=== PATIENT | male | born 1940 | race Caucasian/White ===

== ENCOUNTER → 2016-08-06 | Outpatient (CLI) | payer MEDICARE | END | disposition home or self-care (01) | LOC: LABWHC1 12:30 | PROVIDERS: ATTEND Orthopaedic Surgery | DX: Z01.812 Encounter for preprocedural laboratory examination (principal) | CPT/HCPCS: 86850; 86900; 86901 ==

== ENCOUNTER 2016-08-12 05:48 | Inpatient (IN) | payer MEDICARE ==
[~2016-08-12 05:48] MED LIST: ACETAMINOPHEN TAB 500 MG TAB PO ONE; MELOXICAM 7.5 MG TAB PO ONE; TRANEXAMIC ACID 1,000 MG in SODIUM CHLORIDE 0.9% 100 ML IVPB ONE
[2016-08-12] MEDS ORDERED: LIDOCAINE 1% 20 ML VIAL (10MG/ML) FOR IV START INTRADERMA PRN (05:58)
[2016-08-12] MEDS ORDERED: MIDAZOLAM 2 MG/2 ML VIAL IV PRN (05:58)
[2016-08-12] MEDS ORDERED: HYDROmorphone 1 MG/ML 1 ML SYRINGE IVP PRN ×4 (05:58→10:52)
[2016-08-12] MEDS ORDERED: FAMOTIDINE 20 MG/2 ML VIAL IV PRN (05:58)
[2016-08-12] MEDS ORDERED: ONDANSETRON 4 MG/2 ML VIAL IVP ONE (05:58)
[2016-08-12] MEDS: LACTATED RINGERS 1,000 ML IV SCH (06:33)
[2016-08-12 06:46] LABS: Glucose,Whole Blood 133 mg/dL (75-99)
[2016-08-12] MEDS ORDERED: TRANEXAMIC ACID 1,000 MG/10 ML VIAL ONE (07:50)
[2016-08-12] MEDS ORDERED: ceFAZolin 10 GM VIAL IVPB ONE (07:50)
[2016-08-12] MEDS ORDERED: ePHEDrine 50 MG/ML 1 ML AMP ONE (07:50)
[2016-08-12] MEDS ORDERED: SODIUM CHLORIDE 0.9% 1,000 ML BAG ONE (07:50)
[2016-08-12] MEDS ORDERED: MIDAZOLAM 2 MG/2 ML VIAL ONE (07:50)
[2016-08-12] MEDS ORDERED: ceFAZolin 1,000 MG VIAL ONE (07:50)
[2016-08-12] MEDS ORDERED: PROPOFOL 10 MG/ML 20 ML VIAL IV ONE (07:50)
[2016-08-12] MEDS ORDERED: SODIUM CHLORIDE 0.9% 100 ML BAG ONE ×2 (07:50)
[2016-08-12] MEDS: ceFAZolin 2 GM in SODIUM CHLORIDE 0.9% 100 ML IVPB ONE ×2 (07:56→11:31)
[2016-08-12] MEDS ORDERED: LACTATED RINGERS 1,000 ML IV ONE (08:40)
[2016-08-12] MEDS ORDERED: ceFAZolin 3,000 MG in SODIUM CHLORIDE 0.9% IRRIGATIO 3,000 ML IRRIGATION ONE (08:41)
[2016-08-12] MEDS: ROPIVACAINE 246.25 MG, EPINEPHrine 0.5 MG, KETOROLAC 30 MG, cloNIDine HCL/PF 80 MCG, WA... MISCELLANE ONE ×10 (08:42→09:59)
[2016-08-12] MEDS ORDERED: ROPIVACAINE 1,100 MG, SODIUM CHLORIDE 0.9% 330 ML MISCELLANE PRN ×2 (09:17)
--- NOTE | 2016-08-12 09:19 | P.ONQ ---
Anesthesiology Proc Note - PNB - Peripheral Nerve Block Performed Right Adductor Canal Indication: Acute Post-Operative Pain, Requested by physician (Zack Melgar) Sedation Type: Awake Preparation: Sterile Dressing Position: Supine Catheter: Indwelling Needle Types: On-Q Needle Size: 100mm (4") Needle Gauge: 20 Technique: Ultrasound Injectate: 0.5% Ropivacaine (see comment for volume) (22cc) Blood Aspirated: No Pain Paresthesia on Injection Noted: No Resistance on Injection: Normal Events: Uneventful and Well Tolerated
--- NOTE | 2016-08-12 10:42 | P.OP ---
Date of Procedure: 08/12/16 Preoperative Diagnosis: Failed right total knee arthroplasty Postoperative Diagnosis: Failed right total knee arthroplasty Procedure(s) Performed: Revision right total knee arthroplasty Implants: [employer] Legion Oxinium constrained femoral component size 6, right [employer] press-fit femoral stem, 18 mm x 120 mm [employer] Legion revision tibial baseplate size 5, right [employer] offset cable splicing technician, 6 mm [employer] legion press-fit tibial stem, 15 mm x 120 mm [employer]hew size 18 mm Legion XLPE PS articular insert, size 5-6 All components were cemented using 2 batches of Molly bone cement with tobramycin The articulation is ceramic on polyethylene. Anesthesia: spinal Surgeon: Zack Melgar Rug Frame Mounter #1: Shannon Otero Estimated Blood Loss (ml): 50 Pathology: other (Cultures Times 2. Frozen section. Bone) Condition: stable Disposition: PACU Indications for Procedure: This is a 76-year-old gentleman whose had a right total knee arthroplasty performed by myself approximately 4 years ago. He continues to have pain with his knee, and despite conservative treatment, he wishes to have his knee revised. He is aware of the possibility that a revision may not alleviate his pain. In his preoperative work out infection was ruled out. Informed consent was obtained. Operative Findings: Operative findings showed no concrete evidence for the patient's knee pain. The components were found to be well fixed, polyethylene showed no wear, and cultures and frozen section were provisionally negative. Description of Procedure: Patient was seen in the preoperative area consent was reviewed and operative site was marked with a skin marker. Patient was then brought to the operating room and given preoperative antibiotics intravenously. A spinal anesthetic was administered by the anesthesia department. A tourniquet was placed on the upper thigh and the lower extremity was prepped and draped in usual sterile fashion. A gram of transexamic acid was given. A universal timeout was then performed which confirmed the patient's name, surgical site, ALLERGIES, and consent. The lower extremity was then exsanguinated and tourniquet was inflated to 350 mmHg. A standard and anterior midline approach to the knee was performed following his prior scar, the scar being excised.. The skin and subcutaneous tissue was dissected down to the patellar tendon. A medial parapatellar arthrotomy was then performed. The knee was then extended, the patellar was everted, and the knee was again flexed. There is difficulty in everting the patella, and a quadriceps snip was performed. There was a small amount of clear fluid, which was cultured 2. A frozen section was obtained of the synovium, which was read as no significant acute inflammation. After scar was excised, the knee was able to be exposed. The femoral component was addressed first. Inspection, there is no signs of loosening of either the femoral or tibial patellofemoral components. Using a small saw, the cement implant interface was disrupted around the femur. Next an osteotome was used to mallet the femoral component off with very minimal bone loss. The bone underneath was inspected and found to be in excellent condition. Attention was then directed to the tibia. The poly-component was removed easily after the locking pin had been removed. Next, the same oscillating saw was used to disrupt the cement implant interface for the tibia. Tibial component was then removed with an osteotome with minimal bone loss as well. Again the bone was inspected and found to be in excellent condition. Attention was redirected to the femur. The canal wasn't opened and then hand reamed to a size 18 mm and a depth of 120 mm. Next the distals cutting guide was then placed and pinned on the distal femur. The distal femur was then cut with very minimal bone removed. Next the 4-in-1 cutting block was placed over the reamer and pinned in place after set for the appropriate rotation. Anterior posterior condyles were cut, as well as the anterior chamfer. Femoral trial was then placed and found to have an excellent fit. Next, the box cutting jig was placed and the bone was reamed to accommodate the box. An osteotome was used to ensure all bone and been removed from the femoral box. The femoral trial was then removed. Attention was redirected to the tibia. The tibial canal was then located, and then hand reamers were used to ream to a final size of 15 mm x 120 mm. The proximal tibial cutting guide was placed over the reamer set for the appropriate rotation slope and depth resection and pinned in place. Excellent tibia was then cut next the tibial trial was placed over the tibial reamer, and required the 6 mm offset adapter to allow for the most coverage without overhang. This was then pinned in place, and the tibial Boss was then reamed. The tibial reamer was then removed, and the femoral tibial trials were then placed. Sequential trialing was performed to a final size of 18 mm PS insert. Knee was able to fully extend and flex to 115 and was stable throughout all range of motion. Trials were then removed. The ports were then opened and preassembled on the back table. The cut surfaces of bone were then irrigated with pulsatile lavage. The posterior structures were injected with the ropivacaine solution. The knee was also irrigated with Irrisept solution. The cement was mixed, and the components were then cemented in place. The cement was allowed to harden with the knee in full extension. While the cement was hardening, the remaining soft tissues were injected with the ropivacaine solution. After the cemented hardened. The tourniquet was released, and hemostasis was obtained. A second gram of transexamic acid was given. The knee was again irrigated. The knee was again taken through range of motion and found to be stable throughout all range of motion of 0-130, and the patella tracked normally. The fascia was then closed with #2 strata fix suture. The subcutaneous tissue was closed with 3-0 Vicryl and 3-0 strata fix. Dermabond tape was used for the skin, and the patient was placed in a sterile dressing. Patient was then transferred to recovery room in stable condition. The assistant professor of communication MEHNAZ Leigh was required due the complexity surgery and the need for a skilled veterinary assistant. She assisted in positioning, draping , retraction, and closure of the wound.
[2016-08-12] MEDS ORDERED: hydrOXYzine PAMOATE 25 MG CAP PO PRN (10:52)
[2016-08-12] MEDS ORDERED: BISACODYL 10 MG SUPP RECTAL PRN (10:52)
[2016-08-12] MEDS ORDERED: ONDANSETRON 4 MG/2 ML VIAL IVP PRN (10:52)
[2016-08-12] MEDS ORDERED: HYDROcodone/APAP 5-325MG 1 EACH TAB PO PRN (10:52)
[2016-08-12] MEDS ORDERED: MAGNESIUM HYDROXIDE 2,400 MG/10 ML CUP PO PRN (10:52)
[2016-08-12] MEDS ORDERED: DIAZEPAM 5 MG TAB PO PRN ×2 (10:52)
[2016-08-12] MEDS ORDERED: NALOXONE 0.4 MG/ML 1 ML VIAL IV PRN (10:52)
[2016-08-12 11:04] LABS: Glucose,Whole Blood 162 mg/dL (75-99)
--- NOTE | 2016-08-12 11:10 | XR ---
EXAMINATION TYPE: XR knee limited RT DATE OF EXAM: 08/12/2016 11:04 AM CLINICAL HISTORY: Postoperative evaluation Two views of the right knee are submitted. Identified are changes of total knee arthroplasty with femoral and tibial components appearing well seated. Postsurgical soft tissue changes are noted. Alignment is anatomic.
[2016-08-12] MEDS: SODIUM CHLORIDE 0.9% 1,000 ML IV SCH ×2 (11:57→23:12)
[2016-08-12] MEDS: INSULIN LISPRO (humaLOG) 300 UNIT/3 ML VIAL SQ SCH ×3 (12:59→20:56)
[2016-08-12] MEDS: HYDROcodone/APAP 5-325MG 1 EACH TAB PO PRN ×2 (13:51→20:54)
[2016-08-12] MEDS: ceFAZolin 2 GM in SODIUM CHLORIDE 0.9% 100 ML IVPB SCH ×2 (15:50→23:12)
[2016-08-12 16:31] LABS: Glucose,Whole Blood 209 mg/dL (75-99)
[2016-08-12 20:13] LABS: Glucose,Whole Blood 251 mg/dL (75-99)
--- NOTE | 2016-08-12 20:14 | CONS ---
DATE OF CONSULTATION: 08/12/2016 REASON FOR CONSULTATION: Medical management requested by Dr. Melgar. CONSULTATION: This is a 76-year-old patient of Dr. Hayes who has undergone revision of right total knee arthroplasty. Post procedure no chest pain, shortness of breath, nausea, vomiting. No headache. No dizziness. Sitting up in a chair. His is at the bedside. Patient's chronic stable medical conditions include diabetes mellitus, type 2, hyperlipidemia, BPH. REVIEW OF SYSTEMS: CONSTITUTIONAL: None. HEENT: None. RESPIRATORY: None. CARDIOVASCULAR: None. GASTROINTESTINAL: None. GENITOURINARY: None. MUSCULOSKELETAL: Pain in the joints. HEMATOLOGICAL: None. LYMPHATICS: None. PSYCHIATRY: None. NEUROLOGICAL: None. PAST MEDICAL HISTORY: 1. Diabetes mellitus, type 2. 2. Hyperlipidemia. 3. BPH. 4. Osteoarthritis. PAST SURGICAL HISTORY: 1. Back surgery. 2. Joint replacement. 3. Right knee arthroplasty. 4. Bilateral knee replacement. SOCIAL HISTORY: . Smoked a pack a day for 20 years; stopped in 1977. Drinks one martini a day. FAMILY HISTORY: COPD. Father at the age of 86. HOME MEDICATIONS: 1. Metformin 1000 mg p.o. b.i.d. 2. Glucotrol XL 5 mg p.o. daily. 3. Flomax 0.4 mg p.o. at bedtime. 4. Pravachol 40 mg p.o. at bedtime. 5. Mobic 7.5 p.o. daily. 6. Tylenol 325 to 650 mg q.6 p.r.n. ALLERGIES: NONE. On examination, temperature 98.4, pulse 73, respiration 16, blood pressure 136/84, pulse ox 95% on room air. GENERAL APPEARANCE: Will built; BMI of 31.4. Sitting up in a chair. Comfortable. EYES: Pupils equal. Conjunctivae normal. HEENT: External appearance of nose and ears normal. Oral cavity normal. NECK: JVD not raised. Mass not palpable. RESPIRATORY: Effort normal. LUNGS: Fair air entry. CARDIOVASCULAR: First and second sounds normal. No edema. ABDOMEN: Soft, nontender. Liver and spleen not palpable. LYMPHATIC: No lymph node palpable in neck or axillae. PSYCHIATRY: Alert and oriented x3. Mood and affect normal. EXTREMITIES: Right knee in a dressing. INVESTIGATIONS: Accu-Cheks are noted. ASSESSMENT: 1. Revision right total knee arthroplasty for osteoarthritis. 2. Diabetes mellitus, type 2, chronically on oral hypoglycemic. 3. Hyperlipidemia, chronic. 4. Benign prostatic hypertrophy, chronic. 5. Primary osteoarthritis in multiple joints, bilateral. PLAN: Home medications are resumed. Accu-Cheks will be followed. For DVT prophylaxis, patient is on aspirin per Orthopedics. Care was discussed with the patient. Questions were answered. Thank you, Dr. Melgar.
[2016-08-12] MEDS ORDERED: TAMSULOSIN 0.4 MG CAP.ER.24H PO SCH (21:00)
[2016-08-12] MEDS ORDERED: PRAVASTATIN SODIUM 40 MG TAB PO SCH (21:00)
[2016-08-12] MEDS ORDERED: SENNOSIDES-DOCUSATE SODIUM 1 EACH TAB PO SCH (21:00)
[2016-08-12] MEDS: ASPIRIN 325 MG TAB PO SCH (21:10)
[2016-08-12] MEDS: metFORMIN 500 MG TAB PO SCH (21:10)
[2016-08-13 00:52] VITALS: RESP 16
[2016-08-13] MEDS: HYDROcodone/APAP 5-325MG 1 EACH TAB PO PRN ×2 (04:12→09:57)
[2016-08-13 06:54] LABS: Glucose,Whole Blood 133 mg/dL (75-99)
[2016-08-13] MEDS: LACTATED RINGERS 1,000 ML IV SCH (07:58)
[2016-08-13] MEDS: INSULIN LISPRO (humaLOG) 300 UNIT/3 ML VIAL SQ SCH (07:59)
[2016-08-13] MEDS: metFORMIN 500 MG TAB PO SCH (08:00)
[2016-08-13] MEDS: ASPIRIN 325 MG TAB PO SCH (08:00)
[2016-08-13 08:34] LABS: Basophils % (A) 0 %; CH 31.6; CHCM 35.1; Eosinophils # (A) 0.2 k/uL (0-0.7); Eosinophils % (A) 2 %; HCT 37.2 % (39.0-53.0); HDW 2.93; HGB 12.6 gm/dL (13.0-17.5); Luc # (Auto) 0.13; Luc % (Auto) 1; Lymphocytes # (A) 0.9 k/uL (1.0-4.8); Lymphocytes % (A) 10 %; MCH 30.6 pg (25.0-35.0); MCHC 33.8 g/dL (31.0-37.0); MCV 90.4 fL (80.0-100.0); Mean Platelet Volume 7.8; Monocytes # (A) 1.1 k/uL (0-1.0); Monocytes % (A) 12 %; Neutrophils # (A) 7.1 k/uL (1.3-7.7); Neutrophils % (A) 75 %; RBC 4.12 m/uL (4.30-5.90); WBC 9.5 k/uL (3.8-10.6)
--- NOTE | 2016-08-13 08:44 | P.PN ---
Progress Note - Text The patient is status post right adductor canal catheter placement. The catheter was placed for postoperative pain control, status post revision total right knee arthroplasty. Ropivacaine 0.2% is infusing at 10 mLs per hour. The patient has no complaints of right lower extremity numbness or weakness. Patient's VAS score is[3-4-10. The patient states his pain is predominantly in the posterior right knee region. Assessment: Patient's adductor canal catheter is in place and working appropriately. Plan: continue infusion and adjust it as needed.
[2016-08-13] MEDS ORDERED: MELOXICAM 7.5 MG TAB PO SCH (09:00)
[2016-08-13 09:28] VITALS: BP 126/60; PULSE 75; TEMP 97.9
[2016-08-13 11:28] LABS: Glucose,Whole Blood 164 mg/dL (75-99)
[2016-08-13 11:39] LABS: Hemoglobin A1C 6.6 % (4.2-6.1)
--- NOTE | 2016-08-13 11:52 | P.DS ---
Providers Date of admission: 08/12/16 05:48 Expected date of discharge: 08/13/16 Attending physician: Zack Melgar Consults: 08/12/16 10:52 Consult Physician Routine Consulting Provider: David Katz Consult Reason/Comments: medical management Do you want consulting provider notified?: Yes Primary care physician: Nigel Hayes - Discharge Diagnosis(es) (1) Failed total knee, right Current Visit: Yes Status: Acute (2) Status post revision of total replacement of right knee Current Visit: Yes Status: Acute Hospital Course: This is a 76-year-old gentleman with history of right total knee arthroplasty performed approximately 4 years ago. The patient continued to have pain in his right knee and despite conservative treatment wished to proceed with total knee revision. Patient was seen preoperatively and medically cleared for surgery by Dr. Hayes. Patient was admitted to [facility] on 08/12/2016 and underwent the procedure with Dr. Zack Melgar. The procedure was performed without competitions or sequelae. The patient has done well postoperatively. He was seen and evaluated at bedside with Dr. Zack Melgar this morning. He states his pain is reasonably controlled. Denies fevers, chills, nausea, vomiting, shortness of breath. Vital signs are stable. Dressing is clean dry and intact. Incision appears fine with no erythema or active drainage. Calf is soft and nontender. He is able to perform straight leg raise. Calf is soft and nontender. Sensation and circulatory status is intact. The patient is orthopedic medically stable for discharge to home today if he does well with therapy. The patient wishes to be discharged home today as well. Pertinent Studies: Microbiology 08/12/16 08:30 Knee - Right Gram Stain - Preliminary 08/12/16 08:30 Knee - Right Wound Culture - Preliminary 08/12/16 08:30 Knee - Right Anaerobic Culture - Preliminary 08/12/16 08:25 Knee - Right Gram Stain - Preliminary 08/12/16 08:25 Knee - Right Wound Culture - Preliminary 08/12/16 08:25 Knee - Right Anaerobic Culture - Preliminary Laboratory Tests 08/13/16 07:58 WBC 9.5 RBC 4.12 L Hgb 12.6 L Hct 37.2 L MCV 90.4 MCH 30.6 Patient Condition at Discharge: Good Plan - Discharge Summary New Discharge Prescriptions: Aspirin 325 mg PO BID #60 tab HYDROcodone/APAP 7.5-325MG [[place] 7.5] 1 - 2 each PO Q6HR PRN #90 tab PRN Reason: Pain Sennosides-Docusate Sodium [Senokot-S] 2 tab PO DAILY #60 tablet Discharge Medication List Acetaminophen Tab [Tylenol] 325 - 650 mg PO Q6H PRN 08/02/16 [History] Meloxicam [Mobic] 7.5 mg PO DAILY 08/02/16 [History] Pravastatin Sodium [Pravachol] 40 mg PO HS 08/02/16 [History] Tamsulosin [Flomax] 0.4 mg PO HS 08/02/16 [History] glipiZIDE XL [Glucotrol XL] 5 mg PO QAM 08/02/16 [History] metFORMIN HCL 1,000 mg PO BID 08/02/16 [History] Aspirin 325 mg PO BID #60 tab 08/13/16 [Rx] HYDROcodone/APAP 7.5-325MG [[place] 7.5] 1 - 2 each PO Q6HR PRN #90 tab 08/13/16 [ Rx] Sennosides-Docusate Sodium [Senokot-S] 2 tab PO DAILY #60 tablet 08/13/16 [Rx] Follow up Appointment(s)/Referral(s): Zack Melgar DO [Doctor of Osteopathic Medicine] - 08/26/16 1:50 pm Ambulatory/Diagnostic Orders: Continuous Passive Motion (CPM) Machine [DME.AMB1] Location: Determined By Patient Ambulatory Physical Therapy Order [THER.AMB] Location: Determined By Patient Activity/Diet/Wound Care/Special Instructions: CPM - [facility] - [phone] - call when you get home for delivery of CPM Walker - has at home Outpatient physical therapy - phone number for [facility] Outpatient physical therapy on [facility] - [phone] Weightbearing as tolerated with a walker CPM daily Okay to shower after 48 hours with no drainage, do not scrub incision Call OA [phone] with questions or concerns Discharge Disposition: HOME SELF-CARE
--- NOTE | 2016-08-14 22:14 | PN ---
DATE OF SERVICE: 08/13/2016 PRESENTING COMPLAINT: Right knee surgery. INTERVAL HISTORY: This patient was seen by me yesterday morning on 08/13/2016. The patient is doing well. No chest pain. No shortness of breath. No nausea or vomiting. Did work with physical therapy. Has been out of bed. Review of systems done for constitutional, cardiovascular, GI, pulmonary; relevant findings as above. Current medications are reviewed. On examination, temperature 97.9, pulse 75. Respiratory rate 14, blood pressure 126/60, pulse ox 94% on room air. GENERAL APPEARANCE: Sitting up, comfortable. EYES: Pupils equal. Conjunctivae normal. NECK: JVD not raised. Mass not palpable. RESPIRATORY: Effort normal. Lungs are clear. CARDIOVASCULAR: First and second sounds normal. No edema. ABDOMEN: Soft, nontender. Liver and spleen not palpable. Psychiatric alert and oriented times three. Mood and affect normal. INVESTIGATIONS: White count 9.5, hemoglobin 12.6. ASSESSMENT: 1. Revision right total knee arthroplasty for osteoarthritis. 2. Type 2 diabetes mellitus, chronically on oral hypoglycemic. 3. Chronic hyperlipidemia. 4. Benign prostatic hypertrophy, chronic. 5. Primary osteoarthritis of multiple joints, bilateral. PLAN: The patient is stable. Continue current medication and treatment plan. Care was discussed with the patient. Thank you, Dr. Melgar.
== END 2016-08-13 12:15 | disposition home or self-care (01) | DRG 468 ==
LOC: 2ORMAIN 05:48 → 3SUR 10:59
PROVIDERS: ADMIT Orthopaedic Surgery; ATTEND Orthopaedic Surgery
PROC: 0SRC0J9 Replacement of Right Knee Joint with Synthetic Substitute, Cemented, Open Approach (ICD-10-PCS; principal; 2016-08-12 07:30)
PROC: 0SPC09Z Removal of Liner from Right Knee Joint, Open Approach (ICD-10-PCS; principal; 2016-08-12 07:30)
PROC: 0SPC0JZ Removal of Synthetic Substitute from Right Knee Joint, Open Approach (ICD-10-PCS; principal; 2016-08-12 07:30)
PROC: 0SUV09Z Supplement Right Knee Joint, Tibial Surface with Liner, Open Approach (ICD-10-PCS; principal; 2016-08-12 07:30)
DX: T84.092A Other mechanical complication of internal right knee prosthesis, initial encounter (principal); E11.9 Type 2 diabetes mellitus without complications; Y79.2 Prosthetic and other implants, materials and accessory orthopedic devices associated with adverse incidents; E78.5 Hyperlipidemia, unspecified; M15.9 Polyosteoarthritis, unspecified; N40.0 Benign prostatic hyperplasia without lower urinary tract symptoms; Z87.891 Personal history of nicotine dependence; Z79.84 Long term (current) use of oral hypoglycemic drugs; Z79.899 Other long term (current) drug therapy
CPT/HCPCS: 36415; 80048; 83036; 85025; 85610; 85652; 85730; 86140; 86850; 86900; 86901; 87040; 87070; 87075; 87205; 88305; 88331; 94760; 96360; 96361; 99284

== ENCOUNTER 2016-08-13 18:42 | Emergency (ER) | payer MEDICARE ==
[2016-08-13] MEDS ORDERED: HYDROcodone/APAP 10-325MG 1 EACH TAB PO ONE (19:06)
[2016-08-13] MEDS ORDERED: SODIUM CHLORIDE 0.9% 1,000 ML IV ONE (19:17)
[2016-08-13 20:16] LABS: Glucose,Whole Blood 167 mg/dL (75-99)
--- NOTE | 2016-08-13 20:21 | ED ---
Extremity Problem HPI - General Chief complaint: Extremity Problem,Nontraumatic Stated complaint: Post op knee problems Time Seen by Provider: 08/13/16 18:54 Source: patient, EMS, RN notes reviewed Mode of arrival: EMS - History of Present Illness Initial comments: Patient is a 76-year-old male presenting to the [facility] one day after right knee replacement stating he has increased pain. Patient reports that he was discharged earlier today. He states that the pain is worse with movement. He states that he does have a subcu pain pump in place on his right thigh. He states that when he was at home today the visiting physical therapist came and started him on the CPM machine. He states that he felt tired and was having a hard time being able to move around. He states he is Type 2 diabetic. He states he did not take his oral pain medication or aspirin anticoagulant since being discharged. Patient denies any redness to the knee. He denies any decreased sensation to the lower leg. He denies any hip or upper thigh pain. - Related Data Home Medications Medication Instructions Recorded Confirmed Acetaminophen Tab [Tylenol] 650 mg PO Q6H PRN 08/02/16 08/13/16 Meloxicam [Mobic] 7.5 mg PO BID PRN 08/02/16 08/13/16 Pravastatin Sodium [Pravachol] 40 mg PO HS 08/02/16 08/13/16 Tamsulosin [Flomax] 0.4 mg PO HS 08/02/16 08/13/16 glipiZIDE XL [Glucotrol XL] 5 mg PO QAM 08/02/16 08/13/16 metFORMIN HCL 1,000 mg PO BID 08/02/16 08/13/16 HYDROcodone/APAP 7.5-325MG [[place] 2 tab PO Q6HR PRN 08/13/16 08/13/16 7.5-325] HYDROcodone/APAP 7.5-325MG [[place] 1 tab PO Q6HR PRN 08/13/16 08/13/16 7.5] Previous Rx's Medication Instructions Recorded Aspirin 325 mg PO BID #60 tab 08/13/16 Sennosides-Docusate Sodium 2 tab PO DAILY #60 tablet 08/13/16 [Senokot-S] Allergies Allergy/AdvReac Type Severity Reaction Status Date / Time No Known Allergies Allergy Verified 08/13/16 18:48 Review of Systems ROS Statement: Those systems with pertinent positive or pertinent negative responses have been documented in the HPI. ROS Other: All systems not noted in ROS Statement are negative. Past Medical History Additional Past Medical History / Comment(s): NIDDM type II History of Any Multi-Drug Resistant Organisms: None Reported Additional Past Surgical History / Comment(s): 08/12/16 Revision total R knee arthroplasty. Other surgical hx: BILATERAL KNEE REPLACEMENTS Additional Past Anesthesia/Blood Transfusion Reaction / Comment(s): Pt has had PONV and BROTHER HAD PONV. Past Psychological History: No Psychological Hx Reported Additional Psychological History / Comment(s): Pt resides with his spouse. He is independent. Smoking Status: Never smoker Past Alcohol Use History: Rare Past Drug Use History: None Reported - Past Family History Father Additional Family Medical History / Comment(s): Father at the age of 86yrs. Mother Additional Family Medical History / Comment(s): Mother at the age of 84yrs. General Exam - General Exam Comments Initial Comments: Patient is a pleasant 76-year-old male. He does not appear to be in any acute distress. General appearance: alert, in no apparent distress Head exam: Present: atraumatic, normocephalic, normal inspection Eye exam: Present: normal appearance, PERRL, EOMI. Absent: scleral icterus, conjunctival injection, periorbital swelling ENT exam: Present: normal exam, mucous membranes moist Neck exam: Present: normal inspection. Absent: tenderness, meningismus, lymphadenopathy Respiratory exam: Present: normal lung sounds bilaterally. Absent: respiratory distress, wheezes, rales, rhonchi, stridor Cardiovascular Exam: Present: regular rate, normal rhythm, normal heart sounds. Absent: systolic murmur, diastolic murmur, rubs, gallop, clicks GI/Abdominal exam: Present: soft, normal bowel sounds. Absent: distended, tenderness, guarding, rebound, rigid Right Upper Leg exam: Present: normal inspection, full ROM. Absent: swelling Knee exam: Present: tenderness (Patient reports a slightly tender over the knee. No evidence of significant swelling would be abnormal compared to a person had recent surgery.), swelling (minor). Absent: normal inspection ( Patient has evidence of a recent surgery with incision site over the right knee. No evidence of drainage or erythema over the incision site.) Lower Leg exam: Present: normal inspection, full ROM Ankle exam: Present: normal inspection, full ROM Foot/Toe exam: Present: normal inspection, full ROM Course Vital Signs 08/13/16 08/13/16 18:48 22:45 Temperature 97.1 F L 97 F L Pulse Rate 82 80 Respiratory 16 20 Rate Blood Pressure 162/80 177/84 O2 Sat by Pulse 98 96 Oximetry Medical Decision Making - Medical Decision Making Is a 76-year-old male presenting to the after being discharged today after a right knee surgery with increased right knee pain. He does have a subcu pain pump. He states he has felt increasingly tired this evening. Labs are obtained. Patient was given a Doppler ultrasound to rule out possible blood clot. Due to no acute trauma or injury to the leg we will hold on doing Xrays at this time. All labwork was reviewed to be negative. Patient does not have a DVT. Patient was saying that he is still feeling that he is unable to walk and put pressure on his leg and his concerns and fall. Admission was offered as patient was initially adamant about being admitted. When I discussed that there is going to be possibility that this admission would not be covered by insurance because it does not necessarily meet criteria for admission. When this was questioned about the insurance and can be able to cover the visit he stated that he does not want to be admitted. Patient reports that he wants to go home at this time. Again admission was offered, but He states he does want to go home. He will be discharged to take at home pain medication and to follow up with therapy tomorrow. I advised consult with PCP if he feels that he needs to be moved to a rehab facility. Patient was able to walk with a walker when leaving the . - Lab Data Result diagrams: 08/13/16 20:10 08/13/16 20:10 Lab Results 08/13/16 08/13/16 08/13/16 Range/Units 20:10 20:10 20:10 WBC 9.3 (3.8-10.6) k/uL RBC 4.39 (4.30-5.90) m/uL Hgb 13.0 (13.0-17.5) gm/dL Hct 39.5 (39.0-53.0) % MCV 89.8 (80.0-100.0) fL MCH 29.7 (25.0-35.0) pg MCHC 33.0 (31.0-37.0) g/dL RDW 13.0 (11.5-15.5) % Plt Count 190 (150-450) k/uL Neutrophils % 78 % Lymphocytes % 7 % Monocytes % 12 % Eosinophils % 1 % Basophils % 1 % Neutrophils # 7.3 (1.3-7.7) k/uL Lymphocytes # 0.7 L (1.0-4.8) k/uL Monocytes # 1.1 H (0-1.0) k/uL Eosinophils # 0.1 (0-0.7) k/uL Basophils # 0.1 (0-0.2) k/uL ESR 28 H (0-15) mm/hr PT 10.0 (9.0-12.0) sec INR 1.0 (<1.1) APTT 23.5 (22.0-30.0) sec Sodium 139 (137-145) mmol/L Potassium 4.2 (3.5-5.1) mmol/L Chloride 103 (98-107) mmol/L Carbon Dioxide 24 (22-30) mmol/L Anion Gap 12 mmol/L BUN 14 (9-20) mg/dL Creatinine 0.90 (0.66-1.25) mg/dL Est GFR (MDRD) Af Amer >60 (>60 ml/min/1.73 sqM) Est GFR (MDRD) Non-Af >60 (>60 ml/min/1.73 sqM) Glucose 168 H (74-99) mg/dL POC Glucose (mg/dL) (75-99) mg/dL POC Glu Line Installation Supervisor ID Calcium 8.9 (8.4-10.2) mg/dL C-Reactive Protein 200.2 H (<10.0) mg/L 08/13/16 Range/Units 20:15 WBC (3.8-10.6) k/uL RBC (4.30-5.90) m/uL Hgb (13.0-17.5) gm/dL Hct (39.0-53.0) % MCV (80.0-100.0) fL MCH (25.0-35.0) pg MCHC (31.0-37.0) g/dL RDW (11.5-15.5) % Plt Count (150-450) k/uL Neutrophils % % Lymphocytes % % Monocytes % % Eosinophils % % Basophils % % Neutrophils # (1.3-7.7) k/uL Lymphocytes # (1.0-4.8) k/uL Monocytes # (0-1.0) k/uL Eosinophils # (0-0.7) k/uL Basophils # (0-0.2) k/uL ESR (0-15) mm/hr PT (9.0-12.0) sec INR (<1.1) APTT (22.0-30.0) sec Sodium (137-145) mmol/L Potassium (3.5-5.1) mmol/L Chloride (98-107) mmol/L Carbon Dioxide (22-30) mmol/L Anion Gap mmol/L BUN (9-20) mg/dL Creatinine (0.66-1.25) mg/dL Est GFR (MDRD) Af Amer (>60 ml/min/1.73 sqM) Est GFR (MDRD) Non-Af (>60 ml/min/1.73 sqM) Glucose (74-99) mg/dL POC Glucose (mg/dL) 167 H (75-99) mg/dL POC Glu Line Installation Supervisor ID [place] Calcium (8.4-10.2) mg/dL C-Reactive Protein (<10.0) mg/L - Radiology Data Radiology results: report reviewed US of leg shows no evidence of DVT. Disposition Clinical Impression: Status post right knee replacement, Knee pain Disposition: HOME SELF-CARE Condition: Good Instructions: Knee Pain (ED) Additional Instructions: Patient instructed to take at home pain medications. Avoid bearing weight as much as possible. Follow-up with physical therapy and rehab services tomorrow. Call family doctor concerned about being in a continuous rehab facility. Return to the [facility] if any alarming signs or symptoms occur. Patient instructed to reclining chair into avoid ambulating as much as possible. Take aspirin and pain medications as prescribed. Referrals: Nigel Hayes DO [Primary Care Provider] - 1-2 days Time of Disposition: 22:37
[2016-08-13 20:25] LABS: Basophils # (A) 0.1 k/uL (0-0.2); Basophils % (A) 1 %; CH 31.7; CHCM 35.4; Eosinophils # (A) 0.1 k/uL (0-0.7); Eosinophils % (A) 1 %; HCT 39.5 % (39.0-53.0); HDW 2.89; Luc # (Auto) 0.11; Luc % (Auto) 1; Lymphocytes # (A) 0.7 k/uL (1.0-4.8); Lymphocytes % (A) 7 %; MCH 29.7 pg (25.0-35.0); MCV 89.8 fL (80.0-100.0); Mean Platelet Volume 7.9; Monocytes # (A) 1.1 k/uL (0-1.0); Monocytes % (A) 12 %; Neutrophils # (A) 7.3 k/uL (1.3-7.7); Neutrophils % (A) 78 %; RBC 4.39 m/uL (4.30-5.90); WBC 9.3 k/uL (3.8-10.6); WBC (Perox) 9.59
[2016-08-13 20:43] LABS: Anion Gap 12 mmol/L; Blood Urea Nitrogen 14 mg/dL (9-20); Calcium 8.9 mg/dL (8.4-10.2); Carbon Dioxide 24 mmol/L (22-30); Chloride 103 mmol/L (98-107); Glucose 168 mg/dL (74-99); Non-African American GFR(MDRD) >60 (>60 ml/min/1.73 sqM); Potassium 4.2 mmol/L (3.5-5.1); Sodium 139 mmol/L (137-145)
[2016-08-13 20:51] LABS: Partial Thromboplastin Time 23.5 sec (22.0-30.0)
--- NOTE | 2016-08-13 21:03 | US ---
EXAMINATION TYPE: US venous doppler duplex LE RT DATE OF EXAM: 08/13/2016 8:51 PM COMPARISON: NONE CLINICAL HISTORY: right knee pain, pt had 2nd total knee replacement done on right side yesterday. SIDE PERFORMED: right VESSELS IMAGED: External Iliac Vein (EIV) Common Femoral Vein Deep Femoral Vein Greater Saphenous Vein * Femoral Vein Popliteal Vein Small Saphenous Vein * Proximal Calf Veins (* superficial vessels) TECHNOLOGIST IMPRESSION: Right Leg: Appears negative for DVT IMPRESSION: Normal exam. No evidence of deep venous thrombosis in the right leg.
[2016-08-13 21:09] LABS: C Reactive Protein 200.2 mg/L (<10.0); Erythrocyte Sedimentation Rate 28 mm/hr (0-15)
[2016-08-13 22:47] VITALS: BP 177/84; PULSE 80; RESP 20; TEMP 97
== END 2016-08-13 22:48 | disposition home or self-care (01) ==
LOC: EC 18:42
DX: M25.561 Pain in right knee (principal); E11.9 Type 2 diabetes mellitus without complications; Z96.651 Presence of right artificial knee joint; Z79.84 Long term (current) use of oral hypoglycemic drugs; Z79.82 Long term (current) use of aspirin; Z79.899 Other long term (current) drug therapy
CPT/HCPCS: 36415; 80048; 85025; 85610; 85652; 85730; 86140; 87040; 96360; 96361; 99284

== ENCOUNTER → 2016-11-14 | Day surgery (SDC) | payer MEDICARE ==
[~2016-11-14] MED LIST changes: -ACETAMINOPHEN TAB 500 MG TAB PO ONE; -MELOXICAM 7.5 MG TAB PO ONE; +SODIUM CHLORIDE 0.9% 250 ML in EMPTY BAG 1 BAG IV PRN; +SODIUM CHLORIDE 0.9% 500 ML in EMPTY BAG 1 BAG IV PRN; -TRANEXAMIC ACID 1,000 MG in SODIUM CHLORIDE 0.9% 100 ML IVPB ONE
[2016-11-14 13:20] VITALS: BP 167/81; PULSE 82; RESP 16; TEMP 98.3
[2016-11-14 14:49] LABS: Total Protein 6.6 g/dL (6.3-8.2)
--- NOTE | 2016-11-14 14:53 | XR ---
EXAMINATION TYPE: XR chest 1V portable DATE OF EXAM: 11/14/2016 2:39 PM HISTORY: Shortness of breath. COMPARISON: None. TECHNIQUE: Single view of the chest is submitted. FINDINGS: Demonstrated are scattered senescent parenchymal change. There is left basilar opacity. Small residual effusion noted. No evidence for pneumothorax. The heart is stable. Hilar and mediastinal structures are within normal limits. Degenerative changes are seen of the dorsal spine. IMPRESSION: 1. There is left basilar opacity. Small residual effusion noted. No evidence for pneumothorax.
[2016-11-14 17:46] LABS: RBC, Body Fluid 40750 /uL
--- NOTE | 2016-11-14 22:53 | PCN ---
DATE OF PROCEDURE: 11/14/2016 PROCEDURE DONE: Left thoracentesis. INDICATIONS: 1. Shortness of breath. 2. Left-sided pleural effusion. 3. Pneumonia. OPERATIVE DETAIL: Patient was prepared and draped in the usual fashion. Ultrasound was utilized to locate the depth of maximum fluid collection. 1% lidocaine was utilized into the posterior posterolateral thoracic wall on the eighth intercostal space above the upper margin of the rib. About 1% lidocaine was infiltrated followed by placement of the needle into the pleural space where blood-tinged was aspirated followed by making a stab incision and through the stab incision, which was less than one eighth of a centimeter, the catheter and needle was placed. The needle was withdrawn. Catheter left in position and 1 liter of pleural fluid aspirated. Patient tolerated the procedure well. No complication noted. Postprocedure chest x-ray is pending.
== END ==
LOC: PROCWHC3 12:58
PROVIDERS: ATTEND Internal Medicine Sleep Medicine
DX: J90 Pleural effusion, not elsewhere classified (principal); J18.9 Pneumonia, unspecified organism; Z72.0 Tobacco use
CPT/HCPCS: 32554; 32555; 36415; 71010; 76604; 82945; 83615; 84155; 84157; 87070; 87102; 87116; 87205; 87206; 88108; 88305; 89050

== ENCOUNTER → 2016-11-14 | Outpatient (CLI) | payer MEDICARE ==
--- NOTE | 2016-11-14 13:09 | US ---
EXAMINATION TYPE: US chest DATE OF EXAM: 11/14/2016 12:54 PM COMPARISON: NONE CLINICAL HISTORY: J90 Plueral effusion. Pt states xray at different facility showed pleural effusion left chest EXAM MEASUREMENTS: Left Pleural Effusion fluid pocket: 11.0 cm Left skin to fluid thickness: 4.9 cm Left side marked for possible thoracentesis outside the dept. Pulmonologists are able to review the images in the patient?s EMR. IMPRESSIONS: Pleural effusion
== END | disposition home or self-care (01) ==
LOC: RADUSWWP 12:42
PROVIDERS: ATTEND Internal Medicine Sleep Medicine
DX: J90 Pleural effusion, not elsewhere classified (principal)
CPT/HCPCS: 76604

== ENCOUNTER → 2016-11-19 | Outpatient (CLI) | payer MEDICARE ==
[2016-11-19 08:31] LABS: Blood Urea Nitrogen 13 mg/dL (9-20); Non-African American GFR(MDRD) >60 (>60 ml/min/1.73 sqM)
--- NOTE | 2016-11-19 09:02 | CT ---
EXAMINATION TYPE: CT chest w con DATE OF EXAM: 11/19/2016 8:49 AM COMPARISON: NONE HISTORY: just had a large amount of blood drained from left lung, unknown cause CT DLP: 551.1 mGycm Automated exposure control for dose reduction was used. CONTRAST: CT scan of the chest is performed with IV Contrast, patient injected with 100 mL of Omnipaque 300. FINDINGS: LUNGS: There is a large left-sided pleural effusion extending from the lung base through the left kami g apex with maximal AP dimension of 7.3 cm. There are areas of nodular pleural thickening. There is l eft lower lobe atelectatic change. Underlying mass is difficult to exclude. The right lung is somewha t hyperinflated the however is free of mass or nodule. MEDIASTINUM: There are no greater than 1 cm hilar or mediastinal lymph nodes. No pericardial effusi on is seen. Thoracic aorta is of normal caliber. The heart is not enlarged. UPPER ABDOMEN: Hypoattenuating suspicious hepatic lesions are noted with the largest lesion identifie d within the anterior segment right hepatic lobe and measuring 2.8 cm. A second lesion is seen within the hepatic dome and measures 1.7 cm a third lesion measuring 1.1 cm lateral segment left hepatic lo be. 2 or 3 additional subcentimeter left hepatic lobe lesions are too small to appropriately characte rize. There is mild hepatic steatosis. OTHER: No additional significant abnormality is seen. IMPRESSION: 1. Large left-sided pleural effusion as noted with nodular areas of pleural thickening. Left lower lo be atelectasis with underlying mass difficult to exclude. 2. Findings highly suspicious for metastatic disease to the liver.
== END | disposition home or self-care (01) ==
LOC: RADCTMAIN 07:53
PROVIDERS: ATTEND Internal Medicine Sleep Medicine
DX: J90 Pleural effusion, not elsewhere classified (principal); J98.4 Other disorders of lung; J98.11 Atelectasis
CPT/HCPCS: 82565; 84520; 71260; 36415; Q9967

== ENCOUNTER → 2016-11-28 | Day surgery (SDC) | payer MEDICARE ==
[2016-11-28 08:53] VITALS: RESP 16; TEMP 97.7
[2016-11-28 10:28] VITALS: BP 156/78; PULSE 78
--- NOTE | 2016-11-28 10:44 | XR ---
EXAMINATION TYPE: XR chest 1V portable DATE OF EXAM: 11/28/2016 10:16 AM COMPARISON: 11/14/2016 INDICATION: Postthoracentesis left pleural effusion TECHNIQUE: Single frontal view of the chest is obtained. FINDINGS: The heart size is normal. The pulmonary vasculature is normal. There is a moderate left pleural effusion. No left-sided pneumothorax is evident. The right lung appe ars clear. IMPRESSION: 1. No pneumothorax postthoracentesis. 2. Left side moderate pleural effusion.
[2016-11-28 13:56] LABS: RBC, Body Fluid 95000 /uL
[2016-11-28 16:10] LABS: Glucose, BF Source Pleural Fluid; LDH, Body Fluid Source Pleural Fluid; T. Protein, Body Fluid Source Pleural Fluid; Total Protein, Body Fluid 4400 mg/dL
--- NOTE | 2016-11-30 08:30 | PCN ---
DATE OF PROCEDURE: 11/28/2016 PROCEDURE PERFORMED: Left thoracentesis. INDICATIONS: 1. Recurrent left pleural effusion. 2. Shortness breath. 3. Chest pain. 4. Gastrointestinal bleed. OPERATIVE DETAIL: Patient was prepared and draped in the usual fashion. Informed consent obtained from the patient. The ultrasound was utilized to sada the area of maximum depth. 1% lidocaine was infiltrated in the posterolateral wall on the eighth intercostal space after adequate anesthesia. A small stab incision was performed followed by placement of catheter and needle. The needle was withdrawn. Catheter left in position and 1.7 liters of dark pleural fluid was aspirated. Patient tolerated the procedure well. No complication noted. Fluid is sent for Gram stain, culture and cytology, cell count and diff.
== END ==
LOC: PROCWHC3 08:38
PROVIDERS: ATTEND Internal Medicine Sleep Medicine
DX: J90 Pleural effusion, not elsewhere classified (principal); K92.2 Gastrointestinal hemorrhage, unspecified; R07.9 Chest pain, unspecified; R06.02 Shortness of breath
CPT/HCPCS: 32554; 71010; 76604; 82150; 82945; 83615; 84157; 87070; 87102; 87116; 87205; 87206; 88108; 88305; 89050

== ENCOUNTER → 2016-11-28 | Outpatient (CLI) | payer MEDICARE ==
--- NOTE | 2016-11-28 09:18 | US ---
EXAMINATION TYPE: US chest DATE OF EXAM: 11/28/2016 8:31 AM COMPARISON: CT 11/19/2016 CLINICAL HISTORY: 76-year-old male J90 pleural effusion. Left pleural effusion. TECHNIQUE: Multiple sonographic images of the left posterior lower thorax for assessment of pleural e ffusion. The right side was also scanned. FINDINGS: EXAM MEASUREMENTS: Left Pleural Effusion fluid pocket: 10.6 cm Left skin surface to fluid distance: 3.7 cm Underlying atelectatic lung. No effusion on the right. Right side NOT MARKED for possible thoracentesis outside the dept. Left side MARKED for possible thoracentesis outside the dept. Pulmonologists are able to review the images in the patient?s EMR. IMPRESSIONS: Large left pleural effusion with marking performed.
== END | disposition home or self-care (01) ==
LOC: RADUSWWP 08:16
PROVIDERS: ATTEND Internal Medicine Sleep Medicine
DX: J90 Pleural effusion, not elsewhere classified (principal)
CPT/HCPCS: 76604

== ENCOUNTER → 2016-11-29 | Outpatient (CLI) | payer MEDICARE ==
--- NOTE | 2016-11-29 08:53 | US ---
EXAMINATION TYPE: US liver DATE OF EXAM: 11/29/2016 7:54 AM COMPARISON: CT chest November 19, 2016 CLINICAL HISTORY: K76.89 Hepatic Lesion. EXAM MEASUREMENTS: Liver Length: 14.0 cm Gallbladder Wall: 0.1 cm CBD: 0.5 cm Right Kidney: 12.1 x 5.9 x 5.8 cm Pancreas: Obscured by bowel gas Liver: lt lobe lesion 2.4 x 1.8 cm ; 2 lesions seen right lobe; 3.4 x 2.0 cm and 2.2 x 2.2 cm * best scanned intercostal Gallbladder: No stones seen Evidence for sonographic Loza's sign: no CBD: wnl Right Kidney: No hydronephrosis or masses seen Solid appearing hepatic lesion as described above. Pancreas is suboptimally evaluated on images saved but appeared within normal limits on recent CT. Li sydney is heterogeneously hyperechoic making evaluation suboptimal for focal masses. There is satisfacto ry visualization of a 4.0 x 3.6 cm heterogeneous hypoechoic lesion in the right hepatic lobe. There i s smaller heterogeneous hypoechoic lesion right hepatic dome measuring 2.2 x 2.4 x 1.8 cm. No intrahe patic ductal dilatation is seen. IMPRESSION: Diffuse fatty infiltration of liver is confirmed. At least 2 solid lesions are identified with possible additional smaller lesions seen on recent CT. Further investigation with multi phase c ontrast-enhanced liver protocol CT or MRI is advised to further investigate and characterize
== END | disposition home or self-care (01) ==
LOC: RADUSWWP 07:30
PROVIDERS: ATTEND Internal Medicine Sleep Medicine
DX: K76.0 Fatty (change of) liver, not elsewhere classified (principal); K76.9 Liver disease, unspecified
CPT/HCPCS: 76705

== ENCOUNTER 2016-12-02 07:20 | Day surgery (SDC) | payer MEDICARE ==
[2016-11-29 10:43] VITALS: BMI 30.8
[~2016-12-02 07:20] MED LIST changes: +LACTATED RINGERS 1,000 ML IV SCH; +LIDOCAINE 1% 20 ML VIAL (10MG/ML) FOR IV START INTRADERMA PRN; -SODIUM CHLORIDE 0.9% 250 ML in EMPTY BAG 1 BAG IV PRN; -SODIUM CHLORIDE 0.9% 500 ML in EMPTY BAG 1 BAG IV PRN
[2016-12-02] MEDS ORDERED: LACTATED RINGERS 1,000 ML IV ONE (07:36)
[2016-12-02 07:46] VITALS: TEMP 97.1
[2016-12-02 07:48] LABS: Glucose,Whole Blood 153 mg/dL (75-99)
[2016-12-02] MEDS ORDERED: LIDOCAINE 1% INJ 10MG/ML (20 ML MDV) ONE (08:16)
[2016-12-02] MEDS ORDERED: PROPOFOL 10 MG/ML 20 ML VIAL IV ONE (08:16)
[2016-12-02 08:45] VITALS: RESP 16
--- NOTE | 2016-12-02 08:49 | P.PCN ---
Date of Procedure: 12/02/16 Procedure(s) Performed: Procedure: Incomplete colonoscopy with biopsy of the rectosigmoid mass. Preoperative diagnosis: Rectal bleeding and change in bowel habits. Postoperative diagnosis: 1. Poor preparation and partially obstructing mass in the rectosigmoid area multiple biopsies obtained. 2. Exam was not completed because of this finding and the poor preparation. Preparation: HalfLytely prep. Sedation: Was provided by anesthesia. Brief clinical history: The patient is a 76-year-old male who I have evaluated in the office regarding rectal bleeding and change in bowel habits. He is having evaluation as well in regards to pleural effusions and has and abnormal CEA and ultrasound of the liver. This evaluation is to rule out neoplasia. Procedure: With the patient on his left lateral decubitus position and after informed consent and adequate sedation, the perianal area was inspected and it did not show any fissures or fistulas. There were no definite masses felt on digital rectal examination. The Olympus CFQ 160L video colonoscope was then inserted in the rectum in the usual fashion and advanced. The preparation was poor and there was a partially obstructing mass in the rectosigmoid area that made it not possible to complete this exam. I obtained multiple biopsies of the rectosigmoid mass then the endoscope was withdrawn. The patient tolerated the procedure well. Plan: The findings were shared with the patient and his . Will await pathology results. Further plans will be made accordingly.
[2016-12-02 08:56] VITALS: BP 136/85; PULSE 81
== END 2016-12-02 09:40 | disposition home or self-care (01) ==
LOC: ORWHC2ENDO 07:20
DX: C19 Malignant neoplasm of rectosigmoid junction (principal); J90 Pleural effusion, not elsewhere classified; Z87.891 Personal history of nicotine dependence; E11.9 Type 2 diabetes mellitus without complications; Z79.84 Long term (current) use of oral hypoglycemic drugs; Z79.899 Other long term (current) drug therapy
CPT/HCPCS: 88305; 45331; J2001; J2704; 45380

== ENCOUNTER 2016-12-10 11:27 | Day surgery (SDC) | payer MEDICARE ==
[~2016-12-10 11:27] MED LIST changes: -LACTATED RINGERS 1,000 ML IV SCH; -LIDOCAINE 1% 20 ML VIAL (10MG/ML) FOR IV START INTRADERMA PRN; +SODIUM CHLORIDE 0.9% 250 ML in EMPTY BAG 1 BAG IV PRN; +SODIUM CHLORIDE 0.9% 500 ML in EMPTY BAG 1 BAG IV PRN
--- NOTE | 2016-12-10 12:16 | US ---
EXAMINATION TYPE: US chest DATE OF EXAM: 12/10/2016 11:47 AM COMPARISON: 11/28/2016 CLINICAL HISTORY: 76-year-old male J90 PLEURAL EFFUSION. TECHNIQUE: Multiple sonographic images of the posterior lower left hemithorax for assessment of pleur al effusion. FINDINGS: EXAM MEASUREMENTS: Left Pleural Effusion fluid pocket: 14.1 cm Left skin surface to fluid distance: 4.1 cm Underlying atelectatic lung is noted. Left side marked for possible thoracentesis outside the dept. Pulmonologists are able to review the images in the patient?s EMR. IMPRESSIONS: Redemonstrated large left pleural effusion. Marking performed.
[2016-12-10 12:23] VITALS: PULSE 74; RESP 16
[2016-12-10 12:25] VITALS: BP 151/88; TEMP 97.9
--- NOTE | 2016-12-10 14:00 | XR ---
EXAMINATION TYPE: XR chest 1V portable DATE OF EXAM: 12/10/2016 1:54 PM Comparison: 11/28/2016 Clinical History: 76-year-old male post thoracentesis Findings: Left heart margin remains obscured by adjacent pleural-parenchymal disease. There is a moderate left pleural effusion, decreased in the interval. No appreciable pneumothorax. Pulmonary vasculature withi n normal limits. Right lung and pleural space are clear. Impression: Moderate left pleural effusion, decreased in the interval. No appreciable pneumothorax.
[2016-12-10 19:25] LABS: LDH, Body Fluid Source Pleural Fluid
--- NOTE | 2016-12-11 07:19 | PCN ---
DATE OF PROCEDURE: PROCEDURE DONE: Left thoracentesis. INDICATIONS: 1. Adenocarcinoma of the colon. 2. Recurrent left pleural effusion. 3. Shortness of breath. 4. Severe COPD. OPERATIVE DETAIL: Patient prepared and draped in the usual fashion. Using 1% lidocaine was infiltrated the area as guided by the ultrasound. Maximum depth of the fluid was identified. After obtaining adequate anesthesia locally, then a small stab incision was done, catheter and needle was placed. Pleural fluid was aspirated, needle was withdrawn. Catheter left in position and 2 L of dark pleural chocolate-colored pleural fluid was obtain. Patient tolerated the procedure well. No complications. Postprocedure chest x-ray is pending.
== END 2016-12-10 14:30 ==
LOC: PROCWHC3 11:27 → EDSTATUS 11:30 → PROCWHC3 14:30
PROVIDERS: ATTEND Internal Medicine Sleep Medicine
DX: J90 Pleural effusion, not elsewhere classified (principal)
CPT/HCPCS: 32554; 71010; 76604; 83615; 88108; 88305

== ENCOUNTER → 2016-12-11 | Day surgery (SDC) | payer MEDICARE ==
[~2016-12-11] MED LIST changes: +LIDOCAINE 2% INJ 20 MG/ML SQ ONE; -SODIUM CHLORIDE 0.9% 250 ML in EMPTY BAG 1 BAG IV PRN; -SODIUM CHLORIDE 0.9% 500 ML in EMPTY BAG 1 BAG IV PRN
[2016-12-11 10:02] VITALS: BP 137/79; PULSE 94; RESP 18; TEMP 97.5
[2016-12-11 10:12] LABS: Glucose,Whole Blood 293 mg/dL (75-99)
--- NOTE | 2016-12-11 15:06 | IR ---
EXAMINATION TYPE: IR cvc insert >=5 years DATE OF EXAM: 12/11/2016 2:11 PM COMPARISON: NONE CLINICAL HISTORY: Stage IV cancer Needs long-term intravenous access for chemotherapy. PROCEDURE: After informed consent, the skin overlying the left basilic vein was localized with ultrasound and no maurice to be compressible and patent. An ultrasound image was obtained and submitted on the patient's c patel. The overlying skin was prepped and draped and Lidocaine was used for local anesthesia. A skin renny was made with a scalpel. Access was gained to the vein under ultrasound guidance with a 21 gau ge needle and a 0.018 inch wire was advanced. Access site was dilated with Peel-Away sheath and cath eter tailored to the appropriate length and advanced such that the distal tip is at the cavoatrial ju nction. Spot image was obtained verifying placement. Catheter was fixed to the skin with suture and a sterile dressing was placed following hemostasis. Catheter was aspirated and flushed with saline. Patient was discharged in stable condition without complication. Maximal barrier technique is utili zed. Ultrasound image is documented on the chart. Ultrasound used with sterile technique. Fluoro time and fluoroscopic images submitted to document procedure: 72 intraoperative C-arm images, 0.3 minutes fluoroscopy time IMPRESSION: STATUS POST ULTRASOUND AND FLUOROSCOPIC GUIDED PICC LINE PLACEMENT, READY FOR USE. THIS PROCEDURE WAS PERFORMED BY THE UNDERSIGNED.
== END ==
LOC: CATHCVL 09:50
PROVIDERS: ATTEND Radiology Diagnostic Radiology
DX: Z45.2 Encounter for adjustment and management of vascular access device (principal); C18.9 Malignant neoplasm of colon, unspecified
CPT/HCPCS: 36569; 76937; 77001; C1751; C1769; J2001

== ENCOUNTER → 2016-12-14 | Outpatient (CLI) | payer MEDICARE ==
--- NOTE | 2016-12-16 22:34 | PE ---
EXAMINATION TYPE: PET CT fusion skull to thigh DATE OF EXAM: 12/14/2016 1:16 PM COMPARISON: Chest CT November 19, 2016. HISTORY: Colon cancer initial staging study TECHNIQUE: Following the intravenous administration of 14.2 mCi of F-18 FDG, whole body images are p erformed from the skull base to the midthigh. Images are reviewed on the computer in the coronal, ax ial, and sagittal planes. Reconstructed rotating images are created on independent workstation and r eviewed on the computer. A localization and attenuation correction CT is performed in conjunction w ith the PET scan. SCAN: Initial Scan FINDINGS: SKULL BASE AND NECK: No suspicious hypermetabolic uptake is seen in the neck. CHEST, MEDIASTINUM, AND HILAR REGION: There is redemonstration of nonsimple moderate left-sided pleur al fluid collection or effusion that does not completely layer dependently. Areas of abnormal hyperme tabolic uptake are present at pleural-based nodularity at several levels, for reference area posterio rly and axial image 85 has max SUV of 4.42. Area anteriorly on axial image 81 measures 1.4 x 0.7 cm w ith max SUV of 4.58. An area medially measuring 18 x 8 mm on axial image 83 has max SUV of 4.8. There is curvilinear posterior laterally on axial image 93 with max SUV of 4.48. Some dependent atelectasi s left lung base is present. There is additional curvilinear area corresponding to pleural thickening laterally on axial image 130 with max SUV of 7.64. Final area of increased uptake corresponds to nod ularity medially and posteriorly presumed right pleural space lung base on axial image 140 with max S UV of 5.04. ABDOMEN AND PELVIS: Hypermetabolic nodule hepatic dome on axial image 105 is redemonstrated measuring 1.4 x 1.4 cm, max SUV is 7.9. There are suspected 5 additional lesions, largest measures 3.4 x 3.0 c m on PET axial image 126 CT axial image 131 with max SUV of 8.43. Additional lesions scattered throug hout the liver . Abnormal hypermetabolic uptake is seen at moderate length area of moderate concentric wall thickening in the sigmoid rectal colon near axial image 226 with max SUV of 20.66 likely reflecting known prima ry carcinoma. OSSEOUS STRUCTURES: No suspicious hypermetabolic uptake is seen in the osseous structures. OTHER CT: There is 2 cm mucous retention cyst or polyp in inferior left maxillary sinus. There is left-sided PICC line in place with tip in right atrium. Multilevel spurring in the spine is present. There is facet arthropathy lower lumbar levels. IMPRESSION: Findings are consistent with primary sigmoid rectal carcinoma with metastatic disease spr ead to the liver as well as metastatic pleural-based nodularity in the left lung as detailed above.
== END | disposition home or self-care (01) ==
LOC: RADPETMAIN 10:25
PROVIDERS: ATTEND Internal Medicine Sleep Medicine
DX: C18.9 Malignant neoplasm of colon, unspecified (principal)
CPT/HCPCS: 78815; A9552

== ENCOUNTER 2016-12-27 12:49 | Day surgery (SDC) | payer MEDICARE ==
[2016-12-27 13:26] VITALS: BP 129/71; PULSE 70; RESP 18; TEMP 98.5
== END 2016-12-27 14:45 ==
LOC: PROCWHC3 12:49 → EDSTATUS 13:00 → PROCWHC3 14:45
PROVIDERS: ATTEND Internal Medicine Sleep Medicine
DX: J90 Pleural effusion, not elsewhere classified (principal)

== ENCOUNTER → 2016-12-27 | Outpatient (CLI) | payer MEDICARE ==
--- NOTE | 2016-12-27 14:35 | US ---
EXAMINATION TYPE: US chest DATE OF EXAM: 12/27/2016 12:49 PM COMPARISON: NONE CLINICAL HISTORY: 76-year-old male with pleural Effusion J90. TECHNIQUE: Multiple sonographic images of the posterior lower left hemithorax for assessment of pleur al effusion. FINDINGS: EXAM MEASUREMENTS: Left Pleural Effusion fluid pocket: 7.7 cm Left skin surface to fluid distance: 4.2 cm Left side marked for possible thoracentesis outside the dept. Pulmonologists are able to review the images in the patient?s EMR. IMPRESSIONS: Small to moderate left pleural effusion with markings performed.
== END | disposition home or self-care (01) ==
LOC: RADUSWWP 12:34
PROVIDERS: ATTEND Internal Medicine Sleep Medicine
DX: J90 Pleural effusion, not elsewhere classified (principal)
CPT/HCPCS: 76604

== ENCOUNTER 2017-01-01 07:55 | Day surgery (SDC) | payer MEDICARE ==
[2016-12-26 11:21] VITALS: BMI 30.8
[~2017-01-01 07:55] MED LIST changes: +HEPARIN SODIUM,PORCINE 5,000 UNIT/ML 1 ML VIAL SQ ONE; +LACTATED RINGERS 1,000 ML IV SCH; +LIDOCAINE 1% 20 ML VIAL (10MG/ML) FOR IV START INTRADERMA PRN; -LIDOCAINE 2% INJ 20 MG/ML SQ ONE; +ceFAZolin 2 GM in SODIUM CHLORIDE 0.9% 100 ML IVPB ONE
[2017-01-01 08:25] LABS: Glucose,Whole Blood 127 mg/dL (75-99)
[2017-01-01] MEDS ORDERED: ONDANSETRON 4 MG/2 ML VIAL IVP ONE (08:33)
[2017-01-01] MEDS ORDERED: DEXAMETHASONE SOD PHOS (MDV) 100 MG/10 ML VIAL IV ONE (08:33)
--- NOTE | 2017-01-01 09:11 | P.GSHP ---
History of Present Illness H&P Date: 01/01/17 Chief Complaint: Rectal Cancer Patient here today for Port-A-Cath placement. He has a recent diagnosis of rectal cancer. He is already started his chemotherapy through a left sided PICC line. He has poor IV access. Past Medical History Past Medical History: Cancer, Diabetes Mellitus, Hyperlipidemia Additional Past Medical History / Comment(s): PLEURAL EFFUSION, STATES CA OF LUNG, COLON, LIVER. HAS PICC LINE CURRENTLY FOR CHEMO TO BE REPLACED History of Any Multi-Drug Resistant Organisms: None Reported Past Surgical History: Joint Replacement Additional Past Surgical History / Comment(s): 08/12/16 Revision total R knee arthroplasty. BILATERAL KNEE REPLACEMENTS,PLEURAL EFFUSION X3 PAULINO CATARACT SX Past Anesthesia/Blood Transfusion Reactions: Postoperative Nausea & Vomiting ( PONV) Additional Past Anesthesia/Blood Transfusion Reaction / Comment(s): Pt has had PONV and BROTHER HAD PONV. Past Psychological History: No Psychological Hx Reported Additional Psychological History / Comment(s): . Smoking Status: Former smoker Past Alcohol Use History: Rare Additional Past Alcohol Use History / Comment(s): STARTED SMOKING 1968, QUIT SMOKING 1974, SMOKED 1PPD Past Drug Use History: None Reported - Past Family History Father Family Medical History: No Reported History Additional Family Medical History / Comment(s): Father at the age of 86yrs. Mother Family Medical History: No Reported History Additional Family Medical History / Comment(s): Mother at the age of 84yrs. Medications and Allergies Home Medications Medication Instructions Recorded Confirmed Type Acetaminophen Tab [Tylenol] 650 mg PO Q6H PRN 08/02/16 12/27/16 History Pravastatin Sodium [Pravachol] 40 mg PO HS 08/02/16 12/27/16 History Tamsulosin [Flomax] 0.4 mg PO HS 08/02/16 12/27/16 History glipiZIDE XL [Glucotrol XL] 5 mg PO QAM 08/02/16 12/27/16 History metFORMIN HCL ER [Glucophage Xr] 1,000 mg PO BID 11/29/16 12/27/16 History Allergies Allergy/AdvReac Type Severity Reaction Status Date / Time No Known Allergies Allergy Verified 01/01/17 08:06 Surgical - Exam Vital Signs Temp Pulse BP Pulse Ox 97.3 F L 71 151/77 96 01/01/17 08:21 01/01/17 08:21 01/01/17 08:21 01/01/17 08:21 Physical exam: General: Well-developed, well-nourished HEENT: Normocephalic, sclerae nonicteric Abdomen: Nontender, nondistended Extremities: No edema Neuro: Alert and oriented Results - Labs Abnormal Lab Results - Last 24 Hours (Table) 01/01/17 Range/Units 08:23 POC Glucose (mg/dL) 127 H (75-99) mg/dL Assessment and Plan (1) Rectal cancer Narrative/Plan: Will proceed with Port-A-Cath placement today. Risks of bleeding, infection, pneumothorax, DVT, catheter malfunction were discussed. He understands and wishes to proceed. Status: Acute
[2017-01-01] MEDS ORDERED: MIDAZOLAM 2 MG/2 ML VIAL ONE (09:30)
[2017-01-01] MEDS ORDERED: LIDOCAINE 1% INJ 10MG/ML (20 ML MDV) ONE (09:30)
[2017-01-01] MEDS ORDERED: PROPOFOL 10 MG/ML 20 ML VIAL IV ONE (09:30)
[2017-01-01] MEDS ORDERED: KETAMINE 10 MG/ML 20 ML VIAL ONE (09:30)
[2017-01-01] MEDS ORDERED: fentaNYL (PF) 50 MCG/ML 2 ML AMP ONE (09:30)
[2017-01-01] MEDS ORDERED: HEPARIN SODIUM,PORCINE 100 UNIT/ML 5 ML VIAL IV ONE (09:51)
[2017-01-01] MEDS ORDERED: LIDOCAINE (PF) 10 MG/ML 2 ML VIAL SQ ONE ×2 (09:52)
[2017-01-01] MEDS ORDERED: LACTATED RINGERS 1,000 ML IV ONE (10:07)
--- NOTE | 2017-01-01 10:16 | FL ---
EXAMINATION TYPE: FL guidance operating room DATE OF EXAM: 01/01/2017 CLINICAL HISTORY: Colon cancer TECHNIQUE: Fluoroscopy. COMPARISON: None. FINDINGS: Fluoroscopic guidance was provided during Port-A-Cath insertion procedure performed by Dr. Schafer. A total of 1 seconds of fluoroscopic time was utilized during the procedure and single intra operative spot image is acquired. Image saved shows poor visualization of catheter tip and Mediport. IMPRESSION: As Above.
[2017-01-01] MEDS ORDERED: HYDROcodone/APAP 5-325MG 1 EACH TAB PO PRN (10:20)
[2017-01-01] MEDS ORDERED: NALOXONE 0.4 MG/ML 1 ML VIAL IV PRN (10:20)
[2017-01-01 10:28] VITALS: TEMP 97.2
[2017-01-01 10:38] LABS: Glucose,Whole Blood 128 mg/dL (75-99)
--- NOTE | 2017-01-01 10:38 | P.PCN ---
Date of Procedure: 01/01/17 Preoperative Diagnosis: Postoperative Diagnosis: Procedure(s) Performed: PREOPERATIVE DIAGNOSIS: Rectal cancer POSTOPERATIVE DIAGNOSIS: Same PROCEDURE: Port-A-Cath placement SURGEON: Gilmar EBL: Minimal ANESTHESIA: Sedation COMPLICATIONS: None OPERATIVE PROCEDURE: Patient was brought and placed on the operative table in the supine position. The patient was sedated per anesthesia that time. The chest and neck were prepped and draped in usual sterile fashion. The ultrasound probe was used to identify the location of the right internal jugular vein. The skin was localized with lidocaine. The Seldinger needle was advanced into the IJ under ultrasound guidance. The wire was advanced through the needle under fluoroscopic guidance into the superior vena cava. A port pocket was created in the right infraclavicular location. The catheter was tunneled from the wire entrance site to the port pocket. The port was then connected to the catheter. The dilator introducer was threaded over the guidewire. The guidewire and dilator were then removed. The catheter was advanced through the introducer and introducer was then removed. The tip was seen to be in the right atrial junction. Port was flushed with both saline and a Hep-Lock solution. There was good flow both in and out of the port. The port was sutured in underlying tissues using 3-0 silk sutures. The subcutaneous tissues were reapproximated using 3-0 Vicryl sutures and the skin at both locations using 4-0 Monocryl sutures. Steri-Strips and sterile dressings then applied. DISPOSITION: Stable to recovery room Implants: Indications for Procedure: Operative Findings: Description of Procedure:
--- NOTE | 2017-01-01 10:46 | XR ---
EXAMINATION TYPE: XR chest 1V confirm line [facility] DATE OF EXAM: 01/01/2017 COMPARISON: Chest x-ray December 10, 2016 HISTORY: Status post Port-A-Cath placement. TECHNIQUE: Single frontal view of the chest is obtained. FINDINGS: There is new right internal jugular Mediport catheter with tip in SVC. No sizable pneumotho rax is evident after catheter placement. There is persistent left basilar opacity consistent with sma ll left pleural effusion and associated left basilar atelectasis and/or infiltrate. The cardiac silh ouette size is stable and upper limits of normal. The osseous structures are intact. IMPRESSION: No evidence of sizable pneumothorax after right internal jugular Mediport catheter place ment with tip in SVC.
[2017-01-01 10:47] VITALS: RESP 18
[2017-01-01 11:08] VITALS: BP 139/74; PULSE 61
== END 2017-01-01 11:34 | disposition home or self-care (01) ==
LOC: OR 07:55
PROVIDERS: ATTEND Surgery
DX: Z45.2 Encounter for adjustment and management of vascular access device (principal); C22.8 Malignant neoplasm of liver, primary, unspecified as to type; C20 Malignant neoplasm of rectum; C18.9 Malignant neoplasm of colon, unspecified; C34.90 Malignant neoplasm of unspecified part of unspecified bronchus or lung; J90 Pleural effusion, not elsewhere classified; E11.9 Type 2 diabetes mellitus without complications; Z87.891 Personal history of nicotine dependence; Z79.84 Long term (current) use of oral hypoglycemic drugs; Z79.899 Other long term (current) drug therapy; Z96.653 Presence of artificial knee joint, bilateral
CPT/HCPCS: 36571; C1788; J2250; J2001 ×2; J1644; J1642; J0690; J2405; J3010; J1100; J2704

== ENCOUNTER 2017-02-24 17:32 | Inpatient (IN) | payer MEDICARE ==
[2017-02-24] MEDS ORDERED: KETOROLAC 30 MG/ML 1 ML VIAL IVP STA (17:49)
[2017-02-24] MEDS ORDERED: ACETAMINOPHEN IV (For NPO) 1,000 MG in EMPTY BAG 1 BAG IVPB STA (17:49)
[2017-02-24] MEDS ORDERED: SODIUM CHLORIDE 0.9% 500 ML IV STA (17:49)
[2017-02-24] MEDS ORDERED: SODIUM CHLORIDE 0.9% 1,000 ML IV STA ×2 (17:49)
--- NOTE | 2017-02-24 17:52 | ED ---
General Adult HPI - General Chief complaint: Weakness Stated complaint: weakness Time Seen by Provider: 02/24/17 17:33 Source: patient, RN notes reviewed, old records reviewed Mode of arrival: EMS Limitations: no limitations - History of Present Illness Initial comments: This is a 37-year-old male to the evaluation for week to year for evaluation of weakness. Patient does have rectal CA and just went to his last chemotherapy. Patient states weakness shaking and not feeling well started today. Progressively worsening. Mild nausea no vomiting denies cough or congestion denies of bowel pain. Denies diarrhea. Patient also is have fever. He states he was mildly diaphoretic Ptolemy complaining of weakness - Related Data Home Medications Medication Instructions Recorded Confirmed Acetaminophen Tab [Tylenol] 650 mg PO Q6H PRN 08/02/16 02/24/17 Pravastatin Sodium [Pravachol] 40 mg PO HS 08/02/16 02/24/17 Tamsulosin [Flomax] 0.4 mg PO HS 08/02/16 02/24/17 glipiZIDE XL [Glucotrol XL] 5 mg PO QAM 08/02/16 02/24/17 Hydrocortisone [Cortizone 10] 1 applic TOPICAL DAILY PRN 02/24/17 02/24/17 metFORMIN HCL 1,000 mg PO DAILY 02/24/17 02/24/17 Allergies Allergy/AdvReac Type Severity Reaction Status Date / Time No Known Allergies Allergy Verified 02/24/17 18:22 Review of Systems ROS Statement: Those systems with pertinent positive or pertinent negative responses have been documented in the HPI. ROS Other: All systems not noted in ROS Statement are negative. Past Medical History Past Medical History: Cancer, Diabetes Mellitus, Hyperlipidemia Additional Past Medical History / Comment(s): PLEURAL EFFUSION, STATES CA OF LUNG, COLON, LIVER. History of Any Multi-Drug Resistant Organisms: None Reported Past Surgical History: Joint Replacement Additional Past Surgical History / Comment(s): 08/12/16 Revision total R knee arthroplasty. BILATERAL KNEE REPLACEMENTS,PLEURAL EFFUSION X3 PAULINO CATARACT SX Past Anesthesia/Blood Transfusion Reactions: Postoperative Nausea & Vomiting ( PONV) Additional Past Anesthesia/Blood Transfusion Reaction / Comment(s): Pt has had PONV and BROTHER HAD PONV. Past Psychological History: No Psychological Hx Reported Smoking Status: Former smoker Past Alcohol Use History: Occasional Past Drug Use History: None Reported - Past Family History Father Family Medical History: No Reported History Additional Family Medical History / Comment(s): Father at the age of 86yrs. Mother Family Medical History: No Reported History Additional Family Medical History / Comment(s): Mother at the age of 84yrs. General Exam Limitations: no limitations General appearance: alert, in no apparent distress, anxious, in distress Head exam: Present: atraumatic, normocephalic, normal inspection Eye exam: Present: normal appearance, PERRL, EOMI. Absent: scleral icterus, conjunctival injection, periorbital swelling ENT exam: Present: normal exam, mucous membranes moist Neck exam: Present: normal inspection. Absent: tenderness, meningismus, lymphadenopathy Respiratory exam: Present: normal lung sounds bilaterally. Absent: respiratory distress, wheezes, rales, rhonchi, stridor Cardiovascular Exam: Present: regular rate, normal rhythm, normal heart sounds. Absent: systolic murmur, diastolic murmur, rubs, gallop, clicks GI/Abdominal exam: Present: soft, normal bowel sounds. Absent: distended, tenderness, guarding, rebound, rigid Extremities exam: Present: normal inspection, full ROM, normal capillary refill. Absent: tenderness, pedal edema, joint swelling, calf tenderness Back exam: Present: normal inspection Neurological exam: Present: alert, oriented X3, CN II-XII intact Psychiatric exam: Present: normal affect, normal mood Skin exam: Present: warm, dry, intact, normal color. Absent: rash Course Vital Signs 02/24/17 02/24/17 02/24/17 17:48 18:01 18:46 Temperature 101.4 F H 99.5 F Pulse Rate 83 74 72 Respiratory 18 18 18 Rate Blood Pressure 156/65 121/67 111/59 O2 Sat by Pulse 96 97 97 Oximetry EKG Findings - EKG Comments: EKG Findings:: EKG shows normal sinus and wrist 31, KS 146, QRS 80, QTC 391 Medical Decision Making - Medical Decision Making 77 male here for evaluation of not feeling well, weak and fever. Patient has fever control at this time through mildly improved but will be admitted secondary to leukopenia, for fever control hemodynamic monitoring and IV antibiotics - Lab Data Result diagrams: 02/24/17 17:46 02/24/17 17:46 Lab Results 02/24/17 02/24/17 02/24/17 Range/Units 17:46 17:46 17:46 WBC 2.0 L* (3.8-10.6) k/uL RBC 4.60 (4.30-5.90) m/uL Hgb 13.8 (13.0-17.5) gm/dL Hct 39.7 (39.0-53.0) % MCV 86.4 (80.0-100.0) fL MCH 30.1 (25.0-35.0) pg MCHC 34.8 (31.0-37.0) g/dL RDW 19.6 H (11.5-15.5) % Plt Count 105 L (150-450) k/uL Neutrophils % 62 % Lymphocytes % 16 % Monocytes % 8 % Eosinophils % 11 % Basophils % 1 % Neutrophils # 1.3 (1.3-7.7) k/uL Lymphocytes # 0.3 L (1.0-4.8) k/uL Monocytes # 0.2 (0-1.0) k/uL Eosinophils # 0.2 (0-0.7) k/uL Basophils # 0.0 (0-0.2) k/uL Anisocytosis Slight Sodium 136 L (137-145) mmol/L Potassium 4.8 (3.5-5.1) mmol/L Chloride 105 (98-107) mmol/L Carbon Dioxide 18 L (22-30) mmol/L Anion Gap 13 mmol/L BUN 18 (9-20) mg/dL Creatinine 0.90 (0.66-1.25) mg/dL Est GFR (MDRD) Af Amer >60 (>60 ml/min/1.73 sqM) Est GFR (MDRD) Non-Af >60 (>60 ml/min/1.73 sqM) Glucose 152 H (74-99) mg/dL Plasma Lactic Acid Mode (0.7-2.0) mmol/L Calcium 8.8 (8.4-10.2) mg/dL Phosphorus 2.0 L (2.5-4.5) mg/dL Magnesium 1.7 (1.6-2.3) mg/dL Total Bilirubin 0.9 (0.2-1.3) mg/dL AST 39 (17-59) U/L ALT 42 (21-72) U/L Alkaline Phosphatase 72 (38-126) U/L Total Creatine Kinase 78 (55-170) U/L CK-MB (CK-2) 0.8 (0.0-2.4) ng/mL CK-MB (CK-2) Rel Index 1.0 Troponin I <0.012 (0.000-0.034) ng/mL Total Protein 6.1 L (6.3-8.2) g/dL Albumin 3.8 (3.5-5.0) g/dL 02/24/17 Range/Units 17:46 WBC (3.8-10.6) k/uL RBC (4.30-5.90) m/uL Hgb (13.0-17.5) gm/dL Hct (39.0-53.0) % MCV (80.0-100.0) fL MCH (25.0-35.0) pg MCHC (31.0-37.0) g/dL RDW (11.5-15.5) % Plt Count (150-450) k/uL Neutrophils % % Lymphocytes % % Monocytes % % Eosinophils % % Basophils % % Neutrophils # (1.3-7.7) k/uL Lymphocytes # (1.0-4.8) k/uL Monocytes # (0-1.0) k/uL Eosinophils # (0-0.7) k/uL Basophils # (0-0.2) k/uL Anisocytosis Sodium (137-145) mmol/L Potassium (3.5-5.1) mmol/L Chloride (98-107) mmol/L Carbon Dioxide (22-30) mmol/L Anion Gap mmol/L BUN (9-20) mg/dL Creatinine (0.66-1.25) mg/dL Est GFR (MDRD) Af Amer (>60 ml/min/1.73 sqM) Est GFR (MDRD) Non-Af (>60 ml/min/1.73 sqM) Glucose (74-99) mg/dL Plasma Lactic Acid Mode 3.4 H* (0.7-2.0) mmol/L Calcium (8.4-10.2) mg/dL Phosphorus (2.5-4.5) mg/dL Magnesium (1.6-2.3) mg/dL Total Bilirubin (0.2-1.3) mg/dL AST (17-59) U/L ALT (21-72) U/L Alkaline Phosphatase (38-126) U/L Total Creatine Kinase (55-170) U/L CK-MB (CK-2) (0.0-2.4) ng/mL CK-MB (CK-2) Rel Index Troponin I (0.000-0.034) ng/mL Total Protein (6.3-8.2) g/dL Albumin (3.5-5.0) g/dL - Radiology Data Radiology results: report reviewed (Chest x-ray is negative for acute disease), image reviewed Disposition Clinical Impression: Fever, Leukopenia Disposition: ADMITTED IP TO THIS [facility] Condition: Fair
[2017-02-24 18:03] LABS: Anisocytosis Slight; Basophils % (A) 1 %; CH 30.1; CHCM 34.8; Eosinophils # (A) 0.2 k/uL (0-0.7); Eosinophils % (A) 11 %; HCT 39.7 % (39.0-53.0); HDW 3.37; HGB 13.8 gm/dL (13.0-17.5); Luc # (Auto) 0.04; Luc % (Auto) 2; Lymphocytes # (A) 0.3 k/uL (1.0-4.8); Lymphocytes % (A) 16 %; MCH 30.1 pg (25.0-35.0); MCHC 34.8 g/dL (31.0-37.0); MCV 86.4 fL (80.0-100.0); Mean Platelet Volume 7.8; Monocytes # (A) 0.2 k/uL (0-1.0); Monocytes % (A) 8 %; Neutrophils # (A) 1.3 k/uL (1.3-7.7); Neutrophils % (A) 62 %; RDW 19.6 % (11.5-15.5); WBC (Perox) 2.03
[2017-02-24 18:16] LABS: ALT 42 U/L (21-72); AST 39 U/L (17-59); Alkaline Phosphatase 72 U/L (38-126); Anion Gap 13 mmol/L; Blood Urea Nitrogen 18 mg/dL (9-20); Calcium 8.8 mg/dL (8.4-10.2); Carbon Dioxide 18 mmol/L (22-30); Chloride 105 mmol/L (98-107); Glucose 152 mg/dL (74-99); Magnesium 1.7 mg/dL (1.6-2.3); Non-African American GFR(MDRD) >60 (>60 ml/min/1.73 sqM); Potassium 4.8 mmol/L (3.5-5.1); Sodium 136 mmol/L (137-145); Total Bilirubin 0.9 mg/dL (0.2-1.3); Total Protein 6.1 g/dL (6.3-8.2)
[2017-02-24 18:30] LABS: Creatine Kinase 78 U/L (55-170)
[2017-02-24] MEDS ORDERED: PIPERACILLIN-TAZOBACTAM 3.375 GM in DEXTROSE/WATER 1 50ML.BAG IVPB STA (18:37)
[2017-02-24] MEDS ORDERED: LEVOFLOXACIN 750MG-D5W PMX 750 MG in DEXTROSE/WATER 1 150ML.BAG IVPB STA (18:37)
[2017-02-24 18:45] LABS: Creatine Kinase MB 0.8 ng/mL (0.0-2.4); Troponin I <0.012 ng/mL (0.000-0.034)
--- NOTE | 2017-02-24 18:55 | XR ---
EXAMINATION TYPE: XR chest 2V DATE OF EXAM: 02/24/2017 COMPARISON: PET/CT December 14, 2016. Recent two view chest x-ray January 30, 2017 HISTORY: History of metastatic colon cancer presents with weakness. TECHNIQUE: Frontal and lateral views of the chest are obtained. FINDINGS: There is stable right internal jugular Mediport catheter. There is persistent small left p leural effusion or pleural thickening. There is no suspicious new focal airspace opacity or pneumotho rax seen bilaterally. Cardiac silhouette size is stable and upper limits of normal. Multilevel spurri ng in the spine is redemonstrated. IMPRESSION: Persistent small left effusion. No suspicious acute infiltrate. No significant change fr om most recent chest x-ray
[2017-02-24 19:19] LABS: Appearance,Urine Clear (Clear); Bilirubin,Urine Negative (Negative); Glucose,Urine (UA) 4+ (Negative); Ketones,Urine 1+ (Negative); Leukocyte Esterase,Urine Negative (Negative); Nitrite,Urine Negative (Negative); PH, Urine 5.5 (5.0-8.0); Protein,Urine Trace (Negative); Specific Gravity,Urine 1.022 (1.001-1.035); UA Billing (MACRO vs. MICRO) CHEM; Urobilinogen,Urine <2.0 mg/dL (<2.0)
[2017-02-24 19:59] VITALS: BMI 28.9
[2017-02-24 20:02] LABS: Glucose,Whole Blood 119 mg/dL (75-99)
[2017-02-24] MEDS ORDERED: ACETAMINOPHEN TAB 325 MG TAB PO PRN (20:55)
[2017-02-24] MEDS ORDERED: ONDANSETRON 4 MG/2 ML VIAL IVP PRN (20:56)
[2017-02-24] MEDS: SODIUM CHLORIDE 0.9% 1,000 ML IV SCH (22:20)
[2017-02-24] MEDS: PIPERACILLIN-TAZOBACTAM 3.375 GM in DEXTROSE/WATER 1 50ML.BAG IVPB SCH (23:18)
[2017-02-25 07:11] LABS: Glucose,Whole Blood 106 mg/dL (75-99)
[2017-02-25] MEDS ORDERED: metFORMIN 500 MG TAB PO SCH (07:30)
[2017-02-25] MEDS ORDERED: LEVOFLOXACIN 750MG-D5W PMX 750 MG in DEXTROSE/WATER 1 150ML.BAG IVPB SCH (09:00)
[2017-02-25] MEDS: ENOXAPARIN 40 MG/0.4 ML SYRINGE SQ SCH (09:26)
[2017-02-25] MEDS: NYSTATIN 100,000 UNIT/ML SUSP 500,000 UNIT/5 ML CUP PO SCH ×4 (10:48→21:34)
--- NOTE | 2017-02-25 11:11 | P.HPIM ---
History of Present Illness Patient is an 22-year-old gentleman came in with the complaints of generalized weakness found to have fever patient denied any cough, runny nose patient denied any dysuria patient denied nausea vomiting. Patient blood cultures were obtained shows of infection is not clear chest x-ray showed some right lower lobe atelectasis beyond that patient doesn't have any other signs or symptoms of pneumonia patient was started on broad-spectrum antibiotic Zosyn and levofloxacin levofloxacin is being discontinued. Patient has is on minocycline for a side effect from his chemotherapy which is a rash. Minocycline will be continued. Patient last chemotherapy was on was last Friday. Patient is not significantly neutropenic at this point of time. Patient denied any abdominal pain patient denied any dysuria or increased urinary frequency. Patient had increase the lactic acid patient will be continued on IV normal saline at 1 50 mL per hour and the metformin will be discontinued. Review of Systems REVIEW OF SYSTEMS: CONSTITUTIONAL: As described in HPI HEENT: No recent visual problems or hearing problems. Denied any sore throat. CARDIOVASCULAR: No chest pain, orthopnea, PND, no palpitations, no syncope. PULMONARY: No shortness of breath, no cough, no hemoptysis. GASTROINTESTINAL: No diarrhea, no nausea, no vomiting, no abdominal pain. Normoactive bowel sounds. NEUROLOGICAL: No headaches, no weakness, no numbness. HEMATOLOGICAL: Denies any bleeding or petechiae. GENITOURINARY: Denies any burning micturition, frequency, or urgency. MUSCULOSKELETAL/RHEUMATOLOGICAL: Denies any joint pain, swelling, or any muscle pain. ENDOCRINE: Denies any polyuria or polydipsia. The rest of the 14-point review of systems is negative. Past Medical History Past Medical History: Cancer, Diabetes Mellitus, Hyperlipidemia Additional Past Medical History / Comment(s): PLEURAL EFFUSION, STATES CA OF left sided LUNG, COLON, LIVER. colon-primary stage 4. dx 11/18. completed 6/8 cycles of chemo. last chemo 02/20/17. History of Any Multi-Drug Resistant Organisms: None Reported Past Surgical History: Back Surgery, Joint Replacement Additional Past Surgical History / Comment(s): 08/12/16 Revision total R knee arthroplasty. BILATERAL KNEE REPLACEMENTS,PLEURAL EFFUSION X3 PAULINO CATARACT SX; right rotor cuff shoulder sx. Past Anesthesia/Blood Transfusion Reactions: Postoperative Nausea & Vomiting ( PONV) Additional Past Anesthesia/Blood Transfusion Reaction / Comment(s): Pt has had PONV and BROTHER HAD PONV. Past Psychological History: No Psychological Hx Reported Additional Psychological History / Comment(s): . Smoking Status: Former smoker Past Alcohol Use History: Occasional Additional Past Alcohol Use History / Comment(s): STARTED SMOKING 1968, QUIT SMOKING 1974, SMOKED 1PPD Past Drug Use History: None Reported - Past Family History Father Family Medical History: No Reported History Additional Family Medical History / Comment(s): Father at the age of 86yrs. Mother Family Medical History: No Reported History Additional Family Medical History / Comment(s): Mother at the age of 84yrs. Medications and Allergies Home Medications Medication Instructions Recorded Confirmed Type Acetaminophen Tab [Tylenol] 650 mg PO Q6H PRN 08/02/16 02/24/17 History Pravastatin Sodium [Pravachol] 40 mg PO HS 08/02/16 02/24/17 History Tamsulosin [Flomax] 0.4 mg PO HS 08/02/16 02/24/17 History glipiZIDE XL [Glucotrol XL] 5 mg PO QAM 08/02/16 02/24/17 History Hydrocortisone [Cortizone 10] 1 applic TOPICAL DAILY PRN 02/24/17 02/24/17 History metFORMIN HCL 1,000 mg PO DAILY 02/24/17 02/24/17 History Allergies Allergy/AdvReac Type Severity Reaction Status Date / Time No Known Allergies Allergy Verified 02/24/17 18:22 Physical Exam Vitals: Vital Signs Temp Pulse Pulse Resp BP BP Pulse Ox 02/25/17 08:52 97 02/25/17 07:00 97.9 F 63 18 132/64 96 02/24/17 22:26 97.9 F 73 16 129/63 99 02/24/17 18:46 99.5 F 72 18 111/59 97 02/24/17 18:01 74 18 121/67 97 02/24/17 17:48 101.4 F H 83 18 156/65 96 Intake and Output 02/24/17 02/25/17 02/25/17 22:59 06:59 14:59 Intake Total 590 Balance 590 Intake: Oral 590 Other: Voiding Method Toilet Toilet # Voids 2 Weight 91.5 kg PHYSICAL EXAMINATION: GENERAL: The patient is alert and oriented x3, not in any acute distress. Well developed, well nourished. HEENT: Pupils are round and equally reacting to light. EOMI. No scleral icterus. No conjunctival pallor. Normocephalic, atraumatic. No pharyngeal erythema. No thyromegaly. CARDIOVASCULAR: S1 and S2 present. No murmurs, rubs, or gallops. PULMONARY: Chest is clear to auscultation, no wheezing or crackles. ABDOMEN: Soft, nontender, nondistended, normoactive bowel sounds. No palpable organomegaly. MUSCULOSKELETAL: No joint swelling or deformity. EXTREMITIES: No cyanosis, clubbing, or pedal edema. NEUROLOGICAL: Gross neurological examination did not reveal any focal deficits. SKIN: No rashes. Results CBC & Chem 7: 02/24/17 17:46 02/24/17 17:46 Labs: Abnormal Lab Results - Last 24 Hours (Table) 02/24/17 02/24/17 02/24/17 Range/Units 17:46 17:46 17:46 WBC 2.0 L* (3.8-10.6) k/uL RDW 19.6 H (11.5-15.5) % Plt Count 105 L (150-450) k/uL Lymphocytes # 0.3 L (1.0-4.8) k/uL Sodium 136 L (137-145) mmol/L Carbon Dioxide 18 L (22-30) mmol/L Glucose 152 H (74-99) mg/dL POC Glucose (mg/dL) (75-99) mg/dL Plasma Lactic Acid Mode 3.4 H* (0.7-2.0) mmol/L Phosphorus 2.0 L (2.5-4.5) mg/dL Total Protein 6.1 L (6.3-8.2) g/dL Urine Protein (Negative) Urine Glucose (UA) (Negative) Urine Ketones (Negative) 02/24/17 02/24/17 02/24/17 Range/Units 19:07 20:01 22:02 WBC (3.8-10.6) k/uL RDW (11.5-15.5) % Plt Count (150-450) k/uL Lymphocytes # (1.0-4.8) k/uL Sodium (137-145) mmol/L Carbon Dioxide (22-30) mmol/L Glucose (74-99) mg/dL POC Glucose (mg/dL) 119 H (75-99) mg/dL Plasma Lactic Acid Mode 3.0 H* (0.7-2.0) mmol/L Phosphorus (2.5-4.5) mg/dL Total Protein (6.3-8.2) g/dL Urine Protein Trace H (Negative) Urine Glucose (UA) 4+ H (Negative) Urine Ketones 1+ H (Negative) 02/25/17 Range/Units 07:08 WBC (3.8-10.6) k/uL RDW (11.5-15.5) % Plt Count (150-450) k/uL Lymphocytes # (1.0-4.8) k/uL Sodium (137-145) mmol/L Carbon Dioxide (22-30) mmol/L Glucose (74-99) mg/dL POC Glucose (mg/dL) 106 H (75-99) mg/dL Plasma Lactic Acid Mode (0.7-2.0) mmol/L Phosphorus (2.5-4.5) mg/dL Total Protein (6.3-8.2) g/dL Urine Protein (Negative) Urine Glucose (UA) (Negative) Urine Ketones (Negative) Microbiology - Last 24 Hours (Table) 02/24/17 19:07 Urine Culture - Preliminary Urine,Voided Thrombosis Risk Factor Assmnt - Choose All That Apply Any of the Below Risk Factors Present?: Yes Each Factor Represents 1 point: Obesity (BMI >25) Other Risk Factors: Yes Each Risk Factor Represents 2 Points: Malignancy Each Risk Factor Represents 3 Points: Age 75 years or older Other congenital or acquired thrombophilia - If yes, enter type in comment: No Thrombosis Risk Factor Assessment Total Risk Factor Score: 6 Thrombosis Risk Factor Assessment Level: High Risk Assessment and Plan Plan: #1 severe sepsis: Source of infection is not clear at this point of time patient will be continued on broad-spectrum antibiotics my suspicion is extremely low that pneumonia is causing his symptoms. Patient is not severely neutropenic. Patient will be continued on Zosyn. #2 diabetes with us type II: Metformin were discontinued because of lactic acidosis patient will be continued on IV fluids. #3 hyperlipidemia #4 Colon Cancer with recent chemotherapy.
[2017-02-25] MEDS: PIPERACILLIN-TAZOBACTAM 3.375 GM in DEXTROSE/WATER 1 50ML.BAG IVPB SCH ×3 (11:26→23:14)
[2017-02-25] MEDS: SODIUM CHLORIDE 0.9% 1,000 ML IV SCH ×2 (11:26→15:11)
[2017-02-25 11:53] LABS: Glucose,Whole Blood 173 mg/dL (75-99)
[2017-02-25] MEDS ORDERED: RX INFO: IV CONTRAST WAS GIVEN 1 EACH MISC MISCELLANE PRN (13:06)
--- NOTE | 2017-02-25 13:29 | P.CONS ---
History of Present Illness - Reason for Consult Consult date: 02/25/17 metastatic colon adenocarcinoma, chemo last week Requesting physician: Abilio Womack - Chief Complaint weakness - History of Present Illness Mr. Patel is a pleasant male pt of Dr. Rogers diagnosed with metastatic colon adenocarcinoma December 2016. He initially presented November 2016 with progressive difficulty in defecation since 2015. He was treated symptomatically with stool softeners and laxatives PRN with only partial improvement. He then developed increasing shortness of breath in 11/18, found to have a left pleural effusion, had thoracenthesis with 1 liter of bloody fluid drained, cytology was negative. Shortness of breath recurred within a week or so leading to CT of the chest on 11/19/16 which showed large left sided pleural effusion with areas of nodular, pleural thickening and hepatic lesions, largest in the right lobe measuring 2.8 cm, he also started having rectal bleeding about this time. Colonoscopy on 12/02/16 showed a rectal/sigmoid, partially obstructing mass beyond which the scope could not be passed, biopsy positive for adenocarcinoma, staging PET on 12/14 that showed uptake in left lung -pleural based nodularity, liver and rectal/sigmoid area. He was started on FOLFOX, is s/p 6 cycles with EGFR inhibitor Vectibix added to last weeks treatment. Pt states that apter pump was D/C'd he did ok until Friday, he was so weak he could not even stand up, he had fever and nausea. Since admit he feels a little better, he is on abx, nausea is controlled, he denies any current pain, had a fever on admit, none since, states mild oral irritation, no sore throat or ear pain, cough, SOB, abd pain, dysuria, hematuria, his stool is the consistency of "baby poop" but denies watery diarrhea, rectal pain, hematochezia or melena. He can walk he is just feeling very tired and weak, he has been doing PT. H Review of Systems All systems: negative Constitutional: Reports as per HPI Past Medical History Past Medical History: Cancer, Diabetes Mellitus, Hyperlipidemia Additional Past Medical History / Comment(s): PLEURAL EFFUSION, STATES CA OF left sided LUNG, COLON, LIVER. colon-primary stage 4. dx 11/18. completed 6/8 cycles of chemo. last chemo 02/20/17. History of Any Multi-Drug Resistant Organisms: None Reported Past Surgical History: Back Surgery, Joint Replacement Additional Past Surgical History / Comment(s): 08/12/16 Revision total R knee arthroplasty. BILATERAL KNEE REPLACEMENTS,PLEURAL EFFUSION X3 PAULINO CATARACT SX; right rotor cuff shoulder sx. Past Anesthesia/Blood Transfusion Reactions: Postoperative Nausea & Vomiting ( PONV) Additional Past Anesthesia/Blood Transfusion Reaction / Comm: Pt has had PONV and BROTHER HAD PONV. Past Psychological History: No Psychological Hx Reported Additional Psychological History / Comment(s): . Smoking Status: Former smoker Past Alcohol Use History: Occasional Additional Past Alcohol Use History / Comment(s): STARTED SMOKING 1968, QUIT SMOKING 1974, SMOKED 1PPD Past Drug Use History: None Reported - Past Family History Father Family Medical History: No Reported History Additional Family Medical History / Comment(s): Father at the age of 86yrs. Mother Family Medical History: No Reported History Additional Family Medical History / Comment(s): Mother at the age of 84yrs. Medications and Allergies Home Medications Medication Instructions Recorded Confirmed Type Acetaminophen Tab [Tylenol] 650 mg PO Q6H PRN 08/02/16 02/24/17 History Pravastatin Sodium [Pravachol] 40 mg PO HS 08/02/16 02/24/17 History Tamsulosin [Flomax] 0.4 mg PO HS 08/02/16 02/24/17 History glipiZIDE XL [Glucotrol XL] 5 mg PO QAM 08/02/16 02/24/17 History Hydrocortisone [Cortizone 10] 1 applic TOPICAL DAILY PRN 02/24/17 02/24/17 History metFORMIN HCL 1,000 mg PO DAILY 02/24/17 02/24/17 History Allergies Allergy/AdvReac Type Severity Reaction Status Date / Time No Known Allergies Allergy Verified 02/24/17 18:22 Physical Exam Vitals: Vital Signs Temp Pulse Pulse Resp BP BP Pulse Ox 02/25/17 08:52 97 02/25/17 07:00 97.9 F 63 18 132/64 96 02/24/17 22:26 97.9 F 73 16 129/63 99 02/24/17 18:46 99.5 F 72 18 111/59 97 02/24/17 18:01 74 18 121/67 97 02/24/17 17:48 101.4 F H 83 18 156/65 96 Intake and Output 02/24/17 02/25/17 02/25/17 22:59 06:59 14:59 Intake Total 590 Balance 590 Intake: Oral 590 Other: Voiding Method Toilet Toilet # Voids 2 Weight 91.5 kg - Constitutional General appearance: average body habitus, cooperative, no acute distress - EENT Eyes: anicteric sclerae, EOMI, normal appearance ENT: pharyngeal erythema - Neck Neck: no lymphadenopathy - Respiratory Respiratory: bilateral: CTA - Cardiovascular Rhythm: regular Heart sounds: normal: S1, S2 Abnormal Heart Sounds: no systolic murmur, no diastolic murmur, no rub, no S3 Gallop, no S4 Gallop, no click, no other leg Peripheral Edema: bilateral: None - Gastrointestinal General gastrointestinal: no absent bowel sounds, no decreased bowel sounds, no distended, no hepatomegaly, no hyperactive bowel sounds, normal bowel sounds, no organomegaly, no rigid, no scaphoid, soft, no splenomegaly, no tenderness, no umbilical hernia, no ventral hernia - Integumentary Integumentary: normal, pale - Neurologic Neurologic: CNII-XII intact - Musculoskeletal Musculoskeletal: generalized weakness, strength equal bilaterally - Psychiatric Psychiatric: A&O x's 3, appropriate affect, intact judgment & insight Results CBC & Chem 7: 02/24/17 17:46 02/24/17 17:46 Labs: Abnormal Lab Results - Last 24 Hours (Table) 02/24/17 02/24/17 02/24/17 Range/Units 17:46 17:46 17:46 WBC 2.0 L* (3.8-10.6) k/uL RDW 19.6 H (11.5-15.5) % Plt Count 105 L (150-450) k/uL Lymphocytes # 0.3 L (1.0-4.8) k/uL Sodium 136 L (137-145) mmol/L Carbon Dioxide 18 L (22-30) mmol/L Glucose 152 H (74-99) mg/dL POC Glucose (mg/dL) (75-99) mg/dL Plasma Lactic Acid Mode 3.4 H* (0.7-2.0) mmol/L Phosphorus 2.0 L (2.5-4.5) mg/dL Total Protein 6.1 L (6.3-8.2) g/dL Urine Protein (Negative) Urine Glucose (UA) (Negative) Urine Ketones (Negative) 02/24/17 02/24/17 02/24/17 Range/Units 19:07 20:01 22:02 WBC (3.8-10.6) k/uL RDW (11.5-15.5) % Plt Count (150-450) k/uL Lymphocytes # (1.0-4.8) k/uL Sodium (137-145) mmol/L Carbon Dioxide (22-30) mmol/L Glucose (74-99) mg/dL POC Glucose (mg/dL) 119 H (75-99) mg/dL Plasma Lactic Acid Mode 3.0 H* (0.7-2.0) mmol/L Phosphorus (2.5-4.5) mg/dL Total Protein (6.3-8.2) g/dL Urine Protein Trace H (Negative) Urine Glucose (UA) 4+ H (Negative) Urine Ketones 1+ H (Negative) 02/25/17 Range/Units 07:08 WBC (3.8-10.6) k/uL RDW (11.5-15.5) % Plt Count (150-450) k/uL Lymphocytes # (1.0-4.8) k/uL Sodium (137-145) mmol/L Carbon Dioxide (22-30) mmol/L Glucose (74-99) mg/dL POC Glucose (mg/dL) 106 H (75-99) mg/dL Plasma Lactic Acid Mode (0.7-2.0) mmol/L Phosphorus (2.5-4.5) mg/dL Total Protein (6.3-8.2) g/dL Urine Protein (Negative) Urine Glucose (UA) (Negative) Urine Ketones (Negative) Microbiology - Last 24 Hours (Table) 02/24/17 19:07 Urine Culture - Preliminary Urine,Voided Chest x-ray: report reviewed Assessment and Plan (1) Fever Narrative/Plan: Pt has had pancultures, empiric abx are ordered. Did discuss with Attending, pt is on tetracycline prophylactically for EGFR treatment, abx adjusted accordingly. Status: Acute (2) Mucositis (ulcerative) due to antineoplastic therapy Narrative/Plan: Mild to moderate in severity, Supportive meds ordered. Status: Acute (3) Weakness generalized Narrative/Plan: Acute on chronic, worse at this time due to acute illness, PT/OT eval and treat. Status: Acute (4) Colon adenocarcinoma Narrative/Plan: Pt has had 6 cycles of FOLFOX with panitumumab added last week. He is scheduled for treatment progress imaging this , will see if appropriate to do while inpatient. Status: Chronic (5) Colon carcinoma metastatic to multiple sites Status: Chronic
[2017-02-25] MEDS: IOHEXOL 350 MG/ML 25 ML BOTTLE (ORAL USE) PO PRN ×2 (15:06→16:06)
--- NOTE | 2017-02-25 15:58 | HP ---
DATE OF SERVICE: 02/24/2017 CHIEF COMPLAINT: Weakness, fever, rigor, chills. HISTORY OF PRESENT ILLNESS: This 77-year-old gentleman with past medical history of multiple medical problems including rectal cancer, history of diabetes, hypertension, history of pleural effusion, history of back surgery, DJD, being followed by Dr. Hayes in the outpatient setting was on chemotherapy. The patient is complaining of severe weakness, tiredness, fever, and rigors. The patient came to [facility] and patient was found to be leukopenic and neutropenic and was admitted for further evaluation and treatment. The plasma lactic acid was found to be elevated at 3.4. Cultures are obtained. The patient was started on broad-spectrum IV antibiotics. There is no history of any rigors or chills. No history of headache, loss of consciousness or seizures. PAST MEDICAL HISTORY: History of rectal cancer on chemo, diabetes, hypertension , pleural effusion. Medications prior to admission include home medications: 1. Metformin 1000 mg daily. 2. Cortisone 10 mg topically. 3. Glucotrol 5 mg p.o. q.a.m. 4. Flomax 0.4 q.h.s. 5. Pravachol 40 mg q.h.s. 6. Tylenol 650 q.6 p.r.n. ALLERGIES: None. FAMILY HISTORY: No history of any stroke or heart disease. SOCIAL HISTORY: Previous history of smoking. REVIEW OF SYSTEMS: ENT: No diminished hearing or vision. CARDIOVASCULAR: No angina. RESPIRATORY: As mentioned earlier. GI: As mentioned earlier. : No dysuria. NERVOUS SYSTEM: No numbness or weakness. ALLERGY/IMMUNOLOGY: No asthma or hayfever. MUSCULOSKELETAL: As mentioned earlier. HEMATOLOGY/ONCOLOGY: As mentioned earlier. ENDOCRINE: Diabetes. CONSTITUTIONAL: As mentioned earlier. DERMATOLOGY: Negative. RHEUMATOLOGY: Negative. PSYCHIATRY: As mentioned earlier. PHYSICAL EXAMINATION: The patient is alert and oriented x3. Pulse is 72, blood pressure 111/59, respirations 18, temperature 99.5, pulse ox 97% on 2-L. HEENT: Conjunctivae normal. Oral mucosa moist. NECK: No jugular venous distention. No carotid bruit. No lymph node enlargement. CARDIOVASCULAR: S1, S2. No S3 or S4. RESPIRATORY: Breath sounds diminished at the bases. No rhonchi, no crackles. ABDOMEN: Soft, nontender, no mass palpable. LEGS: No edema, no swelling. NERVOUS SYSTEM: Higher function as mentioned. Moves all four limbs. No focal motor sensory deficits. LYMPHATICS: No lymphadenopathy in the neck, axillae or groin. SKIN: No rash, ulcer or bleeding. LABS: WBC 2, sodium 136. ASSESSMENT: 1. Neutropenic fever and sepsis present on admission. 2. Leukopenia and neutropenia secondary to chemotherapy. 3. Rectal cancer on chemo. 4. Increased plasma lactic acid secondary to sepsis. 5. Hyponatremia. 6. History of diabetes type 2. 7. Hyperlipidemia. 8. History of pleural effusion. 9. History of degenerative joint disease. 10. Remote history of nicotine dependence. 11. Small left pleural effusion. RECOMMENDATIONS AND DISCUSSION: In this 77-year-old gentleman who presented with multiple complex medical issues, we well monitor the patient closely. Broad-spectrum, IV antibiotics. Otherwise I would also recommend obtain cultures. Resume the home medications. We will continue to monitor. The chest x- ray has been done and showed small left pleural effusion. Will continue to monitor. Further recommendations to follow. MTDD
--- NOTE | 2017-02-25 16:27 | P.CNPUL ---
History of Present Illness Consult date: 02/25/17 Requesting physician: Luanne Amador Chief complaint: Progressive weakness History of present illness: This is a very pleasant 77-year-old gentleman who follows with Dr. Hayes is his primary care physician. He has a history of diabetes mellitus, hyperlipidemia. He was diagnosed with adenocarcinoma of the colon in December 2016. A staging PET scan did show uptake in the left lung pleural based nodularity, liver and rectal/sigmoid area. He has had recurrent pleural effusion and has undergone thoracentesis 3. The fluid of which has been negative for malignancy. He follows with Dr. Santizo in our office. He had undergone pulmonary function testing but according the patient states his lungs were good. He is a former smoker. He has not been on any nebulized treatments, inhalers and he is not on home oxygen. He had been started on FOLFOX and is status post 6 cycles with EGFR inhibitor Vectibix had been added last week. He finished a treatment last week and is due for 2 more. He had been doing fairly well until recently where he had progressive weakness. He was so weak he couldn 't even stand up. EMS was called and he was brought here for the same. He is seen today in consultation on the oncology floor. Presently he is awake and alert in no acute distress. He states he is feeling a little better today as compared to yesterday. He denies any worsening shortness of breath, cough or congestion. His chest x-ray revealed a persistent small left pleural effusion but no other acute pulmonary process. Urine culture is pending. CBC 2.0. Initial lactate 3.0, currently 1.8. Did receive 2 units of fluid resuscitation. He was initiated on Zosyn. He is maintaining good O2 saturations in the mid upper 90s on room air. He is currently afebrile. Hemodynamically stable. Review of Systems Working point review of system was conducted. All negative other than as mentioned in the HPI. Past Medical History Past Medical History: Cancer, Diabetes Mellitus, Hyperlipidemia Additional Past Medical History / Comment(s): PLEURAL EFFUSION, STATES CA OF left sided LUNG, COLON, LIVER. colon-primary stage 4. dx 11/18. completed 6/8 cycles of chemo. last chemo 02/20/17. History of Any Multi-Drug Resistant Organisms: None Reported Past Surgical History: Back Surgery, Joint Replacement Additional Past Surgical History / Comment(s): 08/12/16 Revision total R knee arthroplasty. BILATERAL KNEE REPLACEMENTS,PLEURAL EFFUSION X3 PAULINO CATARACT SX; right rotor cuff shoulder sx. Past Anesthesia/Blood Transfusion Reactions: Postoperative Nausea & Vomiting ( PONV) Additional Past Anesthesia/Blood Transfusion Reaction / Comment(s): Pt has had PONV and BROTHER HAD PONV. Past Psychological History: No Psychological Hx Reported Additional Psychological History / Comment(s): . Smoking Status: Former smoker Past Alcohol Use History: Occasional Additional Past Alcohol Use History / Comment(s): STARTED SMOKING 1968, QUIT SMOKING 1974, SMOKED 1PPD Past Drug Use History: None Reported - Past Family History Father Family Medical History: No Reported History Additional Family Medical History / Comment(s): Father at the age of 86yrs. Mother Family Medical History: No Reported History Additional Family Medical History / Comment(s): Mother at the age of 84yrs. Medications and Allergies Home Medications Medication Instructions Recorded Confirmed Type Acetaminophen Tab [Tylenol] 650 mg PO Q6H PRN 08/02/16 02/24/17 History Pravastatin Sodium [Pravachol] 40 mg PO HS 08/02/16 02/24/17 History Tamsulosin [Flomax] 0.4 mg PO HS 08/02/16 02/24/17 History glipiZIDE XL [Glucotrol XL] 5 mg PO QAM 08/02/16 02/24/17 History Hydrocortisone [Cortizone 10] 1 applic TOPICAL DAILY PRN 02/24/17 02/24/17 History metFORMIN HCL 1,000 mg PO DAILY 02/24/17 02/24/17 History Allergies Allergy/AdvReac Type Severity Reaction Status Date / Time No Known Allergies Allergy Verified 02/24/17 18:22 Physical Exam Vitals: Vital Signs Temp Pulse Pulse Resp BP BP Pulse Ox 02/25/17 08:52 97 02/25/17 07:00 97.9 F 63 18 132/64 96 02/24/17 22:26 97.9 F 73 16 129/63 99 02/24/17 18:46 99.5 F 72 18 111/59 97 02/24/17 18:01 74 18 121/67 97 02/24/17 17:48 101.4 F H 83 18 156/65 96 Intake and Output 02/25/17 02/25/1702/25/17 06:59 14:59 22:59 Intake Total 800 Balance 800 Intake: Intake, IV Titration 800 Amount Sodium Chloride 0.9% 1, 800 000 ml @ 100 mls/hr IV . Q10H [facility] Rx#:[id number] Other: Voiding Method Toilet Toilet Toilet GENERAL EXAM: Alert, comfortable in no apparent distress. HEAD: Normocephalic. EYES: Normal reaction of pupils, equal size. NOSE: Clear with pink turbinates. THROAT: No erythema or exudates. NECK: No masses, no JVD. CHEST: No chest wall deformity. LUNGS: Equal air entry with no crackles, wheeze, rhonchi or dullness. CVS: S1 and S2 normal with no audible murmurs, regular rhythm. ABDOMEN: No hepatosplenomegaly, normal bowel sounds, no guarding or rigidity. SPINE: No scoliosis or deformity SKIN: No rashes CENTRAL NERVOUS SYSTEM: No focal deficits, tone is normal in all 4 extremities. Extremities: There is no peripheral edema. No clubbing, no cyanosis. Peripheral pulses are intact. Results - Laboratory Findings CBC and BMP: 02/24/17 17:46 02/24/17 17:46 Abnormal lab findings: Abnormal Labs 02/24/17 02/24/17 02/24/17 17:46 17:46 17:46 WBC 2.0 L* RDW 19.6 H Plt Count 105 L Lymphocytes # 0.3 L Sodium 136 L Carbon Dioxide 18 L Glucose 152 H POC Glucose (mg/dL) Plasma Lactic Acid Mode 3.4 H* Phosphorus 2.0 L Total Protein 6.1 L Urine Protein Urine Glucose (UA) Urine Ketones 02/24/17 02/24/17 02/24/17 19:07 20:01 22:02 WBC RDW Plt Count Lymphocytes # Sodium Carbon Dioxide Glucose POC Glucose (mg/dL) 119 H Plasma Lactic Acid Mode 3.0 H* Phosphorus Total Protein Urine Protein Trace H Urine Glucose (UA) 4+ H Urine Ketones 1+ H 02/25/17 02/25/17 07:08 11:52 WBC RDW Plt Count Lymphocytes # Sodium Carbon Dioxide Glucose POC Glucose (mg/dL) 106 H 173 H Plasma Lactic Acid Mode Phosphorus Total Protein Urine Protein Urine Glucose (UA) Urine Ketones - Diagnostic Findings Chest x-ray: image reviewed Assessment and Plan Plan: Impression: #1 Sepsis with progressive weakness of unclear etiology in a patient currently receiving chemotherapy #2 Metastatic adenocarcinoma of the colon with uptake noted on PET scan in the left lung- pleural based nodularity, liver and rectal/sigmoid area. #3 Recurrent pleural effusion status post thoracentesis 3 with negative cytology. No evidence of significant pleural effusion this admission. #4 Diabetes mellitus. #5 Hyperlipidemia. Plan: The patient was seen and evaluated by Dr. Salinas. His chest x-ray and labs were reviewed. We'll continue with the IV Zosyn for now. He remains on minocycline. He is on Lovenox for DVT prophylaxis. The patient has no significant pulmonary complaints. We'll continue to hydrate the patient. We' ll increase his activity as tolerated. We'll continue to follow. Time with Patient: Greater than 30
--- NOTE | 2017-02-25 17:28 | CT ---
EXAMINATION TYPE: CT ChestAbdPelvis w con DATE OF EXAM: 02/25/2017 COMPARISON: PET CT fusion skull to thighs December 14, 2016. HISTORY: History of lung, colon and liver cancer. Weakness. CT DLP: 1404.20 mGycm. Automated exposure control for dose reduction was used. CONTRAST: CT scan of the chest, abdomen and pelvis is performed with Oral Contrast and with IV Contra st, patient injected with 100 mL of Omnipaque 300. FINDINGS: LUNGS: No focal pulmonary lesions. MEDIASTINUM/ASHLEIGH: No adenopathy. The aorta and pulmonary arterial tree have normal appearance. No car diomegaly. No pericardial effusion. PLEURAL SPACES: There is redemonstration of nonsimple left-sided pleural fluid collection that does n ot layer dependently; previously this was moderate in its volume but is now relatively mild in volume . Previously abnormal hypermetabolic metabolic pleural foci are slightly less in volume on the presen t study, these are noted posteriorly on axial image 18 of 138, anteriorly on axial image 16 (previou sly measuring 1.4 x 0.7 cm now measuring 1.0 x 0.5 cm), medially on image 22 (previously measuring 18 x 8 mm but now measuring 1.0 x 0.5 cm). LIVER/BILIARY: The previously seen hepatic dome lesion is currently seen on image 37 of 138, previous ly measuring 1.4 cm diameter, it now measures 9 mm in diameter. Another reference lesion is seen on i mage 45, previously measuring 3.4 x 3.0 cm but now measuring measures 2.4 x 1.7 cm. Another reference lesion can be seen on image 50, previously measuring 3.5 cm diameter and now measuring 2.2 cm in richy meter. There are a few scattered small low-attenuation regions, not well demarcated. There are no new lesions. No biliary tree distention. PANCREAS: No significant abnormality is seen. SPLEEN: No significant abnormality is seen. ADRENALS: No significant abnormality is seen. KIDNEYS: No significant abnormality is seen. BOWEL: There is nonspecific concentric sigmoid mural thickening with indistinctness, but no other hol low visceral findings. REPRODUCTIVE ORGANS: No gross abnormality seen. LYMPH NODES: No greater than 1 cm abdominal or pelvic lymph nodes are appreciated. OSSEOUS STRUCTURES: No significant abnormality is seen. VASCULATURE: No significant abnormality. IMPRESSION: INTERVAL IMPROVEMENT EVIDENT, WITH DECREASED SIZE OF PLEURAL AND HEPATIC FINDINGS AND NO NEW ABNORMAL ITIES.
[2017-02-25 17:29] LABS: Glucose,Whole Blood 64 mg/dL (75-99)
[2017-02-25 17:53] LABS: Glucose,Whole Blood 74 mg/dL (75-99)
[2017-02-25 20:43] LABS: Glucose,Whole Blood 156 mg/dL (75-99)
[2017-02-25] MEDS ORDERED: TAMSULOSIN 0.4 MG CAP.ER.24H PO SCH (21:00)
[2017-02-25] MEDS ORDERED: PRAVASTATIN SODIUM 40 MG TAB PO SCH (21:00)
[2017-02-25] MEDS: MINOCYCLINE 50 MG CAP PO SCH (21:33)
[2017-02-26 07:42] LABS: Glucose,Whole Blood 107 mg/dL (75-99)
[2017-02-26] MEDS: PIPERACILLIN-TAZOBACTAM 3.375 GM in DEXTROSE/WATER 1 50ML.BAG IVPB SCH (07:49)
[2017-02-26] MEDS: ENOXAPARIN 40 MG/0.4 ML SYRINGE SQ SCH (07:49)
[2017-02-26] MEDS: SODIUM CHLORIDE 0.9% 1,000 ML IV SCH (07:52)
[2017-02-26] MEDS: NYSTATIN 100,000 UNIT/ML SUSP 500,000 UNIT/5 ML CUP PO SCH (07:54)
[2017-02-26] MEDS: MINOCYCLINE 50 MG CAP PO SCH (07:54)
[2017-02-26 08:04] VITALS: BP 111/63; PULSE 57; RESP 18; TEMP 97.7
[2017-02-26 08:36] LABS: Anisocytosis Moderate; CH 30.6; CHCM 35.2; HCT 35.8 % (39.0-53.0); HGB 12.7 gm/dL (13.0-17.5); MCHC 35.6 g/dL (31.0-37.0); MCV 87.1 fL (80.0-100.0); Mean Platelet Volume 8.4; RBC 4.11 m/uL (4.30-5.90); RDW 20.1 % (11.5-15.5); WBC 2.7 k/uL (3.8-10.6)
[2017-02-26 08:51] LABS: Anion Gap 8 mmol/L; Blood Urea Nitrogen 10 mg/dL (9-20); Calcium 8.5 mg/dL (8.4-10.2); Carbon Dioxide 24 mmol/L (22-30); Chloride 107 mmol/L (98-107); Glucose 102 mg/dL (74-99); Non-African American GFR(MDRD) >60 (>60 ml/min/1.73 sqM); Potassium 4.3 mmol/L (3.5-5.1); Sodium 139 mmol/L (137-145)
--- NOTE | 2017-02-26 11:49 | P.DS ---
Providers Date of admission: 02/24/17 18:37 Attending physician: Moise Chávez Consults: 02/24/17 18:39 Consult Physician Urgent Consulting Provider: Sundar Marie Consult Reason/Comments: known Do you want consulting provider notified?: Yes 02/25/17 09:54 Consult Physician Routine Consulting Provider: Wilmer Santizo Consult Reason/Comments: patient of record Do you want consulting provider notified?: Yes Primary care physician: [facility] Course: 77-year-old gentleman came in with the complaints of generalized weakness and found to have sepsis. And the source of infection is not clear patient's symptoms improved with -[place] Zosyn. Patient was discharged on Augmentin for about a week. #1 severe sepsis: Source of infection is not clear at this point of time #2 diabetes with us type II: Metformin were discontinued because of lactic acidosis #3 hyperlipidemia #4 Colon Cancer with recent chemotherapy. PHYSICAL EXAMINATION: GENERAL: The patient is alert and oriented x3, not in any acute distress. Well developed, well nourished. HEENT: Pupils are round and equally reacting to light. EOMI. No scleral icterus. No conjunctival pallor. Normocephalic, atraumatic. No pharyngeal erythema. No thyromegaly. CARDIOVASCULAR: S1 and S2 present. No murmurs, rubs, or gallops. PULMONARY: Chest is clear to auscultation, no wheezing or crackles. ABDOMEN: Soft, nontender, nondistended, normoactive bowel sounds. No palpable organomegaly. MUSCULOSKELETAL: No joint swelling or deformity. EXTREMITIES: No cyanosis, clubbing, or pedal edema. NEUROLOGICAL: Gross neurological examination did not reveal any focal deficits. SKIN: No rashes. Patient Condition at Discharge: Fair Plan - Discharge Summary New Discharge Prescriptions: New Amoxic-Pot Clav 875-125Mg [Augmentin 875-125] 1 tab PO Q12HR #14 tablet Discontinued metFORMIN HCL 1,000 mg PO DAILY No Action Pravastatin Sodium [Pravachol] 40 mg PO HS Acetaminophen Tab [Tylenol] 650 mg PO Q6H PRN PRN Reason: Mild Pain glipiZIDE XL [Glucotrol XL] 5 mg PO QAM Tamsulosin [Flomax] 0.4 mg PO HS Hydrocortisone [Cortizone 10] 1 applic TOPICAL DAILY PRN PRN Reason: Rash Discharge Medication List Acetaminophen Tab [Tylenol] 650 mg PO Q6H PRN 08/02/16 [History] Pravastatin Sodium [Pravachol] 40 mg PO HS 08/02/16 [History] Tamsulosin [Flomax] 0.4 mg PO HS 08/02/16 [History] glipiZIDE XL [Glucotrol XL] 5 mg PO QAM 08/02/16 [History] Hydrocortisone [Cortizone 10] 1 applic TOPICAL DAILY PRN 02/24/17 [History] Amoxic-Pot Clav 875-125Mg [Augmentin 875-125] 1 tab PO Q12HR #14 tablet [Rx] Follow up Appointment(s)/Referral(s): Claudio Rogers MD [STAFF PHYSICIAN] - 03/03/17 9:00 am Nigel Hayes DO [Primary Care Provider] - 03/07/17 11:40 am Patient Instructions/Handouts: Amoxicillin/Clavulanate Potassium (By mouth), Neutropenia (DC), Oral Mucositis (DC) Discharge Disposition: HOME SELF-CARE
--- NOTE | 2017-02-26 11:54 | P.PN ---
Subjective Principal diagnosis: fever Pt seen today in follow up, he is feeling much better, he can get out of bed and ambulate without help or feeling profoundly weak, he ate the "biggest breakfast" he has ate in a ling time, he had a BM that was normal. Objective - Vital Signs Vital signs: Vital Signs Temp 97.7 F 02/26/17 07:00 Pulse 57 L 02/26/17 08:00 Resp 18 02/26/17 08:00 BP 111/63 02/26/17 07:00 Pulse Ox 95 02/26/17 07:00 Intake & Output 02/25/17 02/26/17 02/26/17 18:59 06:59 18:59 Intake Total 800 1180 Balance 800 1180 Weight 91.5 kg 91.5 kg Intake: Intake, IV Titration 800 Amount Sodium Chloride 0.9% 1, 800 000 ml @ 100 mls/hr IV . Q10H [facility] Rx#:[id number] Oral 1180 Other: Voiding Method Toilet Toilet Toilet # Voids 3 # Bowel Movements 3 - Constitutional General appearance: Present: average body habitus, cooperative, no acute distress - EENT Eyes: Present: anicteric sclerae, normal appearance - Respiratory Details: respirations even and unlabored - Integumentary Integumentary: Present: normal - Neurologic Neurologic: Present: CNII-XII intact - Musculoskeletal Musculoskeletal: Present: strength equal bilaterally - Psychiatric Psychiatric: Present: A&O x's 3, appropriate affect, intact judgment & insight - Labs CBC & Chem 7: 02/26/17 08:03 02/26/17 08:03 Labs: Abnormal Lab Results - Last 24 Hours (Table) 02/25/17 02/25/17 02/25/17 Range/Units 11:52 17:24 17:51 WBC (3.8-10.6) k/uL RBC (4.30-5.90) m/uL Hgb (13.0-17.5) gm/dL Hct (39.0-53.0) % RDW (11.5-15.5) % Plt Count (150-450) k/uL Glucose (74-99) mg/dL POC Glucose (mg/dL) 173 H 64 L 74 L (75-99) mg/dL 02/25/17 02/26/17 02/26/17 Range/Units 20:41 07:32 08:03 WBC 2.7 L (3.8-10.6) k/uL RBC 4.11 L (4.30-5.90) m/uL Hgb 12.7 L (13.0-17.5) gm/dL Hct 35.8 L (39.0-53.0) % RDW 20.1 H (11.5-15.5) % Plt Count 102 L (150-450) k/uL Glucose (74-99) mg/dL POC Glucose (mg/dL) 156 H 107 H (75-99) mg/dL 02/26/17 Range/Units 08:03 WBC (3.8-10.6) k/uL RBC (4.30-5.90) m/uL Hgb (13.0-17.5) gm/dL Hct (39.0-53.0) % RDW (11.5-15.5) % Plt Count (150-450) k/uL Glucose 102 H (74-99) mg/dL POC Glucose (mg/dL) (75-99) mg/dL Microbiology - Last 24 Hours (Table) 02/24/17 19:07 Urine Culture - Final Urine,Voided 02/24/17 17:46 Blood Culture - Preliminary Blood No Growth after 24 hours - Imaging and Cardiology CT scan - abdomen: report reviewed CT scan - chest: report reviewed CT scan - pelvis: report reviewed Assessment and Plan (1) Fever Status: Resolved (2) Mucositis (ulcerative) due to antineoplastic therapy Narrative/Plan: Improved Status: Acute (3) Weakness generalized Narrative/Plan: Improved Status: Acute (4) Colon adenocarcinoma Status: Chronic (5) Colon carcinoma metastatic to multiple sites Status: Chronic Plan: Reviewed treatment follow up CT results with pt, all areas of previous tumor are smaller and less metabolically intense! Pt is due for chemo next week, will get info of hospitalization and CT results to primary Oncologist. No changes to treatment are anticipated but Oncologist will decide. Pt is ok from Hem/Onc standpoint to be discharged once cleared by IM.
== END 2017-02-26 11:35 | disposition home or self-care (01) | DRG 872 ==
LOC: EC 17:32 → 5ONC 18:37
PROVIDERS: ADMIT Hospitalist; ATTEND Hospitalist
DX: A41.9 Sepsis, unspecified organism (principal); J90 Pleural effusion, not elsewhere classified; D70.1 Agranulocytosis secondary to cancer chemotherapy; E87.2 Acidosis; C78.7 Secondary malignant neoplasm of liver and intrahepatic bile duct; C78.02 Secondary malignant neoplasm of left lung; C19 Malignant neoplasm of rectosigmoid junction; E87.1 Hypo-osmolality and hyponatremia; R65.20 Severe sepsis without septic shock; E11.9 Type 2 diabetes mellitus without complications; R50.81 Fever presenting with conditions classified elsewhere; E78.5 Hyperlipidemia, unspecified; K12.31 Oral mucositis (ulcerative) due to antineoplastic therapy; I10 Essential (primary) hypertension; R21 Rash and other nonspecific skin eruption; M19.91 Primary osteoarthritis, unspecified site; T45.1X5A Adverse effect of antineoplastic and immunosuppressive drugs, initial encounter; Z79.899 Other long term (current) drug therapy; Z79.84 Long term (current) use of oral hypoglycemic drugs; Z92.21 Personal history of antineoplastic chemotherapy; Z96.653 Presence of artificial knee joint, bilateral; Z87.891 Personal history of nicotine dependence; Z98.42 Cataract extraction status, left eye; Z98.41 Cataract extraction status, right eye
CPT/HCPCS: 36415; 71020; 71260; 74177; 80048; 80053; 81003; 82550; 82553; 83605; 83735; 84100; 84484; 85025; 85027; 87040; 87086; 93005; 94760; 96361; 96365; 96375; 99285

== ENCOUNTER → 2017-05-16 | Outpatient (CLI) | payer MEDICARE ==
[2017-05-16 10:49] LABS: Blood Urea Nitrogen 14 mg/dL (9-20); Non-African American GFR(MDRD) >60 (>60 ml/min/1.73 sqM)
--- NOTE | 2017-05-16 13:17 | CT ---
EXAMINATION TYPE: CT ChestAbdPelvis w con DATE OF EXAM: 05/16/2017 COMPARISON: 02/25/2017 HISTORY: 77-year-old male Rectal, lung and liver CA. Completed chemotherapy yesterday. TECHNIQUE: Contiguous axial scanning of the performed with IV Contrast, patient injected with 100 mL of Omnipaque 300. Delayed images through the kidneys were obtained. Coronal/sagittal reconstructions performed. CT DLP: 2521 mGycm Automated exposure control for dose reduction was used. FINDINGS: CHEST: The heart is normal size with trace pericardial thickening/fluid. Ascending aorta ectatic and 3.7 cm there is conventional arterial vessel branching anatomy. Right anterior chest wall injection port with catheter tip at the cavoatrial junction. Borderline size to the main pulmonary artery is a 2.5 cm. A 6 mm paraesophageal lymph node behind the ab is unchanged. No thoracic lymphadenopathy by CT si ze criteria. Mild diffuse bronchial wall thickening noted. The previous masslike loculated pleural effusion along the left major fissure has resolved. The small left basilar effusion remains with some adjacent mild pleural thickening which is similar. Additional pleural thickening previously seen along the left high hemidiaphragm show some improvement . There are some adjacent patchy left basilar opacity, probable atelectasis. A 1 cm nodule at the lef t base, axial image 42 could be reassessed at follow-up and probably relates to some residual changes . ABDOMEN: Numerous hypodense lesions within the liver, approximately 10 are redemonstrated. These appear slight ly more hypodense as compared to prior exam but are relatively unchanged in size, measuring up to 1.9 cm in the right liver lobe and 2.1 cm and the left liver lobe. These may relate to sites of treated. Portal venous system is patent. No biliary ductal dilatation. Gallbladder, adrenal glands, right kidney, spleen, and pancreas show no gross abnormal mobility. Tiny subcentimeter hypodensities in the medial upper pole left kidney are unchanged and could represent t iny cysts but are too small fractured CT characterization. No dilated small bowel, free fluid, or free air. No mesenteric or retroperitoneal lymphadenopathy florian ntified. Moderate stool burden. There is moderate circumferential wall thickening of the mid to distal sigmoid with annular narrowing at the rectosigmoid junction and some focal enhancement here, referred to axi al image 112. Pelvis: Bladder partially urine distended. Prostate gland is enlarged at 5.3 cm wide. No enlarged pelvic lymp h nodes or abnormal fluid collection identified. Bones: Degenerative changes at the SI joints, lower lumbar spine, and endplate spondylosis throughout the th oracic spine with changes of DISH. IMPRESSION: 1. There is moderate new circumferential wall thickening of the mid to distal sigmoid. Findings could reflect post radiation therapy change or colitis. Clinically correlate. 2. In addition, there is focal annular narrowing at the rectosigmoid junction and some nodular enhanc ement, axial image 112. Recommend direct visualization to exclude residual disease here. 3. Overall stable size of the hepatic metastases, measuring up to 2.1 cm. However, these are now lowe r in density and more cystic in appearance suggesting posttreatment change. Continued follow-up recom mended. 4. Previous loculated effusion along the left major fissure has resolved. However, the small left bas ilar pleural effusion persists with similar mild pleural thickening. 5. Some of the other left basilar pleural thickening has improved. A 1 cm left basilar pulmonary nodu le remains and can be reassessed at follow-up.
== END | disposition home or self-care (01) ==
LOC: RADPROMAIN 09:48
PROVIDERS: ATTEND Internal Medicine Hematology & Oncology
DX: C20 Malignant neoplasm of rectum (principal); C78.7 Secondary malignant neoplasm of liver and intrahepatic bile duct; J90 Pleural effusion, not elsewhere classified; J92.9 Pleural plaque without asbestos; K63.89 Other specified diseases of intestine; R91.1 Solitary pulmonary nodule
CPT/HCPCS: 82565; 84520; 71260; 74177; Q9967; J1642

== ENCOUNTER 2017-06-07 10:39 | Inpatient (IN) | payer MEDICARE ==
[2017-06-07] MEDS ORDERED: HYDROmorphone 0.5 MG/0.5 ML SYRINGE IVP STA (11:12)
[2017-06-07] MEDS ORDERED: SODIUM CHLORIDE 0.9% 1,000 ML IV STA (11:12)
[2017-06-07] MEDS ORDERED: RX INFO: IV CONTRAST WAS GIVEN 1 EACH MISC MISCELLANE PRN (11:12)
[2017-06-07 11:43] LABS: Aty Lym Flag Slight; CHCM 33.7; HCT 41.5 % (39.0-53.0); HDW 3.32; HGB 13.5 gm/dL (13.0-17.5); MCH 31.9 pg (25.0-35.0); MCHC 32.5 g/dL (31.0-37.0); MCV 98.2 fL (80.0-100.0); Mean Platelet Volume 7.2; RBC 4.23 m/uL (4.30-5.90); RDW 14.9 % (11.5-15.5); WBC 4.9 k/uL (3.8-10.6); WBC (Perox) 5.01
--- NOTE | 2017-06-07 11:46 | ED ---
Abdominal Pain HPI - General Chief Complaint: Abdominal Pain Stated Complaint: groin and abdominal pain; stage 4 cancer Time Seen by Provider: 06/07/17 10:55 Source: patient, RN notes reviewed, old records reviewed Mode of arrival: ambulatory Limitations: no limitations - History of Present Illness Initial Comments: This is a 77-year-old male presents emergency Department chief complaint of intermittent lower abdominal pain. He reports that when the pain occurs it doubles him over. He states that he had a bowel movement today, but states it seemed to be very small. It is noted the patient has a history of rectal cancer. He completed chemotherapy a few weeks ago. He states that he is concerned that maybe the tumor has reoccurred. He is scheduled for colonoscopy in later June. He states that he is concerned that he cannot wait that long. Patient reports that he's had no back pain. He reports that when he did have a bowel movement he did not notice any significant stools there. Patient relates that he was told that he has metastases related to his cancer, in the liver and lung. He reports that those have been resolved. Patient states his oncologist is Dr. alexis. He denies any fever or chills. Denies any chest pain or shortness of breath. He states that he's had no nausea or vomiting. - Related Data Home Medications Medication Instructions Recorded Confirmed Acetaminophen Tab [Tylenol] 650 mg PO Q6H PRN 08/02/16 06/07/17 Pravastatin Sodium [Pravachol] 40 mg PO HS 08/02/16 06/07/17 Tamsulosin [Flomax] 0.4 mg PO HS 08/02/16 06/07/17 glipiZIDE XL [Glucotrol XL] 5 mg PO DAILY 08/02/16 06/07/17 Meloxicam [Mobic] 7.5 mg PO DAILY 06/07/17 06/07/17 Multivitamins, Thera [Multivitamin 1 tab PO DAILY 06/07/17 06/07/17 (formulary)] metFORMIN HCL 1,000 mg PO BID 06/07/17 06/07/17 Allergies Allergy/AdvReac Type Severity Reaction Status Date / Time No Known Allergies Allergy Verified 06/07/17 11:53 Review of Systems ROS Statement: Those systems with pertinent positive or pertinent negative responses have been documented in the HPI. ROS Other: All systems not noted in ROS Statement are negative. Past Medical History Past Medical History: Cancer, Diabetes Mellitus, Hyperlipidemia Additional Past Medical History / Comment(s): PLEURAL EFFUSION, STATES CA OF left sided LUNG, COLON, LIVER. colon-primary stage 4. dx 11/18. completed 6/8 cycles of chemo. last chemo 02/20/17. History of Any Multi-Drug Resistant Organisms: None Reported Past Surgical History: Back Surgery, Joint Replacement Additional Past Surgical History / Comment(s): 08/12/16 Revision total R knee arthroplasty. BILATERAL KNEE REPLACEMENTS,PLEURAL EFFUSION X3 PAULINO CATARACT SX; right rotor cuff shoulder sx. Past Anesthesia/Blood Transfusion Reactions: Postoperative Nausea & Vomiting ( PONV) Additional Past Anesthesia/Blood Transfusion Reaction / Comment(s): Pt has had PONV and BROTHER HAD PONV. Past Psychological History: No Psychological Hx Reported Smoking Status: Former smoker Past Alcohol Use History: Occasional Past Drug Use History: None Reported - Past Family History Father Family Medical History: No Reported History Additional Family Medical History / Comment(s): Father at the age of 86yrs. Mother Family Medical History: No Reported History Additional Family Medical History / Comment(s): Mother at the age of 84yrs. General Exam - General Exam Comments Initial Comments: 77-year-old male. Patient does not appear to be in any acute distress. Limitations: no limitations General appearance: alert Head exam: Present: atraumatic, normocephalic, normal inspection Eye exam: Present: normal appearance, PERRL, EOMI. Absent: scleral icterus, conjunctival injection, periorbital swelling ENT exam: Present: normal exam, mucous membranes moist Neck exam: Present: normal inspection. Absent: tenderness, meningismus, lymphadenopathy Respiratory exam: Present: normal lung sounds bilaterally. Absent: respiratory distress, wheezes, rales, rhonchi, stridor Cardiovascular Exam: Present: regular rate, normal rhythm, normal heart sounds. Absent: systolic murmur, diastolic murmur, rubs, gallop, clicks GI/Abdominal exam: Present: soft, tenderness (Lower quadrant tenderness bilaterally.), normal bowel sounds. Absent: distended, guarding, rebound, rigid Extremities exam: Present: normal inspection, full ROM, normal capillary refill. Absent: tenderness, pedal edema, joint swelling, calf tenderness Back exam: Present: normal inspection Neurological exam: Present: alert, oriented X3, CN II-XII intact Psychiatric exam: Present: normal affect, normal mood Skin exam: Present: warm, dry, intact, normal color. Absent: rash Course Vital Signs 06/07/17 06/07/17 06/07/17 10:48 12:43 13:56 Temperature 97.4 F L Pulse Rate 87 64 Respiratory 18 16 18 Rate Blood Pressure 145/74 175/88 O2 Sat by Pulse 100 99 Oximetry - Reevaluation(s) Reevaluation #1: 06/07/17 14:45 Patient reevaluated after enema. He reports some improvement with bowel movements. Medical Decision Making - Medical Decision Making This is a 77-year-old male presents emergency Department chief complaint of intermittent lower abdominal pain. He reports that when the pain occurs it doubles him over. He states that he had a bowel movement today, but states it seemed to be very small/ ribbon like. It is noted the patient has a history of rectal cancer. He completed chemotherapy a few weeks ago. He states that he is concerned that maybe the tumor has reoccurred. Patient was given IV fluids labwork obtained. He does have significant tenderness bilateral lower quadrants. Patient has had no nausea or vomiting. At this time patient's labwork was reviewed. His hemoglobin is improved from previous lab. Patient does have an elevated lipase of 690. There is no previous lipase to compare this fROM. Patient CT shows continued thickening around the rectum. No significant worsening noted. On rectal exam is unable to fully palpate any masses, fecal occult was actually negative. Patient was given an enema due to severe constipation noted on CT. During the enema patient states nurse had a difficult time administering it. He continued to come out. Concern for an beginning of a colonic obstruction. He did have a small bowel movement after the enema. Patient was informed of these results, and advised that He may need to have a colostomy bag. Patient seems to be receptive of this. - Lab Data Result diagrams: 06/07/17 11:28 06/07/17 11: Lab Results 06/07/17 06/07/17 06/07/17 Range/Units 11:28 11:28 11:28 WBC 4.9 (3.8-10.6) k/uL RBC 4.23 L (4.30-5.90) m/uL Hgb 13.5 (13.0-17.5) gm/dL Hct 41.5 (39.0-53.0) % MCV 98.2 (80.0-100.0) fL MCH 31.9 (25.0-35.0) pg MCHC 32.5 (31.0-37.0) g/dL RDW 14.9 (11.5-15.5) % Plt Count 195 (150-450) k/uL Neutrophils % (Manual) 65 % Lymphocytes % (Manual) 17 % Monocytes % (Manual) 13 % Eosinophils % (Manual) 5 % Neutrophils # (Manual) 3.19 (1.3-7.7) k/uL Lymphocytes # (Manual) 0.83 L (1.0-4.8) k/uL Monocytes # (Manual) 0.64 (0-1.0) k/uL Eosinophils # (Manual) 0.25 (0-0.7) k/uL Nucleated RBCs 0 (0-0) /100 WBC Polychromasia Present PT 10.6 (9.0-12.0) sec INR 1.1 (<1.2) APTT 24.4 (22.0-30.0) sec Sodium 139 (137-145) mmol/L Potassium 4.1 (3.5-5.1) mmol/L Chloride 108 H (98-107) mmol/L Carbon Dioxide 24 (22-30) mmol/L Anion Gap 7 mmol/L BUN 8 L (9-20) mg/dL Creatinine 0.79 (0.66-1.25) mg/dL Est GFR (MDRD) Af Amer >60 (>60 ml/min/1.73 sqM) Est GFR (MDRD) Non-Af >60 (>60 ml/min/1.73 sqM) Glucose 119 H (74-99) mg/dL Calcium 8.8 (8.4-10.2) mg/dL Total Bilirubin 0.5 (0.2-1.3) mg/dL AST 37 (17-59) U/L ALT 42 (21-72) U/L Alkaline Phosphatase 82 (38-126) U/L Total Protein 5.8 L (6.3-8.2) g/dL Albumin 3.4 L (3.5-5.0) g/dL Amylase 120 H (30-110) U/L Lipase 693 H (23-300) U/L Urine Color Urine Appearance (Clear) Urine pH (5.0-8.0) Ur Specific Clancy (1.001-1.035) Urine Protein (Negative) Urine Glucose (UA) (Negative) Urine Ketones (Negative) Urine Blood (Negative) Urine Nitrite (Negative) Urine Bilirubin (Negative) Urine Urobilinogen (<2.0) mg/dL Ur Leukocyte Esterase (Negative) Stool Occult Blood (Negative) Blood Type Blood Type Recheck Antibody Screen Spec Expiration Date 06/07/17 06/07/17 06/07/17 Range/Units 11:28 12:40 13:55 WBC (3.8-10.6) k/uL RBC (4.30-5.90) m/uL Hgb (13.0-17.5) gm/dL Hct (39.0-53.0) % MCV (80.0-100.0) fL MCH (25.0-35.0) pg MCHC (31.0-37.0) g/dL RDW (11.5-15.5) % Plt Count (150-450) k/uL Neutrophils % (Manual) % Lymphocytes % (Manual) % Monocytes % (Manual) % Eosinophils % (Manual) % Neutrophils # (Manual) (1.3-7.7) k/uL Lymphocytes # (Manual) (1.0-4.8) k/uL Monocytes # (Manual) (0-1.0) k/uL Eosinophils # (Manual) (0-0.7) k/uL Nucleated RBCs (0-0) /100 WBC Polychromasia PT (9.0-12.0) sec INR (<1.2) APTT (22.0-30.0) sec Sodium (137-145) mmol/L Potassium (3.5-5.1) mmol/L Chloride (98-107) mmol/L Carbon Dioxide (22-30) mmol/L Anion Gap mmol/L BUN (9-20) mg/dL Creatinine (0.66-1.25) mg/dL Est GFR (MDRD) Af Amer (>60 ml/min/1.73 sqM) Est GFR (MDRD) Non-Af (>60 ml/min/1.73 sqM) Glucose (74-99) mg/dL Calcium (8.4-10.2) mg/dL Total Bilirubin (0.2-1.3) mg/dL AST (17-59) U/L ALT (21-72) U/L Alkaline Phosphatase (38-126) U/L Total Protein (6.3-8.2) g/dL Albumin (3.5-5.0) g/dL Amylase (30-110) U/L Lipase (23-300) U/L Urine Color Yellow Urine Appearance Clear (Clear) Urine pH 5.5 (5.0-8.0) Ur Specific Clancy 1.015 (1.001-1.035) Urine Protein Negative (Negative) Urine Glucose (UA) Negative (Negative) Urine Ketones Negative (Negative) Urine Blood Negative (Negative) Urine Nitrite Negative (Negative) Urine Bilirubin Negative (Negative) Urine Urobilinogen <2.0 (<2.0) mg/dL Ur Leukocyte Esterase Negative (Negative) Stool Occult Blood Negative (Negative) Blood Type B Positive Blood Type Recheck No Antibody Screen NEGATIVE Spec Expiration Date 06/10/2017 - 7782 - Radiology Data Radiology results: report reviewed Continuing left-sided pleural effusion. Solitary pulmonary nodule in the posterior basal segment of the left lower lobe. Stable hepatic metastases. Small hiatal hernia. Probable tiny cyst in the lower pole of the kidney. Persistent circumferential narrowing of the distal sigmoid colon. Unchanged from previous. Evidence of constipation. Noted degenerative changes within the spine. Disposition Clinical Impression: Rectal cancer, Constipation, Elevated lipase, Pleural effusion Disposition: ADMITTED IP TO THIS [facility] Condition: Stable Referrals: Nigel Hayes DO [Primary Care Provider] - 1-2 days Time of Disposition: 14:55
[2017-06-07 11:48] LABS: INR 1.1 (<1.2); Partial Thromboplastin Time 24.4 sec (22.0-30.0); Prothrombin Time 10.6 sec (9.0-12.0)
[2017-06-07 11:50] LABS: ALT 42 U/L (21-72); AST 37 U/L (17-59); Alkaline Phosphatase 82 U/L (38-126); Amylase 120 U/L (30-110); Anion Gap 7 mmol/L; Blood Urea Nitrogen 8 mg/dL (9-20); Calcium 8.8 mg/dL (8.4-10.2); Carbon Dioxide 24 mmol/L (22-30); Chloride 108 mmol/L (98-107); Glucose 119 mg/dL (74-99); Non-African American GFR(MDRD) >60 (>60 ml/min/1.73 sqM); Potassium 4.1 mmol/L (3.5-5.1); Sodium 139 mmol/L (137-145); Total Bilirubin 0.5 mg/dL (0.2-1.3); Total Protein 5.8 g/dL (6.3-8.2)
[2017-06-07 12:42] LABS: Add Differential Manual Differential
[2017-06-07 12:43] LABS: Nucleated Red Blood Cells 0 /100 WBC (0-0); Polychromasia Present; Total Cells Counted 100
[2017-06-07 12:48] LABS: Appearance,Urine Clear (Clear); Bilirubin,Urine Negative (Negative); Glucose,Urine (UA) Negative (Negative); Ketones,Urine Negative (Negative); Leukocyte Esterase,Urine Negative (Negative); Nitrite,Urine Negative (Negative); PH, Urine 5.5 (5.0-8.0); Protein,Urine Negative (Negative); Specific Gravity,Urine 1.015 (1.001-1.035); UA Billing (MACRO vs. MICRO) CHEM; Urobilinogen,Urine <2.0 mg/dL (<2.0)
--- NOTE | 2017-06-07 13:26 | CT ---
EXAMINATION TYPE: CT abdomen pelvis w con DATE OF EXAM: 06/07/2017 REFERENCE: Previous CT scan of the chest, abdomen and pelvis dated 05/16/2017. HISTORY: abdominal pain HISTORY: Groin and abdominal pain, stage 4 colon cancer REFERENCE: NONE CT DLP: 1146.20 mGy Automated exposure control for dose reduction was used. TECHNIQUE: Helical acquisition through the abdomen and pelvis was obtained following the oral ingesti on of without Oral Contrast and following intravenous administration of 100 ml mL of Omnipaque 300. T he data was reformatted in axial, coronal and sagittal projections. FINDINGS: There continues to be a left-sided pleural effusion. There is a 1.7 cm nodule in the poste rior basal segment of the left lower lobe. This is unchanged from previous. There is no pleural or pericardial fluid. The heart is not enlarged. There is a small hiatal hernia. Within the abdomen, there are multiple hepatic lesions, unchanged in size or number from the previous examination. The gallbladder is unremarkable. The spleen appears normal. Both adrenal glands appear normal. There is a 5.4 mm low attenuating lesion in the inferior pole of t he left kidney. This is too small accurately characterize but likely represents a cyst. The pancreas is normal. There is no significant retroperitoneal, iliac or inguinal adenopathy. The bladder wall appears thickened but the bladder is not distended. There is a large amount of stool within the colon. Wall thickening of the sigmoid colon cannot be tahmina reciated on today's examination. Questionable focal narrowing of the rectosigmoid junction is again i dentified. The appendix is not clearly visualized. Small bowel caliber is normal. There is a small amount of free fluid in the right hemipelvis. No free air is seen. There is extensive degenerative disc disease and hypertrophic spondylosis within the spine. No bony d estructive lesion is seen. There is a sclerotic focus in the right femoral head which is unchanged fr om previous and likely represents a bone island. IMPRESSION: 1. CONTINUING LEFT-SIDED PLEURAL EFFUSION. 2. SOLITARY PULMONARY NODULE IN THE POSTERIOR BASAL SEGMENT OF THE LEFT LOWER LOBE. 3. STABLE HEPATIC METASTASES. 4. SMALL HIATAL HERNIA. 5. PROBABLE TINY CYST IN THE LOWER POLE OF THE LEFT KIDNEY. 6. PERSISTENT CIRCUMFERENTIAL NARROWING OF THE DISTAL SIGMOID COLON, UNCHANGED FROM PREVIOUS. 7. CONSTIPATION. 8. DEGENERATIVE CHANGES WITHIN THE SPINE.
[2017-06-07] MEDS ORDERED: KETOROLAC 30 MG/ML 1 ML VIAL IVP PRN (14:56)
[2017-06-07] MEDS ORDERED: HYDROmorphone 1 MG/ML 1 ML SYRINGE IVP PRN (14:56)
[2017-06-07] MEDS ORDERED: ONDANSETRON 4 MG/2 ML VIAL IVP PRN (14:56)
[2017-06-07] MEDS ORDERED: HYDROmorphone 0.5 MG/0.5 ML SYRINGE IVP PRN (14:56)
[2017-06-07] MEDS ORDERED: NALOXONE 0.4 MG/ML 1 ML VIAL IV PRN (14:56)
[2017-06-07] MEDS ORDERED: IBUPROFEN 400 MG TAB PO PRN (14:56)
[2017-06-07 17:42] VITALS: BMI 26.4
[2017-06-07] MEDS: metFORMIN 500 MG TAB PO SCH (18:32)
[2017-06-07] MEDS: SODIUM CHLORIDE 0.9% 1,000 ML IV SCH ×2 (18:33→20:28)
[2017-06-07] MEDS: ACETAMINOPHEN TAB 325 MG TAB PO PRN (20:25)
[2017-06-07] MEDS: PRAVASTATIN SODIUM 40 MG TAB PO SCH (20:25)
[2017-06-07] MEDS: TAMSULOSIN 0.4 MG CAP.ER.24H PO SCH (20:25)
--- NOTE | 2017-06-08 08:12 | P.GSCN ---
History of Present Illness Consult date: 06/08/17 Reason for Consult: Colon obstruction History of present illness: Patient is a 77-year-old male who has had progressive constipation over the last week or more. Severe crampy abdominal pain coming in waves. Small amount of liquid stool occurring intermittently. He has tried stool softeners and enemas without relief. He was found to have an obstructing rectal cancer in September of this year. He was then unfortunately found to have stage IV disease with metastasis to the left pleura and the liver. He has undergone neoadjuvant chemotherapy. No radiation therapy. He came to the hospital with worsening pain. Some nausea. Appetite diminished. Pain is 10 out of 10 when its occurring in waves. Computed tomography scan showed stable liver lesions, small left pleural effusion, constipation. No pneumatosis identified at this time. Review of Systems The patient denies any acute changes in vision or hearing, no dysphagia or odynophagia, no chest pain or shortness of breath, no dysuria or hematuria, no headache, no runny nose, no rectal bleeding or melena, no unexplained weight loss Past Medical History Past Medical History: Cancer, Diabetes Mellitus, Hyperlipidemia Additional Past Medical History / Comment(s): PLEURAL EFFUSION, STATES CA OF left sided LUNG, COLON, LIVER. colon-primary stage 4. dx 11/18. completed cycles of chemo. last chemo 05/13/17. History of Any Multi-Drug Resistant Organisms: None Reported Past Surgical History: Back Surgery, Joint Replacement Additional Past Surgical History / Comment(s): 08/12/16 Revision total R knee arthroplasty. BILATERAL KNEE REPLACEMENTS,PLEURAL EFFUSION THORACENTESIS X3 PAULINO CATARACT SX; right rotor cuff shoulder sx, COLONOSCOPY 09/2016 Past Anesthesia/Blood Transfusion Reactions: Postoperative Nausea & Vomiting ( PONV) Additional Past Anesthesia/Blood Transfusion Reaction / Comm: Pt has had PONV and BROTHER HAD PONV. Past Psychological History: No Psychological Hx Reported Additional Psychological History / Comment(s): . Smoking Status: Former smoker Past Alcohol Use History: Occasional Additional Past Alcohol Use History / Comment(s): STARTED SMOKING 1968, QUIT SMOKING 1974, SMOKED 1PPD Past Drug Use History: None Reported - Past Family History Father Family Medical History: Diabetes Mellitus Additional Family Medical History / Comment(s): Father at the age of 86yrs. Mother Family Medical History: Cancer, Dementia Additional Family Medical History / Comment(s): Mother at the age of 84yrs. Medications and Allergies Home Medications Medication Instructions Recorded Confirmed Type Acetaminophen Tab [Tylenol] 650 mg PO Q6H PRN 08/02/16 06/07/17 History Pravastatin Sodium [Pravachol] 40 mg PO HS 08/02/16 06/07/17 History Tamsulosin [Flomax] 0.4 mg PO HS 08/02/16 06/07/17 History glipiZIDE XL [Glucotrol XL] 5 mg PO DAILY 08/02/16 06/07/17 History Meloxicam [Mobic] 7.5 mg PO DAILY 06/07/17 06/07/17 History Multivitamins, Thera [Multivitamin 1 tab PO DAILY 06/07/17 06/07/17 History (formulary)] metFORMIN HCL 1,000 mg PO BID 06/07/17 06/07/17 History Allergies Allergy/AdvReac Type Severity Reaction Status Date / Time No Known Allergies Allergy Verified 06/07/17 11:53 Surgical - Exam Vital Signs Temp Pulse Resp BP Pulse Ox 97.4 F L 87 18 145/74 100 06/07/17 10:48 06/07/17 10:48 06/07/17 10:48 06/07/17 10:48 06/07/17 10:48 Physical exam: General: Well-developed, well-nourished HEENT: Normocephalic, sclerae nonicteric Abdomen: Slightly distended, mild tenderness diffusely Extremities: No edema Neuro: Alert and oriented Results - Labs 06/07/17 11:28 06/07/17 11:28 Abnormal Lab Results - Last 24 Hours (Table) 06/07/17 06/07/17 Range/Units 11:28 11:28 RBC 4.23 L (4.30-5.90) m/uL Lymphocytes # (Manual) 0.83 L (1.0-4.8) k/uL Chloride 108 H (98-107) mmol/L BUN 8 L (9-20) mg/dL Glucose 119 H (74-99) mg/dL Total Protein 5.8 L (6.3-8.2) g/dL Albumin 3.4 L (3.5-5.0) g/dL Amylase 120 H (30-110) U/L Lipase 693 H (23-300) U/L Diabetes panel 06/07/17 Range/Units 11:28 Sodium 139 (137-145) mmol/L Potassium 4.1 (3.5-5.1) mmol/L Chloride 108 H (98-107) mmol/L Carbon Dioxide 24 (22-30) mmol/L BUN 8 L (9-20) mg/dL Creatinine 0.79 (0.66-1.25) mg/dL Glucose 119 H (74-99) mg/dL Calcium 8.8 (8.4-10.2) mg/dL AST 37 (17-59) U/L ALT 42 (21-72) U/L Alkaline Phosphatase 82 (38-126) U/L Total Protein 5.8 L (6.3-8.2) g/dL Albumin 3.4 L (3.5-5.0) g/dL Calcium panel 06/07/17 Range/Units 11:28 Calcium 8.8 (8.4-10.2) mg/dL Albumin 3.4 L (3.5-5.0) g/dL Pituitary panel 06/07/17 Range/Units 11:28 Sodium 139 (137-145) mmol/L Potassium 4.1 (3.5-5.1) mmol/L Chloride 108 H (98-107) mmol/L Carbon Dioxide 24 (22-30) mmol/L BUN 8 L (9-20) mg/dL Creatinine 0.79 (0.66-1.25) mg/dL Glucose 119 H (74-99) mg/dL Calcium 8.8 (8.4-10.2) mg/dL Adrenal panel 06/07/17 Range/Units 11:28 Sodium 139 (137-145) mmol/L Potassium 4.1 (3.5-5.1) mmol/L Chloride 108 H (98-107) mmol/L Carbon Dioxide 24 (22-30) mmol/L BUN 8 L (9-20) mg/dL Creatinine 0.79 (0.66-1.25) mg/dL Glucose 119 H (74-99) mg/dL Calcium 8.8 (8.4-10.2) mg/dL Total Bilirubin 0.5 (0.2-1.3) mg/dL AST 37 (17-59) U/L ALT 42 (21-72) U/L Alkaline Phosphatase 82 (38-126) U/L Total Protein 5.8 L (6.3-8.2) g/dL Albumin 3.4 L (3.5-5.0) g/dL Assessment and Plan (1) Colonic obstruction Narrative/Plan: Clinical scenario discussed in detail with the patient. The patient has a severe colonic obstruction. The patient is at risk of bowel ischemia and perforation at this time. The 2 options available to us clinically would be colonic stent placement or transverse loop colostomy. Colonic stent placement would require transfer to a tertiary care center and they're with the some concern regarding the timeliness of that procedure with the ongoing obstruction that is present. The patient is not interested in transfer at this time. He would like an intervention to be performed quickly as possible. That being said he is being scheduled for transverse loop colostomy at this time. Risks of bleeding, infection, stomal complications including ischemia and prolapse, aspiration, hernia, potential need for additional surgery were discussed. He understands and wishes to proceed. Current Visit: Yes Status: Acute Code(s): K56.609 - UNSP INTESTNL OBST, UNSP TO PARTIAL VERSUS COMPLETE OBST SNOMED Code(s): 85441111
[2017-06-08] MEDS: PANTOPRAZOLE 40 MG/10 ML VIAL IV SCH (08:26)
[2017-06-08] MEDS: metFORMIN 500 MG TAB PO SCH ×2 (09:22→17:09)
[2017-06-08] MEDS: MELOXICAM 7.5 MG TAB PO SCH (09:23)
[2017-06-08] MEDS: PIPERACILLIN-TAZOBACTAM 3.375 GM in DEXTROSE/WATER 1 50ML.BAG IVPB SCH ×3 (09:27→23:43)
[2017-06-08] MEDS ORDERED: fentaNYL (PF) 50 MCG/ML 2 ML AMP IV ONE (10:38)
[2017-06-08] MEDS ORDERED: LACTATED RINGERS 1,000 ML IV ONE ×2 (10:38→12:48)
[2017-06-08] MEDS: MIDAZOLAM 2 MG/2 ML VIAL IV ONE ×2 (10:38→11:17)
[2017-06-08] MEDS ORDERED: fentaNYL (PF) 50 MCG/ML 2 ML AMP IVP ONE (10:42)
[2017-06-08] MEDS ORDERED: NALOXONE 0.4 MG/ML 1 ML VIAL IV PRN (10:52)
[2017-06-08] MEDS ORDERED: PROPOFOL 10 MG/ML 20 ML VIAL IV ONE (11:19)
[2017-06-08] MEDS ORDERED: NEOSTIGMINE 1 MG/ML 10 ML VIAL ONE (11:19)
[2017-06-08] MEDS ORDERED: HYDROmorphone (PF) 1 MG/ML ONE (11:19)
[2017-06-08] MEDS ORDERED: fentaNYL (PF) 50 MCG/ML 2 ML AMP ONE (11:19)
[2017-06-08] MEDS ORDERED: GLYCOPYRROLATE 0.2 MG/ML 2 ML VIAL ONE (11:19)
[2017-06-08] MEDS ORDERED: ROCURONIUM BROMIDE 10 MG/ML 10 ML VIAL IV ONE (11:19)
[2017-06-08] MEDS ORDERED: HEPARIN SODIUM,PORCINE 5,000 UNIT/ML 1 ML VIAL ONE (11:19)
[2017-06-08] MEDS ORDERED: LIDOCAINE 1% INJ 10MG/ML (20 ML MDV) ONE (11:19)
[2017-06-08] MEDS ORDERED: PHENYLEPHRINE-0.9% NACL SYG 1 MG/10 ML SYRINGE ONE (11:19)
[2017-06-08] MEDS ORDERED: SUCCINYLCHOLINE CHLORIDE 100 MG/5 ML SYR IV ONE (11:19)
--- NOTE | 2017-06-08 13:06 | P.OP ---
Date of Procedure: 06/08/17 Procedure(s) Performed: PREOPERATIVE DIAGNOSIS: Colonic obstruction POSTOPERATIVE DIAGNOSIS: Same PROCEDURE: Transverse loop colostomy SURGEON: Gilmar EBL: 25 mL ANESTHESIA: General COMPLICATIONS: None OPERATIVE PROCEDURE: Patient was placed in the operating table in the supine position. A Glez catheter was placed. The abdomen was prepped and draped in the usual sterile fashion. An upper midline incision was made. The greater omentum was identified and retracted anteriorly. The transverse colon was distended. The omentum surrounding the transverse colon was dissected using LigaSure and cautery. I was able to bring the loop of transverse colon out through our upper aspect of the incision. A red rubber catheter was used to retract the colon. The fascia was then reapproximated using a running #1 PDS suture. The skin was closed using becky. The red rubber catheter was switched to a plastic bridge at that point. The bridge was sutured to the surrounding skin using interrupted 2-0 silk sutures. The ostomy was then opened and matured using interrupted 3-0 Vicryl sutures. An ostomy appliance was then applied. The bowel appeared viable. There was no evidence in the abdomen of perforation. Our ability to evaluate the abdominal cavity was somewhat limited given the small incision created. DISPOSITION: Stable to recovery room
[2017-06-08 13:07] LABS: Glucose,Whole Blood 129 mg/dL (75-99)
[2017-06-08] MEDS: BUPIVACAINE (PF) 0.5% 50 ML, HYDROMORPHONE (PF) 5 MG in SODIUM CHLORIDE 0.9% 200 ML EPIDURAL PRN (13:15)
[2017-06-08] MEDS: HYDROmorphone 1 MG/ML 1 ML SYRINGE IVP ONE ×6 (13:35→14:05)
--- NOTE | 2017-06-08 14:44 | P.HPIM ---
History of Present Illness H&P Date: 06/08/17 Chief Complaint: Abdominal pain and Constipation Patient is a 77-year-old male with a known history of hyperlipidemia, diabetes type 2 and recently diagnosed metastatic colon cancer in November 2016 with metastasis to liver and lungs came to ER with complaints of abdominal pain. Mainly in the lower abdomen. Patient did not have any good bowel movement for the past 1-2 months. patient did have small bowel movement yesterday. the pain is getting worse and patient came to ER for further evaluation. Patient did complete chemotherapy last chemotherapy on 05/13/2017. Patient was scheduled for colonoscopy in June. Otherwise patient went to the hospital with worsening pain. Patient states his oncologist is Dr. Rogers. He denies any fever or chills. Denies any chest pain or shortness of breath. He states that he's had no nausea or vomiting. No headache or dizziness or lightheadedness. CT of abdomen pelvis showed constipation and persistent circumferential narrowing of sigmoid colon. Patient does have lung nodules and liver metastasis was seen again. General surgery was consulted. Past Medical History Past Medical History: Cancer, Diabetes Mellitus, Hyperlipidemia Additional Past Medical History / Comment(s): PLEURAL EFFUSION, STATES CA OF left sided LUNG, COLON, LIVER. colon-primary stage 4. dx 11/18. completed 12/ cycles of chemo. last chemo 05/13/17. History of Any Multi-Drug Resistant Organisms: None Reported Past Surgical History: Back Surgery, Joint Replacement Additional Past Surgical History / Comment(s): 08/12/16 Revision total R knee arthroplasty. BILATERAL KNEE REPLACEMENTS,PLEURAL EFFUSION THORACENTESIS X3 PAULINO CATARACT SX; right rotor cuff shoulder sx, COLONOSCOPY 09/2016 Past Anesthesia/Blood Transfusion Reactions: Postoperative Nausea & Vomiting ( PONV) Additional Past Anesthesia/Blood Transfusion Reaction / Comment(s): Pt has had PONV and BROTHER HAD PONV. Past Psychological History: No Psychological Hx Reported Additional Psychological History / Comment(s): . Smoking Status: Former smoker Past Alcohol Use History: Occasional Additional Past Alcohol Use History / Comment(s): STARTED SMOKING 1968, QUIT SMOKING 1974, SMOKED 1PPD Past Drug Use History: None Reported - Past Family History Father Family Medical History: Diabetes Mellitus Additional Family Medical History / Comment(s): Father at the age of 86yrs. Mother Family Medical History: Cancer, Dementia Additional Family Medical History / Comment(s): Mother at the age of 84yrs. Medications and Allergies Home Medications Medication Instructions Recorded Confirmed Type Acetaminophen Tab [Tylenol] 650 mg PO Q6H PRN 08/02/16 06/07/17 History Pravastatin Sodium [Pravachol] 40 mg PO HS 08/02/16 06/07/17 History Tamsulosin [Flomax] 0.4 mg PO HS 08/02/16 06/07/17 History glipiZIDE XL [Glucotrol XL] 5 mg PO DAILY 08/02/16 06/07/17 History Meloxicam [Mobic] 7.5 mg PO DAILY 06/07/17 06/07/17 History Multivitamins, Thera [Multivitamin 1 tab PO DAILY 06/07/17 06/07/17 History (formulary)] metFORMIN HCL 1,000 mg PO BID 06/07/17 06/07/17 History Allergies Allergy/AdvReac Type Severity Reaction Status Date / Time No Known Allergies Allergy Verified 06/07/17 11:53 Physical Exam Vitals: Vital Signs Temp Pulse Pulse Resp BP BP Pulse Ox 06/08/17 10:01 98.1 F 16 134/80 97 06/08/17 09:36 84 16 06/08/17 07:32 97.5 F L 84 16 139/81 98 06/07/17 22:43 97.9 F 72 16 142/81 98 06/07/17 16:25 98.0 F 67 16 154/84 98 06/07/17 16:04 97.2 F L 70 12 126/65 98 06/07/17 13:56 64 18 175/88 99 06/07/17 12:43 16 Intake and Output 06/07/17 06/08/17 06/08/17 23:59 06:59 14:59 Intake Total Balance Intake: Intake, IV Titration Amount Sodium Chloride 0.9% 1, 000 ml @ 120 mls/hr IV . Q8H20M FOR[facility] Rx#:[id number] Other: Voiding Method Toilet # Voids Weight PHYSICAL EXAMINATION: Patient is lying in the bed comfortably, no acute distress, awake alert and oriented.. HEENT: Normocephalic. Neck is supple. Pupils reactive. Nostrils clear. Oral cavity is moist. Ears reveal no drainage. Neck reveals no JVD, carotid bruits, or thyromegaly. CHEST EXAMINATION: Trachea is central. Symmetrical expansion. Lung bustillo clear to auscultation and percussion. CARDIAC: Normal S1, S2 with no gallops. No murmurs ABDOMEN: Soft. Distended. Bowel sounds sluggish to absent. No abdominal bruits. Extremities: reveal no edema. No clubbing or cyanosis Neurologically awake, alert, oriented x3 with well-coordinated movements. No focal deficits noted Skin: No rash or skin lesions. Psychiatric: Operative. Nonsuicidal Musculoskeletal: No joint swelling or deformity. Normal range of motion. Results CBC & Chem 7: 06/07/17 11:28 06/07/17 11:28 Labs: Abnormal Lab Results - Last 24 Hours (Table) 06/07/17 06/07/17 Range/Units 11:28 11:28 RBC 4.23 L (4.30-5.90) m/uL Lymphocytes # (Manual) 0.83 L (1.0-4.8) k/uL Chloride 108 H (98-107) mmol/L BUN 8 L (9-20) mg/dL Glucose 119 H (74-99) mg/dL Total Protein 5.8 L (6.3-8.2) g/dL Albumin 3.4 L (3.5-5.0) g/dL Amylase 120 H (30-110) U/L Lipase 693 H (23-300) U/L Thrombosis Risk Factor Assmnt - Choose All That Apply Each Factor Represents 1 point: Obesity (BMI >25) Each Risk Factor Represents 2 Points: Malignancy Each Risk Factor Represents 3 Points: Age 75 years or older Thrombosis Risk Factor Assessment Total Risk Factor Score: 6 Thrombosis Risk Factor Assessment Level: High Risk Assessment and Plan Assessment: #1 abdominal pain due to acute on chronic constipation with sigmoid colon obstruction #2. Recent history of colon cancer metastatic status post chemotherapy last 1 on 05/13/2017 #3 hypertension #2 diabetes type 2 #5 BPH Plan: Patient will be continued on IV fluids, nothing by mouth and pain management. General surgery was consulted and recommended loop colostomy. Patient is being taken to surgery today. We will continue the current management and home medications and follow up closely. Prognosis is guarded. Further recommendations based on clinical course.
[2017-06-08] MEDS: MULTIVITAMINS, THERA 1 EACH TAB PO SCH (15:09)
[2017-06-08 16:18] LABS: Basophils % (A) 1 %; CH 32.8; CHCM 32.6; Eosinophils # (A) 0.1 k/uL (0-0.7); Eosinophils % (A) 1 %; HCT 41.5 % (39.0-53.0); HDW 3.25; HGB 13.2 gm/dL (13.0-17.5); Luc # (Auto) 0.09; Luc % (Auto) 1; Lymphocytes # (A) 0.4 k/uL (1.0-4.8); Lymphocytes % (A) 5 %; MCH 32.1 pg (25.0-35.0); MCHC 31.8 g/dL (31.0-37.0); Macrocytosis Slight; Mean Platelet Volume 7.4; Monocytes # (A) 0.6 k/uL (0-1.0); Monocytes % (A) 9 %; Neutrophils # (A) 5.5 k/uL (1.3-7.7); Neutrophils % (A) 83 %; RBC 4.11 m/uL (4.30-5.90); RDW 14.7 % (11.5-15.5); WBC 6.6 k/uL (3.8-10.6); WBC (Perox) 6.57
[2017-06-08] MEDS: SODIUM CHLORIDE 0.9% 1,000 ML IV SCH ×3 (16:19→23:43)
[2017-06-08 16:47] LABS: Anion Gap 9 mmol/L; Blood Urea Nitrogen 7 mg/dL (9-20); Calcium 8.1 mg/dL (8.4-10.2); Carbon Dioxide 23 mmol/L (22-30); Chloride 107 mmol/L (98-107); Glucose 149 mg/dL (74-99); Non-African American GFR(MDRD) >60 (>60 ml/min/1.73 sqM); Potassium 4.5 mmol/L (3.5-5.1); Sodium 139 mmol/L (137-145)
[2017-06-08] MEDS: PRAVASTATIN SODIUM 40 MG TAB PO SCH (21:41)
[2017-06-08] MEDS: TAMSULOSIN 0.4 MG CAP.ER.24H PO SCH (21:41)
[2017-06-09] MEDS: PANTOPRAZOLE 40 MG/10 ML VIAL IV SCH (07:15)
[2017-06-09] MEDS: PIPERACILLIN-TAZOBACTAM 3.375 GM in DEXTROSE/WATER 1 50ML.BAG IVPB SCH ×2 (07:15→16:20)
[2017-06-09] MEDS: metFORMIN 500 MG TAB PO SCH ×2 (07:15→17:16)
[2017-06-09] MEDS: SODIUM CHLORIDE 0.9% 1,000 ML IV SCH ×2 (07:16→16:21)
[2017-06-09] MEDS: MELOXICAM 7.5 MG TAB PO SCH ×2 (07:16→07:25)
[2017-06-09] MEDS: BUPIVACAINE (PF) 0.5% 50 ML, HYDROMORPHONE (PF) 5 MG in SODIUM CHLORIDE 0.9% 200 ML EPIDURAL PRN (08:29)
[2017-06-09 10:09] LABS: Basophils % (A) 0 %; CH 32.8; Eosinophils # (A) 0.2 k/uL (0-0.7); Eosinophils % (A) 2 %; HCT 39.9 % (39.0-53.0); HDW 3.34; HGB 12.9 gm/dL (13.0-17.5); Luc # (Auto) 0.17; Luc % (Auto) 2; Lymphocytes # (A) 0.7 k/uL (1.0-4.8); Lymphocytes % (A) 8 %; MCH 32.1 pg (25.0-35.0); MCHC 32.2 g/dL (31.0-37.0); MCV 99.7 fL (80.0-100.0); Macrocytosis Slight; Mean Platelet Volume 7.6; Monocytes # (A) 0.9 k/uL (0-1.0); Monocytes % (A) 10 %; Neutrophils # (A) 6.5 k/uL (1.3-7.7); Neutrophils % (A) 77 %; RDW 14.5 % (11.5-15.5); WBC 8.4 k/uL (3.8-10.6); WBC (Perox) 8.57
[2017-06-09] MEDS: MULTIVITAMINS, THERA 1 EACH TAB PO SCH (11:38)
--- NOTE | 2017-06-09 12:22 | P.PN ---
<Piedad Camarillone M - Last Filed: 06/09/17 12:06> Subjective Progress Note Date: 06/09/17 77-year-old male seen and examined at bedside. Epidural in place being monitored by anesthesia for pain control. Patient states there is no numbness to the bilateral lower extremities pain medication effective for pain control. Patient was able to sit on the edge of the bed taking a clear liquid diet tolerating with no reports of nausea vomiting. No dizziness lightheadedness no chest pain or shortness of breath. 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 Patient has undergo neneoadjuvant chemotherapy no radiation Objective - Vital Signs Vital signs: Vital Signs Temp 98.3 F 06/09/17 07:37 Pulse 86 06/09/17 07:37 Resp 16 06/09/17 07:37 BP 134/76 06/09/17 07:37 Pulse Ox 92 L 06/09/17 07:37 Intake & Output 06/08/17 06/09/17 06/09/17 18:59 06:59 18:59 Intake Total 1050 480 Output Total 75 Balance 975 480 Weight 86.183 kg Intake: IV 1050 Oral 480 Output: Urine 50 Estimated Blood Loss 25 Other: Voiding Method Indwelling Catheter Indwelling Catheter Indwelling Catheter - Exam GENERAL APPEARANCE: Very pleasant 77-year-old male patient is alert, oriented, in no acute distress. VITAL SIGNS: Reviewed HEENT: Head is normocephalic and atraumatic. Pupils are equal and reactive. The nares are patent. Oropharynx is clear without lesions. NECK: Supple without lymphadenopathy. Traches midline. HEART: S1, S2. Regular rate and rhythm no murmur noted denying chest pain. LUNGS: No crackles or wheezes are heard. Able to use the incentive spirometer Achieving thousand on room air ABDOMEN: ostomy stoma noted in the upper abdomen midline scant amount of bloody drainage noted in the ostomy bag no stool indwelling Glez catheter surgical dressing dry active bowel tones noted to the bilateral lower quadrants tolerating clear liquids no nausea no vomiting EXTREMITIES: Normal skin color and turgor. No cyanosis, rash, ulceration, clubbing or edema. Radial pedal pulses are 2/4 bilaterally. Venodyne's on to the bilateral lower extremities NEUROLOGICAL: No focal deficits. Strength and sensation are grossly intact. - Labs CBC & Chem 7: 06/09/17 09:48 06/08/17 16:02 Labs: Abnormal Lab Results - Last 24 Hours (Table) 06/08/17 06/08/17 06/08/17 Range/Units 13:04 16:02 16:02 RBC 4.11 L (4.30-5.90) m/uL Hgb (13.0-17.5) gm/dL MCV 101.0 H (80.0-100.0) fL Lymphocytes # 0.4 L (1.0-4.8) k/uL BUN 7 L (9-20) mg/dL Glucose 149 H (74-99) mg/dL POC Glucose (mg/dL) 129 H (75-99) mg/dL Calcium 8.1 L (8.4-10.2) mg/dL 06/09/17 Range/Units 09:48 RBC 4.00 L (4.30-5.90) m/uL Hgb 12.9 L (13.0-17.5) gm/dL MCV (80.0-100.0) fL Lymphocytes # 0.7 L (1.0-4.8) k/uL BUN (9-20) mg/dL Glucose (74-99) mg/dL POC Glucose (mg/dL) (75-99) mg/dL Calcium (8.4-10.2) mg/dL Assessment and Plan Assessment: Impression Present on admission progressive constipation onset 1 week prior with cramping abdominal pain suspect due to colonic obstruction Status post June 08 transverse loop colostomy for colonic obstruction History of obstructive rectal cancer with stage IV disease metastasized to the left pleural and liver diagnosed September 2016 with recent chemotherapy last treatment 05/13/2017 Plan When appropriate will start ostomy teaching Pain control per anesthesia epidural in place Continue clear liquid diet DVT and GI prophylaxis encourage the use of incentive spirometer use every 1 hour while awake IV Zosyn as ordered Activity as tolerate The above impression and plan of care have been discussed and directed by signing physician. Ashli Camarillo nurse practitioner acting as scribe for signing physician. <Tk Schafer - Last Filed: 06/09/17 18:13> Objective - Vital Signs Vital signs: Vital Signs Temp 97.9 F 06/09/17 14:52 Pulse 84 06/09/17 14:52 Resp 16 06/09/17 14:52 BP 138/80 06/09/17 14:52 Pulse Ox 96 06/09/17 14:52 Intake & Output 06/08/17 06/09/17 06/09/17 18:59 06:59 18:59 Intake Total 1050 480 Output Total 75 Balance 975 480 Weight 86.183 kg Intake: IV 1050 Oral 480 Output: Urine 50 Estimated Blood Loss 25 Other: Voiding Method Indwelling Catheter Indwelling Catheter Indwelling Catheter - Labs CBC & Chem 7: 06/09/17 09:48 06/08/17 16:02 Labs: Abnormal Lab Results - Last 24 Hours (Table) 06/09/17 Range/Units 09:48 RBC 4.00 L (4.30-5.90) m/uL Hgb 12.9 L (13.0-17.5) gm/dL Lymphocytes # 0.7 L (1.0-4.8) k/uL Assessment and Plan Assessment: As above. The severe crampy abdominal pain the patient was having prior to surgery is now gone. He has had some flatus through the ostomy bag. No solid stool thus far. Mild pain with coughing. He is afebrile. White blood cell count 8.4. Continue clear liquid diet. Ostomy nurse to evaluate the patient tomorrow. (1) Colonic obstruction Current Visit: Yes Status: Acute Code(s): K56.609 - UNSP INTESTNL OBST, UNSP TO PARTIAL VERSUS COMPLETE OBST SNOMED Code(s): 21703647
--- NOTE | 2017-06-09 13:13 | P.PN ---
Progress Note - Text 0710 Anesthesia POD 1. Status Post fluoroscopy Lloyd laparotomy and transverse loop colostomy under general endotracheal anesthesia with an epidrual catheter placed at T12 for post surgical pain releif. VAS (2, 4) with Bupivicaine 0.1 % and Dilaudid 20 mcg / cc running at 12 cc / hr. Lower extremity strength (3/4). Minimal sedation. Site looks OK. The transverse ostomy site is at approximately the T5 level and an infusion rate which gives reasonable analgesia at this level is resulting in some upper lumbar effect. At this time there probably is no way to avoid that.
--- NOTE | 2017-06-09 16:32 | P.PN ---
Progress Note - Text Progress Note Date: 06/09/17 DATE OF SERVICE: 06/09/2017 PRESENTING COMPLAINT: Acute abdominal pain HISTORY OF PRESENT ILLNESS: 77-year-old male presented to the emergency department with lower abdominal pain , history significant for rectal cancer. Completed chemotherapy a few weeks ago. Had a bowel movement if admission but it was small. Computed tomography scan revealed evidence of constipation. INTERVAL HISTORY: 06/09/2017: Patient is postop day 1 from transverse loop colostomy secondary to colonic obstruction. Overnight patient experienced some numbness to his lower extremities has an epidural in place for pain management, anesthesia adjusted epidural no further numbness complaints. Early this morning patient had an episode of fredrick bloody output from his colostomy approximately 200 mL. There been no further episodes. Patient complaints of some abdominal pain, mostly when he coughs. Tolerating his clear liquid diet, advanced per surgery preference. Up with assistance. No further output and ostomy, or per rectum. REVIEW OF SYSTEMS: Done for constitutional ,cardiovascular, GI, pulmonary with relevant findings as above. CURRENT MEDICATIONS Tylenol, bupivacaine epidural, Glucotrol, Motrin 40 mg by mouth every 6 hours, Toradol 15 mg IV push every 6 hours., Meloxicam 7.5 mg by mouth daily, Glucophage thousand milligrams by mouth twice a day, Zofran 4 mg IV push every 8 hours, Protonix 40 mg IV daily, Zosyn 3.375 g IV piggyback, tamsulosin 0.4 mg by mouth at bedtime. PHYSICAL EXAM VITAL SIGNS: Temperature 98.3, pulse 86, respiratory rate 18, blood pressure 134/76, oxygen saturation 92% on room air. GENERAL APPEARANCE: Lying in bed, appears somewhat uncomfortable.. EYES: Pupils equal. Conjunctiva normal. NECK: JVD not raised. Mass not palpable. RESPIRATORY: Respiratory effort normal. Lungs clear to auscultation. CARDIOVASCULAR: First and second sounds normal. Generalized edema. ABDOMEN: Soft. Liver and spleen not palpable. Lower abdominal tenderness. No mass palpable. Midline double-barreled colostomy, beefy-red stoma scant amount of bloody drainage in ostomy bag. PSYCHIATRY: Alert and oriented x3. Mood and affect slightly anxious. INVESTIGATIONS: White blood cell count 8.4, hemoglobin 12.9, Accu-Cheks noted. ASSESSMENT: -Metastatic colon cancer stage IV with mets to the lung and liver -Diabetes mellitus type 2 on oral hypoglycemics -Hyperlipidemia -Primary osteoarthritis of multiple joints, bilateral -status post transverse colostomy PLAN: Continue IV fluids, diet to be advanced per general surgery, increase activity as patient can tolerate. Ostomy teaching discussed with patient and at bedside and consult put in. Plan of care discussed with the patient and at bedside. They are in Agreement. We will continue to follow closely [employer] statement: Patient was seen and examined by nurse practitioner Afshan Almazan and all elements of the case discussed with attending Dr. Katz
[2017-06-09] MEDS: TAMSULOSIN 0.4 MG CAP.ER.24H PO SCH (20:48)
--- NOTE | 2017-06-09 21:35 | P.CONS ---
History of Present Illness - Reason for Consult Consult date: 06/09/17 bowel obstruction. Metastatic rectal cancer - History of Present Illness Mister Patel is a pleasant 77-year-old gentleman, who had initially presented in 11/18 with increasing shortness of breath. At that time he was found to have a left-sided pleural effusion that was drained. The fluid was bloody appearing, but cytology was negative. Within a few days, he developed recurrent pleural effusions with CT scans at this time showing pleural nodularity suggestive of malignancy along with multiple liver lesions suggestive of metastasis. The patient also developed rectal bleeding. At that time he gave a history of having increasing difficulty with bowel movements ongoing since 2015. He had a colonoscopy on 12/02/16 revealing near obstructing mass in the rectosigmoid beyond which the scope could not be passed. Biopsy was positive for adenocarcinoma. He also required repeat thoracentesis on 12/10/16. He was started on systemic chemotherapy with FOLFOX, with Vectibix added subsequently, once K-dionte mutation testing was found to be negative. He is status post 11 cycles, with the last on 05/13/17. Chemotherapy was then stopped due to increasing fatigue, progression in neuropathy and anorexia. During chemotherapy the patient had experienced improvement in his bowel movements. He had been referred back to Dr. Schafer to have a repeat colonoscopy to assess the primary tumor, with a plan for palliative radiation if needed. The patient however came into the emergency room, complaining of increasing difficulty with bowel movements over the last week. This had been accompanied by increasingly severe complains of abdominal pain. Even with straining and medications he was only able to produce small amounts of liquid stool. CT scan of the abdomen and pelvis showed a large amount of stool in the distal colon. He was taken to surgery by Dr. Schafer on 06/08/17. Op note was reviewed, showing distention of the transverse colon. There was no evidence of perforation or peritoneal involvement in the area examined. A colostomy was created. Consult was placed for further evaluation and recommendations. Review of Systems Constitutional: Reports fatigue, Reports poor appetite, Reports weakness Eyes: denies blurred vision, denies pain Ears: deny: decreased hearing, ear discharge, earache, tinnitus Ears, nose, mouth and throat: Denies headache, Denies sore throat Cardiovascular: Reports decreased exercise tolerance Respiratory: Reports dyspnea (improved since starting chemotherapy) Gastrointestinal: Reports as per HPI, Reports abdominal pain, Reports change in bowel habits Genitourinary: Reports as per HPI Musculoskeletal: Denies myalgias Integumentary: Denies pruritus, Denies rash Neurological: Reports numbness (in extremities) Psychiatric: Denies anxiety, Denies depression Endocrine: Reports fatigue Hematologic/Lymphatic: Reports as per HPI Past Medical History Past Medical History: Cancer, Diabetes Mellitus, Hyperlipidemia Additional Past Medical History / Comment(s): PLEURAL EFFUSION, STATES CA OF left sided LUNG, COLON, LIVER. colon-primary stage 4. dx 11/18. completed cycles of chemo. last chemo 05/13/17. History of Any Multi-Drug Resistant Organisms: None Reported Past Surgical History: Back Surgery, Joint Replacement Additional Past Surgical History / Comment(s): 08/12/16 Revision total R knee arthroplasty. BILATERAL KNEE REPLACEMENTS,PLEURAL EFFUSION THORACENTESIS X3 PAULINO CATARACT SX; right rotor cuff shoulder sx, COLONOSCOPY 09/2016 Past Anesthesia/Blood Transfusion Reactions: Postoperative Nausea & Vomiting ( PONV) Additional Past Anesthesia/Blood Transfusion Reaction / Comm: Pt has had PONV and BROTHER HAD PONV. Past Psychological History: No Psychological Hx Reported Additional Psychological History / Comment(s): . Smoking Status: Former smoker Past Alcohol Use History: Occasional Additional Past Alcohol Use History / Comment(s): STARTED SMOKING 1968, QUIT SMOKING 1974, SMOKED 1PPD Past Drug Use History: None Reported - Past Family History Father Family Medical History: Diabetes Mellitus Additional Family Medical History / Comment(s): Father at the age of 86yrs. Mother Family Medical History: Cancer, Dementia Additional Family Medical History / Comment(s): Mother at the age of 84yrs. Medications and Allergies Home Medications Medication Instructions Recorded Confirmed Type Acetaminophen Tab [Tylenol] 650 mg PO Q6H PRN 08/02/16 06/07/17 History Pravastatin Sodium [Pravachol] 40 mg PO HS 08/02/16 06/07/17 History Tamsulosin [Flomax] 0.4 mg PO HS 08/02/16 06/07/17 History glipiZIDE XL [Glucotrol XL] 5 mg PO DAILY 08/02/16 06/07/17 History Meloxicam [Mobic] 7.5 mg PO DAILY 06/07/17 06/07/17 History Multivitamins, Thera [Multivitamin 1 tab PO DAILY 06/07/17 06/07/17 History (formulary)] metFORMIN HCL 1,000 mg PO BID 06/07/17 06/07/17 History Allergies Allergy/AdvReac Type Severity Reaction Status Date / Time No Known Allergies Allergy Verified 06/07/17 11:53 Physical Exam Vitals: Vital Signs Temp Pulse Resp BP Pulse Ox 06/09/17 14:52 97.9 F 84 16 138/80 96 06/09/17 07:37 98.3 F 86 16 134/76 92 L 06/09/17 00:00 16 06/08/17 23:22 99.1 F 98 16 112/73 92 L 06/08/17 17:45 77 16 141/71 99 06/08/17 16:45 80 16 154/81 97 Intake and Output 06/09/17 06/09/17 06/09/17 06:59 14:59 22:59 Other: Voiding Method Indwelling Catheter Indwelling Catheter Indwelling Catheter Weight 86.183 kg - Constitutional General appearance: no acute distress - EENT Eyes: EOMI, PERRLA ENT: hearing grossly normal, normal oropharynx - Neck Neck: no lymphadenopathy Thyroid: bilateral: normal size - Respiratory Respiratory: bilateral: CTA - Cardiovascular Rhythm: regular Heart sounds: normal: S1, S2 - Gastrointestinal RLQ ostomy, with small amt of blood in stool General gastrointestinal: absent bowel sounds, soft - Integumentary Integumentary: normal - Neurologic Neurologic: CNII-XII intact - Musculoskeletal Musculoskeletal: strength equal bilaterally - Psychiatric Psychiatric: A&O x's 3, appropriate affect Results CBC & Chem 7: 06/09/17 09:48 06/08/17 16:02 Labs: Abnormal Lab Results - Last 24 Hours (Table) 06/08/17 06/09/17 Range/Units 16:02 09:48 RBC 4.00 L (4.30-5.90) m/uL Hgb 12.9 L (13.0-17.5) gm/dL Lymphocytes # 0.7 L (1.0-4.8) k/uL BUN 7 L (9-20) mg/dL Glucose 149 H (74-99) mg/dL Calcium 8.1 L (8.4-10.2) mg/dL CT scan - abdomen: report reviewed CT scan - pelvis: report reviewed Assessment and Plan (1) Colonic obstruction Narrative/Plan: The patient had a near obstructing mass at the time of diagnosis and difficulty in defecation, but no clinical obstruction. After starting treatment, bowel movements did become significantly easier though he continued to have some issues with constipation off and on. The patient has now presented with clinical obstruction. is not clear if this is due to progression of the tumor itself (as the patient appears to have responded at other sites) , or brought on by significant constipation. In any case, the patient is now status post ostomy. It is expected that bowel function will resume in the near future. After completion of chemotherapy, the patient had been referred for a repeat colonoscopy to assess the primary site. The plan was that if there was significant residual tumor, we would consider palliative radiation to reduce risk of obstruction. Now that ostomy has already been created, there would be no indication for that as the patient has other symptoms such as significant pain or bleeding. Current Visit: Yes Status: Acute Code(s): K56.609 - UNSP INTESTNL OBST, UNSP TO PARTIAL VERSUS COMPLETE OBST SNOMED Code(s): 58988116 (2) Rectal cancer Narrative/Plan: The patient has completed the initial planned cycles. He is currently on a treatment break. CT scan of the abdomen and pelvis did not show any progression. once recovered from surgery, he will start on maintenance treatment with Xeloda and Vectibix Current Visit: Yes Status: Acute Code(s): C20 - MALIGNANT NEOPLASM OF RECTUM SNOMED Code(s): 757041054
--- NOTE | 2017-06-09 22:32 | PN ---
PROGRESS NOTE DATE OF SERVICE: 06/09/17 PRESENTING COMPLAINT: Abdominal surgery. INTERVAL HISTORY: This is a patient with metastatic colon cancer, status post abdominal surgery. The patient did undergo transverse colostomy, had some bleeding to the colostomy site. Some pain is present. No nausea or vomiting. This is attending note. This patient seen and examined by me. I discussed with my nurse practitioner, Ms. Almazan. PHYSICAL EXAMINATION: Temperature 98.3, pulse 80, respirations 16, blood pressure 130/76. Abdomen tender. No guarding or rigidity. Colostomy bag is present with very little amount of liquid. INVESTIGATIONS: White count 8.4, hemoglobin 12.9. ASSESSMENT: 1. Metastatic colon cancer stage IV with mets to the lung and liver. 2. Diabetes mellitus type 2 on oral hypoglycemic. 3. Hyperlipidemia. 4. Primary osteoarthritis multiple joints. 5. Status post transverse colostomy. PLAN: We will recheck patient's hemoglobin. Patient is on a clear liquid diet. The patient is on IV Zosyn. Care was discussed with the patient. Patient will keep an eye on patient's Accu-Cheks, sliding scale, IV fluids in place. MMODL / IJN: [id number] /
[2017-06-10] MEDS: PIPERACILLIN-TAZOBACTAM 3.375 GM in DEXTROSE/WATER 1 50ML.BAG IVPB SCH ×4 (00:16→23:40)
[2017-06-10] MEDS: SODIUM CHLORIDE 0.9% 1,000 ML IV SCH ×4 (00:17→23:36)
[2017-06-10 06:52] LABS: Glucose,Whole Blood 101 mg/dL (75-99)
--- NOTE | 2017-06-10 06:52 | P.PN ---
Progress Note - Text Progress Note Date: 06/10/17 Postoperative day # status post expected laparotomy/ epidural catheter placement for postoperative analgesia, patient doing well epidural site okay, patient currently on combination of epidural infusion solution of bupivacaine 0.0625% and Dilaudid 20 g per mL the infusion rate at 8 ml per hour , patient had no motor deficit epidural site okay , pain adequately controlled , VAS 0/10 , we'll continue the current management
[2017-06-10] MEDS: PANTOPRAZOLE 40 MG/10 ML VIAL IV SCH (09:22)
[2017-06-10 09:44] LABS: Basophils % (A) 0 %; CH 32.2; CHCM 32.8; Eosinophils # (A) 0.1 k/uL (0-0.7); Eosinophils % (A) 1 %; HDW 3.17; HGB 13.2 gm/dL (13.0-17.5); Luc # (Auto) 0.17; Luc % (Auto) 2; Lymphocytes # (A) 0.4 k/uL (1.0-4.8); Lymphocytes % (A) 5 %; MCH 32.6 pg (25.0-35.0); MCHC 33.1 g/dL (31.0-37.0); MCV 98.5 fL (80.0-100.0); Mean Platelet Volume 7.4; Monocytes # (A) 0.8 k/uL (0-1.0); Monocytes % (A) 10 %; Neutrophils # (A) 6.8 k/uL (1.3-7.7); Neutrophils % (A) 82 %; RBC 4.06 m/uL (4.30-5.90); RDW 15.6 % (11.5-15.5); WBC 8.4 k/uL (3.8-10.6); WBC (Perox) 8.32
[2017-06-10 11:10] LABS: Glucose,Whole Blood 125 mg/dL (75-99)
[2017-06-10] MEDS: MULTIVITAMINS, THERA 1 EACH TAB PO SCH (13:13)
--- NOTE | 2017-06-10 13:31 | P.PN ---
Subjective Progress Note Date: 06/10/17 77-year-old gentleman seen and examined at bedside this morning. Patient denies any numbness or tingling sensation to the bilateral lower extremities. States tolerating clear liquid diet. Reports no nausea vomiting. Denies any chest pain or shortness of breath when questioning. 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 Patient has undergo neneoadjuvant chemotherapy no radiation Objective - Vital Signs Vital signs: Vital Signs Temp 97.7 F 06/10/17 07:48 Pulse 92 06/10/17 07:48 Resp 20 06/10/17 08:50 BP 146/89 06/10/17 07:48 Pulse Ox 93 L 06/10/17 07:48 Intake & Output 06/09/17 06/10/17 06/10/17 18:59 06:59 18:59 Intake Total 360 239.167 Balance 360 239.167 Intake: Intake, IV Titration 239.167 Amount Bupivacaine (Pf) 0.5% 50 239.167 ml Hydromorphone (Pf) 5 mg In Sodium Chloride 0.9 % 200 ml @ Per Protocol EPIDURAL .Q0M PRN Rx#: [id number] Oral 360 Other: Voiding Method Indwelling Catheter Indwelling Catheter Indwelling Catheter - Exam Physical exam 77-year-old gentleman sitting up in bed appears in no acute distress Lungs diminished at the bases otherwise adequate air movement sats on room air 93% no cough noted Heart S1-S2 audible regular Abdomen slightly distended a few hypoactive bowel tones passing gas per ostomy scant amount of bloody liquid in the ostomy bag surgical tenderness indwelling Glez catheter in place reports no nausea vomiting Extremities Venodyne's on to the bilateral lower extremities - Labs CBC & Chem 7: 06/10/17 09:18 06/08/17 16:02 Labs: Abnormal Lab Results - Last 24 Hours (Table) 06/10/17 06/10/17 06/10/17 Range/Units 06:50 09:18 11:08 RBC 4.06 L (4.30-5.90) m/uL RDW 15.6 H (11.5-15.5) % Lymphocytes # 0.4 L (1.0-4.8) k/uL POC Glucose (mg/dL) 101 H 125 H (75-99) mg/dL Assessment and Plan Assessment: Impression Present on admission progressive constipation onset 1 week prior with cramping abdominal pain suspect due to colonic obstruction Status post June 08 transverse loop colostomy for colonic obstruction History of 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 Ashli Camarillo nurse practitioner acting as scribe for signing physician.
--- NOTE | 2017-06-10 16:02 | P.PN ---
Progress Note - Text Progress Note Date: 06/10/17 DATE OF SERVICE: 06/10/2017 PRESENTING COMPLAINT: Acute abdominal pain HISTORY OF PRESENT ILLNESS: 77-year-old male presented to the emergency department with lower abdominal pain , history significant for rectal cancer. Completed chemotherapy a few weeks ago. Had a bowel movement if admission but it was small. Computed tomography scan revealed evidence of constipation. INTERVAL HISTORY: 06/10/2017: Patient is postop day 2 from transverse loop colostomy secondary to colonic obstruction. Overnight patient had about 40 mL's of fredrick bloody drainage from his colostomy. There is been none since early this morning. Colostomy producing gas, patient unable to tolerate his meal was nauseated this morning. Diet to be advanced per surgical preference. Continues to have lower abdominal pain, however some of it is relieved with splinting the incisional area. at the bedside this morning with patient has many questions regarding ostomy care, ostomy nurse expected later this afternoon. Glez catheter and epidural expects to be removed later today per general surgery. 06/09/2017: Patient is postop day 1 from transverse loop colostomy secondary to colonic obstruction. Overnight patient experienced some numbness to his lower extremities has an epidural in place for pain management, anesthesia adjusted epidural no further numbness complaints. Early this morning patient had an episode of fredrick bloody output from his colostomy approximately 200 mL. There been no further episodes. Patient complaints of some abdominal pain, mostly when he coughs. Tolerating his clear liquid diet, advanced per surgery preference. Up with assistance. No further output and ostomy, or per rectum. REVIEW OF SYSTEMS: Done for constitutional ,cardiovascular, GI, pulmonary with relevant findings as above. CURRENT MEDICATIONS Tylenol, Glucotrol, Motrin 40 mg by mouth every 6 hours, Toradol 15 mg IV push every 6 hours., Meloxicam 7.5 mg by mouth daily, Glucophage thousand milligrams by mouth twice a day, Zofran 4 mg IV push every 8 hours, Protonix 40 mg IV daily, Zosyn 3.375 g IV piggyback, tamsulosin 0.4 mg by mouth at bedtime. PHYSICAL EXAM VITAL SIGNS: Temperature 97.7, pulse 92, respiratory rate 18, blood pressure 146/89, oxygen saturation 93% on room air. GENERAL APPEARANCE: Lying in bed, appears somewhat uncomfortable.. EYES: Pupils equal. Conjunctiva normal. NECK: JVD not raised. Mass not palpable. RESPIRATORY: Respiratory effort normal. Lungs clear to auscultation. CARDIOVASCULAR: First and second sounds normal. Generalized edema. ABDOMEN: Soft. Liver and spleen not palpable. Lower abdominal tenderness. No mass palpable. Midline double-barreled colostomy, beefy-red stoma scant amount of bloody drainage in ostomy bag. PSYCHIATRY: Alert and oriented x3. Mood and affect slightly anxious. INVESTIGATIONS: Accu-Cheks noted. ASSESSMENT: -Metastatic colon cancer stage IV with mets to the lung and liver -Diabetes mellitus type 2 on oral hypoglycemics -Hyperlipidemia -Primary osteoarthritis of multiple joints, bilateral -status post transverse colostomy PLAN: Continue IV fluids, diet to be advanced per general surgery, increase activity as patient can tolerate. Ostomy nurse to meet with patient and family later today for teaching regarding ostomy care. Plan of care discussed with the patient at the bedside he is in agreement. We'll follow closely PROFESSOR OF PSYCHIATRY statement: Patient was seen and examined by nurse practitioner Afshan Almazan and all elements of the case discussed with attending Dr. Katz
[2017-06-10 17:32] LABS: Glucose,Whole Blood 120 mg/dL (75-99)
[2017-06-10] MEDS: TAMSULOSIN 0.4 MG CAP.ER.24H PO SCH (21:31)
--- NOTE | 2017-06-10 21:58 | PN ---
PROGRESS NOTE DATE OF SERVICE: 06/10/17. ATTENDING NOTE: This patient was seen and examined by me. I discussed with my nurse practitioner, Ms. Almazan. The patient had a small amount of bloody drainage from the colostomy today. Pain is present. Passed some gas. Diet was advanced per surgery. EXAMINATION: Abdomen is tender. No guarding or rigidity. Colostomy bag in place. LUNGS: Decreased breath sounds. Afebrile. LABORATORY DATA: White count 8.4, hemoglobin 13.2. ASSESSMENT: Status post transverse colostomy in a patient with known metastatic colon cancer stage IV with mets to the lung and liver. PLAN: Diet is to be advanced per surgery. Continue IV fluids. Care was discussed with the patient. MMODL / IJN: [id number] /
[2017-06-10 23:04] LABS: Glucose,Whole Blood 132 mg/dL (75-99)
[2017-06-10] MEDS: HYDROcodone/APAP 5-325MG 1 EACH TAB PO PRN (23:32)
[2017-06-11 05:55] LABS: Basophils % (A) 0 %; CH 32.5; CHCM 33.7; Eosinophils # (A) 0.2 k/uL (0-0.7); Eosinophils % (A) 3 %; HCT 36.9 % (39.0-53.0); HDW 3.23; HGB 12.1 gm/dL (13.0-17.5); Luc % (Auto) 4; Lymphocytes # (A) 0.5 k/uL (1.0-4.8); Lymphocytes % (A) 9 %; MCH 31.9 pg (25.0-35.0); MCHC 32.9 g/dL (31.0-37.0); MCV 96.9 fL (80.0-100.0); Mean Platelet Volume 7.9; Monocytes # (A) 0.7 k/uL (0-1.0); Monocytes % (A) 13 %; Neutrophils # (A) 3.9 k/uL (1.3-7.7); Neutrophils % (A) 72 %; RDW 15.3 % (11.5-15.5); WBC 5.5 k/uL (3.8-10.6); WBC (Perox) 5.95
[2017-06-11 06:10] LABS: ALT 34 U/L (21-72); AST 30 U/L (17-59); Alkaline Phosphatase 58 U/L (38-126); Anion Gap 7 mmol/L; Blood Urea Nitrogen 8 mg/dL (9-20); Calcium 7.9 mg/dL (8.4-10.2); Carbon Dioxide 21 mmol/L (22-30); Chloride 111 mmol/L (98-107); Glucose 118 mg/dL (74-99); Non-African American GFR(MDRD) >60 (>60 ml/min/1.73 sqM); Potassium 3.2 mmol/L (3.5-5.1); Sodium 139 mmol/L (137-145); Total Bilirubin 0.4 mg/dL (0.2-1.3); Total Protein 4.8 g/dL (6.3-8.2)
[2017-06-11 07:15] LABS: Glucose,Whole Blood 120 mg/dL (75-99)
[2017-06-11] MEDS: PANTOPRAZOLE 40 MG/10 ML VIAL IV SCH (08:20)
[2017-06-11] MEDS ORDERED: Potassium Replacement Protocol 1 EACH MISC MISCELLANE PRN (09:01)
[2017-06-11] MEDS: PIPERACILLIN-TAZOBACTAM 3.375 GM in DEXTROSE/WATER 1 50ML.BAG IVPB SCH ×3 (09:34→23:33)
[2017-06-11] MEDS: SODIUM CHLORIDE 0.9% 1,000 ML IV SCH ×2 (09:36→15:13)
--- NOTE | 2017-06-11 10:07 | P.PN ---
Subjective Progress Note Date: 06/11/17 77-year-old male seen and examined at bedside patient up ambulating with the use of a walker to the bathroom. Patient had a small stool rectally. Less abdominal distention Ostomy pink swollen a small amount of liquid brown stool noted in the ostomy bag. 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 Patient has undergo neneoadjuvant chemotherapy no radiation Objective - Vital Signs Vital signs: Vital Signs Temp 97.8 F 06/11/17 07:30 Pulse 88 06/11/17 07:30 Resp 20 06/11/17 08:50 BP 136/78 06/11/17 07:30 Pulse Ox 94 L 06/11/17 07:30 Intake & Output 06/10/17 06/11/17 06/11/17 18:59 06:59 18:59 Intake Total 270.805 2165 Output Total 250 Balance -10.833 1410 Intake: Intake, IV Titration 095.257 1193 Amount Bupivacaine (Pf) 0.5% 50 239.167 ml Hydromorphone (Pf) 5 mg In Sodium Chloride 0.9 % 200 ml @ Per Protocol EPIDURAL .Q0M PRN Rx#: [id number] Piperacillin-Tazobactam 3 50 .375 gm In Dextrose/Water 1 50ml.bag @ 12.5 mls/hr IVPB Q8HR [facility] Rx#: [id number] Sodium Chloride 0.9% 1, 1000 000 ml @ 120 mls/hr IV . Q8H20M [facility] Rx#:[id number] Oral 360 Output: Urine 250 Uretheral (Glez) 250 Other: Voiding Method Urinal Urinal Urinal # Voids 2 - Exam Physical exam 77-year-old gentleman sitting up in bed stating hungry" Lungs adequate air movement sats on room air 93% no cough noted Heart S1-S2 audible regular denies any chest pain Abdomen less distended bowel tones active reports no nausea no vomiting urinating no difficulty passing stool rectal small amount stoma pink a small amount of brown stool in ostomy bag Extremities Venodyne's on to the bilateral lower extremities - Labs CBC & Chem 7: 06/11/17 05:45 06/11/17 05:45 Labs: Abnormal Lab Results - Last 24 Hours (Table) 06/10/17 06/10/17 06/10/17 Range/Units 11: 17:30 23:02 RBC (4.30-5.90) m/uL Hgb (13.0-17.5) gm/dL Hct (39.0-53.0) % Lymphocytes # (1.0-4.8) k/uL Potassium (3.5-5.1) mmol/L Chloride (98-107) mmol/L Carbon Dioxide (22-30) mmol/L BUN (9-20) mg/dL Glucose (74-99) mg/dL POC Glucose (mg/dL) 125 H 120 H 132 H (75-99) mg/dL Calcium (8.4-10.2) mg/dL Total Protein (6.3-8.2) g/dL Albumin (3.5-5.0) g/dL 06/11/17 06/11/17 06/11/17 Range/Units 05:45 05:45 07:13 RBC 3.80 L (4.30-5.90) m/uL Hgb 12.1 L (13.0-17.5) gm/dL Hct 36.9 L (39.0-53.0) % Lymphocytes # 0.5 L (1.0-4.8) k/uL Potassium 3.2 L (3.5-5.1) mmol/L Chloride 111 H (98-107) mmol/L Carbon Dioxide 21 L (22-30) mmol/L BUN 8 L (9-20) mg/dL Glucose 118 H (74-99) mg/dL POC Glucose (mg/dL) 120 H (75-99) mg/dL Calcium 7.9 L (8.4-10.2) mg/dL Total Protein 4.8 L (6.3-8.2) g/dL Albumin 2.5 L (3.5-5.0) g/dL Assessment and Plan Assessment: Impression Present on admission progressive constipation onset 1 week prior with cramping abdominal pain suspect due to colonic obstruction Status post June 08 transverse loop colostomy for colonic obstruction History of obstructive rectal cancer with stage IV disease metastasized to the left pleural and liver diagnosed September 2016 with recent chemotherapy last treatment 05/13/2017 Chronic debility with the use of a walker for mobility Hypokalemia Plan Potassium replaced repeat labs in the morning PT OT lulu Reinforce ostomy teaching Quin for pain control recommendations by oncology service noted and appreciated Advance diet to full liquid DVT and GI prophylaxis encourage the use of incentive spirometer use every 1 hour while awake IV Zosyn as ordered Activity as tolerated The above impression and plan of care have been discussed and directed by signing physician. Ashli Camarillo nurse practitioner acting as scribe for signing physician.
[2017-06-11] MEDS: POTASSIUM CHLORIDE ER 20 MEQ TAB.ER PO SCH ×2 (10:28→12:50)
[2017-06-11] MEDS: MULTIVITAMINS, THERA 1 EACH TAB PO SCH (10:29)
[2017-06-11 11:03] LABS: Glucose,Whole Blood 140 mg/dL (75-99)
--- NOTE | 2017-06-11 14:56 | P.PN ---
Progress Note - Text Progress Note Date: 06/11/17 DATE OF SERVICE: 06/11/2017 PRESENTING COMPLAINT: Acute abdominal pain HISTORY OF PRESENT ILLNESS: 77-year-old male presented to the emergency department with lower abdominal pain , history significant for rectal cancer. Completed chemotherapy a few weeks ago. Had a bowel movement if admission but it was small. Computed tomography scan revealed evidence of constipation. INTERVAL HISTORY: 06/11/2017: Patient is postop day 3 from transverse loop colostomy secondary to colonic obstruction. No acute overnight episodes of bleeding from the ostomy, ostomy is now producing liquid brown stool, small amount. Diet advanced to full liquid per general surgery. Lower abdominal pain reduced, abdomen less distended, feels hungry but not able to really eat much at his breakfast. Ambulatory in the room and hallway. 06/10/2017: Patient is postop day 2 from transverse loop colostomy secondary to colonic obstruction. Overnight patient had about 40 mL's of fredrick bloody drainage from his colostomy. There is been none since early this morning. Colostomy producing gas, patient unable to tolerate his meal was nauseated this morning. Diet to be advanced per surgical preference. Continues to have lower abdominal pain, however some of it is relieved with splinting the incisional area. at the bedside this morning with patient has many questions regarding ostomy care, ostomy nurse expected later this afternoon. Glez catheter and epidural expects to be removed later today per general surgery. 06/09/2017: Patient is postop day 1 from transverse loop colostomy secondary to colonic obstruction. Overnight patient experienced some numbness to his lower extremities has an epidural in place for pain management, anesthesia adjusted epidural no further numbness complaints. Early this morning patient had an episode of fredrick bloody output from his colostomy approximately 200 mL. There been no further episodes. Patient complaints of some abdominal pain, mostly when he coughs. Tolerating his clear liquid diet, advanced per surgery preference. Up with assistance. No further output and ostomy, or per rectum. REVIEW OF SYSTEMS: Done for constitutional ,cardiovascular, GI, pulmonary with relevant findings as above. CURRENT MEDICATIONS Tylenol, Glucotrol, Motrin 40 mg by mouth every 6 hours, Toradol 15 mg IV push every 6 hours., Meloxicam 7.5 mg by mouth daily, Glucophage thousand milligrams by mouth twice a day, Zofran 4 mg IV push every 8 hours, Protonix 40 mg IV daily, Zosyn 3.375 g IV piggyback, tamsulosin 0.4 mg by mouth at bedtime. PHYSICAL EXAM VITAL SIGNS: Temperature 97.8, pulse 88, respiratory rate 20, blood pressure 136/78, oxygen saturation 94% on room air. GENERAL APPEARANCE: Lying in bed, appears comfortable. EYES: Pupils equal. Conjunctiva normal. NECK: JVD not raised. Mass not palpable. RESPIRATORY: Respiratory effort normal. Lungs clear to auscultation. CARDIOVASCULAR: First and second sounds normal. Generalized edema. ABDOMEN: Soft. Liver and spleen not palpable. Lower abdominal tenderness. No mass palpable. Midline double-barreled colostomy, beefy-red stoma small amount of light coon liquid drainage in ostomy bag. PSYCHIATRY: Alert and oriented x3. Mood and affect normal INVESTIGATIONS: Hemoglobin 12.1, potassium 3.2, calcium 7.9, Accu-Cheks noted. ASSESSMENT: -Metastatic colon cancer stage IV with mets to the lung and liver -Diabetes mellitus type 2 on oral hypoglycemics -Hyperlipidemia -Primary osteoarthritis of multiple joints, bilateral -status post transverse colostomy -Hypokalemia likely hypoosmolar PLAN: Continue IV fluids, diet to be advanced per general surgery, increase activity as patient can tolerate. continue ostomy teaching. discharge planning for the next 24-48 hours . We'll follow closely. MANAGER OF SCHOOL statement: Patient was seen and examined by nurse practitioner Afshan Almazan and all elements of the case discussed with attending Dr. Katz
[2017-06-11] MEDS: ACETAMINOPHEN TAB 325 MG TAB PO PRN (15:12)
[2017-06-11 17:00] LABS: Glucose,Whole Blood 150 mg/dL (75-99)
--- NOTE | 2017-06-11 18:04 | PN ---
PROGRESS NOTE DATE OF SERVICE: 06/11/17 ATTENDING NOTE: Patient seen examined by me. I discussed with nurse practitioner, Ms. Almazan. The patient is status post transverse colostomy. Advance to full liquid diet, had some liquid stool in the colostomy bag. Abdomen soft, minimal tenderness. Bowel sounds present. Psych AO x3. Blood pressure is 136/78. White count 5.5. ASSESSMENT: Metastatic colon cancer stage IV with mets to lung and liver followed by transverse colostomy. PLAN: Continue current medication and treatment plan. Follow. MMODL / IJN: [id number] /
[2017-06-11 20:05] LABS: Glucose,Whole Blood 179 mg/dL (75-99)
[2017-06-11] MEDS: TAMSULOSIN 0.4 MG CAP.ER.24H PO SCH (21:15)
[2017-06-12] MEDS: HYDROcodone/APAP 5-325MG 1 EACH TAB PO PRN (03:45)
[2017-06-12 06:17] LABS: ALT 37 U/L (21-72); AST 29 U/L (17-59); Alkaline Phosphatase 61 U/L (38-126); Anion Gap 5 mmol/L; Blood Urea Nitrogen 5 mg/dL (9-20); Calcium 7.9 mg/dL (8.4-10.2); Carbon Dioxide 23 mmol/L (22-30); Chloride 111 mmol/L (98-107); Glucose 122 mg/dL (74-99); Non-African American GFR(MDRD) >60 (>60 ml/min/1.73 sqM); Potassium 3.1 mmol/L (3.5-5.1); Sodium 139 mmol/L (137-145); Total Bilirubin 0.4 mg/dL (0.2-1.3); Total Protein 4.4 g/dL (6.3-8.2)
[2017-06-12 07:24] LABS: Glucose,Whole Blood 120 mg/dL (75-99)
[2017-06-12 08:11] VITALS: BP 132/72; PULSE 77; RESP 20; TEMP 98
[2017-06-12] MEDS: ACETAMINOPHEN TAB 325 MG TAB PO PRN (08:55)
[2017-06-12] MEDS: PANTOPRAZOLE 40 MG/10 ML VIAL IV SCH (08:56)
[2017-06-12] MEDS: PIPERACILLIN-TAZOBACTAM 3.375 GM in DEXTROSE/WATER 1 50ML.BAG IVPB SCH (09:03)
[2017-06-12 11:28] LABS: Glucose,Whole Blood 142 mg/dL (75-99)
[2017-06-12] MEDS: POTASSIUM CHLORIDE ER 20 MEQ TAB.ER PO SCH ×2 (11:54→12:51)
[2017-06-12] MEDS: MULTIVITAMINS, THERA 1 EACH TAB PO SCH (11:55)
--- NOTE | 2017-06-12 17:10 | P.DS ---
Providers Date of admission: 06/07/17 15:44 Expected date of discharge: 06/12/17 Attending physician: David Katz Consults: 06/07/17 14:56 Consult Physician Stat Consulting Provider: Tk Schafer Consult Reason/Comments: Rectal Cancer, Constipation Do you want consulting provider notified?: Yes Consult Physician Stat Consulting Provider: Claudio Rogers Consult Reason/Comments: Rectal Cancer, Constipation, Colonic Obstruction Do you want consulting provider notified?: Yes Primary care physician: [facility] Course: FINAL DIAGNOSES: -Transverse colon obstruction secondary to Metastatic colon cancer stage IV with mets to the lung and liver s/p tranverse loop colostomy -Diabetes mellitus type 2 on oral hypoglycemics -Hyperlipidemia -Primary osteoarthritis of multiple joints, bilateral -status post transverse colostomy -Hypokalemia likely hypoosmolar HOSPTIAL COURSE: 77-year-old male who presented to the emergency department with lower abdominal pain, history significant for rectal cancer. Imaging revealed severe colonic obstruction,. Admitted for the same, home medications reordered oncology consulted and Gen. surgery consulted and took patient urgently to the OR and is now status post transverse loop colostomy. Postoperatively patient experienced episode of dark red bloody output from his ostomy. Patient closely monitored had a second episode of bloody drainage from the ostomy but significantly less. Ostomy began producing gas, patient's diet advanced, ostomy began producing liquid stool, . Ostomy nurse provided necessary care education, and patient participated fully. Patient provided with some basic supplies.. Patient tolerating his diet, Ambulatory within the room and hallway, anxious to go home. Overall condition stable and Gen. surgery cleared the patient for discharge. PHYSICAL EXAM: CARDIOVASCULAR: First and second sounds noted no edema RESPIRATORY: Respiratory effort normal lung sounds diminished bilaterally to auscultation. GI: Abdomen soft mildly tender, liver and spleen not palpable double-barreled transverse loop colostomy in the midline appliance in place with brown liquid stool noted in the bag PSYCHIATRY: Alert and oriented 3 mood and affect normal. Patient was seen and examined by nurse practitioner Afshan Almazan in all elements of the case discussed with attending Dr. Katz DISPOSITION: Discharge home to the care of his with home care. Plan - Discharge Summary New Discharge Prescriptions: New Ondansetron [Zofran ODT] 4 mg PO Q8HR #12 tab Continue Pravastatin Sodium [Pravachol] 40 mg PO HS Acetaminophen Tab [Tylenol] 650 mg PO Q6H PRN PRN Reason: Mild Pain glipiZIDE XL [Glucotrol XL] 5 mg PO DAILY Tamsulosin [Flomax] 0.4 mg PO HS Meloxicam [Mobic] 7.5 mg PO DAILY metFORMIN HCL 1,000 mg PO BID Multivitamins, Thera [Multivitamin (formulary)] 1 tab PO DAILY Discharge Medication List Acetaminophen Tab [Tylenol] 650 mg PO Q6H PRN 08/02/16 [History] Pravastatin Sodium [Pravachol] 40 mg PO HS 08/02/16 [History] Tamsulosin [Flomax] 0.4 mg PO HS 08/02/16 [History] glipiZIDE XL [Glucotrol XL] 5 mg PO DAILY 08/02/16 [History] Meloxicam [Mobic] 7.5 mg PO DAILY 06/07/17 [History] Multivitamins, Thera [Multivitamin (formulary)] 1 tab PO DAILY 06/07/17 [History ] metFORMIN HCL 1,000 mg PO BID 06/07/17 [History] Ondansetron [Zofran ODT] 4 mg PO Q8HR #12 tab 06/12/17 [Rx] Follow up Appointment(s)/Referral(s): Tk Schafer MD [Medical Doctor] - 06/18/17 8:45 am Claudio Rogers MD [STAFF PHYSICIAN] - 06/23/17 1:45 pm Nigel Hayes DO [Primary Care Provider] - 06/16/17 8:00 am [facility], [NON-STAFF] - 1 Week Ambulatory/Diagnostic Orders: Basic Metabolic Panel [LAB.AMB] Location: Determined By Patient Patient Instructions/Handouts: Ondansetron (By mouth), Colostomy Care (GEN), Surgical Site Infections (DC) Activity/Diet/Wound Care/Special Instructions: Check blood sugars every day Start metformin tomorrow if blood glucose is lower than 150 hold it if it is above 150 take it glipizide on hold for now until by mouth intake increases and a rise in BGM is seen. Soft bland diet Last Colostomy Pouch change: 06/12/2017 Note Mr Patel has a Transverse Loop Colostomy with a bridge holding stoma outward Sutures to bridge While in the hospital pouching the upper bridge into the pouch and the lower bridge ostomy appliance over the bridge Mr Patel is to empty the pouch when it is 1/2 to 1/3 full The pouch is to be changed every 3-5 days or if a leak occurs Eventually Mr Patel desires a precut disposable pouching system in 2-3 weeks Home Health please arrange with Dr Mansfield for Durable Medical Supplies Current Colostomy care Pouches utilized in the hospital and going home with Mr Patel: Convatec One piece cut to fit pouch #[id number] (three being sent home ) Skin preps pads (12) for home Ostomy powder for around the colostomy stoma if the skin becomes irritated Discharge Disposition: HOME WITH HOME HEALTH SERVICES
[2017-06-13] MEDS ORDERED: PANTOPRAZOLE 40 MG TABLET PO SCH (09:00)
--- NOTE | 2017-06-13 09:16 | DS ---
DISCHARGE SUMMARY DATE OF SERVICE: 06/12/17. ATTENDING NOTE: Patient seen and examined by me. Discussed with my nurse practitioner, Ms. Almazan. FINAL DIAGNOSES: 1. Transverse colon obstruction from metastatic colon cancer stage IV including metastasis to the lung and liver. 2. Diabetes mellitus type 2 on oral hypoglycemia. 3. Hyperlipidemia. 4. Primary osteoarthritis of multiple joints bilateral. 5. Hypokalemia. 6. Hypoalbuminemia probably protein calorie malnutrition. HOSPITAL COURSE: This patient has metastatic colon cancer presented with bowel obstruction and underwent a transverse colostomy. By the time of discharge was making stool. Tolerating full liquid diet and diet was advanced per Surgery. Care was discussed with patient and today. On exam, colostomy bag is working. Abdomen is soft, nontender. Lungs are clear. Discharge planning more than 35 minutes. Follow up as discussed. MMODL / IJN: [id number] /
== END 2017-06-12 13:30 | disposition home health service (06) | DRG 330 ==
LOC: EC 10:39 → 5ONC 15:44
PROVIDERS: ADMIT Hospitalist; ATTEND Hospitalist
PROC: 0D1L0Z4 Bypass Transverse Colon to Cutaneous, Open Approach (ICD-10-PCS; principal; 2017-06-08 10:12)
DX: C20 Malignant neoplasm of rectum (principal); C78.00 Secondary malignant neoplasm of unspecified lung; E46 Unspecified protein-calorie malnutrition; J91.0 Malignant pleural effusion; C78.7 Secondary malignant neoplasm of liver and intrahepatic bile duct; G62.9 Polyneuropathy, unspecified; E11.9 Type 2 diabetes mellitus without complications; E78.5 Hyperlipidemia, unspecified; E87.6 Hypokalemia; I10 Essential (primary) hypertension; M15.9 Polyosteoarthritis, unspecified; Z96.653 Presence of artificial knee joint, bilateral; N40.0 Benign prostatic hyperplasia without lower urinary tract symptoms; Z79.84 Long term (current) use of oral hypoglycemic drugs; Z79.899 Other long term (current) drug therapy; Z83.3 Family history of diabetes mellitus; Z87.891 Personal history of nicotine dependence; Z92.21 Personal history of antineoplastic chemotherapy
CPT/HCPCS: 36415; 74177; 80048; 80053; 81003; 82150; 82272; 83036; 83690; 85025; 85610; 85730; 86850; 86900; 86901; 88305; 96361; 96374; 99285

== ENCOUNTER → 2017-09-19 | Outpatient (CLI) | payer MEDICARE ==
--- NOTE | 2017-09-19 14:25 | XR ---
EXAMINATION TYPE: XR lumbar spine 2 or 3V DATE OF EXAM: 09/19/2017 COMPARISON: NONE HISTORY: 77-year-old male rectal carcinoma, pleural effusion, bilateral hip pain TECHNIQUE: 3 views FINDINGS: 5 lumbar type vertebral bodies. Moderate endplate spondylosis throughout. Facet arthropathy mid to lo wer lumbar spine. Grade 1 retrolisthesis at L3-L4 and L4-L5. Moderate degenerative disc space narrowi ng at L4-L5. Vertebral body heights are maintained. IMPRESSION: No vertebral compression collapse. There is advanced hypertrophic facet arthropathy mid to lower lumb ar spine with grade 1 retrolistheses at L3-L4 and L4-L5. Moderate endplate spondylosis and degenerati ve disc disease throughout.
--- NOTE | 2017-09-19 14:33 | XR ---
EXAMINATION TYPE: AP view pelvis and 2 views each hip DATE OF EXAM: 09/19/2017 COMPARISON: NONE HISTORY: 77-year-old male rectal carcinoma, bilateral hip pain FINDINGS: SI joints appear symmetric and intact with mild degenerative spurring at both hips. There is some sub chondral sclerosis along the left acetabular roof. Some degenerative labral ossifications are noted. No acute fracture, subluxation, or dislocation. IMPRESSION: Mild bilateral hip osteoarthrosis. Mild degenerative changes at the SI joints as well. No acute osseo us abnormality seen.
== END | disposition home or self-care (01) ==
LOC: RADXRMAIN 10:54
PROVIDERS: ATTEND Internal Medicine Hematology & Oncology
DX: M16.0 Bilateral primary osteoarthritis of hip (principal); C20 Malignant neoplasm of rectum; C78.7 Secondary malignant neoplasm of liver and intrahepatic bile duct; J91.0 Malignant pleural effusion; M51.36 Other intervertebral disc degeneration, lumbar region; M43.16 Spondylolisthesis, lumbar region; M47.816 Spondylosis without myelopathy or radiculopathy, lumbar region; M46.86 Other specified inflammatory spondylopathies, lumbar region
CPT/HCPCS: 72100; 73521

== ENCOUNTER → 2017-09-29 | Outpatient (CLI) | payer MEDICARE ==
[2017-09-29 11:36] LABS: Blood Urea Nitrogen 12 mg/dL (9-20)
--- NOTE | 2017-09-29 16:52 | CT ---
EXAMINATION TYPE: CT ChestAbdPelvis w con DATE OF EXAM: 09/29/2017 INDICATION: Patient has no complaints at time of service. Follow up study for known colon CA. COMPARISON: CT abdomen pelvis 07/07/2017 CT DLP: 1072.3 mGycm CONTRAST: Performed with Oral Contrast and with IV Contrast, patient injected with 100 mL of Omnipaque 300. TECHNIQUE: Axial images at 5 mm thick sections. Reconstructed images in the coronal plane. Delayed images through the kidneys. FINDINGS: CT CHEST: Portion of the thyroid visualized is normal. There is some opacity within the major fissure on the left likely is some fluid. Small amount of ling ular increased density is present adjacent to the chest wall could be some atelectasis or scarring pr esent previously within the [id number] there is a 0.8 cm nodule in the posterior medial left lung base. Series 5 image 43. Small left pleural effusion is present. Some additional nodularity may be at the left base measuring 0.6, 0.81 0.8 cm. Series 3 image 50. These appear new from July 2017 pre vious right pleural effusion has resolved. No enlarged mediastinal or hilar adenopathy is evident. The ascending aorta diameter at the level of the main pulmonary artery is 3.7 cm. The main pulmonary artery diameter at the bifurcation is 2.[address] ABDOMEN: Liver: Moderate fatty infiltration the liver. There is a 2.4 cm hypodense oval in the right lobe live r measuring 24 Hounsfield units. This is smaller than comparison. There is an additional 0.7 cm cyst adjacent. Vague hypodensities in the periphery of the right lobe liver measuring 1.3 cm and measuring 50 Hounsfield units. Series 3 image 50. This is smaller and less well visualized previous. Spleen: Normal at this phase of contrast. Pancreas: Normal Adrenal glands: The adrenal glands are normal. Gallbladder: Normal Kidneys: No masses are evident. No hydronephrosis is present. No cysts are present. Delayed images were obtained through the kidneys, which remain unremarkable. Aorta: Normal. There is some mild vascular calcification present. Inferior vena cava: The inferior vena cava which can related patient volume status. CT PELVIS: There is a diverting ostomy in the midline from the transverse colon. Contrast is present. Loops of bowel with contrast appear normal. The descending colon is decompressed. There may be some w all thickening of the distal sigmoid colon and rectum. There are loops of bowel which are incompletel y distended or lack oral contrast limiting their evaluation. Appendix: Normal as visualized. Urinary bladder: Normal. Genitourinary structures: Prostate contains calcification. Osseous structures: No suspicious lytic or sclerotic lesions. IMPRESSIONS: 1. Small left pleural effusion. This may be loculated within the major fissure. 2. Interval development of small nodularities at the left base. Metastatic disease should be consider ed. 3. Diminished size of liver hypodensities.
== END | disposition home or self-care (01) ==
LOC: RADPROMAIN 10:51
PROVIDERS: ATTEND Internal Medicine Hematology & Oncology
DX: C20 Malignant neoplasm of rectum (principal); C78.02 Secondary malignant neoplasm of left lung; J90 Pleural effusion, not elsewhere classified; R93.2 Abnormal findings on diagnostic imaging of liver and biliary tract
CPT/HCPCS: 82565; 84520; 71260; 74177; 36415; Q9967; J1642

== ENCOUNTER → 2017-12-10 | Outpatient (CLI) | payer MEDICARE ==
--- NOTE | 2017-12-10 12:06 | MR ---
EXAMINATION TYPE: MR brain wo/w con DATE OF EXAM: 12/10/2017 11:52 AM COMPARISON: NONE HISTORY: Dizziness, Colon Cancer, Nausea CONTRAST: Patient received 9 mL intravenous Gadavist gadolinium contrast. Multiplanar and multispin-echo imaging of the brain was performed . Pre and post contrast enhanced i mages are obtained. The ventricles, basal cisterns and sulci overlying the cerebral convexities are moderately enlarged. There is evidence of mild periventricular white matter ischemic demyelination. Remote deep white matter insults are also noted. No acute edema is seen on diffusion weighted imaging. There is no evidence for midline shift or mass effect. Acute intracranial hemorrhage or extra-axial collection is not evident. No enhancing lesions are seen. The mastoid air cells are well-aerated. Chronic paranasal sinusitis. IMPRESSION: Age-related atrophic and chronic small vessel ischemic change. No acute intracranial process at this time. No enhancing lesions are seen.
== END | disposition home or self-care (01) ==
LOC: RADMRIMAIN 11:06
PROVIDERS: ATTEND Nurse Practitioner Adult Health
DX: C20 Malignant neoplasm of rectum (principal); G31.1 Senile degeneration of brain, not elsewhere classified; I67.82 Cerebral ischemia; R11.0 Nausea
CPT/HCPCS: 70553; A9581

== ENCOUNTER → 2018-01-02 | Outpatient (CLI) | payer MEDICARE ==
[2018-01-02 14:43] LABS: Blood Urea Nitrogen 9 mg/dL (9-20)
--- NOTE | 2018-01-02 16:08 | CT ---
EXAMINATION TYPE: CT ChestAbdPelvis w con DATE OF EXAM: 01/02/2018 COMPARISON: Prior CT chest abdomen pelvis 09/29/2017 HISTORY: Rectal CA, observation for mets CT DLP: 1358.3 mGycm Automated exposure control for dose reduction was used. CONTRAST: CT scan of the chest, abdomen and pelvis is performed with Oral Contrast and with IV Contrast, patien t injected with 100 mL of Isovue 300. FINDINGS: LUNGS: Atelectatic lung with associated effusion is again seen on the left. Pseudotumor present in th e left upper lobe. There are new nodular densities present in the subpleural right upper lobe and rig ht lower lobe measuring approximately 13 mm. There is a nodule present along the right hemidiaphragm not seen on prior exam measuring approximately 15 mm axial image 39 as well as axial image 46 nodule measuring 1 cm. Axial image 45 shows 5 mm nodule along the right hemidiaphragm, at the level of the m inor fissure axial image 29 there is a 2 mm nodule. Pleural nodularity also noted on the left. MEDIASTINUM: Substernal soft tissue mass has increased in size and now measures 2.5 cm increased from 15 mm AORTA: No significant abnormality is seen. OTHER: Right chest port via the internal jugular approach is present with the distal tip in the supe rior vena cava.. LIVER/GB: Multiple hypodensities are present, within the right lobe on axial image 25 measures approx imately 3.3 cm which is not well seen on previous exam. Gallbladder is stable. PANCREAS: No significant abnormality is seen. SPLEEN: No significant abnormality is seen. ADRENALS: No significant abnormality is seen. KIDNEYS: No significant abnormality is seen. REPRODUCTIVE ORGANS: No gross abnormality seen. BOWEL: Similar to prior exam. Ostomy is again noted. Rectum shows soft tissue density which is indet erminate and may be related to patient's carcinoma. FREE AIR: No Free Air visible. ASCITES: None seen. RETROPERITONEAL ADENOPATHY: No retroperitoneal adenopathy is seen. LYMPH NODES: No greater than 1 cm abdominal or pelvic lymph nodes are appreciated. URINARY BLADDER: No significant abnormality is seen. PELVIC ADENOPATHY: None visualized. OSSEOUS STRUCTURES: Degenerative disc changes are present in the visualized spine. IMPRESSION: Findings suggest progression of patient's metastatic disease.
== END ==
LOC: RADPROMAIN 13:25
PROVIDERS: ATTEND Internal Medicine Hematology & Oncology
DX: Z03.89 Encounter for observation for other suspected diseases and conditions ruled out (principal); C20 Malignant neoplasm of rectum
CPT/HCPCS: 82565; 84520; 71260; 74177; 36415; J1642; Q9967

== ENCOUNTER 2018-03-04 08:41 | Emergency (ER) | payer MEDICARE ==
[2018-03-04 08:48] VITALS: TEMP 97.8
[2018-03-04] MEDS ORDERED: ONDANSETRON ODT 4 MG TAB PO STA (09:07)
--- NOTE | 2018-03-04 09:11 | ED ---
General Adult HPI - General Chief complaint: Fall Stated complaint: Fall-Head Pain Time Seen by Provider: 03/04/18 08:59 Source: patient, RN notes reviewed Mode of arrival: wheelchair Limitations: no limitations - History of Present Illness Initial comments: Patient 78-year-old male significant past medical history for colon cancer, chemotherapy, presenting to the emergency room today with a chief complaint of a head injury that occurred yesterday. Patient does admit that he tripped yesterday falling backwards hitting the back of his head. States he does not believe any loss consciousness. States he was doing well yesterday. States started having some nausea this morning. Has had a few episodes of vomiting. States had chemotherapy this morning. It was recommended to come here in the emergency room and evaluated for concussion symptoms. Patient admits to headache. Denies any neck or back pain. Does admit that he twisted his right knee yesterday of fall. Denies any other complaints or symptoms. Patient denies any recent fever, chills, shortness of breath, chest pain, back pain, numbness or tingling, visual changes, or any other complaints. - Related Data Home Medications Medication Instructions Recorded Confirmed Pravastatin Sodium [Pravachol] 40 mg PO HS 08/02/16 03/04/18 Tamsulosin [Flomax] 0.4 mg PO HS 08/02/16 03/04/18 glipiZIDE XL [Glucotrol XL] 5 mg PO DAILY 08/02/16 03/04/18 Meloxicam [Mobic] 7.5 mg PO DAILY 06/07/17 07/07/17 metFORMIN HCL 1,000 mg PO BID 06/07/17 03/04/18 Acetaminophen [Tylenol] 1,000 mg PO Q4-6H PRN 03/04/18 03/04/18 Gabapentin [Neurontin] 300 mg PO BID 03/04/18 03/04/18 Pyridoxine HCl (Vitamin B6) 100 mg PO DAILY 03/04/18 03/04/18 [Vitamin B-6] Previous Rx's Medication Instructions Recorded Ondansetron [Zofran ODT] 4 mg PO Q8HR #12 tab 06/12/17 Ondansetron Odt [Zofran ODT] 4 mg PO Q8HR PRN #20 tab 03/04/18 Allergies Allergy/AdvReac Type Severity Reaction Status Date / Time No Known Allergies Allergy Verified 03/04/18 08:55 Review of Systems ROS Statement: Those systems with pertinent positive or pertinent negative responses have been documented in the HPI. ROS Other: All systems not noted in ROS Statement are negative. Past Medical History Past Medical History: Cancer, Diabetes Mellitus, Hyperlipidemia Additional Past Medical History / Comment(s): PLEURAL EFFUSION, STATES CA OF left sided LUNG, COLON, LIVER. colon-primary stage 4. dx 11/18. completed cycles of chemo. last chemo 05/13/17. 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 History of Any Multi-Drug Resistant Organisms: None Reported Past Surgical History: Back Surgery, Joint Replacement Additional Past Surgical History / Comment(s): 08/12/16 Revision total R knee arthroplasty. BILATERAL KNEE REPLACEMENTS,PLEURAL EFFUSION THORACENTESIS X3 PAULINO CATARACT SX; right rotator cuff shoulder sx, COLONOSCOPY 09/2016 Past Anesthesia/Blood Transfusion Reactions: Postoperative Nausea & Vomiting ( PONV) Additional Past Anesthesia/Blood Transfusion Reaction / Comment(s): Pt has had PONV and BROTHER HAD PONV. Past Psychological History: No Psychological Hx Reported Smoking Status: Former smoker Past Alcohol Use History: Occasional Past Drug Use History: None Reported - Past Family History Father Family Medical History: Diabetes Mellitus Additional Family Medical History / Comment(s): Father at the age of 86yrs. Mother Family Medical History: Cancer, Dementia Additional Family Medical History / Comment(s): Mother at the age of 84yrs. General Exam - General Exam Comments Initial Comments: General: The patient is awake and alert, in no distress, and does not appear acutely ill. Eye: Pupils are equal, round and reactive to light, extra-ocular movements are intact. No nystagmus. There is normal conjunctiva bilaterally. No signs of icterus. Ears, nose, mouth and throat: There are moist mucous membranes and no oral lesions. Neck: The neck is supple, there is no tenderness or JVD. Cardiovascular: There is a regular rate and rhythm. No murmur, rub or gallop is appreciated. Respiratory: Lungs are clear to auscultation, respirations are non-labored, breath sounds are equal. No wheezes, stridor, rales, or rhonchi. Musculoskeletal: Normal ROM. Surgical incision over the right knee. Good range of motion with flexion extension. No specific bony tenderness. No tenderness to the hip or ankle. No tenderness in cervical, thoracic or lumbar spine. No step-offs deformities. Strength 5/5. Sensation intact. Pulses equal bilaterally 2+. Neurological: A&O x 3. CN II-XII intact, There are no obvious motor or sensory deficits. Coordination appears grossly intact. Speech is normal. Skin: Skin is warm and dry and no rashes or lesions are noted. Psychiatric: Cooperative, appropriate mood & affect, normal judgment. Limitations: no limitations Course Vital Signs 03/04/18 08:45 Temperature 97.8 F Pulse Rate 57 L Respiratory 20 Rate Blood Pressure 153/80 O2 Sat by Pulse 97 Oximetry Medical Decision Making - Medical Decision Making CG negative for any acute abnormality. X-ray negative. Patient will be discharged home with nausea medication. Signs is a concussion were discussed. follow-up family doctor over the next 2 days. Disposition Clinical Impression: Concussion Disposition: HOME SELF-CARE Condition: Good Instructions: Concussion (ED) Additional Instructions: Please use medication as discussed. Please follow-up with family doctor in the next 2 days of symptoms have not improved. Please return to emergency room if the symptoms increase or worsen or for any other concerns. Prescriptions: Ondansetron Odt [Zofran ODT] 4 mg PO Q8HR PRN #20 tab PRN Reason: Nausea Is patient prescribed a controlled substance at d/c from ED?: No Referrals: Nigel Hayes DO [Primary Care Provider] - 1-2 days Time of Disposition: 11:00
--- NOTE | 2018-03-04 10:02 | CT ---
EXAMINATION TYPE: CT brain wo con DATE OF EXAM: 03/04/2018 HISTORY: Fall-head pain CT DLP: 1144.7 mGycm. Automated Exposure Control for Dose Reduction was Utilized. TECHNIQUE: CT scan of the head is performed without contrast. COMPARISON: CT brain May 01, 2010. MRI brain April 22, 2018. FINDINGS: There is no acute intracranial hemorrhage or midline shift identified. There is diffuse v entricular and sulcal prominence consistent with diffuse age-related cerebral atrophy. There is low- attenuation in the periventricular white matter consistent with chronic small vessel ischemic change. Small mucous retention cyst or polyp inferior posterior left maxillary sinus is redemonstrated. The globes are intact and the visualized sinuses otherwise are clear. IMPRESSION: No acute intracranial hemorrhage or midline shift. There is fairly moderate supratentor ial diffuse cerebral atrophy and mild chronic small vessel ischemic change redemonstrated.
--- NOTE | 2018-03-04 10:11 | XR ---
EXAMINATION TYPE: XR knee complete RT DATE OF EXAM: 03/04/2018 CLINICAL HISTORY: Recent fall with right knee pain TECHNIQUE: Three views of the right knee are obtained. COMPARISON: 08/22/2016 FINDINGS: There is no acute [place] tribes bone or metallic arthroplasty fracture/dislocation evident in rig ht knee. There is a similar appearing right arthroplasty with maintain normal anatomic alignment. Kingsley melvina and osseous fragments in the infrapatellar region are similar to the prior. There is focal soft tissue swelling seen in the suprapatellar region and infrapatellar region overlying the quadriceps an d patellar tendons. Soft tissue injury suspected. Small suprapatellar effusion is suspected. IMPRESSION: There is no acute [place] tribes bone or right knee arthroplasty fracture or dislocation in the right knee. Focal soft tissue swelling over the quadriceps and patellar tendon suggests soft tissue i njury.
[2018-03-04 11:10] VITALS: BP 134/61; PULSE 56; RESP 16
== END 2018-03-04 11:10 | disposition home or self-care (01) ==
LOC: EC 08:41
DX: S06.0X0A Concussion without loss of consciousness, initial encounter (principal); R11.2 Nausea with vomiting, unspecified; E11.9 Type 2 diabetes mellitus without complications; E78.5 Hyperlipidemia, unspecified; Z85.038 Personal history of other malignant neoplasm of large intestine; Z85.118 Personal history of other malignant neoplasm of bronchus and lung; Z87.891 Personal history of nicotine dependence; Z92.21 Personal history of antineoplastic chemotherapy; Z96.653 Presence of artificial knee joint, bilateral; Z98.890 Other specified postprocedural states; Z93.3 Colostomy status; Z79.1 Long term (current) use of non-steroidal anti-inflammatories (NSAID); Z79.84 Long term (current) use of oral hypoglycemic drugs; Z79.899 Other long term (current) drug therapy; W01.198A Fall on same level from slipping, tripping and stumbling with subsequent striking against other object, initial encounter; Y92.89 Other specified places as the place of occurrence of the external cause
CPT/HCPCS: 70450; 99284

== ENCOUNTER → 2018-04-08 | Outpatient (CLI) | payer MEDICARE ==
--- NOTE | 2018-04-09 18:08 | CT ---
EXAMINATION TYPE: CT ChestAbdPelvis w con DATE OF EXAM: 04/08/2018 INDICATION: Follow up to rectal CA COMPARISON: 01/02/2018 CT DLP: 1131 mGycm CONTRAST: Performed with Oral Contrast and with IV Contrast, patient injected with 80 mL of Isovue 300. TECHNIQUE: Axial images at 5 mm thick sections. Reconstructed images in the coronal plane. Delayed images through the kidneys. FINDINGS: CT CHEST: Portion of the thyroid visualized is normal. There is a 1.4 cm density in the anterior mediastinum. Appears to be fluid within the major fissure. Small left pleural effusions at the bases. Minimal right present. Fluid volume is diminished from com parison. The ascending aorta diameter at the level of the main pulmonary artery is 3.2 cm. The main pulmonary artery diameter at the bifurcation is 2.[address] ABDOMEN: Liver: There is a 4.0 cm ill-defined hypodensity right lobe of the liver suspicious for metastatic le lois. Nodular hypodensities in the right kidney measure approximately 1.2 cm series 4. Additional are a the inferior right lobe liver on delayed images. Findings are suggestive for metastatic disease. Spleen: Normal Pancreas: Normal Adrenal glands: The adrenal glands are normal. Gallbladder: Normal Kidneys: No masses are evident. No hydronephrosis is present. No cysts are present. Delayed images were obtained through the kidneys, which remain unremarkable. Aorta: Vascular calcification is within the aorta. Inferior vena cava: Normal. CT PELVIS: There is an ostomy at the transverse colon in the epigastric region. Small bowel loops distended with oral contrast and have a more normal appearance. The descending colon is decompressed. Couple of div erticuli are identified. There is fluid at the level of the rectum. There are loops of bowel which ar e incompletely distended or lack oral contrast limiting their evaluation. Appendix: Normal as visualized. Urinary bladder: Normal. Genitourinary structures: Prostate is prominent. Osseous structures: There is a 1.2 cm sclerotic lesion along the medial portion of the left iliac win g. Series 3 image 104. Sclerotic metastasis is not excluded. Facet degenerative changes are within th e lower lumbar spine. IMPRESSIONS: 1. Hypoechoic lesions within the liver suspicious for metastatic disease increasing in prominence fro m comparison. 2. Nodule within the anterior mediastinum. Lymph node should be considered. This is slightly larger. 3. Left pleural fluid. This is slightly diminished from comparison. 4. Rectal soft tissue, similar to previous exam
== END | disposition home or self-care (01) ==
LOC: RADCTMAIN 10:44
PROVIDERS: ATTEND Internal Medicine Hematology & Oncology
DX: C20 Malignant neoplasm of rectum (principal); K76.9 Liver disease, unspecified; J98.59 Other diseases of mediastinum, not elsewhere classified
CPT/HCPCS: 71260; 74177; J1642; Q9967

== ENCOUNTER 2018-05-21 12:46 | Emergency (ER) | payer MEDICARE ==
[2018-05-21 13:04] VITALS: TEMP 97.9
--- NOTE | 2018-05-21 14:01 | ED ---
Abdominal Pain HPI - General Chief Complaint: Abdominal Pain Stated Complaint: abd pain, poss colostomy problem Time Seen by Provider: 05/21/18 13:12 Source: patient, RN notes reviewed, old records reviewed Mode of arrival: ambulatory Limitations: no limitations - History of Present Illness Initial Comments: This is a 78 male to the ED, patient was essay with severe bowel pain history of colonic cancer. Patient does have ostomy which has been draining appropriately. No fevers, no abdominal rash or other abnormality noted. Patient states symptoms of been going on for 2 days, patient does not take pain medication for his pain. Patient states he has had history of significant fluid collection before then if needed to be drained. Patient does have blood and mucous to his bottom MD Complaint: abdominal pain -: days(s) (2) Location: diffuse, periumbilical Radiation: none Migration to: periumbilical Severity: moderate Severity scale (1-10): 4 Quality: cramping, fullness Consistency: constant Improves With: nothing Worsens With: nothing Associated Symptoms: denies other symptoms - Related Data Home Medications Medication Instructions Recorded Confirmed Pravastatin Sodium [Pravachol] 40 mg PO HS 08/02/16 05/21/18 Tamsulosin [Flomax] 0.4 mg PO HS 08/02/16 05/21/18 glipiZIDE XL [Glucotrol XL] 5 mg PO DAILY 08/02/16 05/21/18 Meloxicam [Mobic] 7.5 mg PO DAILY 06/07/17 05/21/18 metFORMIN HCL 1,000 mg PO BID 06/07/17 05/21/18 Gabapentin [Neurontin] 300 mg PO BID 03/04/18 05/21/18 Pyridoxine HCl (Vitamin B6) 100 mg PO DAILY 03/04/18 05/21/18 [Vitamin B-6] Acetaminophen Tab [Tylenol Tab] 650 mg PO Q6H PRN 05/21/18 05/21/18 Magnesium 200 mg PO DAILY 05/21/18 05/21/18 Previous Rx's Medication Instructions Recorded Ondansetron Odt [Zofran ODT] 4 mg PO Q8HR PRN #20 tab 03/04/18 Levofloxacin [Levaquin] 750 mg PO DAILY #7 tab 05/21/18 Allergies Allergy/AdvReac Type Severity Reaction Status Date / Time No Known Allergies Allergy Verified 05/21/18 13:30 Review of Systems ROS Statement: Those systems with pertinent positive or pertinent negative responses have been documented in the HPI. ROS Other: All systems not noted in ROS Statement are negative. Past Medical History Past Medical History: Cancer, Diabetes Mellitus, Hyperlipidemia Additional Past Medical History / Comment(s): PLEURAL EFFUSION, STATES CA OF left sided LUNG, COLON, LIVER. colon-primary stage 4. dx 11/18. completed 12/ cycles of chemo. last chemo 05/13/17. 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 History of Any Multi-Drug Resistant Organisms: None Reported Past Surgical History: Back Surgery, Joint Replacement Additional Past Surgical History / Comment(s): 08/12/16 Revision total R knee arthroplasty. BILATERAL KNEE REPLACEMENTS,PLEURAL EFFUSION THORACENTESIS X3 PAULINO CATARACT SX; right rotator cuff shoulder sx, COLONOSCOPY 09/2016 Past Anesthesia/Blood Transfusion Reactions: Postoperative Nausea & Vomiting ( PONV) Additional Past Anesthesia/Blood Transfusion Reaction / Comment(s): Pt has had PONV and BROTHER HAD PONV. Past Psychological History: No Psychological Hx Reported Smoking Status: Former smoker Past Alcohol Use History: Occasional Past Drug Use History: None Reported - Past Family History Father Family Medical History: Diabetes Mellitus Additional Family Medical History / Comment(s): Father at the age of 86yrs. Mother Family Medical History: Cancer, Dementia Additional Family Medical History / Comment(s): Mother at the age of 84yrs. General Exam Limitations: no limitations General appearance: alert, in no apparent distress Head exam: Present: atraumatic, normocephalic, normal inspection Eye exam: Present: normal appearance, PERRL, EOMI. Absent: scleral icterus, conjunctival injection, periorbital swelling ENT exam: Present: normal exam, mucous membranes moist Neck exam: Present: normal inspection. Absent: tenderness, meningismus, lymphadenopathy Respiratory exam: Present: normal lung sounds bilaterally. Absent: respiratory distress, wheezes, rales, rhonchi, stridor Cardiovascular Exam: Present: regular rate, normal rhythm, normal heart sounds. Absent: systolic murmur, diastolic murmur, rubs, gallop, clicks GI/Abdominal exam: Present: soft, distended, tenderness, normal bowel sounds. Absent: guarding, rebound, rigid Rectal exam: Present: deferred Extremities exam: Present: normal inspection, full ROM, normal capillary refill. Absent: tenderness, pedal edema, joint swelling, calf tenderness Back exam: Present: normal inspection Neurological exam: Present: alert, oriented X3, CN II-XII intact Psychiatric exam: Present: normal affect, normal mood Skin exam: Present: warm, dry, intact, normal color. Absent: rash Course Vital Signs 05/21/18 05/21/18 13:03 15:56 Temperature 97.9 F Pulse Rate 69 64 Respiratory 20 18 Rate Blood Pressure 154/78 159/69 O2 Sat by Pulse 97 99 Oximetry - Reevaluation(s) Reevaluation #1: 05/21/18 13:59 Medical record is reviewed, patient is patient of Dr. Griggs with history of colon CA and ascites Medical Decision Making - Lab Data Result diagrams: 05/21/18 13:55 05/21/18 13:55 Lab Results 05/21/18 05/21/18 05/21/18 Range/Units 13:55 13:55 13:55 WBC 7.5 (3.8-10.6) k/uL RBC 4.37 (4.30-5.90) m/uL Hgb 11.8 L (13.0-17.5) gm/dL Hct 38.3 L (39.0-53.0) % MCV 87.5 (80.0-100.0) fL MCH 27.0 (25.0-35.0) pg MCHC 30.9 L (31.0-37.0) g/dL RDW 15.1 (11.5-15.5) % Plt Count 244 (150-450) k/uL Neutrophils % 69 % Lymphocytes % 14 % Monocytes % 9 % Eosinophils % 6 % Basophils % 1 % Neutrophils # 5.2 (1.3-7.7) k/uL Lymphocytes # 1.0 (1.0-4.8) k/uL Monocytes # 0.7 (0-1.0) k/uL Eosinophils # 0.4 (0-0.7) k/uL Basophils # 0.1 (0-0.2) k/uL Sodium 139 (137-145) mmol/L Potassium 4.9 (3.5-5.1) mmol/L Chloride 107 (98-107) mmol/L Carbon Dioxide 25 (22-30) mmol/L Anion Gap 7 mmol/L BUN 14 (9-20) mg/dL Creatinine 1.03 (0.66-1.25) mg/dL Est GFR (CKD-EPI)AfAm 82 (>60 ml/min/1.73 sqM) Est GFR (CKD-EPI)NonAf 71 (>60 ml/min/1.73 sqM) Glucose 82 (74-99) mg/dL Plasma Lactic Acid Mode (0.7-2.0) mmol/L Calcium 9.2 (8.4-10.2) mg/dL Total Bilirubin 0.4 (0.2-1.3) mg/dL AST 48 (17-59) U/L ALT 31 (21-72) U/L Alkaline Phosphatase 88 (38-126) U/L Total Creatine Kinase 114 (55-170) U/L CK-MB (CK-2) 2.2 (0.0-2.4) ng/mL CK-MB (CK-2) Rel Index 1.9 Troponin I <0.012 (0.000-0.034) ng/mL Total Protein 7.0 (6.3-8.2) g/dL Albumin 4.0 (3.5-5.0) g/dL Amylase 172 H (30-110) U/L Lipase 383 H (23-300) U/L Urine Color Urine Appearance (Clear) Urine pH (5.0-8.0) Ur Specific [place] (1.001-1.035) Urine Protein (Negative) Urine Glucose (UA) (Negative) Urine Ketones (Negative) Urine Blood (Negative) Urine Nitrite (Negative) Urine Bilirubin (Negative) Urine Urobilinogen (<2.0) mg/dL Ur Leukocyte Esterase (Negative) 05/21/18 05/21/18 Range/Units 13:55 13:55 WBC (3.8-10.6) k/uL RBC (4.30-5.90) m/uL Hgb (13.0-17.5) gm/dL Hct (39.0-53.0) % MCV (80.0-100.0) fL MCH (25.0-35.0) pg MCHC (31.0-37.0) g/dL RDW (11.5-15.5) % Plt Count (150-450) k/uL Neutrophils % % Lymphocytes % % Monocytes % % Eosinophils % % Basophils % % Neutrophils # (1.3-7.7) k/uL Lymphocytes # (1.0-4.8) k/uL Monocytes # (0-1.0) k/uL Eosinophils # (0-0.7) k/uL Basophils # (0-0.2) k/uL Sodium (137-145) mmol/L Potassium (3.5-5.1) mmol/L Chloride (98-107) mmol/L Carbon Dioxide (22-30) mmol/L Anion Gap mmol/L BUN (9-20) mg/dL Creatinine (0.66-1.25) mg/dL Est GFR (CKD-EPI)AfAm (>60 ml/min/1.73 sqM) Est GFR (CKD-EPI)NonAf (>60 ml/min/1.73 sqM) Glucose (74-99) mg/dL Plasma Lactic Acid Mode 0.5 L (0.7-2.0) mmol/L Calcium (8.4-10.2) mg/dL Total Bilirubin (0.2-1.3) mg/dL AST (17-59) U/L ALT (21-72) U/L Alkaline Phosphatase (38-126) U/L Total Creatine Kinase (55-170) U/L CK-MB (CK-2) (0.0-2.4) ng/mL CK-MB (CK-2) Rel Index Troponin I (0.000-0.034) ng/mL Total Protein (6.3-8.2) g/dL Albumin (3.5-5.0) g/dL Amylase (30-110) U/L Lipase (23-300) U/L Urine Color Yellow Urine Appearance Clear (Clear) Urine pH 6.0 (5.0-8.0) Ur Specific [place] 1.011 (1.001-1.035) Urine Protein Negative (Negative) Urine Glucose (UA) Negative (Negative) Urine Ketones Negative (Negative) Urine Blood Negative (Negative) Urine Nitrite Negative (Negative) Urine Bilirubin Negative (Negative) Urine Urobilinogen <2.0 (<2.0) mg/dL Ur Leukocyte Esterase Negative (Negative) Disposition Clinical Impression: Community acquired pneumonia Disposition: HOME SELF-CARE Condition: Good Instructions: Community Acquired Pneumonia (ED) Prescriptions: Levofloxacin [Levaquin] 750 mg PO DAILY #7 tab Is patient prescribed a controlled substance at d/c from ED?: No Referrals: Nigel Hayes DO [Primary Care Provider] - 1-2 days
[2018-05-21 14:20] LABS: Appearance,Urine Clear (Clear); Basophils # (A) 0.1 k/uL (0-0.2); Basophils % (A) 1 %; Bilirubin,Urine Negative (Negative); Blood,Urine Negative (Negative); Color,Urine Yellow; Eosinophils # (A) 0.4 k/uL (0-0.7); Eosinophils % (A) 6 %; Glucose,Urine (UA) Negative (Negative); HCT 38.3 % (39.0-53.0); HGB 11.8 gm/dL (13.0-17.5); Ketones,Urine Negative (Negative); Leukocyte Esterase,Urine Negative (Negative); Lymphocytes % (A) 14 %; MCHC 30.9 g/dL (31.0-37.0); MCV 87.5 fL (80.0-100.0); Mean Platelet Volume 7.6; Monocytes # (A) 0.7 k/uL (0-1.0); Monocytes % (A) 9 %; Neutrophils # (A) 5.2 k/uL (1.3-7.7); Neutrophils % (A) 69 %; Nitrite,Urine Negative (Negative); Platelet Count 244 k/uL (150-450); Protein,Urine Negative (Negative); RBC 4.37 m/uL (4.30-5.90); RDW 15.1 % (11.5-15.5); Specific Gravity,Urine 1.011 (1.001-1.035); Urobilinogen,Urine <2.0 mg/dL (<2.0); WBC 7.5 k/uL (3.8-10.6)
[2018-05-21 14:31] LABS: Calcium 9.2 mg/dL (8.4-10.2); Potassium 4.9 mmol/L (3.5-5.1); Total Bilirubin 0.4 mg/dL (0.2-1.3)
[2018-05-21 14:44] LABS: Creatine Kinase 114 U/L (55-170)
[2018-05-21 14:57] LABS: Creatine Kinase MB 2.2 ng/mL (0.0-2.4); Troponin I <0.012 ng/mL (0.000-0.034)
[2018-05-21 15:57] VITALS: RESP 18
--- NOTE | 2018-05-21 16:04 | CT ---
EXAMINATION TYPE: CT abdomen pelvis w con DATE OF EXAM: 05/21/2018 COMPARISON: 04/08/2018 HISTORY: Generalized pain with history of lung, colon and liver cancer CT DLP: 952.2 mGycm Automated exposure control for dose reduction was used. CONTRAST: CT scan of the abdomen pelvis is performed with IV Contrast, patient injected with 100 mL of Isovue 3 00. FINDINGS- LUNG BASES-there are small bilateral pleural basilar consolidation. Numerous bilateral pulmonary nodu les are seen compatible atelectasis. Heart is enlarged.. LIVER/GB-multiple hepatic masses are again noted. The largest previously measured approximately 3.9 c m now measures approximate 4.3 x 4.3 cm. Numerous other additional lesions are seen.. PANCREAS- No gross abnormality is seen. SPLEEN- No gross abnormality is seen. ADRENALS- No gross abnormality is seen. KIDNEYS/BLADDER- no hydronephrosis nephrolithiasis or renal mass. BOWEL-an ostomy site is seen in there does appear to be thickening of the bowel wall near the rectosi gmoid junction.. LYMPH NODES-there are scattered areas of abnormal density seen throughout the anterior abdominal wall and the omentum including an involvement of the fat in the parastomal region. Findings are suggestiv e of omental metastases.. OSSEOUS STRUCTURES- There is a 1.2 cm sclerotic lesion along the medial portion of the left iliac wi ng. Scattered punctate areas of sclerosis involving the vertebral column, bilateral femoral also note d Sclerotic metastasis is not excluded. Facet degenerative changes are within the lower lumbar spine. OTHER- adjacent to the sigmoid colon is a soft tissue mass or adenopathy which appears stable measur ing 1.8 x 1.6 cm. Thickening of the distal rectosigmoid junction noted with regard to the wall the co grabiel. IMPRESSION- 1. Numerous bilateral pulmonary nodules with small bilateral pleural effusions and basilar consolidat ion. 2. Numerous hepatic metastases the largest measuring 4.3 x 4.3 cm slightly increased from prior exam. 3. There is thickening of the wall of the rectum and the rectosigmoid junction underlying mass or mu cosal lesion not excluded correlate clinically. Adjacent to the rectum on the left there is a stable appearing 1.8 x 1.6 cm soft tissue mass or lymphadenopathy. 4. There is scattered small omental nodule suspicious for omental metastases involving the anterior a bdomen bilaterally. Subcentimeter soft tissue nodules along the right colon are also noted which may represent areas of adenopathy.
--- NOTE | 2018-05-21 17:30 | XR ---
EXAMINATION TYPE: XR chest 2V DATE OF EXAM: 05/21/2018 COMPARISON: 02/24/2017 HISTORY: Abdominal pain TECHNIQUE: Frontal and lateral views of the chest are obtained. FINDINGS: There is blunting of left costophrenic angle with some infiltrate at the left lung base. H eart size is normal. There is right central venous catheter with tip in the superior vena cava. There is no heart failure. Right lung is fairly clear. IMPRESSION: Left pleural effusion and left lower lobe infiltrate are essentially new compared to old exam. Normal heart.
[2018-05-21 18:05] VITALS: BP 149/65; PULSE 65
== END 2018-05-21 18:05 | disposition home or self-care (01) ==
LOC: EC 12:46
DX: J18.9 Pneumonia, unspecified organism (principal); E11.9 Type 2 diabetes mellitus without complications; E78.5 Hyperlipidemia, unspecified; Z79.84 Long term (current) use of oral hypoglycemic drugs; Z79.1 Long term (current) use of non-steroidal anti-inflammatories (NSAID); Z79.899 Other long term (current) drug therapy; Z85.038 Personal history of other malignant neoplasm of large intestine; Z85.118 Personal history of other malignant neoplasm of bronchus and lung; Z85.05 Personal history of malignant neoplasm of liver; Z87.891 Personal history of nicotine dependence
CPT/HCPCS: 36415; 80053; 82150; 82550; 82553; 83605; 83690; 84484; 85025; 81003; 87086; 71046; 74177; 99285; Q9967

== ENCOUNTER 2018-07-06 12:16 | Inpatient (IN) | payer MEDICARE ==
[2018-07-06] MEDS ORDERED: SODIUM CHLORIDE 0.9% 1,000 ML IV STA (12:44)
[2018-07-06 13:33] LABS: Basophils % (A) 1 %; Eosinophils # (A) 0.4 k/uL (0-0.7); Eosinophils % (A) 5 %; HCT 39.2 % (39.0-53.0); HGB 12.3 gm/dL (13.0-17.5); Hypochromasia Slight; Lymphocytes # (A) 1.2 k/uL (1.0-4.8); Lymphocytes % (A) 13 %; MCH 25.9 pg (25.0-35.0); MCHC 31.4 g/dL (31.0-37.0); Mean Platelet Volume 6.7; Monocytes # (A) 0.9 k/uL (0-1.0); Monocytes % (A) 10 %; Neutrophils # (A) 6.1 k/uL (1.3-7.7); Neutrophils % (A) 70 %; Platelet Count 318 k/uL (150-450); RBC 4.76 m/uL (4.30-5.90); WBC 8.7 k/uL (3.8-10.6)
[2018-07-06 13:34] LABS: INR 1.1 (<1.2); Partial Thromboplastin Time 24.4 sec (22.0-30.0); Prothrombin Time 10.4 sec (9.0-12.0)
[2018-07-06 13:36] LABS: MCV 82.3 fL (80.0-100.0)
[2018-07-06 13:41] LABS: Creatine Kinase 99 U/L (55-170)
[2018-07-06 13:53] LABS: Creatine Kinase MB 2.3 ng/mL (0.0-2.4); Troponin I <0.012 ng/mL (0.000-0.034)
[2018-07-06 13:55] LABS: Albumin 3.8 g/dL (3.5-5.0); Calcium 9.2 mg/dL (8.4-10.2); Magnesium 1.1 mg/dL (1.6-2.3); Phosphorus 3.6 mg/dL (2.5-4.5); Potassium 4.9 mmol/L (3.5-5.1); Total Bilirubin 0.3 mg/dL (0.2-1.3); Total Protein 6.9 g/dL (6.3-8.2)
--- NOTE | 2018-07-06 14:38 | ED ---
SOB HPI - General Source: patient, RN notes reviewed Mode of arrival: ambulatory Limitations: no limitations <Zack Dunlap - Last Filed: 07/06/18 15:20> <Wilmer Ordonez - Last Filed: 07/06/18 16:37> - General Chief Complaint: Shortness of Breath Stated Complaint: unable to urinate Time Seen by Provider: 07/06/18 12:35 - History of Present Illness Initial Comments: 78-year-old male presents emergency Department from PCPs office chief complaint of weakness. Patient had progressive weakness the last 3-4 days. Patient has colon cancer with diffuse metastases. Patient states his last round of chemotherapy was 2 weeks ago. Patient states that he's had increasing shortness of breath, difficult to urinate. He has not urinated in over 12 hours. Patient states he does have sensation to go but can't go. He states never had any issues like this in the past though he does take Flomax for his prostate. He's had no prior renal failure. Patient does have a colostomy in which the surgery was performed by Dr. rick. Patient has had fluid on his left lung in the past and this feels consistent. Patient reports no fever no chills. Patient states she's had difficulty ambulate because he is so weak. ( Zack Dunlap) - Related Data Home Medications Medication Instructions Recorded Confirmed Pravastatin Sodium [Pravachol] 40 mg PO HS 08/02/16 07/06/18 Tamsulosin [Flomax] 0.4 mg PO HS 08/02/16 07/06/18 metFORMIN HCL 1,000 mg PO BID 06/07/17 07/06/18 Gabapentin [Neurontin] 300 mg PO TID 03/04/18 07/06/18 Lidocaine HCl [Aspercreme] 1 applic TOPICAL BID PRN 07/06/18 07/06/18 Lidocaine-Prilocaine Cream [Emla 1 applic TOPICAL DAILY PRN 07/06/18 07/06/18 Cream 2.5%/2.5%] Magnesium Oxide [Mag-Ox] 400 mg PO DAILY 07/06/18 07/06/18 Meloxicam [Mobic] 15 mg PO DAILY 07/06/18 07/06/18 Nystatin 100,000 Unit/ml Susp 4 ml PO PC-TID 07/06/18 07/06/18 [Mycostatin Oral Susp] Prochlorperazine [Compazine] 10 mg PO Q6H PRN 07/06/18 07/06/18 Allergies Allergy/AdvReac Type Severity Reaction Status Date / Time No Known Allergies Allergy Verified 07/06/18 12:35 Review of Systems ROS Other: All systems not noted in ROS Statement are negative. <Zack Dunlap - Last Filed: 07/06/18 15:20> ROS Other: All systems not noted in ROS Statement are negative. <Wilmer Ordonez - Last Filed: 07/06/18 16:37> ROS Statement: Those systems with pertinent positive or pertinent negative responses have been documented in the HPI. Past Medical History Past Medical History: Cancer, Diabetes Mellitus, Hyperlipidemia Additional Past Medical History / Comment(s): PLEURAL EFFUSION, STATES CA OF left sided LUNG, COLON, LIVER. colon-primary stage 4. dx 11/18. completed cycles of chemo. last chemo 05/13/17. 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 History of Any Multi-Drug Resistant Organisms: None Reported Past Surgical History: Back Surgery, Joint Replacement Additional Past Surgical History / Comment(s): 08/12/16 Revision total R knee arthroplasty. BILATERAL KNEE REPLACEMENTS,PLEURAL EFFUSION THORACENTESIS X3 PAULINO CATARACT SX; right rotator cuff shoulder sx, COLONOSCOPY 09/2016 Past Anesthesia/Blood Transfusion Reactions: Postoperative Nausea & Vomiting ( PONV) Additional Past Anesthesia/Blood Transfusion Reaction / Comment(s): Pt has had PONV and BROTHER HAD PONV. Past Psychological History: No Psychological Hx Reported Smoking Status: Former smoker Past Alcohol Use History: Occasional Past Drug Use History: None Reported - Past Family History Father Family Medical History: Diabetes Mellitus Additional Family Medical History / Comment(s): Father at the age of 86yrs. Mother Family Medical History: Cancer, Dementia Additional Family Medical History / Comment(s): Mother at the age of 84yrs. <Zack Dunlap - Last Filed: 07/06/18 15:20> General Exam Limitations: no limitations General appearance: alert, in no apparent distress Head exam: Present: atraumatic, normocephalic, normal inspection Eye exam: Present: normal appearance, PERRL, EOMI. Absent: scleral icterus, conjunctival injection, periorbital swelling ENT exam: Present: normal exam, normal oropharynx, mucous membranes moist Neck exam: Present: normal inspection. Absent: tenderness, meningismus, lymphadenopathy Respiratory exam: Present: rales (Left). Absent: normal lung sounds bilaterally , respiratory distress, wheezes, rhonchi, stridor Cardiovascular Exam: Present: regular rate, normal rhythm, normal heart sounds. Absent: systolic murmur, diastolic murmur, rubs, gallop, clicks GI/Abdominal exam: Present: soft, tenderness (Mild suprapubic), normal bowel sounds. Absent: distended, guarding, rebound, rigid Back exam: Absent: CVA tenderness (R), CVA tenderness (L) Neurological exam: Present: alert, oriented X3, CN II-XII intact, reflexes normal. Absent: motor sensory deficit Skin exam: Present: warm, dry, intact, normal color. Absent: rash <Zack Dunlap - Last Filed: 07/06/18 15:20> Course <Zack Dunlap - Last Filed: 07/06/18 15:20> <Wilmer Ordonez - Last Filed: 07/06/18 16:37> Vital Signs 07/06/18 07/06/18 07/06/18 12:21 13:09 13:22 Temperature 97.6 F Pulse Rate 89 Respiratory 18 18 Rate Blood Pressure 146/90 O2 Sat by Pulse 98 97 Oximetry 07/06/18 07/06/18 07/06/18 13:30 14:00 14:30 Temperature Pulse Rate 75 77 77 Respiratory Rate Blood Pressure 135/99 135/99 135/99 O2 Sat by Pulse 99 99 100 Oximetry 07/06/18 07/06/18 14:56 15:00 Temperature Pulse Rate 71 Respiratory Rate Blood Pressure 162/83 162/83 O2 Sat by Pulse 100 Oximetry - Reevaluation(s) Reevaluation #1: 07/06/18 16:36 PA supervision: I personally evaluated this case including reviewing old charting was available. Patient will be admitted for evaluation of progressive dyspnea and weakness hypomagnesemia generalized weakness 30 to thrive metastatic colon cancer. I do agree with the assessment and plan. The patient was sent here from his physician's office for evaluation. The case is discussed with Dr. Katz. (Wilmer Ordonez) Medical Decision Making - Lab Data Result diagrams: 07/06/18 13:06 07/06/18 13:06 <Zack Dunlap - Last Filed: 07/06/18 15:20> - Lab Data Result diagrams: 07/06/18 13:06 07/06/18 13:06 <Wilmer Ordonez - Last Filed: 07/06/18 16:37> - Medical Decision Making 78-year-old male presented sent in for weakness. Patient has known metastases and colon cancer. Patient's found to have pleural effusion on the left, difficulty ambulate secondary to weakness, urinary retention. Patient will be admitted for further evaluation. (Zack Dunlap) - Lab Data Lab Results 07/06/18 07/06/18 07/06/18 Range/Units 13:06 13:06 13:06 WBC 8.7 (3.8-10.6) k/uL RBC 4.76 (4.30-5.90) m/uL Hgb 12.3 L (13.0-17.5) gm/dL Hct 39.2 (39.0-53.0) % MCV 82.3 D (80.0-100.0) fL MCH 25.9 (25.0-35.0) pg MCHC 31.4 (31.0-37.0) g/dL RDW 14.0 (11.5-15.5) % Plt Count 318 (150-450) k/uL Neutrophils % 70 % Lymphocytes % 13 % Monocytes % 10 % Eosinophils % 5 % Basophils % 1 % Neutrophils # 6.1 (1.3-7.7) k/uL Lymphocytes # 1.2 (1.0-4.8) k/uL Monocytes # 0.9 (0-1.0) k/uL Eosinophils # 0.4 (0-0.7) k/uL Basophils # 0.0 (0-0.2) k/uL Hypochromasia Slight PT (9.0-12.0) sec INR (<1.2) APTT (22.0-30.0) sec Sodium 143 (137-145) mmol/L Potassium 4.9 (3.5-5.1) mmol/L Chloride 107 (98-107) mmol/L Carbon Dioxide 26 (22-30) mmol/L Anion Gap 10 mmol/L BUN 13 (9-20) mg/dL Creatinine 1.15 (0.66-1.25) mg/dL Est GFR (CKD-EPI)AfAm 72 (>60 ml/min/1.73 sqM) Est GFR (CKD-EPI)NonAf 62 (>60 ml/min/1.73 sqM) Glucose 95 (74-99) mg/dL Plasma Lactic Acid Mode (0.7-2.0) mmol/L Calcium 9.2 (8.4-10.2) mg/dL Phosphorus 3.6 (2.5-4.5) mg/dL Magnesium 1.1 L (1.6-2.3) mg/dL Total Bilirubin 0.3 (0.2-1.3) mg/dL AST 52 (17-59) U/L ALT 25 (21-72) U/L Alkaline Phosphatase 96 (38-126) U/L Total Creatine Kinase 99 (55-170) U/L CK-MB (CK-2) 2.3 (0.0-2.4) ng/mL CK-MB (CK-2) Rel Index 2.3 Troponin I <0.012 (0.000-0.034) ng/mL NT-Pro-B Natriuret Pep pg/mL Total Protein 6.9 (6.3-8.2) g/dL Albumin 3.8 (3.5-5.0) g/dL Urine Color Urine Appearance (Clear) Urine pH (5.0-8.0) Ur Specific [place] (1.001-1.035) Urine Protein (Negative) Urine Glucose (UA) (Negative) Urine Ketones (Negative) Urine Blood (Negative) Urine Nitrite (Negative) Urine Bilirubin (Negative) Urine Urobilinogen (<2.0) mg/dL Ur Leukocyte Esterase (Negative) 07/06/18 07/06/18 07/06/18 Range/Units 13:06 13:06 13:06 WBC (3.8-10.6) k/uL RBC (4.30-5.90) m/uL Hgb (13.0-17.5) gm/dL Hct (39.0-53.0) % MCV (80.0-100.0) fL MCH (25.0-35.0) pg MCHC (31.0-37.0) g/dL RDW (11.5-15.5) % Plt Count (150-450) k/uL Neutrophils % % Lymphocytes % % Monocytes % % Eosinophils % % Basophils % % Neutrophils # (1.3-7.7) k/uL Lymphocytes # (1.0-4.8) k/uL Monocytes # (0-1.0) k/uL Eosinophils # (0-0.7) k/uL Basophils # (0-0.2) k/uL Hypochromasia PT 10.4 (9.0-12.0) sec INR 1.1 (<1.2) APTT 24.4 (22.0-30.0) sec Sodium (137-145) mmol/L Potassium (3.5-5.1) mmol/L Chloride (98-107) mmol/L Carbon Dioxide (22-30) mmol/L Anion Gap mmol/L BUN (9-20) mg/dL Creatinine (0.66-1.25) mg/dL Est GFR (CKD-EPI)AfAm (>60 ml/min/1.73 sqM) Est GFR (CKD-EPI)NonAf (>60 ml/min/1.73 sqM) Glucose (74-99) mg/dL Plasma Lactic Acid Mode 1.6 (0.7-2.0) mmol/L Calcium (8.4-10.2) mg/dL Phosphorus (2.5-4.5) mg/dL Magnesium (1.6-2.3) mg/dL Total Bilirubin (0.2-1.3) mg/dL AST (17-59) U/L ALT (21-72) U/L Alkaline Phosphatase (38-126) U/L Total Creatine Kinase (55-170) U/L CK-MB (CK-2) (0.0-2.4) ng/mL CK-MB (CK-2) Rel Index Troponin I (0.000-0.034) ng/mL NT-Pro-B Natriuret Pep 116 pg/mL Total Protein (6.3-8.2) g/dL Albumin (3.5-5.0) g/dL Urine Color Urine Appearance (Clear) Urine pH (5.0-8.0) Ur Specific [place] (1.001-1.035) Urine Protein (Negative) Urine Glucose (UA) (Negative) Urine Ketones (Negative) Urine Blood (Negative) Urine Nitrite (Negative) Urine Bilirubin (Negative) Urine Urobilinogen (<2.0) mg/dL Ur Leukocyte Esterase (Negative) 07/06/18 Range/Units 13:55 WBC (3.8-10.6) k/uL RBC (4.30-5.90) m/uL Hgb (13.0-17.5) gm/dL Hct (39.0-53.0) % MCV (80.0-100.0) fL MCH (25.0-35.0) pg MCHC (31.0-37.0) g/dL RDW (11.5-15.5) % Plt Count (150-450) k/uL Neutrophils % % Lymphocytes % % Monocytes % % Eosinophils % % Basophils % % Neutrophils # (1.3-7.7) k/uL Lymphocytes # (1.0-4.8) k/uL Monocytes # (0-1.0) k/uL Eosinophils # (0-0.7) k/uL Basophils # (0-0.2) k/uL Hypochromasia PT (9.0-12.0) sec INR (<1.2) APTT (22.0-30.0) sec Sodium (137-145) mmol/L Potassium (3.5-5.1) mmol/L Chloride (98-107) mmol/L Carbon Dioxide (22-30) mmol/L Anion Gap mmol/L BUN (9-20) mg/dL Creatinine (0.66-1.25) mg/dL Est GFR (CKD-EPI)AfAm (>60 ml/min/1.73 sqM) Est GFR (CKD-EPI)NonAf (>60 ml/min/1.73 sqM) Glucose (74-99) mg/dL Plasma Lactic Acid Mode (0.7-2.0) mmol/L Calcium (8.4-10.2) mg/dL Phosphorus (2.5-4.5) mg/dL Magnesium (1.6-2.3) mg/dL Total Bilirubin (0.2-1.3) mg/dL AST (17-59) U/L ALT (21-72) U/L Alkaline Phosphatase (38-126) U/L Total Creatine Kinase (55-170) U/L CK-MB (CK-2) (0.0-2.4) ng/mL CK-MB (CK-2) Rel Index Troponin I (0.000-0.034) ng/mL NT-Pro-B Natriuret Pep pg/mL Total Protein (6.3-8.2) g/dL Albumin (3.5-5.0) g/dL Urine Color Yellow Urine Appearance Clear (Clear) Urine pH 5.5 (5.0-8.0) Ur Specific [place] 1.018 (1.001-1.035) Urine Protein Trace H (Negative) Urine Glucose (UA) Trace H (Negative) Urine Ketones Negative (Negative) Urine Blood Negative (Negative) Urine Nitrite Negative (Negative) Urine Bilirubin Negative (Negative) Urine Urobilinogen <2.0 (<2.0) mg/dL Ur Leukocyte Esterase Negative (Negative) 07/06/18 15:21 EKG performed at 13:18 sinus rhythm with PAC, rate of 78 NC 08/09/2025 QRS 84 QT / QTC 352/401 07/06/18 15:21 (Zack Dunlap) Disposition <Zack Dunlap - Last Filed: 07/06/18 15:20> <Wilmer Ordonez - Last Filed: 07/06/18 16:37> Clinical Impression: Urinary retention, Weakness generalized, Colon carcinoma metastatic to multiple sites, Hypomagnesemia, Dyspnea Disposition: ADMITTED IP TO THIS HOSP Condition: Fair
--- NOTE | 2018-07-06 14:50 | XR ---
EXAMINATION TYPE: XR chest 2V DATE OF EXAM: 07/06/2018 COMPARISON: 05/21/2019 HISTORY: Weakness and shortness of breath TECHNIQUE: Frontal and lateral views of the chest are obtained. FINDINGS: There is a persistent small left pleural effusion similar to the prior exam with left basi lar airspace disease, likely atelectasis. Right-sided Mediport is present. New trace right pleural ef fusion blunts the costophrenic angle. Lingular and left basilar pulmonary nodules are not well-define d given left basilar airspace disease. IMPRESSION: Similar-appearing small left and trace right pleural effusions with left basilar airspac e disease, likely atelectasis.
[2018-07-06 15:03] LABS: Appearance,Urine Clear (Clear); Bilirubin,Urine Negative (Negative); Blood,Urine Negative (Negative); Color,Urine Yellow; Glucose,Urine (UA) Trace (Negative); Ketones,Urine Negative (Negative); Leukocyte Esterase,Urine Negative (Negative); Nitrite,Urine Negative (Negative); PH, Urine 5.5 (5.0-8.0); Protein,Urine Trace (Negative); Specific Gravity,Urine 1.018 (1.001-1.035); Urobilinogen,Urine <2.0 mg/dL (<2.0)
[2018-07-06] MEDS ORDERED: HYDROcodone/APAP 5-325MG 1 EACH TAB PO PRN (15:23)
[2018-07-06] MEDS ORDERED: ONDANSETRON 4 MG/2 ML VIAL IVP PRN (15:23)
[2018-07-06] MEDS ORDERED: MORPHINE SULFATE 4 MG/ML SYRINGE IV PRN (15:23)
[2018-07-06] MEDS: MAGNESIUM SULFATE-D5W PMX 1 GM in DEXTROSE/WATER 1 100ML.BAG IVPB SCH ×2 (17:53→19:53)
[2018-07-06] MEDS ORDERED: LIDOCAINE HCL TOPICAL PRN (22:11)
[2018-07-06] MEDS ORDERED: LIDOCAINE-PRILOCAINE 2.5-2.5% CREAM 5 GM TUBE TOPICAL PRN (22:11)
[2018-07-06] MEDS ORDERED: TAMSULOSIN 0.4 MG CAP.ER.24H PO SCH (22:15)
[2018-07-06] MEDS: GABAPENTIN 300 MG CAP PO SCH (23:26)
--- NOTE | 2018-07-06 23:38 | HP ---
HISTORY AND PHYSICAL DATE OF SERVICE: 07/06/2018. DATE OF ADMISSION: 07/06/2018. PRESENTING COMPLAINT: Weak and tired. HISTORY OF PRESENTING COMPLAINT: This is a very pleasant 78-year-old patient who in November of 2016 was found to have left- sided pleural effusion that was drained. Then patient had a recurrent pleural effusion and multiple liver lesions were noted. The patient in December of 2016 was found to have a near obstructing mass in the rectosigmoid. Biopsy did confirm adenocarcinoma. The patient did get chemotherapy, several cycles, was not able to tolerate the same. Patient developed anorexia and neuropathy. The patient was switched to a different regime. The patient subsequently did have a transverse colostomy. Now he is getting his chemotherapy every other week a week. The patient's chronic stable conditions include diabetes, hypertension, BPH. The patient's last chemo was 2 weeks ago. Presents with now feeling weak, tired, run down, some cold and chills. No fever. Appetite is poor. Has overall lost over 50 pounds. Admitted for the same. REVIEW OF SYSTEMS: CONSTITUTIONAL: Weak and tired. Loss of appetite. HEENT: None. RESPIRATORY: Short of breath. CARDIOVASCULAR: None. GASTROINTESTINAL: Has output in the bag once or twice a day. GENITOURINARY: Had a Glez catheter placed in the ER for decreased urine output, 300 mL was obtained. MUSCULOSKELETAL: None. DERMATOLOGIC: None. HEMATOLOGIC: None. LYMPHATIC: None. PSYCHIATRY: None. NEUROLOGIC: None. 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 PAST SURGICAL HISTORY: Back surgery, revision right total knee arthroplasty, bilateral knee replacement, right shoulder cuff surgery, new colostomy. SOCIAL HISTORY: Patient has smoked for a very short time. Lives with his . Alcohol rarely. FAMILY HISTORY: Diabetes. HOME MEDICATIONS: 1. Metformin 1000 mg b.i.d. 2. Flomax 0.4 mg at bedtime. 3. Compazine 10 mg every 6 hours p.r.n. 4. Pravachol 40 mg at bedtime. 5. Nystatin 4 mL p.o. t.i.d. 6. Mobic 50 mg p.o. daily. 7. Magnesium oxide 1 mg p.o. daily. 8. EMLA cream topical daily p.r.n. 9. Aspercreme topical b.i.d. p.r.n. 10.Neurontin 10 mg p.o. t.i.d. ALLERGIES: NONE. PHYSICAL EXAMINATION: VITAL SIGNS: Vital signs on presentation, temperature 97.6, pulse 89, respiratory rate 18, blood pressure 146/90, pulse ox 98% on room air. GENERAL APPEARANCE: Average built, lying in bed, tired-appearing. EYES: Pupils equal. Conjunctivae pale. HEENT: External appearance of ears and nose normal. Oral cavity normal. NECK: JVD not raised. Mass not palpable. Respiratory effort normal. LUNGS: Decreased breath sounds. CARDIOVASCULAR: 1st and 2nd sounds normal. No edema. ABDOMEN: Soft, nontender. Liver and spleen not palpable. Colostomy bag in place. LYMPHATIC: No lymph node palpable in the neck or axillae. PSYCHIATRY: Alert and oriented x3. Mood and affect normal. NEUROLOGIC: Pupils equal. Cranial nerves intact. Power and sensation grossly intact. INVESTIGATIONS: White count 8.7, hemoglobin 12.3, platelets 318, potassium 4.9. BUN and creatinine normal. LFTs normal. Chest x-ray film personally reviewed by me shows a small pleural effusion, possible left basilar infiltrate. ASSESSMENT: 1. Possible left lower lobe pneumonia. 2. 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 3. Loop diverting colostomy. 4. Diabetes mellitus type 2 on oral hypoglycemic. 5. Essential hypertension. 6. Benign prostatic hypertrophy. PLAN: Start the patient on IV fluids. Home medications will be resumed. Appetite is poor. We will hold metformin for now and follow Accu-Cheks. We will do a CT angio of the chest to rule out a PE. The patient will be started on antibiotics, ceftriaxone. Pulmonary will be consulted. Care was discussed with the patient. Questions were answered. MMODL / IJN: [id number] /
--- NOTE | 2018-07-06 23:53 | CT ---
EXAM: CT Angiography Chest With Intravenous Contrast CLINICAL HISTORY: ITS.REASON CT Reason: poss PE TECHNIQUE: Axial computed tomographic angiography images of the chest with intravenous contrast using pulmonary embolism protocol. CTDI is 54 mGy and DLP is 243 mGy-cm. This CT exam was performed using one or more of the following dose reduction techniques: automated exposure control, adjustment of the mA and/or kV according to patient size, and/or use of iterative reconstruction technique. 3D reconstructed images were created and reviewed. COMPARISON: 07/02/18 FINDINGS: Pulmonary arteries: Unremarkable. No pulmonary embolism. Aorta: No acute findings. No thoracic aortic aneurysm. Lungs: Unremarkable. No mass. No consolidation. Pleural space: Large right and moderate left pleural effusions. Heart: Unremarkable. No cardiomegaly. No significant pericardial effusion. No evidence of RV dysfunction. Bones/joints: No acute fracture. No dislocation. Soft tissues: Widespread nodular soft tissue throughout the pleural surfaces bilaterally. Lymph nodes: Unremarkable. No enlarged lymph nodes. Liver: Subtle metastases throughout the liver. IMPRESSION: 1. Large right and moderate left pleural effusions. These have considerably increased. 2. Subtle metastases throughout the liver. 3. Widespread nodular soft tissue throughout the pleural surfaces bilaterally. Consistent with pleural-based metastases.
[2018-07-07] MEDS: LACTATED RINGERS 1,000 ML IV SCH ×4 (00:38→23:45)
[2018-07-07 06:06] LABS: Hemoglobin A1C 5.9 % (4.0-6.0)
[2018-07-07] MEDS: ENOXAPARIN 40 MG/0.4 ML SYRINGE SQ SCH (08:14)
[2018-07-07] MEDS: GABAPENTIN 300 MG CAP PO SCH ×3 (08:15→21:33)
[2018-07-07] MEDS: NYSTATIN 100,000 UNIT/ML SUSP 500,000 UNIT/5 ML CUP PO SCH ×3 (08:15→17:34)
[2018-07-07] MEDS: MAGNESIUM OXIDE 400 MG TAB PO SCH (08:16)
[2018-07-07] MEDS ORDERED: MELOXICAM 7.5 MG TAB PO SCH ×2 (09:00→21:00)
[2018-07-07 10:42] VITALS: BMI 26.4
[2018-07-07] MEDS ORDERED: Magnesium Replacement Protocol 1 EACH MISC MISCELLANE PRN (11:10)
[2018-07-07] MEDS: MAGNESIUM SULFATE-D5W PMX 1 GM in DEXTROSE/WATER 1 100ML.BAG IVPB SCH ×3 (11:39→13:58)
[2018-07-07] MEDS ORDERED: LIDOCAINE 1% INJ 10MG/ML (20 ML MDV) SQ ONE (12:02)
--- NOTE | 2018-07-07 12:25 | P.CNPUL ---
History of Present Illness Consult date: 07/07/18 Reason for consult: dyspnea, pleural effusion History of present illness: 78-year-old male patient was presented to hospital because of generalized weakness, tiredness and shortness of breath and he was found to have a large right-sided pleural effusion and pulmonary consultation was requested to perform a thoracentesis for diagnostic and therapeutic purposes. The patient has no cough or sputum production. He has exertional dyspnea and his breathing has progressively gotten worse over this past few weeks. No chest pain. No fever. No chills. He is a known case of metastatic adenocarcinoma of the colon. The patient initially presented in 11/18 with increasing shortness of breath. At that time he was found to have a left-sided pleural effusion that was drained. The fluid was bloody appearing, but cytology was negative. Within a few days, he developed recurrent pleural effusions with CT scans at this time showing pleural nodularity suggestive of malignancy along with multiple liver lesions suggestive of metastasis. He had a colonoscopy on 12/02/16 revealing near obstructing mass in the rectosigmoid beyond which the scope could not be passed. Biopsy was positive for adenocarcinoma. He also required repeat thoracentesis on 12/10/16. The pleural fluid cytology was again negative for malignancy. Subsequently, he was started on systemic chemotherapy with FOLFOX, with Vectibix added subsequently, once K-dionte mutation testing was found to be negative. He is status post 11 cycles, with the last on 05/13/17. Chemotherapy was then stopped due to increasing fatigue, progression in neuropathy and anorexia. During chemotherapy the patient had experienced improvement in his bowel movements. He had been referred back to Dr. Schafer to have a repeat colonoscopy to assess the primary tumor, with a plan for palliative radiation if needed. However, The patient however came into the emergency room on 06/09/2017, complaining of increasing difficulty with bowel movements over the last week. This had been accompanied by increasingly severe complains of abdominal pain. Even with straining and medications he was only able to produce small amounts of liquid stool. CT scan of the abdomen and pelvis showed a large amount of stool in the distal colon. He was taken to surgery by Dr. Schafer on 06/08/17. Op note was reviewed, showing distention of the transverse colon. There was no evidence of perforation or peritoneal involvement in the area examined. A colostomy was created. The current CAT scan of the chest shows a large right- sided pleural effusion and there is still supple metastasis throughout the liver and widespread nodular soft tissue densities throughout the pleural surface bilaterally. Pleural metastases was still suspected. Review of Systems Constitutional: Reports fatigue, Reports poor appetite, Reports weakness Eyes: denies blurred vision, denies pain Ears: deny: decreased hearing, ear discharge, earache, tinnitus Ears, nose, mouth and throat: Denies headache, Denies sore throat Cardiovascular: Reports decreased exercise tolerance Respiratory: Reports dyspnea , progressively getting worse Gastrointestinal: Reports as per HPI, Reports abdominal pain, Reports change in bowel habits Genitourinary: Reports as per HPI Musculoskeletal: Denies myalgias Integumentary: Denies pruritus, Denies rash Neurological: Reports numbness (in extremities) Psychiatric: Denies anxiety, Denies depression Endocrine: Reports fatigue Past Medical History Past Medical History: Cancer, Diabetes Mellitus, Hyperlipidemia, Prostate Disorder Additional Past Medical History / Comment(s): HX PLEURAL EFFUSION-PAST THORACENTESIS, STATES CA OF left sided LUNG, COLON, LIVER. colon-primary stage 4. dx 11/18- chemo. Colostomy 06/08/2017 History of Any Multi-Drug Resistant Organisms: None Reported Past Surgical History: Back Surgery, Joint Replacement Additional Past Surgical History / Comment(s): 08/12/16 Revision total R knee arthroplasty. BILATERAL KNEE REPLACEMENTS,PLEURAL EFFUSION THORACENTESIS X3 PAULINO CATARACT SX; right rotator cuff shoulder sx, COLONOSCOPY 09/2016. colostomy=bag changed this am 07-06-18 Past Anesthesia/Blood Transfusion Reactions: Postoperative Nausea & Vomiting ( PONV) Additional Past Anesthesia/Blood Transfusion Reaction / Comment(s): Pt has had PONV and BROTHER HAD PONV. Smoking Status: Former smoker - Past Family History Father Family Medical History: Diabetes Mellitus Additional Family Medical History / Comment(s): Father at the age of 86yrs. Mother Family Medical History: Cancer, Dementia Additional Family Medical History / Comment(s): Mother at the age of 84yrs. Medications and Allergies Home Medications Medication Instructions Recorded Confirmed Type Pravastatin Sodium [Pravachol] 40 mg PO HS 08/02/16 07/06/18 History Tamsulosin [Flomax] 0.4 mg PO HS 08/02/16 07/06/18 History metFORMIN HCL 1,000 mg PO BID 06/07/17 07/06/18 History Gabapentin [Neurontin] 300 mg PO TID 03/04/18 07/06/18 History Lidocaine HCl [Aspercreme] 1 applic TOPICAL BID PRN 07/06/18 07/06/18 History Lidocaine-Prilocaine Cream [Emla 1 applic TOPICAL DAILY PRN 07/06/18 07/06/18 History Cream 2.5%/2.5%] Magnesium Oxide [Mag-Ox] 400 mg PO DAILY 07/06/18 07/06/18 History Meloxicam [Mobic] 15 mg PO DAILY 07/06/18 07/06/18 History Nystatin 100,000 Unit/ml Susp 4 ml PO PC-TID 07/06/18 07/06/18 History [Mycostatin Oral Susp] Prochlorperazine [Compazine] 10 mg PO Q6H PRN 07/06/18 07/06/18 History Allergies Allergy/AdvReac Type Severity Reaction Status Date / Time No Known Allergies Allergy Verified 07/06/18 12:35 Physical Exam Vitals: Vital Signs Temp Pulse Pulse Resp BP BP Pulse Ox 07/07/18 05:00 98.2 F 78 16 135/61 94 L 07/07/18 00:00 77 16 07/06/18 22:06 97.9 F 77 16 137/71 98 07/06/18 16:03 97.6 F 71 18 162/83 100 07/06/18 15:00 71 162/83 100 07/06/18 14:56 162/83 07/06/18 14:30 77 135/99 100 07/06/18 14:00 77 135/99 99 07/06/18 13:30 75 135/99 99 07/06/18 13:22 18 07/06/18 13:09 97 07/06/18 12:21 97.6 F 89 18 146/90 98 Intake and Output 07/06/18 07/07/18 07/07/18 22:59 06:59 14:59 Intake Total 480 Output Total 900 400 Balance -900 80 Intake: Oral 480 Output: Urine 900 400 Uretheral (Glez) 200 Other: Voiding Method Indwelling Catheter Indwelling Catheter Weight 86.183 kg 86.183 kg - Constitutional General appearance: no acute distress - EENT Eyes: EOMI, PERRLA ENT: hearing grossly normal, normal oropharynx - Neck Neck: no lymphadenopathy Thyroid: bilateral: normal size - Respiratory Respiratory: Diminished breath on the right lung base along with dullness to percussion typical of an underlying pleural effusion. - Cardiovascular Rhythm: regular Heart sounds: normal: S1, S2 - Gastrointestinal RLQ ostomy, with small amt of blood in stool General gastrointestinal: absent bowel sounds, soft - Integumentary Integumentary: normal - Neurologic Neurologic: CNII-XII intact - Musculoskeletal Musculoskeletal: strength equal bilaterally - Psychiatric Psychiatric: A&O x's 3, appropriate affect Results - Laboratory Findings CBC and BMP: 07/06/18 13:06 07/06/18 13:06 PT/INR, D-dimer PT 10.4 sec (9.0-12.0) 07/06/18 13:06 INR 1.1 (<1.2) 07/06/18 13:06 Abnormal lab findings: Abnormal Labs 07/06/18 07/06/18 07/06/18 13:06 13:06 13:55 Hgb 12.3 L Magnesium 1.1 L Urine Protein Trace H Urine Glucose (UA) Trace H 07/07/18 08:40 Hgb Magnesium 1.1 L Urine Protein Urine Glucose (UA) - Diagnostic Findings Chest x-ray: image reviewed Assessment and Plan Plan: Assessment 1 progressive dyspnea secondary to a moderate to large right-sided pleural effusion, likely malignant 2 irregular pleura surface bilaterally suggestive of pleural metastases 3 history of colorectal cancer, details discussed above, metastatic at this stage with liver involvement. 4 hyperlipidemia 5 osteoarthritis 6 hyperlipidemia 7 diabetes mellitus Plan We'll perform a diagnostic and therapeutic thoracentesis of the right lung. Consent will be obtained. No need for ultrasound markings. The pleural fluid will be sent for cytology. We'll continue to follow.
--- NOTE | 2018-07-07 12:41 | XR ---
EXAMINATION TYPE: XR chest 1V portable DATE OF EXAM: 07/07/2018 COMPARISON: Prior chest x-ray 07/06/2018 HISTORY: Status post right thoracentesis TECHNIQUE: Single frontal view of the chest is obtained. FINDINGS: Findings are similar to prior exam. Port-A-Cath is stable. Pleural parenchymal changes are similar to prior. Heart size likely normal and stable. Underlying lung mass is not well seen on plai n film. No evident pneumothorax. IMPRESSION: No evident complication status post thoracentesis.
--- NOTE | 2018-07-07 13:06 | PCN ---
PROCEDURE NOTE RIGHT THORACENTESIS NOTE: Indication Pleural effusion. A time-out was completed verifying correct patient, procedure, site, positioning , and implant (s) or special equipment if applicable. Ultrasound guidance was not used and appropriate fluid pocket was identified and marked. Patient was positioned, prepped and draped in usual sterile fashion. Lidocaine was used to anesthetize the area. A Thoracentesis catheter was introduced into the pleural space and fluid was removed. Blood loss was none. A chest x-ray was ordered to evaluate for pneumothorax. Total Fluid Removed 1.6 L Color of Fluid: Turbid, dark yellowish. Patient tolerated the procedure well and there were no complications. MMODL / IJN: [id number] /
--- NOTE | 2018-07-07 14:35 | P.CONS ---
History of Present Illness - Reason for Consult Consult date: 07/07/18 weakness, leg cramps Requesting physician: Zack Dunlap - Chief Complaint metastatic colon adenocarcinoma - History of Present Illness Mr. Patel is a pleasant male patient of Dr. Rogers Who initially presented with painful defecation in late 2015, he was treated for constipation without much improvement. He then noted shortness of breath in November 2016. Workup showed left pleural effusion, ultrasound guided thoracentesis was done on 11/14/16, 1 L of bloody fluid was drained, cytology was negative. He developed recurrent shortness of breath, CT of the chest was done on 11/19/2016, left sided pleural effusion had recurred, there was areas of nodular pleural thickening, suspicious hepatic lesions. During this time interval patient had persistent and progressive difficulty with bowel movements and some rectal bleeding. Colonoscopy was done 12/02/16, partially obstructing mass was seen in the rectal sigmoid area beyond which the scope could not be passed, biopsy was positive for adenocarcinoma. patient was started on FOLFOX, vectibix was added with cycle 6. he required dose reduction due to side effects, FOLFOX was stopped May 2017. He was admitted to [facility] on 06/08/17 with abdominal pain and obstruction, had diverting colostomy done, CT and operative inspection showed no obvious progression. He was supposed to start maintenance Xeloda with Vectibix in early 07/20 but, he had admit to hospital with severe abdominal distention, pain, rectal discharge and no output from the ostomy. He had colonoscopy with a large amount of stool suctioned out from the rectal stump. Started maintenance Xeloda and Vectibix late 07/20. Xeloda discontinued after D1 C3 due to SE. The SE improved and he was resumed 11/03/17. He had recurrent skin toxicity so, Xeloda DC 12/19. Treatment f/u CT 01/19 showed progression in the lungs and liver, with increase in CEA, started on FOLFIRI and Vectibix, with dose decrease 15% after cycle 5, chemo was held in 03/21. CT 04/21 showed possible progression in the liver, but CEA remained stable, continued on Vectibix maintenance. Patient came to the hospital because he was unable to walk without assistance, had no appetite and cramping in the legs. He states he ate good last night and today, mild shortness of breath on exertion, denies cough or hemoptysis, numbness and tingling in the feet is stable, he thinks his hands are a little better. He and Dr. Rogers had a conversation about concerns for progression of disease and the need to adjust maintenance therapy and began active chemotherapy again. Patient had no other complaints on a 14 point review of systems Review of Systems 14 point ROS as stated in HPI Past Medical History Past Medical History: Cancer, Diabetes Mellitus, Hyperlipidemia, Prostate Disorder Additional Past Medical History / Comment(s): HX PLEURAL EFFUSION-PAST THORACENTESIS, STATES CA OF left sided LUNG, COLON, LIVER. colon-primary stage 4. dx 11/18- chemo. Colostomy 06/08/2017 History of Any Multi-Drug Resistant Organisms: None Reported Past Surgical History: Back Surgery, Joint Replacement Additional Past Surgical History / Comment(s): 08/12/16 Revision total R knee arthroplasty. BILATERAL KNEE REPLACEMENTS,PLEURAL EFFUSION THORACENTESIS X3 PAULINO CATARACT SX; right rotator cuff shoulder sx, COLONOSCOPY 09/2016. colostomy=bag changed this am 07-06-18 Past Anesthesia/Blood Transfusion Reactions: Postoperative Nausea & Vomiting ( PONV) Additional Past Anesthesia/Blood Transfusion Reaction / Comm: Pt has had PONV and BROTHER HAD PONV. Smoking Status: Former smoker - Past Family History Father Family Medical History: Diabetes Mellitus Additional Family Medical History / Comment(s): Father at the age of 86yrs. Mother Family Medical History: Cancer, Dementia Additional Family Medical History / Comment(s): Mother at the age of 84yrs. Medications and Allergies Home Medications Medication Instructions Recorded Confirmed Type Pravastatin Sodium [Pravachol] 40 mg PO HS 08/02/16 07/06/18 History Tamsulosin [Flomax] 0.4 mg PO HS 08/02/16 07/06/18 History metFORMIN HCL 1,000 mg PO BID 06/07/17 07/06/18 History Gabapentin [Neurontin] 300 mg PO TID 03/04/18 07/06/18 History Lidocaine HCl [Aspercreme] 1 applic TOPICAL BID PRN 07/06/18 07/06/18 History Lidocaine-Prilocaine Cream [Emla 1 applic TOPICAL DAILY PRN 07/06/18 07/06/18 History Cream 2.5%/2.5%] Magnesium Oxide [Mag-Ox] 400 mg PO DAILY 07/06/18 07/06/18 History Meloxicam [Mobic] 15 mg PO DAILY 07/06/18 07/06/18 History Nystatin 100,000 Unit/ml Susp 4 ml PO PC-TID 07/06/18 07/06/18 History [Mycostatin Oral Susp] Prochlorperazine [Compazine] 10 mg PO Q6H PRN 07/06/18 07/06/18 History Allergies Allergy/AdvReac Type Severity Reaction Status Date / Time No Known Allergies Allergy Verified 07/06/18 12:35 Physical Exam Vitals: Vital Signs Temp Pulse Pulse Resp BP BP Pulse Ox 07/07/18 05:00 98.2 F 78 16 135/61 94 L 07/07/18 00:00 77 16 07/06/18 22:06 97.9 F 77 16 137/71 98 07/06/18 16:03 97.6 F 71 18 162/83 100 07/06/18 15:00 71 162/83 100 07/06/18 14:56 162/83 07/06/18 14:30 77 135/99 100 07/06/18 14:00 77 135/99 99 07/06/18 13:30 75 135/99 99 07/06/18 13:22 18 07/06/18 13:09 97 07/06/18 12:21 97.6 F 89 18 146/90 98 Intake and Output 07/06/18 07/07/18 07/07/18 22:59 06:59 14:59 Intake Total 480 Output Total 900 400 Balance -900 80 Intake: Oral 480 Output: Urine 900 400 Uretheral (Glez) 200 Other: Voiding Method Indwelling Catheter Indwelling Catheter Weight 86.183 kg 86.183 kg - Constitutional General appearance: average body habitus, cooperative, no acute distress - EENT Eyes: anicteric sclerae, EOMI ENT: hearing grossly normal, normal oropharynx - Neck Neck: no lymphadenopathy - Respiratory Respiratory: bilateral: diminished (bases, R>L) - Cardiovascular Rhythm: regular Heart sounds: normal: S1, S2 Abnormal Heart Sounds: no systolic murmur, no diastolic murmur, no rub, no S3 Gallop, no S4 Gallop, no click, no other leg Peripheral Edema: bilateral: None - Gastrointestinal General gastrointestinal: no absent bowel sounds, no decreased bowel sounds, no distended, no hepatomegaly, no hyperactive bowel sounds, normal bowel sounds, no organomegaly, no rigid, no scaphoid, soft, no splenomegaly, no tenderness, no umbilical hernia, no ventral hernia - Neurologic Neurologic: CNII-XII intact - Musculoskeletal Musculoskeletal: strength equal bilaterally - Psychiatric Psychiatric: A&O x's 3, appropriate affect, intact judgment & insight Results CBC & Chem 7: 07/06/18 13:06 07/06/18 13:06 Labs: Abnormal Lab Results - Last 24 Hours (Table) 07/06/18 07/06/18 07/06/18 Range/Units 13:06 13:06 13:55 Hgb 12.3 L (13.0-17.5) gm/dL Magnesium 1.1 L (1.6-2.3) mg/dL Urine Protein Trace H (Negative) Urine Glucose (UA) Trace H (Negative) 07/07/18 Range/Units 08:40 Hgb (13.0-17.5) gm/dL Magnesium 1.1 L (1.6-2.3) mg/dL Urine Protein (Negative) Urine Glucose (UA) (Negative) Chest x-ray: report reviewed CT scan - chest: report reviewed Assessment and Plan (1) Weakness generalized Narrative/Plan: Improved with hydration and correction of electrolytes. [place] to be related to disease progression. Plans for changes in treatment already discussed Current Visit: Yes Status: Acute Priority: High Code(s): R53.1 - WEAKNESS SNOMED Code(s): 12043066 (2) Hypomagnesemia Narrative/Plan: secondary to poor oral intake. Patient is on replacement protocol, magnesium level daily Current Visit: Yes Status: Acute Priority: High Code(s): E83.42 - HYPOMAGNESEMIA SNOMED Code(s): 506944371 (3) Malignant pleural effusion Narrative/Plan: Case was discussed with pulmonary. Plan is to drain the largest effusion, did request cytology. Patient has had malignant effusions in the past. Current Visit: Yes Status: Chronic Priority: Medium Code(s): J91.0 - MALIGNANT PLEURAL EFFUSION SNOMED Code(s): 23584727 (4) Colon carcinoma metastatic to multiple sites Narrative/Plan: Dr. Rogers did discuss with the patient the need to resume active chemotherapy because of patient presentation, highly suspect disease progression on maintenance therapy alone. Pt also had a slowly rising CEA but, was previously asymptomatic. Patient verbalized understanding and agreed with plan. The same was discussed with the patient's when she was seen in the hallway. All their questions were answered to their satisfaction. Patient is okay from an oncology standpoint to be discharge once his presenting complaints have resolved. Outpatient treatment will be scheduled and planned. Current Visit: Yes Status: Chronic Priority: Medium Code(s): C18.9 - MALIGNANT NEOPLASM OF COLON, UNSPECIFIED SNOMED Code(s): 931609109 Plan: attests: I have performed H&P and developed impression and plan of care for patient, discussed with dictator. I agree with dictated note, documented as a scribe
[2018-07-07 16:15] LABS: Appearance,BF Cloudy; Color,BF Yellow
[2018-07-07 17:13] LABS: Nucleated Cells, Body Fluid 1100 /uL; RBC, Body Fluid 14800 /uL
[2018-07-07 17:15] LABS: Mononuclear WBC,Body Fluid 64 %; Polynuclear WBC,Body Fluid 11 %; Total Cells Counted,Body Fluid 100
[2018-07-07 19:54] LABS: Total Protein, Body Fluid 3700 mg/dL
[2018-07-07] MEDS ORDERED: PRAVASTATIN SODIUM 40 MG TAB PO SCH (21:00)
[2018-07-07] MEDS ORDERED: TAMSULOSIN 0.4 MG CAP.ER.24H PO SCH (21:00)
[2018-07-07 21:13] VITALS: RESP 16
--- NOTE | 2018-07-07 23:50 | PN ---
PROGRESS NOTE DATE OF SERVICE: 07/07/2018 PRESENTING COMPLAINT: Tired. INTERVAL HISTORY: This patient with metastatic adenocarcinoma of the colon presented with feeling weak, tired and possible pneumonia. He also has a pleural effusion, felt a bit dehydrated. This morning, 1.7 L of right-sided pleural effusion was tapped by Dr. Salinas. After getting the fluid, he is feeling better. Breathing is also better. PE was ruled out. He did tolerate some diet. REVIEW OF SYSTEMS: Done for constitutional, cardiovascular, GI, pulmonary; relevant findings as above. CURRENT MEDICATIONS: Reviewed. They include IV ceftriaxone. PHYSICAL EXAMINATION: Temperature 97, pulse 69, respiration 20, blood pressure 125/66, pulse ox 98% on room air. GENERAL APPEARANCE: Lying in bed, more perked up today. EYES: Pupils equal. Conjunctivae pale. NECK: JVD not raised. Mass not palpable. RESPIRATORY: Effort increased. LUNGS: Decreased breath sounds. CARDIOVASCULAR: First and second sounds normal. No edema. ABDOMEN: Soft, non-tender. Liver and spleen not palpable. PSYCHIATRY: Alert and oriented x3. Mood and affect normal. INVESTIGATIONS: CT scan of the chest negative for PE; it showed a large right pleural effusion and pleural-based metastases and liver metastases. CT scan results noted. ASSESSMENT: 1. Large right pleural effusion, likely malignant, status post thoracentesis; 1.7 L removed. 2. Left lower lobe pneumonia, responding clinically. 3. Metastatic adenocarcinoma of the colon with metastases to the liver, pleural effusion, and pleural-based stage IV, getting chemotherapy. 4. Loop diverting colostomy. 5. Diabetes mellitus, type 2, on oral hypoglycemic. 6. Essential hypertension. 7. Benign prostatic hypertrophy. PLAN: Overall, patient is doing better. Will continue with another 24 hours of antibiotic. Hopefully he can be discharged tomorrow. Encouraged to be out of bed and ambulate. MMODL / IJN: [id number] /
[2018-07-08 05:05] VITALS: BP 127/58; PULSE 68; TEMP 98.6
[2018-07-08] MEDS: ENOXAPARIN 40 MG/0.4 ML SYRINGE SQ SCH (08:11)
[2018-07-08] MEDS: GABAPENTIN 300 MG CAP PO SCH (08:12)
[2018-07-08] MEDS: NYSTATIN 100,000 UNIT/ML SUSP 500,000 UNIT/5 ML CUP PO SCH ×2 (08:12→13:04)
[2018-07-08] MEDS: MAGNESIUM OXIDE 400 MG TAB PO SCH (08:12)
--- NOTE | 2018-07-08 09:20 | XR ---
EXAMINATION TYPE: XR chest 2V DATE OF EXAM: 07/08/2018 COMPARISON: 07/07/2018 HISTORY: Shortness of breath TECHNIQUE: Frontal and lateral views of the chest are obtained. FINDINGS: Scattered senescent parenchymal changes noted. Hyperinflation compatible with COPD. Persistent but improving left-sided pleural effusion with scattered pleural-parenchymal opacity. Tiny right-sided effusion. Mediport catheter unchanged. Heart size is stable. Mediastinal structures are stable and grossly unremarkable. No evidence for hilar prominence. Degenerative changes dorsal spine. IMPRESSION: 1. Persistent but improving left-sided pleural effusion with scattered pleural-parenchymal opacity. T iny right-sided effusion.
[2018-07-08] MEDS ORDERED: Magnesium Replacement Protocol 1 EACH MISC MISCELLANE PRN (10:18)
[2018-07-08] MEDS: MAGNESIUM SULFATE-D5W PMX 1 GM in DEXTROSE/WATER 1 100ML.BAG IVPB SCH ×3 (10:49→13:02)
--- NOTE | 2018-07-08 15:10 | P.PN ---
Subjective Progress Note Date: 07/08/18 Principal diagnosis: Progressive dyspnea secondary to a moderate to large right-sided pleural effusion, possibly malignant, status post right-sided thoracentesis with removal of 1.7 L of pleural fluid 78-year-old male patient was presented to hospital because of generalized weakness, tiredness and shortness of breath and he was found to have a large right-sided pleural effusion and pulmonary consultation was requested to perform a thoracentesis for diagnostic and therapeutic purposes. The patient has no cough or sputum production. He has exertional dyspnea and his breathing has progressively gotten worse over this past few weeks. No chest pain. No fever. No chills. He is a known case of metastatic adenocarcinoma of the colon. The patient initially presented in 11/18 with increasing shortness of breath. At that time he was found to have a left-sided pleural effusion that was drained. The fluid was bloody appearing, but cytology was negative. Within a few days, he developed recurrent pleural effusions with CT scans at this time showing pleural nodularity suggestive of malignancy along with multiple liver lesions suggestive of metastasis. He had a colonoscopy on 12/02/16 revealing near obstructing mass in the rectosigmoid beyond which the scope could not be passed. Biopsy was positive for adenocarcinoma. He also required repeat thoracentesis on 12/10/16. The pleural fluid cytology was again negative for malignancy. Subsequently, he was started on systemic chemotherapy with FOLFOX, with Vectibix added subsequently, once K-dionte mutation testing was found to be negative. He is status post 11 cycles, with the last on 05/13/17. Chemotherapy was then stopped due to increasing fatigue, progression in neuropathy and anorexia. During chemotherapy the patient had experienced improvement in his bowel movements. He had been referred back to Dr. Schafer to have a repeat colonoscopy to assess the primary tumor, with a plan for palliative radiation if needed. However, The patient however came into the emergency room on 06/09/2017, complaining of increasing difficulty with bowel movements over the last week. This had been accompanied by increasingly severe complains of abdominal pain. Even with straining and medications he was only able to produce small amounts of liquid stool. CT scan of the abdomen and pelvis showed a large amount of stool in the distal colon. He was taken to surgery by Dr. Schafer on 06/08/17. Op note was reviewed, showing distention of the transverse colon. There was no evidence of perforation or peritoneal involvement in the area examined. A colostomy was created. The current CAT scan of the chest shows a large right- sided pleural effusion and there is still supple metastasis throughout the liver and widespread nodular soft tissue densities throughout the pleural surface bilaterally. Pleural metastases was still suspected. On 07/08/2018 patient seen in follow-up on oncology floor. He is awake and alert, he status post right-sided thoracentesis, with removal of 1.7 L of pleural fluid, cytology is pending, fluid analysis showed exudative fluid. His chest x-ray has been reviewed by Dr. Salinas, showed improving left-sided pleural effusion, with scattered pleural parenchymal opacity and tiny right- sided effusion. Patient states his breathing easier, short of breath, room air pulse ox is 93%, he is afebrile, lung sounds are diminished in the right lower lobe, no wheezing, no rhonchi. Pleural fluid cultures are pending, and gramstain did not show any organisms. Patient has been treated with empiric antibiotics form of Rocephin, no fever or chills. No cough, no phlegm production. No chest wall tenderness. Patient is clinically stable. Continue discharged home from pulmonary perspective Objective - Vital Signs Vital signs: Vital Signs Temp 98.6 F 07/08/18 05:00 Pulse 68 07/08/18 05:00 Resp 16 07/08/18 05:00 BP 127/58 07/08/18 05:00 Pulse Ox 93 L 07/08/18 05:00 Intake & Output 07/07/18 07/08/18 07/08/18 18:59 06:59 18:59 Intake Total 600 1460 600 Output Total 1100 800 Balance -500 660 600 Weight 86.183 kg Intake: Intake, IV Titration 600 530 600 Amount Lactated Ringers 1,000 ml 300 480 300 @ 60 mls/hr IV .[id number] [facility] Rx#:[id number] Magnesium Sulfate-D5w Pmx 300 1 gm In Dextrose/Water 1 100ml.bag @ 100 mls/hr IVPB Q1H [facility] Rx#: [id number] Magnesium Sulfate-D5w Pmx 300 1 gm In Dextrose/Water 1 100ml.bag @ 100 mls/hr IVPB Q1H [facility] Rx#: [id number] cefTRIAXone 1,000 mg In 50 Sodium Chloride 0.9% 50 ml @ 100 mls/hr IVPB Q24H [facility] Rx#:[id number] Oral 930 Output: Urine 1100 800 Uretheral (Glez) 800 Other: Voiding Method Indwelling Catheter Indwelling Catheter - Exam - Constitutional General appearance: no acute distress - EENT Eyes: EOMI, PERRLA ENT: hearing grossly normal, normal oropharynx - Neck Neck: no lymphadenopathy Thyroid: bilateral: normal size - Respiratory Respiratory: Diminished breath on the right lung base, improved air entry noted on today's exam - Cardiovascular Rhythm: regular Heart sounds: normal: S1, S2 - Gastrointestinal RLQ ostomy, with small amt of blood in stool General gastrointestinal: absent bowel sounds, soft - Integumentary Integumentary: normal - Neurologic Neurologic: CNII-XII intact - Musculoskeletal Musculoskeletal: strength equal bilaterally - Psychiatric Psychiatric: A&O x's 3, appropriate affect - Labs CBC & Chem 7: 07/06/18 13:06 07/06/18 13:06 Labs: Abnormal Lab Results - Last 24 Hours (Table) 07/08/18 Range/Units 07:37 Magnesium 1.4 L (1.6-2.3) mg/dL Microbiology - Last 24 Hours (Table) 07/07/18 12:10 Gram Stain - Preliminary Pleural Fluid Body Fluid Culture - Preliminary Assessment and Plan Plan: Assessment: 1 progressive dyspnea secondary to a moderate to large right-sided pleural effusion, likely malignant, denies post right-sided thoracentesis. Removal of 1.7 L of pleural fluid, cytology is pending, and pleural fluid analysis showed exudate 2 irregular pleura surface bilaterally suggestive of pleural metastases 3 history of colorectal cancer, details discussed above, metastatic at this stage with liver involvement. 4 hyperlipidemia 5 osteoarthritis 6 hyperlipidemia 7 diabetes mellitus Plan: He is breathing easier today, room air pulse ox is 93%, and a chest x-ray has been reviewed, and shows improving right sided pleural effusion. Fluid cytology showed exudate, cytology is pending. From pulmonary perspective patient is stable, he can be discharged home today, with follow-up in the outpatient clinic. I performed a history & physical examination of the patient and discussed their management with my nurse practitioner, Lillian Gary. I reviewed the nurse practitioner's note and agree with the documented findings and plan of care. Lung sounds are diminished at the bilateral bases. The findings and the impression was discussed with the patient. I attest to the documentation by the nurse practitioner. Time with Patient: Less than 30
--- NOTE | 2018-07-09 00:54 | DS ---
DISCHARGE SUMMARY DATE OF ADMISSION: 07/06/2018 DATE OF DISCHARGE: 07/08/2018 FINAL DIAGNOSES: 1. Large right pleural effusion, likely malignant, status post thoracentesis 1.7 L. 2. Left lower lobe pneumonia. 3. Metastatic adenocarcinoma of the colon with metastatic to the liver, pleural effusion, and base staged for getting chemotherapy. 4. Diverting colostomy. 5. Diabetes mellitus type 2 on oral hypoglycemic. 6. Essential hypertension. 7. Benign prostatic hypertrophy. HOSPITAL COURSE: This patient with metastatic adenocarcinoma of the colon, getting chemo, presented really weak, tired, run down. Short of breath, was felt to have low-flow pneumonia given antibiotic. Also right pleural effusion that was tapped. Also given IV fluids. Doing much better today. On examination, lungs decreased breath sounds. Temperature 98.6, pulse 58, respiration 16, blood pressure 129/58, pulse ox 93 percent on room air. Appetite improved. Lungs decreased breath sounds. Cytology of the fluid was pending. CONSULTATION: Dr. Salinas from Pulmonary. Care was discussed with the patient at the bedside. Questions were answered. PE was ruled out. DISCHARGE MEDICATIONS: 1. Pravachol 40 mg q.h.s. 2. Metformin 1000 mg b.i.d. 3. Neurontin 300 mg t.i.d. 4. Aspercreme 1 application topical b.i.d. p.r.n. 5. EMLA cream 1 topical daily p.r.n. 6. Magnesium oxide 400 mg p.o. daily. 7. Mobic 50 mg p.o. daily. 8. Mycostatin 4 mL p.o. t.i.d. 9. Compazine 10 mg q.6h p.r.n. 10.Ceftin 500 mg b.i.d. for 3 days. 11.Flomax 0.4 mg p.o. q.h.s. dose is increased to 0.8 mg q.h.s. FOLLOW UP: Follow up with Dr. Rogers on 07/14/2018, follow with Dr. Hayes 07/10/2018. Follow up with Dr. Santizo in [address] Hayes. ROSANA / KISHORN: [id number] /
== END 2018-07-08 15:53 | disposition home or self-care (01) | DRG 374 ==
LOC: EC 12:16 → 3NMEDONC 15:08
PROVIDERS: ADMIT Hospitalist; ATTEND Hospitalist
PROC: 0W993ZX Drainage of Right Pleural Cavity, Percutaneous Approach, Diagnostic (ICD-10-PCS; principal; 2018-07-07)
DX: C19 Malignant neoplasm of rectosigmoid junction (principal); J18.1 Lobar pneumonia, unspecified organism; C78.7 Secondary malignant neoplasm of liver and intrahepatic bile duct; C78.02 Secondary malignant neoplasm of left lung; J91.0 Malignant pleural effusion; C78.2 Secondary malignant neoplasm of pleura; E11.40 Type 2 diabetes mellitus with diabetic neuropathy, unspecified; E83.42 Hypomagnesemia; E86.0 Dehydration; R63.0 Anorexia; E78.5 Hyperlipidemia, unspecified; N40.1 Benign prostatic hyperplasia with lower urinary tract symptoms; I10 Essential (primary) hypertension; Z68.26 Body mass index [BMI] 26.0-26.9, adult; M19.90 Unspecified osteoarthritis, unspecified site; R33.8 Other retention of urine; Z79.84 Long term (current) use of oral hypoglycemic drugs; Z79.1 Long term (current) use of non-steroidal anti-inflammatories (NSAID); Z79.899 Other long term (current) drug therapy; Z96.653 Presence of artificial knee joint, bilateral; Z93.3 Colostomy status; Z92.21 Personal history of antineoplastic chemotherapy; Z87.891 Personal history of nicotine dependence; Z98.42 Cataract extraction status, left eye; Z98.41 Cataract extraction status, right eye; Z83.3 Family history of diabetes mellitus; Z81.8 Family history of other mental and behavioral disorders; Z80.9 Family history of malignant neoplasm, unspecified
CPT/HCPCS: 36415; 51702; 71045; 71046; 71275; 80053; 81003; 82550; 82553; 82945; 83036; 83605; 83615; 83735; 83880; 84100; 84157; 84484; 85025; 85610; 85730; 87070; 87205; 88108; 88305; 88341; 88342; 89050; 93005; 96360; 96361; 99285

== ENCOUNTER 2018-08-17 16:34 | Emergency (ER) | payer MEDICARE ==
[2018-08-17 16:49] VITALS: BP 122/87; PULSE 100; RESP 18; TEMP 97.7
--- NOTE | 2018-08-17 17:10 | ED ---
Recheck HPI - General Chief Complaint: Recheck/Abnormal Lab/Rx Stated Complaint: blood clots in lungs-sent by Dr. Rogers Time Seen by Provider: 08/17/18 17:09 Source: patient, RN notes reviewed, old records reviewed Mode of arrival: wheelchair Limitations: no limitations - History of Present Illness Initial Comments: This is a 78-year-old male the ER for evaluation. Patient resents today for evaluation regarding significant of breath and abnormal outpatient CT findings. Patient states he was told he has blood clots in lungs both lungs. Patient was seen by Dr. Rogres prior to arrival who sent in from the original study. 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 Difficulty breathing with lying down flat patient is going to shortness breath cough for a few days now MD Complaint: other (abnormal CT) -: days(s) (3) Returns Today for: Called Because of Abnormal Lab/Test Symptoms Since Prior Visit: worsening pain (CP) Context: other (abnormal CT) Associated Symptoms: chest pain, shortness of breath - Related Data Home Medications Medication Instructions Recorded Confirmed Pravastatin Sodium [Pravachol] 40 mg PO HS 08/02/16 08/17/18 metFORMIN HCL 1,000 mg PO BID 06/07/17 08/17/18 Gabapentin [Neurontin] 300 mg PO TID 03/04/18 08/17/18 Lidocaine HCl [Aspercreme] 1 applic TOPICAL BID PRN 07/06/18 08/17/18 Magnesium Oxide [Mag-Ox] 400 mg PO DAILY 07/06/18 08/17/18 Nystatin 100,000 Unit/ml Susp 500,000 unit PO PC-TID 07/06/18 08/17/18 [Mycostatin Oral Susp] Prochlorperazine [Compazine] 10 mg PO Q6H PRN 07/06/18 08/17/18 Meloxicam [Mobic] 7.5 mg PO DAILY 08/17/18 08/17/18 glipiZIDE XL [Glucotrol Xl] 5 mg PO DAILY 08/17/18 08/17/18 Previous Rx's Medication Instructions Recorded Tamsulosin [Flomax] 0.4 mg PO HS #30 cap.er.24h 07/08/18 Allergies Allergy/AdvReac Type Severity Reaction Status Date / Time No Known Allergies Allergy Verified 08/17/18 17:15 Review of Systems ROS Statement: Those systems with pertinent positive or pertinent negative responses have been documented in the HPI. ROS Other: All systems not noted in ROS Statement are negative. Past Medical History Past Medical History: Cancer, Diabetes Mellitus, Hyperlipidemia, Prostate Disorder Additional Past Medical History / Comment(s): HX PLEURAL EFFUSION-PAST THORACENTESIS, STATES CA OF left sided LUNG, COLON, LIVER. colon-primary stage 4. dx 11/18- chemo. Colostomy 06/08/2017 History of Any Multi-Drug Resistant Organisms: None Reported Past Surgical History: Back Surgery, Joint Replacement Additional Past Surgical History / Comment(s): 08/12/16 Revision total R knee arthroplasty. BILATERAL KNEE REPLACEMENTS,PLEURAL EFFUSION THORACENTESIS X3 PAULINO CATARACT SX; right rotator cuff shoulder sx, COLONOSCOPY 09/2016. colostomy=bag changed this am 07-06-18 Past Anesthesia/Blood Transfusion Reactions: Postoperative Nausea & Vomiting ( PONV) Additional Past Anesthesia/Blood Transfusion Reaction / Comment(s): Pt has had PONV and BROTHER HAD PONV. Past Psychological History: No Psychological Hx Reported Smoking Status: Former smoker Past Alcohol Use History: Rare Past Drug Use History: Marijuana - Past Family History Father Family Medical History: Diabetes Mellitus Additional Family Medical History / Comment(s): Father at the age of 86yrs. Mother Family Medical History: Cancer, Dementia Additional Family Medical History / Comment(s): Mother at the age of 84yrs. General Exam Limitations: no limitations General appearance: alert, in no apparent distress, anxious Head exam: Present: atraumatic, normocephalic, normal inspection Eye exam: Present: normal appearance, PERRL, EOMI. Absent: scleral icterus, conjunctival injection, periorbital swelling ENT exam: Present: normal exam, mucous membranes moist Neck exam: Present: normal inspection. Absent: tenderness, meningismus, lymphadenopathy Respiratory exam: Present: normal lung sounds bilaterally. Absent: respiratory distress, wheezes, rales, rhonchi, stridor Cardiovascular Exam: Present: normal rhythm, tachycardia, normal heart sounds. Absent: systolic murmur, diastolic murmur, rubs, gallop, clicks GI/Abdominal exam: Present: soft, normal bowel sounds. Absent: distended, tenderness, guarding, rebound, rigid Extremities exam: Present: normal inspection, full ROM, normal capillary refill. Absent: tenderness, pedal edema, joint swelling, calf tenderness Back exam: Present: normal inspection Neurological exam: Present: alert, oriented X3, CN II-XII intact Psychiatric exam: Present: normal affect, normal mood Skin exam: Present: warm, dry, intact, normal color. Absent: rash Course Vital Signs 08/17/18 16:44 Temperature 97.7 F Pulse Rate 100 Respiratory 18 Rate Blood Pressure 122/87 O2 Sat by Pulse 96 Oximetry - Reevaluation(s) Reevaluation #1: 08/17/18 17:31 Medical records reviewed including prior computed tomography scan Reevaluation #2: 08/17/18 17:[address] Rogers partner, aware of patient, agrees with transfer Reevaluation #3: 08/17/18 17:31 Spoke with family and patient, they have updated, questions are answered Medical Decision Making - Medical Decision Making 78 male the ER for evaluation no metastatic CA patient does have bilateral PE was significant burden, patient started on high-dose heparin therapy and will be transferred for evaluation regarding possible EKOS treatment. - EKG Data -: EKG Interpreted by Me (EKG shows sinus rhythm rate of 88, VA 132, QRS 90, QTc 442) - Radiology Data Radiology results: report reviewed (CT anterior chest prior in the day is reviewed and shows bilateral PE), image reviewed Critical Care Time Critical Care Time: Yes Total Critical Care Time: 31 Disposition Clinical Impression: Bilateral pulmonary embolism, Colon carcinoma metastatic to multiple sites, Dyspnea Disposition: OTHER INSTITUTION NOT DEFINED Condition: Serious Is patient prescribed a controlled substance at d/c from ED?: No Referrals: Nigel Hayes DO [Primary Care Provider] - 1-2 days - Out of Hospital Transfer - Req. Specs Out of Hospital Transfer - Requested Specifics: Other [facility] ([facility]
[2018-08-17] MEDS ORDERED: HEPARIN SODIUM,PORCINE 10,000 UNIT/ML 1 ML VIAL IV ONE (17:17)
[2018-08-17] MEDS ORDERED: IPRATROPIUM-ALBUTEROL 3 ML NEB INHALATION STA (17:17)
[2018-08-17] MEDS ORDERED: SODIUM CHLORIDE 0.9% 1,000 ML IV STA (17:17)
[2018-08-17] MEDS ORDERED: HEPARIN SODIUM,PORCINE 5,000 UNIT/ML 1 ML VIAL IV PRN (17:17)
[2018-08-17] MEDS ORDERED: HEPARIN SOD,PORK IN 0.45% NACL 25,000 UNIT in 0.45% NACL 1 250ML.BAG IV SCH (17:30)
[2018-08-17 19:20] LABS: ALT 38 U/L (21-72); AST 47 U/L (17-59); Albumin 3.3 g/dL (3.5-5.0); Alkaline Phosphatase 109 U/L (38-126); Anion Gap 8 mmol/L; Basophils % (A) 0 %; Blood Urea Nitrogen 15 mg/dL (9-20); Calcium 8.8 mg/dL (8.4-10.2); Carbon Dioxide 25 mmol/L (22-30); Chloride 104 mmol/L (98-107); Eosinophils # (A) 0.2 k/uL (0-0.7); Eosinophils % (A) 3 %; Glucose 113 mg/dL (74-99); HCT 33.9 % (39.0-53.0); HGB 10.7 gm/dL (13.0-17.5); Lymphocytes # (A) 0.8 k/uL (1.0-4.8); Lymphocytes % (A) 12 %; MCH 24.4 pg (25.0-35.0); MCHC 31.6 g/dL (31.0-37.0); Mean Platelet Volume 6.9; Monocytes # (A) 0.2 k/uL (0-1.0); Monocytes % (A) 3 %; Neutrophils # (A) 5.4 k/uL (1.3-7.7); Neutrophils % (A) 81 %; Potassium 4.8 mmol/L (3.5-5.1); RBC 4.38 m/uL (4.30-5.90); RDW 15.4 % (11.5-15.5); Sodium 137 mmol/L (137-145); Total Bilirubin 0.5 mg/dL (0.2-1.3); Total Protein 6.2 g/dL (6.3-8.2); WBC 6.7 k/uL (3.8-10.6)
[2018-08-17 19:21] LABS: MCV 77.2 fL (80.0-100.0); Platelet Count 145 k/uL (150-450)
[2018-08-17 19:33] LABS: Partial Thromboplastin Time 25.7 sec (22.0-30.0)
[2018-08-17 19:35] LABS: D-Dimer 18.06 mg/L FEU (<0.60)
[2018-08-17 19:37] LABS: Creatine Kinase MB 2.4 ng/mL (0.0-2.4)
[2018-08-17 20:02] LABS: Troponin I 0.091 ng/mL (0.000-0.034)
== END 2018-08-17 18:54 | disposition other institution (70) ==
LOC: EC 16:34
DX: I26.99 Other pulmonary embolism without acute cor pulmonale (principal); C18.9 Malignant neoplasm of colon, unspecified; C79.9 Secondary malignant neoplasm of unspecified site; E78.5 Hyperlipidemia, unspecified; E11.9 Type 2 diabetes mellitus without complications; Z79.84 Long term (current) use of oral hypoglycemic drugs; Z79.1 Long term (current) use of non-steroidal anti-inflammatories (NSAID); Z79.899 Other long term (current) drug therapy; Z87.891 Personal history of nicotine dependence; Z96.653 Presence of artificial knee joint, bilateral; Z85.828 Personal history of other malignant neoplasm of skin
CPT/HCPCS: 99285; 96374; 93005; 85379; 36415; 83880; 80053; 82550; 82553; 83735; 84484; 85025; 85610; 85730; J1644 ×2

== ENCOUNTER → 2018-08-17 | Outpatient (CLI) | payer MEDICARE ==
--- NOTE | 2018-08-17 15:51 | CT ---
"EXAMINATION TYPE: CT ChestAbdPelvis w con DATE OF EXAM: 08/17/2018 COMPARISON: 07/02/2018 and 04/08/2018 HISTORY: 78-year-old male SOB, Hx of lung and colon CA. Rectal cancer. TECHNIQUE: Contiguous axial scanning of the chest, abdomen, and pelvis performed with IV Contrast, pa tient injected with 100 mL of Isovue 300. Delayed images through the kidneys were obtained. Coronal/s agittal reconstructions performed. CT DLP: 990.8 mGycm Automated exposure control for dose reduction was used. FINDINGS: Chest: Heart size with similar anterior soft tissue pericardial thickening measuring up to 8 m. Ectatic ascending aorta 3.7 cm with conventional arch vessel branching anatomy. Right anterior chest wall injection port with catheter tip at the lower SVC. Redemonstrated soft tissue nodularity anterior mediastinum measuring up to 2.1 cm. Small to moderate right pleural effusion show slight decrease in size. Small left pleural effusion re junior with some areas of loculation suggested. Scattered pleural-based nodularity on both sides is re demonstrated, most extensive at the left base. A subpleural pulmonary nodule peripheral left base, ax ial image 40 measures 1.9 cm, not significant changed. Mildly enlarged caliber to the main right and left pulmonary arteries measuring up to 2.7 cm in. In a ddition, there is moderate burden of bilateral pulmonary emboli extending throughout the lobar, segme ntal, and some subsegmental branches.. ABDOMEN: Hepatic lesions redemonstrated. Lesion in the anterior right hepatic dome measures 3.6 cm versus 3.4 cm, previously. Right hepatic lobe lesion measures 6.3 cm versus 5.8 cm, previously. Posterior aspect of the right liver lobe lesion measures 3.1 cm versus 2.5 cm, previously. Additional lesions are pre sent. Gallbladder, adrenal glands, kidneys, spleen, and pancreas show no gross abnormality. Progressive peritoneal nodularity along the right paracolic gutter measuring up to 1.2 cm versus 9 mm , previously extensive omental nodularity redemonstrated with confluent areas measuring up to 3.3 cm. No mesenteric lymphadenopathy or retroperitoneal lymphadenopathy identified. There is a mid abdominal diapers during colostomy with associated soft tissue nodularity here as seen previously. Pelvis: Additional peritoneal soft tissue deposits along the right paramedian anterior upper pelvis. Irregula r nodularity left side of the pelvis measures 2.2 cm, unchanged abnormal soft tissue thickening along the rectosigmoid junction is also redemonstrated, and axial image 107. No pelvic lymphadenopathy see n. Bones: Degenerative changes at the hips. Degenerative changes SI joints. Degenerative changes throughout the visualized spine. No osseous destructive process seen. IMPRESSION: 1 NEW BILATERAL PULMONARY EMBOLI WITH MODERATE OVERALL BURDEN INVOLVING LOBAR AND MORE DISTAL ARTERIA L BRANCHES. 2. STABLE TO SLIGHTLY PROGRESSIVE DISEASE. DIFFUSE PLEURAL-BASED NODULARITY MOST CONFLUENT IN THE LEF T LOWER LOBE IS RELATIVELY SIMILAR. ANTERIOR MEDIASTINAL SOFT TISSUE DEPOSIT, ANTERIOR PERICARDIAL SO FT TISSUE DEPOSIT, EXTENSIVE OMENTAL NODULARITY, AND PELVIC PERITONEAL DEPOSITS ARE OVERALL STABLE. 3. HEPATIC LESIONS MEASURE UP TO 6.3 CM AND SHOWS SLIGHT INTERVAL INCREASE IN SIZE. RIGHT SIDED PERIT VIZCAINO DEPOSIT IS SLIGHTLY LARGER NOW MEASURING 1.2 CM VERSUS 9 MM, PREVIOUSLY. 4. MODERATE-SIZED RIGHT PLEURAL EFFUSION REMAINS, SLIGHTLY DECREASED FROM PRIOR. SMALL LEFT PLEURAL E FFUSION IS STABLE. 5. MID TRANSVERSE COLON DIVERTING COLOSTOMY. ABNORMAL SOFT TISSUE CONTINUES TO INVOLVE THE RECTOSIGMO ID JUNCTION. A Red level critical message alert has been initiated for Claudio Rogers MD via the [employer] | Crit ical Results System on 08/17/2018 3:46 PM. This message alert has been sent to Claudio Rogers MD via the p references provided by the clinician for the receipt of Radiology Critical Findings[place] [id number]."
== END | disposition home or self-care (01) ==
LOC: RADCTMAIN 11:24
PROVIDERS: ATTEND Internal Medicine Hematology & Oncology
DX: C20 Malignant neoplasm of rectum (principal); I26.99 Other pulmonary embolism without acute cor pulmonale; K76.9 Liver disease, unspecified; K63.89 Other specified diseases of intestine; J90 Pleural effusion, not elsewhere classified; Z93.3 Colostomy status
CPT/HCPCS: 82565; 84520; 71260; 74177; 36415; Q9967

== ENCOUNTER 2018-09-28 13:26 | Emergency (ER) | payer MEDICARE ==
[2018-09-28 14:11] VITALS: TEMP 97.7
--- NOTE | 2018-09-28 14:51 | ED ---
Male Urogenital HPI - General Chief complaint: Urogenital Stated complaint: unable to urinate, CA Pt Time Seen by Provider: 09/28/18 14:28 Source: patient Mode of arrival: ambulatory Limitations: no limitations - History of Present Illness Initial comments: 78-year-old male with colon cancer with metastasis to the liver and lungs, recent CT of abdomen pelvic 08/17/18 presenting today for cc of inability to urinate. Pt states he has had difficulty fully urinating for the past 2-4 days. He states today he could not urinate at all. Pt states he has mild distention sensation denies pain. Pt presented when symptoms persisted, attempted urination upon arrival to the ER. Patient denies any recent dysuria, urgency, frequency, hematuria or abdominal pain. Pt denies any back pain, numbness, tingling, loss of sensation of the LE or muscle weakness of the LE, loss of urine control, fever, chills, night sweats. Upon arrival patient appears well. Vital signs within acceptable limits. Denies any other complaints, patient denies any recent fever, chills, shortness of breath, chest pain, back pain, abdominal pain, nausea or vomiting, numbness or tingling, headaches or visual changes, or any other complaints. - Related Data Home Medications Medication Instructions Recorded Confirmed Pravastatin Sodium [Pravachol] 40 mg PO HS 08/02/16 09/28/18 metFORMIN HCL 1,000 mg PO BID 06/07/17 09/28/18 Gabapentin [Neurontin] 300 mg PO TID 03/04/18 09/28/18 Lidocaine HCl [Aspercreme] 1 applic TOPICAL BID PRN 07/06/18 09/28/18 Magnesium Oxide [Mag-Ox] 400 mg PO DAILY 07/06/18 09/28/18 Nystatin 100,000 Unit/ml Susp 500,000 unit PO PC-TID 07/06/18 09/28/18 [Mycostatin Oral Susp] Prochlorperazine [Compazine] 10 mg PO Q6H PRN 07/06/18 09/28/18 glipiZIDE XL [Glucotrol Xl] 5 mg PO DAILY 08/17/18 09/28/18 Apixaban [Eliquis] 5 mg PO DAILY 09/28/18 09/28/18 Codeine Phosphate/Guaifenesin 10 ml PO Q4H 09/28/18 09/28/18 [Guaifen-Codeine 100-10 mg/5 ml] Lidocaine-Prilocaine Cream [Emla 1 applic TOPICAL TID PRN 09/28/18 09/28/18 Cream 2.5%/2.5%] Meloxicam [Mobic] 15 mg PO DAILY 09/28/18 09/28/18 Tamsulosin [Flomax] 0.4 mg PO DAILY 09/28/18 09/28/18 Allergies Allergy/AdvReac Type Severity Reaction Status Date / Time No Known Allergies Allergy Verified 09/28/18 14:48 Review of Systems ROS Statement: Those systems with pertinent positive or pertinent negative responses have been documented in the HPI. ROS Other: All systems not noted in ROS Statement are negative. Past Medical History Past Medical History: Cancer, Diabetes Mellitus, Hyperlipidemia, Prostate Disorder Additional Past Medical History / Comment(s): HX PLEURAL EFFUSION-PAST THORACENTESIS, STATES CA OF left sided LUNG, COLON, LIVER. colon-primary stage 4. dx 11/18- chemo. Colostomy 06/08/2017 History of Any Multi-Drug Resistant Organisms: None Reported Past Surgical History: Back Surgery, Bowel Resection, Joint Replacement Additional Past Surgical History / Comment(s): 08/12/16 Revision total R knee arthroplasty. BILATERAL KNEE REPLACEMENTS,PLEURAL EFFUSION THORACENTESIS X3 PAULINO CATARACT SX; right rotator cuff shoulder sx, COLONOSCOPY 09/2016. colostomy=bag changed this am 12-18 Past Anesthesia/Blood Transfusion Reactions: Postoperative Nausea & Vomiting ( PONV) Additional Past Anesthesia/Blood Transfusion Reaction / Comment(s): Pt has had PONV and BROTHER HAD PONV. Past Psychological History: Depression Smoking Status: Former smoker Past Alcohol Use History: Rare Past Drug Use History: Marijuana - Past Family History Father Family Medical History: Diabetes Mellitus Additional Family Medical History / Comment(s): Father at the age of 86yrs. Mother Family Medical History: Cancer, Dementia Additional Family Medical History / Comment(s): Mother at the age of 84yrs. General Exam - General Exam Comments Initial Comments: General: The patient is awake and alert, in no distress, and does not appear acutely ill. Eye: +3 mm pupils are equal, round and reactive to light, extra-ocular movements are intact. No nystagmus. There is normal conjunctiva bilaterally. No signs of icterus. Ears, nose, mouth and throat: There are moist mucous membranes and no oral lesions. Neck: The neck is supple, there is no tenderness or JVD. Cardiovascular: There is a regular rate and rhythm. No murmur, rub or gallop is appreciated. Respiratory: Lungs are clear to auscultation, respirations are non-labored, breath sounds are equal. No wheezes, stridor, rales, or rhonchi. Gastrointestinal: Soft, non-distended, non-tender abdomen without masses or organomegaly noted. There is no rebound or guarding present. No CVA tenderness. Bowel sounds are unremarkable. Musculoskeletal: Normal ROM, no tenderness. Strength 5/5. Sensation intact. Radial pulses equal bilaterally 2+. Neurological: A&O x 3. CN II-XII intact, There are no obvious motor or sensory deficits. Coordination appears grossly intact. Speech is normal. Skin: Skin is warm and dry and no rashes or lesions are noted. Psychiatric: Cooperative, appropriate mood & affect, normal judgment. Limitations: no limitations Course Vital Signs 09/28/18 09/28/18 09/28/18 14:06 15:57 16:39 Temperature 97.7 F 97.7 F Pulse Rate 98 87 84 Respiratory 18 15 15 Rate Blood Pressure 145/75 138/82 146/93 O2 Sat by Pulse 99 98 98 Oximetry - Reevaluation(s) Reevaluation #1: Pt straight cath revealed only 250cc of urine about 1 hr prior. I did reevaluate pt at 16:08, pt states he just used the restroom without difficulty at this time, pt states he feels he is ready for discharge. I am agreeable with outpatient f/u with urology, primary care and heme/oncology. P 09/28/18 16:10 Medical Decision Making - Medical Decision Making Post void (pt could not urinate but attempted revealed 240ml) straight cath to confirm 250cc. Pt laboratory studies reveal mild increase in Cr, and K+. & Mild decrease in HgB. Pt states following straight cath he had normal urination without difficulty. at this time because patient spontaneously passing urine with no incontinence I feel patient is stable for discharge, patient states he would not like any further imaging. Patient was recommended to follow up with urology as well as oncology and primary care provider. Patient states he has an appointment on Friday. I recommended repeat blood draw for potassium and creatinine. Patient verbalizes understanding. I also recommended increase oral intake. Patient verbalized understanding. At this time after discussing the case with Dr. Varela attending provider who reviewed the patient's laboratory studies and we discussed history of presenting illness the patient is stable for discharge with outpatient follow-up. Patient appears well upon discharge, aware ball return parameters deny questions at this time. Patient discharged appearing well. - Lab Data Result diagrams: 09/28/18 15:43 09/28/18 15:43 Lab Results 09/28/18 09/28/18 09/28/18 Range/Units 15:43 15:43 15:47 WBC 8.2 (3.8-10.6) k/uL RBC 3.70 L (4.30-5.90) m/uL Hgb 9.4 L (13.0-17.5) gm/dL Hct 29.6 L (39.0-53.0) % MCV 80.1 (80.0-100.0) fL MCH 25.3 (25.0-35.0) pg MCHC 31.6 (31.0-37.0) g/dL RDW 18.2 H (11.5-15.5) % Plt Count 343 D (150-450) k/uL Neutrophils % 72 % Lymphocytes % 10 % Monocytes % 11 % Eosinophils % 4 % Basophils % 1 % Neutrophils # 5.9 (1.3-7.7) k/uL Lymphocytes # 0.8 L (1.0-4.8) k/uL Monocytes # 0.9 (0-1.0) k/uL Eosinophils # 0.4 (0-0.7) k/uL Basophils # 0.1 (0-0.2) k/uL Hypochromasia Slight Anisocytosis Slight Microcytosis Slight Sodium 140 (137-145) mmol/L Potassium 5.5 H (3.5-5.1) mmol/L Chloride 109 H (98-107) mmol/L Carbon Dioxide 23 (22-30) mmol/L Anion Gap 8 mmol/L BUN 15 (9-20) mg/dL Creatinine 1.59 H (0.66-1.25) mg/dL Est GFR (CKD-EPI)AfAm 48 (>60 ml/min/1.73 sqM) Est GFR (CKD-EPI)NonAf 42 (>60 ml/min/1.73 sqM) Glucose 65 L (74-99) mg/dL Calcium 8.9 (8.4-10.2) mg/dL Total Bilirubin 0.4 (0.2-1.3) mg/dL AST 67 H (17-59) U/L ALT 40 (21-72) U/L Alkaline Phosphatase 194 H (38-126) U/L Total Protein 5.9 L (6.3-8.2) g/dL Albumin 3.1 L (3.5-5.0) g/dL Urine Color Yellow Urine Appearance Clear (Clear) Urine pH 5.5 (5.0-8.0) Ur Specific [place] 1.014 (1.001-1.035) Urine Protein Trace H (Negative) Urine Glucose (UA) Negative (Negative) Urine Ketones Negative (Negative) Urine Blood Negative (Negative) Urine Nitrite Negative (Negative) Urine Bilirubin Negative (Negative) Urine Urobilinogen <2.0 (<2.0) mg/dL Ur Leukocyte Esterase Negative (Negative) Disposition Clinical Impression: Inability to urinate Disposition: HOME SELF-CARE Instructions (If sedation given, give patient instructions): Urinary Retention in Men (ED) Additional Instructions: Please use medication as discussed. Please follow-up with family doctor in the next 2 days, for repeat laboratory studies including creatinine and potassium. Please return to emergency room if the symptoms increase or worsen or for any other concerns. Is patient prescribed a controlled substance at d/c from ED?: No Referrals: Nigel Hayes DO [Primary Care Provider] - 1-2 days Edgardo lLanos MD [STAFF PHYSICIAN] - 1-2 days Time of Disposition: 16:23
[2018-09-28 15:59] VITALS: RESP 15
[2018-09-28 16:24] LABS: Anisocytosis Slight; Basophils # (A) 0.1 k/uL (0-0.2); Basophils % (A) 1 %; Eosinophils # (A) 0.4 k/uL (0-0.7); Eosinophils % (A) 4 %; HCT 29.6 % (39.0-53.0); HGB 9.4 gm/dL (13.0-17.5); Hypochromasia Slight; Lymphocytes # (A) 0.8 k/uL (1.0-4.8); Lymphocytes % (A) 10 %; MCH 25.3 pg (25.0-35.0); MCHC 31.6 g/dL (31.0-37.0); MCV 80.1 fL (80.0-100.0); Mean Platelet Volume 6.9; Microcytosis Slight; Monocytes # (A) 0.9 k/uL (0-1.0); Monocytes % (A) 11 %; Neutrophils # (A) 5.9 k/uL (1.3-7.7); Neutrophils % (A) 72 %; RDW 18.2 % (11.5-15.5); WBC 8.2 k/uL (3.8-10.6)
[2018-09-28 16:25] LABS: Albumin 3.1 g/dL (3.5-5.0); Calcium 8.9 mg/dL (8.4-10.2); Potassium 5.5 mmol/L (3.5-5.1); Total Bilirubin 0.4 mg/dL (0.2-1.3); Total Protein 5.9 g/dL (6.3-8.2)
[2018-09-28 16:27] LABS: Appearance,Urine Clear (Clear); Bilirubin,Urine Negative (Negative); Blood,Urine Negative (Negative); Color,Urine Yellow; Glucose,Urine (UA) Negative (Negative); Ketones,Urine Negative (Negative); Leukocyte Esterase,Urine Negative (Negative); Nitrite,Urine Negative (Negative); PH, Urine 5.5 (5.0-8.0); Protein,Urine Trace (Negative); Specific Gravity,Urine 1.014 (1.001-1.035); Urobilinogen,Urine <2.0 mg/dL (<2.0)
[2018-09-28 16:27] LABS: Platelet Count 343 k/uL (150-450)
[2018-09-28 16:40] VITALS: BP 146/93; PULSE 84
== END 2018-09-28 16:56 | disposition home or self-care (01) ==
LOC: EC 13:26
DX: R33.9 Retention of urine, unspecified (principal); E11.9 Type 2 diabetes mellitus without complications; E78.5 Hyperlipidemia, unspecified; C18.9 Malignant neoplasm of colon, unspecified; C78.7 Secondary malignant neoplasm of liver and intrahepatic bile duct; C78.00 Secondary malignant neoplasm of unspecified lung; Z79.01 Long term (current) use of anticoagulants; Z79.1 Long term (current) use of non-steroidal anti-inflammatories (NSAID); Z79.84 Long term (current) use of oral hypoglycemic drugs; Z79.899 Other long term (current) drug therapy; Z96.653 Presence of artificial knee joint, bilateral; Z87.891 Personal history of nicotine dependence
CPT/HCPCS: 36415; 51701; 51798; 80053; 81003; 85025; 99284

== ENCOUNTER 2018-10-09 02:18 | Inpatient (IN) | payer MEDICARE ==
[2018-10-09] MEDS ORDERED: ONDANSETRON 4 MG/2 ML VIAL IVP STA (02:29)
[2018-10-09] MEDS ORDERED: SODIUM CHLORIDE 0.9% 500 ML 500 ML IV STA (02:29)
--- NOTE | 2018-10-09 02:41 | ED ---
General Adult HPI - General Chief complaint: Nausea/Vomiting/Diarrhea Stated complaint: vomiting Time Seen by Provider: 10/09/18 02:28 Source: patient, family Mode of arrival: wheelchair Limitations: no limitations - History of Present Illness Initial comments: Dictation was produced using [employer] dictation software. please excuse any g rammatical, word or spelling errors. Chief Complaint: 78-year-old male past. History of colon cancer, chemotherapy, diabetes, dyslipidemia presents with nausea vomiting and cough. History of Present Illness: Patient 78-year-old male. He has multiple comorbidities. Patient currently undergoing chemotherapy for colon cancer. Patient's last chemo was 12 weeks ago. Patient states that today he began having acute onset nausea, vomiting and coughing. Patient has history of DVT. His history of IVC filter after intolerance a Velcro secondary to bleeding. Patient's oncologist is Dr. saavedra. Patient does have some mild epigastric pain with coughing. However he has not pain complaints. Patient feels severely nauseous and unable to tolerate anything by mouth. Denies any constitutional symptoms. Patient states his cough is nonproductive. The ROS documented in this emergency department record has been reviewed and confirmed by me. Those systems with pertinent positive or negative responses have been documented in the HPI. All other systems are other negative and/or noncontributory. PHYSICAL EXAM: General Impression: Alert and oriented x3, mild respiratory distress HEENT: Normocephalic atraumatic, extra-ocular movements intact, pupils equal and reactive to light bilaterally, mucous membranes moist. Cardiovascular: Heart regular rate and rhythm, S1&S2 audible, no murmurs, rubs or gallops Chest: Lungs clear to auscultation bilaterally, no rhonchi, no wheeze, no rales Abdomen: Bowel sounds present, abdomen soft, diffuse abdominal tenderness, positive Loza sign, no organomegaly, colostomy in place, stoma is pink, stoma reservoir has soft stool Musculoskeletal: Pulses present and equal in all extremities, no peripheral edema Motor:, no focal deficits noted Neurological: CN II-XII grossly intact, no focal motor or sensory deficits noted Skin: Intact with no visualized rashes Psych: Normal affect and mood ED course: 78-year-old male presents with chief complaint of cough, poor appetite, nausea. Vital signs upon arrival shows temperature 97.5, rest of vi ofelia signs within acceptable limits.Laboratory evaluation obtained. CBC was within acceptable limits. Metabolic panel shows potassium 5.3. Magnesium 1.1. Lipase of 1024. KUB and chest x-ray shows no acute processes. Patient having abdominal symptoms. Pending ultrasound of the abdomen. Patient given intravenous fluids. Patient be nothing by mouth at this time. Patient offered pain medications however refusing at this time. Patient be admitted with consultation to gastroenterology, general surgery, oncology. - Related Data Home Medications Medication Instructions Recorded Confirmed Pravastatin Sodium [Pravachol] 40 mg PO HS 08/02/16 09/28/18 metFORMIN HCL 1,000 mg PO BID 06/07/17 09/28/18 Gabapentin [Neurontin] 300 mg PO TID 03/04/18 09/28/18 Lidocaine HCl [Aspercreme] 1 applic TOPICAL BID PRN 07/06/18 09/28/18 Magnesium Oxide [Mag-Ox] 400 mg PO DAILY 07/06/18 09/28/18 Nystatin 100,000 Unit/ml Susp 500,000 unit PO PC-TID 07/06/18 09/28/18 [Mycostatin Oral Susp] Prochlorperazine [Compazine] 10 mg PO Q6H PRN 07/06/18 09/28/18 glipiZIDE XL [Glucotrol Xl] 5 mg PO DAILY 08/17/18 09/28/18 Apixaban [Eliquis] 5 mg PO DAILY 09/28/18 09/28/18 Codeine Phosphate/Guaifenesin 10 ml PO Q4H 09/28/18 09/28/18 [Guaifen-Codeine 100-10 mg/5 ml] Lidocaine-Prilocaine Cream [Emla 1 applic TOPICAL TID PRN 09/28/18 09/28/18 Cream 2.5%/2.5%] Meloxicam [Mobic] 15 mg PO DAILY 09/28/18 09/28/18 Tamsulosin [Flomax] 0.4 mg PO DAILY 09/28/18 09/28/18 Allergies Allergy/AdvReac Type Severity Reaction Status Date / Time No Known Allergies Allergy Verified 10/09/18 02:26 Review of Systems ROS Statement: Those systems with pertinent positive or pertinent negative responses have been documented in the HPI. ROS Other: All systems not noted in ROS Statement are negative. Past Medical History Past Medical History: Cancer, Diabetes Mellitus, Hyperlipidemia, Prostate D isorder Additional Past Medical History / Comment(s): HX PLEURAL EFFUSION-PAST THORACENTESIS, STATES CA OF left sided LUNG, COLON, LIVER. colon-primary stage 4. dx 11/18- chemo. Colostomy 06/08/2017 History of Any Multi-Drug Resistant Organisms: None Reported Past Surgical History: Back Surgery, Bowel Resection, Joint Replacement Additional Past Surgical History / Comment(s): 08/12/16 Revision total R knee arthroplasty. BILATERAL KNEE REPLACEMENTS,PLEURAL EFFUSION THORACENTESIS X3 PAULINO CATARACT SX; right rotator cuff shoulder sx, COLONOSCOPY 09/2016. colostomy=bag changed this am 07-06-18 Past Anesthesia/Blood Transfusion Reactions: Postoperative Nausea & Vomiting (PONV) Additional Past Anesthesia/Blood Transfusion Reaction / Comment(s): Pt has had PONV and BROTHER HAD PONV. Past Psychological History: Depression Smoking Status: Former smoker Past Alcohol Use History: Rare Past Drug Use History: Marijuana - Past Family History Father Family Medical History: Diabetes Mellitus Additional Family Medical History / Comment(s): Father at the age of 86yrs. Mother Family Medical History: Cancer, Dementia Additional Family Medical History / Comment(s): Mother at the age of 84yrs. General Exam Limitations: no limitations Course Vital Signs 10/09/18 02:22 Temperature 97.5 F L Pulse Rate 94 Respiratory 22 Rate Blood Pressure 142/89 O2 Sat by Pulse 99 Oximetry Medical Decision Making - Lab Data Result diagrams: 10/09/18 03:00 10/09/18 03:00 Lab Results 10/09/18 10/09/18 Range/Units 03:00 03:00 WBC 6.3 (3.8-10.6) k/uL RBC 3.60 L (4.30-5.90) m/uL Hgb 9.2 L (13.0-17.5) gm/dL Hct 28.9 L (39.0-53.0) % MCV 80.3 (80.0-100.0) fL MCH 25.5 (25.0-35.0) pg MCHC 31.7 (31.0-37.0) g/dL RDW 17.8 H (11.5-15.5) % Plt Count 280 (150-450) k/uL Neutrophils % 76 % Lymphocytes % 10 % Monocytes % 6 % Eosinophils % 4 % Basophils % 0 % Neutrophils # 4.8 (1.3-7.7) k/uL Lymphocytes # 0.7 L (1.0-4.8) k/uL Monocytes # 0.4 (0-1.0) k/uL Eosinophils # 0.3 (0-0.7) k/uL Basophils # 0.0 (0-0.2) k/uL Hypochromasia Slight Anisocytosis Slight Microcytosis Slight Sodium 138 (137-145) mmol/L Potassium 5.3 H (3.5-5.1) mmol/L Chloride 106 (98-107) mmol/L Carbon Dioxide 23 (22-30) mmol/L Anion Gap 9 mmol/L BUN 17 (9-20) mg/dL Creatinine 1.51 H (0.66-1.25) mg/dL Est GFR (CKD-EPI)AfAm 51 (>60 ml/min/1.73 sqM) Est GFR (CKD-EPI)NonAf 44 (>60 ml/min/1.73 sqM) Glucose 102 H (74-99) mg/dL Calcium 9.0 (8.4-10.2) mg/dL Magnesium 1.1 L (1.6-2.3) mg/dL Total Bilirubin 0.5 (0.2-1.3) mg/dL AST 61 H (17-59) U/L ALT 54 (21-72) U/L Alkaline Phosphatase 274 H (38-126) U/L Total Protein 6.3 (6.3-8.2) g/dL Albumin 3.3 L (3.5-5.0) g/dL Lipase 1024 H (23-300) U/L Disposition Clinical Impression: Abdominal pain Disposition: ADMITTED IP TO THIS [facility] Condition: Fair Referrals: Nigel Hayes DO [Primary Care Provider] - 1-2 days Decision Time: 04:23
[2018-10-09 03:15] LABS: Anisocytosis Slight; Basophils % (A) 0 %; Eosinophils # (A) 0.3 k/uL (0-0.7); Eosinophils % (A) 4 %; HCT 28.9 % (39.0-53.0); HGB 9.2 gm/dL (13.0-17.5); Hypochromasia Slight; Lymphocytes # (A) 0.7 k/uL (1.0-4.8); Lymphocytes % (A) 10 %; MCH 25.5 pg (25.0-35.0); MCHC 31.7 g/dL (31.0-37.0); MCV 80.3 fL (80.0-100.0); Mean Platelet Volume 6.6; Microcytosis Slight; Monocytes # (A) 0.4 k/uL (0-1.0); Monocytes % (A) 6 %; Neutrophils # (A) 4.8 k/uL (1.3-7.7); Neutrophils % (A) 76 %; Platelet Count 280 k/uL (150-450); RDW 17.8 % (11.5-15.5); WBC 6.3 k/uL (3.8-10.6)
[2018-10-09 03:25] LABS: Albumin 3.3 g/dL (3.5-5.0); Magnesium 1.1 mg/dL (1.6-2.3); Potassium 5.3 mmol/L (3.5-5.1); Total Bilirubin 0.5 mg/dL (0.2-1.3); Total Protein 6.3 g/dL (6.3-8.2)
--- NOTE | 2018-10-09 03:36 | XR ---
EXAM: XR Chest, 2 Views CLINICAL HISTORY: : pain TECHNIQUE: Frontal and lateral views of the chest. COMPARISON: 07/08/18 FINDINGS: Lungs: Chronic interstitial changes with persistent blunting of the left costophrenic angle and to a lesser extent the right costophrenic angle. Pleural space: Unremarkable. No pneumothorax. Heart: Unremarkable. No cardiomegaly. Mediastinum: Unremarkable. Bones/joints: Unremarkable. IMPRESSION: No significant change compared to prior study. Chronic interstitial changes. Chronic blunting of the costophrenic angles
--- NOTE | 2018-10-09 03:44 | XR ---
EXAM: XR Abdomen, 2 Views CLINICAL HISTORY: pain TECHNIQUE: Frontal view of the abdomen/pelvis with upright view of the abdomen. COMPARISON: No relevant prior studies available. FINDINGS: Intraperitoneal space: No free air. Gastrointestinal tract: Unremarkable. No dilation. Bones/joints: Unremarkable. IMPRESSION: Unremarkable 2 views of the abdomen
[2018-10-09] MEDS ORDERED: MORPHINE SULFATE 4 MG/ML SYRINGE IV PRN (04:24)
[2018-10-09] MEDS ORDERED: ONDANSETRON 4 MG/2 ML VIAL IVP PRN (04:24)
[2018-10-09] MEDS ORDERED: ACETAMINOPHEN TAB 325 MG TAB PO PRN (04:24)
[2018-10-09] MEDS ORDERED: NALOXONE 0.4 MG/ML 1 ML VIAL IV PRN (04:24)
[2018-10-09] MEDS: SODIUM CHLORIDE 0.9% 1,000 ML IV SCH ×2 (04:40→15:39)
[2018-10-09] MEDS: MAGNESIUM SULFATE-D5W PMX 1 GM in DEXTROSE/WATER 1 100ML.BAG IVPB SCH ×2 (04:40→05:40)
[2018-10-09 05:02] LABS: Appearance,Urine Clear (Clear); Bilirubin,Urine Negative (Negative); Blood,Urine Negative (Negative); Color,Urine Yellow; Glucose,Urine (UA) Negative (Negative); Ketones,Urine Negative (Negative); Leukocyte Esterase,Urine Negative (Negative); Nitrite,Urine Negative (Negative); PH, Urine 5.5 (5.0-8.0); Protein,Urine Trace (Negative); Specific Gravity,Urine 1.015 (1.001-1.035); Urobilinogen,Urine <2.0 mg/dL (<2.0)
--- NOTE | 2018-10-09 06:14 | US ---
EXAM: US Abdomen right upper quadrant CLINICAL HISTORY: Pain TECHNIQUE: Real-time ultrasound of the abdomen (complete) with image documentation. COMPARISON: No relevant prior studies available. FINDINGS: Liver: Unremarkable. No mass. No intrahepatic bile duct dilation. Gallbladder: Unremarkable. No gallstones. Gallbladder wall is measured at 3.7 mm. No pericholecystic fluid. Common bile duct: 3.8 mm. Unremarkable as visualized. No stones. No dilation. Pancreas: Unremarkable as visualized. Right Kidney: Unremarkable. No stones. No solid mass. No hydronephrosis. IMPRESSION: Unremarkable ultrasound of the right upper quadrant
[2018-10-09 06:35] VITALS: BMI 24.3
[2018-10-09 07:20] LABS: Glucose,Whole Blood 114 mg/dL (75-99)
[2018-10-09] MEDS: PANTOPRAZOLE 40 MG/10 ML VIAL IV SCH (07:50)
[2018-10-09 07:58] VITALS: RESP 16
[2018-10-09 11:15] LABS: Glucose,Whole Blood 103 mg/dL (75-99)
--- NOTE | 2018-10-09 11:41 | P.CONS ---
History of Present Illness - Reason for Consult Consult date: 10/09/18 Pancreatitis Requesting physician: David Katz - Chief Complaint Abdominal pain - History of Present Illness 78-year-old male with a history of metastatic colon carcinoma presently receiving chemotherapy last cycle about 10 days ago, dyslipidemia, pulmonary embolism, IVC filter, diabetes mellitus presents with acute nausea nonbloody vomiting lower abdominal pain x 3 days. Elevated lipase 1024. Amylase not obtained. LFTs total bilirubin 0.5. AST 61. ALT 54. AP 274. No history of pancreatitis no changes in medications. No ETOH. Denies changes in the color of BM or urine. Ostomy functioning well. Ultrasound abdomen unremarkable no intrahepatic bile duct dilatation. No gallstones. CBD 3.8 mm. No pericholecystic fluid. CT chest abdomen and pelvis August 2018 reported new bilateral pulmonary emboli, hepatic lesions measuring up to 6.3 cm with peritoneal deposits, Review of Systems Constitutional: Denies fever, chills, sweats, weight gain, or loss. HEENT: Negative for migraines, blurred vision or loss, earaches, drainage, tinnitus, oral mucosal lesions, dysphagia, or odynophagia. Cardiac: Negative for chest pain, arrhythmias, or palpitation. Respiratory: Negative for shortness of breath, hemoptysis, cough, or sputum production. Gastrointestinal: See HPI for pertinent findings. Genitourinary: Negative for hematuria, urgency, frequency, polyuria, dysuria, or penile discharge. Musculoskeletal: Negative for muscle aches, swelling, arthritis, and arthralgias. Neurologic: Negative for stroke or TIA. Endocrine: Negative for thyroid problems. Skin: Negative for rash or itching. Psychiatric: Negative history for depression and anxiety Past Medical History Past Medical History: Cancer, Diabetes Mellitus, Hyperlipidemia, Prostate Disorder Additional Past Medical History / Comment(s): HX PLEURAL EFFUSION-PAST THORACENTESIS, STATES CA OF left sided LUNG, COLON, LIVER. colon-primary stage 4. dx 11/18- chemo. Colostomy 06/08/2017 History of Any Multi-Drug Resistant Organisms: None Reported Past Surgical History: Back Surgery, Bowel Resection, Joint Replacement Additional Past Surgical History / Comment(s): 08/12/16 Revision total R knee arthroplasty. BILATERAL KNEE REPLACEMENTS,PLEURAL EFFUSION THORACENTESIS X3 PAULINO CATARACT SX; right rotator cuff shoulder sx, COLONOSCOPY 09/2016. colostomy bag changed 10/09/18 Past Anesthesia/Blood Transfusion Reactions: Postoperative Nausea & Vomiting (PONV) Additional Past Anesthesia/Blood Transfusion Reaction / Comm: Pt has had PONV and BROTHER HAD PONV. Past Psychological History: Depression Additional Psychological History / Comment(s): . Smoking Status: Former smoker Past Alcohol Use History: Rare Additional Past Alcohol Use History / Comment(s): STARTED SMOKING 1968, QUIT SMOKING 1974, SMOKED 1PPD Past Drug Use History: Marijuana - Past Family History Father Family Medical History: Diabetes Mellitus Additional Family Medical History / Comment(s): Father at the age of 86yrs. Mother Family Medical History: Cancer, Dementia Additional Family Medical History / Comment(s): Mother at the age of 84yrs. Medications and Allergies Home Medications Medication Instructions Recorded Confirmed Type Pravastatin Sodium [Pravachol] 40 mg PO HS 08/02/16 10/09/18 History metFORMIN HCL 1,000 mg PO BID 06/07/17 10/09/18 History Gabapentin [Neurontin] 300 mg PO TID 03/04/18 10/09/18 History Lidocaine HCl [Aspercreme] 1 applic TOPICAL BID PRN 07/06/18 10/09/18 History Magnesium Oxide [Mag-Ox] 400 mg PO DAILY 07/06/18 10/09/18 History Nystatin 100,000 Unit/ml Susp 500,000 unit PO PC-TID 07/06/18 10/09/18 History [Mycostatin Oral Susp] glipiZIDE XL [Glucotrol Xl] 5 mg PO DAILY 08/17/18 10/09/18 History Apixaban [Eliquis] 5 mg PO DAILY 09/28/18 10/09/18 History Codeine Phosphate/Guaifenesin 10 ml PO Q4H 09/28/18 10/09/18 History [Guaifen-Codeine 100-10 mg/5 ml] Lidocaine-Prilocaine Cream [Emla 1 applic TOPICAL TID PRN 09/28/18 10/09/18 History Cream 2.5%/2.5%] Meloxicam [Mobic] 15 mg PO DAILY 09/28/18 10/09/18 History Tamsulosin [Flomax] 0.4 mg PO DAILY 09/28/18 10/09/18 History Ondansetron Odt [Zofran Odt] 4 mg PO Q6H PRN 10/09/18 10/09/18 History Allergies Allergy/AdvReac Type Severity Reaction Status Date / Time No Known Allergies Allergy Verified 10/09/18 08:05 Physical Exam Vitals: Vital Signs Temp Pulse Pulse Resp BP BP Pulse Ox 10/09/18 07:59 73 16 10/09/18 07:45 97.2 F L 73 16 122/72 97 10/09/18 04:48 98.4 F 78 18 147/83 98 10/09/18 02:22 97.5 F L 94 22 142/89 99 Intake and Output 10/08/18 10/09/18 10/09/18 22:59 06:59 14:59 Intake Total 200 Balance 200 Intake: Intake, IV Titration 200 Amount Magnesium Sulfate-D5w Pmx 200 1 gm In Dextrose/Water 1 100ml.bag @ 100 mls/hr IVPB Q1H [facility] Rx#: [id number] Other: Weight 79.107 kg General appearance: The patient is alert, oriented, in no acute distress. HET: Head is normocephalic and atraumatic. Pupils are equal and reactive. Oropharynx is clear without lesions. Neck: Supple without lymphadenopathy. Trachea midline. Heart: S1 S2. Regular rate and rhythm. Lungs: No crackles or wheezes are heard. Abdomen: Soft, mild bilateral lower abdomen tenderness, ostomy with brown stool nondistended with bowel sounds. No peritoneal signs. No palpable organomegaly or masses. Extremities: Normal skin color and turgor. No cyanosis, rash, ulceration, clubbing, or edema. Radial and pedal pulses are 2/4 bilaterally. Neurological: No focal deficits. Strength and sensation are grossly intact. Results CBC & Chem 7: 10/09/18 03:00 10/09/18 03:00 Labs: Abnormal Lab Results - Last 24 Hours (Table) 10/09/18 10/09/18 10/09/18 Range/Units 03:00 03:00 04:45 RBC 3.60 L (4.30-5.90) m/uL Hgb 9.2 L (13.0-17.5) gm/dL Hct 28.9 L (39.0-53.0) % RDW 17.8 H (11.5-15.5) % Lymphocytes # 0.7 L (1.0-4.8) k/uL Potassium 5.3 H (3.5-5.1) mmol/L Creatinine 1.51 H (0.66-1.25) mg/dL Glucose 102 H (74-99) mg/dL POC Glucose (mg/dL) (75-99) mg/dL Magnesium 1.1 L (1.6-2.3) mg/dL AST 61 H (17-59) U/L Alkaline Phosphatase 274 H (38-126) U/L Albumin 3.3 L (3.5-5.0) g/dL Lipase 1024 H (23-300) U/L Urine Protein Trace H (Negative) 10/09/18 Range/Units 07:19 RBC (4.30-5.90) m/uL Hgb (13.0-17.5) gm/dL Hct (39.0-53.0) % RDW (11.5-15.5) % Lymphocytes # (1.0-4.8) k/uL Potassium (3.5-5.1) mmol/L Creatinine (0.66-1.25) mg/dL Glucose (74-99) mg/dL POC Glucose (mg/dL) 114 H (75-99) mg/dL Magnesium (1.6-2.3) mg/dL AST (17-59) U/L Alkaline Phosphatase (38-126) U/L Albumin (3.5-5.0) g/dL Lipase (23-300) U/L Urine Protein (Negative) US - abdomen: report reviewed (Dr. Tran) Assessment and Plan (1) Abdominal pain Narrative/Plan: 78 y/o male history of metastatic colon cancer presently receiving chemotherapy admitted with lower abdominal pain N/V x 3 days with elevated lipase and acalculous ultrasound possible pancreatitis. Current Visit: Yes Status: Acute Code(s): R10.9 - UNSPECIFIED ABDOMINAL PAIN SNOMED Code(s): 36315888 (2) Colon cancer Current Visit: Yes Status: Acute Code(s): C18.9 - MALIGNANT NEOPLASM OF COLON, UNSPECIFIED SNOMED Code(s): 729188233 Plan: 1. Abdominal pain improving; clear liquids. Supportive measures. Will follow with you. 2. Patient verbaliz conservative measures and wants to stop his chemotherapy and proceed with comfort care. Patient was advised to discuss his request with medicine/oncology. Thank you for this kind referral and the opportunity to participate in the care of your patient. This consultation was discussed with Dr. Tran. The impression and plan of care have been directed as dictated.
[2018-10-09] MEDS: MAG HYDROX/AL HYDROX/SIMETH 30 ML, LIDOCAINE VISCOUS 30 ML, diphenhydrAMINE ELIXIR 75 M... PO SCH ×12 (13:35→21:17)
[2018-10-09] MEDS: SALT AND SODA MOUTHWASH 1,000 ML PO SCH ×3 (13:38→21:17)
--- NOTE | 2018-10-09 16:22 | P.GSCN ---
History of Present Illness Consult date: 10/09/18 Reason for Consult: Abdominal pain History of present illness: 78-year-old male well-known to our service. Patient with a history of metastati c colorectal cancer. Patient still receiving chemotherapy although states he has decided against any further treatment. Patient came to the hospital after a bad coughing episode and shortness of breath with associated lower abdominal pain. Patient had labs checked which revealed an elevated lipase. Amylase was not obtained. Ultrasound was normal. No CAT scan since August. Feels better currently. Tolerating some clear liquids although just recently had emesis. Ostomy has been functioning. Review of Systems The patient denies any acute changes in vision or hearing, no dysphagia or odynophagia, no dysuria or hematuria, no headache, no runny nose, no rectal bleeding or melena Past Medical History Past Medical History: Cancer, Diabetes Mellitus, Hyperlipidemia, Prostate Disorder Additional Past Medical History / Comment(s): HX PLEURAL EFFUSION-PAST THORACENTESIS, STATES CA OF left sided LUNG, COLON, LIVER. colon-primary stage 4. dx 11/18- chemo. Colostomy 06/08/2017 History of Any Multi-Drug Resistant Organisms: None Reported Past Surgical History: Back Surgery, Bowel Resection, Joint Replacement Additional Past Surgical History / Comment(s): 08/12/16 Revision total R knee arthroplasty. BILATERAL KNEE REPLACEMENTS,PLEURAL EFFUSION THORACENTESIS X3 PAULINO CATARACT SX; right rotator cuff shoulder sx, COLONOSCOPY 09/2016. colostomy bag changed 10/09/18 Past Anesthesia/Blood Transfusion Reactions: Postoperative Nausea & Vomiting (PONV) Additional Past Anesthesia/Blood Transfusion Reaction / Comm: Pt has had PONV and BROTHER HAD PONV. Past Psychological History: Depression Additional Psychological History / Comment(s): . Smoking Status: Former smoker Past Alcohol Use History: Rare Additional Past Alcohol Use History / Comment(s): STARTED SMOKING 1968, QUIT SMOKING 1974, SMOKED 1PPD Past Drug Use History: Marijuana - Past Family History Father Family Medical History: Diabetes Mellitus Additional Family Medical History / Comment(s): Father at the age of 86yrs. Mother Family Medical History: Cancer, Dementia Additional Family Medical History / Comment(s): Mother at the age of 84yrs. Medications and Allergies Home Medications Medication Instructions Recorded Confirmed Type Pravastatin Sodium [Pravachol] 40 mg PO HS 08/02/16 10/09/18 History metFORMIN HCL 1,000 mg PO BID 06/07/17 10/09/18 History Gabapentin [Neurontin] 300 mg PO TID 03/04/18 10/09/18 History Lidocaine HCl [Aspercreme] 1 applic TOPICAL BID PRN 07/06/18 10/09/18 History Magnesium Oxide [Mag-Ox] 400 mg PO DAILY 07/06/18 10/09/18 History Nystatin 100,000 Unit/ml Susp 500,000 unit PO PC-TID 07/06/18 10/09/18 History [Mycostatin Oral Susp] glipiZIDE XL [Glucotrol Xl] 5 mg PO DAILY 08/17/18 10/09/18 History Apixaban [Eliquis] 5 mg PO DAILY 09/28/18 10/09/18 History Codeine Phosphate/Guaifenesin 10 ml PO Q4H 09/28/18 10/09/18 History [Guaifen-Codeine 100-10 mg/5 ml] Lidocaine-Prilocaine Cream [Emla 1 applic TOPICAL TID PRN 09/28/18 10/09/18 History Cream 2.5%/2.5%] Meloxicam [Mobic] 15 mg PO DAILY 09/28/18 10/09/18 History Tamsulosin [Flomax] 0.4 mg PO DAILY 09/28/18 10/09/18 History Ondansetron Odt [Zofran Odt] 4 mg PO Q6H PRN 10/09/18 10/09/18 History Allergies Allergy/AdvReac Type Severity Reaction Status Date / Time No Known Allergies Allergy Verified 10/09/18 08:05 Surgical - Exam Vital Signs Temp Pulse Resp BP Pulse Ox 97.5 F L 94 22 142/89 99 10/09/18 02:22 10/09/18 02:22 10/09/18 02:22 10/09/18 02:22 10/09/18 02:22 Physical exam: General: Elderly male malnourished appearing HEENT: Normocephalic, sclerae nonicteric Abdomen: Mild left lower quadrant tenderness, nondistended Extremities: Mild edema Neuro: Alert and oriented Results - Labs 10/09/18 03:00 10/09/18 03:00 Abnormal Lab Results - Last 24 Hours (Table) 03/03/2210/09/18 10/09/18 Range/Units 03:00 03:00 04:45 RBC 3.60 L (4.30-5.90) m/uL Hgb 9.2 L (13.0-17.5) gm/dL Hct 28.9 L (39.0-53.0) % RDW 17.8 H (11.5-15.5) % Lymphocytes # 0.7 L (1.0-4.8) k/uL Potassium 5.3 H (3.5-5.1) mmol/L Creatinine 1.51 H (0.66-1.25) mg/dL Glucose 102 H (74-99) mg/dL POC Glucose (mg/dL) (75-99) mg/dL Magnesium 1.1 L (1.6-2.3) mg/dL AST 61 H (17-59) U/L Alkaline Phosphatase 274 H (38-126) U/L Albumin 3.3 L (3.5-5.0) g/dL Lipase 1024 H (23-300) U/L Urine Protein Trace H (Negative) 10/09/18 10/09/18 Range/Units 07:19 11:13 RBC (4.30-5.90) m/uL Hgb (13.0-17.5) gm/dL Hct (39.0-53.0) % RDW (11.5-15.5) % Lymphocytes # (1.0-4.8) k/uL Potassium (3.5-5.1) mmol/L Creatinine (0.66-1.25) mg/dL Glucose (74-99) mg/dL POC Glucose (mg/dL) 114 H 103 H (75-99) mg/dL Magnesium (1.6-2.3) mg/dL AST (17-59) U/L Alkaline Phosphatase (38-126) U/L Albumin (3.5-5.0) g/dL Lipase (23-300) U/L Urine Protein (Negative) Diabetes panel 10/09/18 Range/Units 03:00 Sodium 138 (137-145) mmol/L Potassium 5.3 H (3.5-5.1) mmol/L Chloride 106 (98-107) mmol/L Carbon Dioxide 23 (22-30) mmol/L BUN 17 (9-20) mg/dL Creatinine 1.51 H (0.66-1.25) mg/dL Glucose 102 H (74-99) mg/dL Calcium 9.0 (8.4-10.2) mg/dL AST 61 H (17-59) U/L ALT 54 (21-72) U/L Alkaline Phosphatase 274 H (38-126) U/L Total Protein 6.3 (6.3-8.2) g/dL Albumin 3.3 L (3.5-5.0) g/dL Calcium panel 10/09/18 Range/Units 03:00 Calcium 9.0 (8.4-10.2) mg/dL Albumin 3.3 L (3.5-5.0) g/dL Pituitary panel 10/09/18 Range/Units 03:00 Sodium 138 (137-145) mmol/L Potassium 5.3 H (3.5-5.1) mmol/L Chloride 106 (98-107) mmol/L Carbon Dioxide 23 (22-30) mmol/L BUN 17 (9-20) mg/dL Creatinine 1.51 H (0.66-1.25) mg/dL Glucose 102 H (74-99) mg/dL Calcium 9.0 (8.4-10.2) mg/dL Adrenal panel 10/09/18 Range/Units 03:00 Sodium 138 (137-145) mmol/L Potassium 5.3 H (3.5-5.1) mmol/L Chloride 106 (98-107) mmol/L Carbon Dioxide 23 (22-30) mmol/L BUN 17 (9-20) mg/dL Creatinine 1.51 H (0.66-1.25) mg/dL Glucose 102 H (74-99) mg/dL Calcium 9.0 (8.4-10.2) mg/dL Total Bilirubin 0.5 (0.2-1.3) mg/dL AST 61 H (17-59) U/L ALT 54 (21-72) U/L Alkaline Phosphatase 274 H (38-126) U/L Total Protein 6.3 (6.3-8.2) g/dL Albumin 3.3 L (3.5-5.0) g/dL Assessment and Plan (1) Abdominal pain Narrative/Plan: Options reviewed with the patient and his . They are interested in possible hospice measures. We'll repeat lab work tomorrow. If symptoms increase or persistent consider CAT scan abdomen and pelvis. Current Visit: Yes Status: Acute Code(s): R10.9 - UNSPECIFIED ABDOMINAL PAIN SNOMED Code(s): 09597845
[2018-10-09] MEDS ORDERED: BENZOCAINE/MENTHOL LOZENG 1 EACH LOZENGE MUCOUS MEM PRN (16:27)
--- NOTE | 2018-10-09 17:11 | XR ---
EXAMINATION: XR chest 3V DATE AND TIME: 10/09/2018 4:47 PM CLINICAL INDICATION: PHH; aspiration TECHNIQUE: Frontal and 2 lateral views were obtained COMPARISON: 10/09/2018 3:22 AM FINDINGS: Right IJ Port-A-Cath tip appears unchanged, at the cavoatrial junction. Moderately prominent persistent left costophrenic angle blunting, with mildly prominent persistent ri ght costophrenic angle blunting. The lungs are otherwise clear and the pleural spaces are otherwise n egative. No evidence of pneumothorax, and no evidence of pneumoperitoneum. Cardiomediastinal silhouette and dimitri pool and soft tissues are unremarkable. IMPRESSION: Stable radiographic appearance compared to the prior study from 10/09/2017 at 3:22 AM.
[2018-10-09 17:33] LABS: Glucose,Whole Blood 94 mg/dL (75-99)
[2018-10-09 19:49] LABS: Glucose,Whole Blood 116 mg/dL (75-99)
--- NOTE | 2018-10-09 19:52 | P.CONS ---
History of Present Illness - Reason for Consult Consult date: 10/09/18 Metastatic Colon Cancer Requesting physician: Jorgito Carr - Chief Complaint Abdominal Pain and elevated Pancreatic Enzymes. - History of Present Illness Mr. Patel is a pleasant WM who is well known to our practice for treatment of his known metastatic Colon Cancer. He was originally developed symptoms in July of 2016 with difficulty having bowel movements. In early 2016, he presented with complaints of shortness of breath and was found to have left pleural effusion, underwent thoracentesis which was originally negative for malignant cells, his SOB persisted therefore a CTA was completed and which revealed recurrent effusion as well as suspicious devlopement on right hepatic lobe, measuring approx 2.8cm, concerning for metastatic malignancy as there was also smaller hepatic lesions noted. He had a colonoscopy on 12/02/16 which showed poor prep. A partially obstructing mass was seen in the rectal sigmoid area beyond which the scope could not be passed. Biopsy was positive for adenocarcinoma. He was started on FOLFOX and completed 12 cycles 05/2017. Vectibix was added with cycle 6. CTs after cycle 6 showed improvement. Cycle 7 was delayed due to his infection. Dose was decreased with cycle 8 due toxicity ( diarrhea, mucositis). On 06/2017 he was admitted with bowel obstruction which required surgical intervention with diverting colostomy. CT and operative inspection showed no obvious progression. He started maintenance Xeloda 2500 PO BID and Vectibix in late 07/20. Toxicities required treatment delays and reductions through maintenance. In 01/2018 showed progression in the lungs and liver, with increase in CEA. He was started on FOLFIRI and Vectibix. Toxicities required decreased dose by 15% after C5. Ct scans in 04/21 showed possible progression in the liver, but CEA remained stable. He was thus continued on Vectibix. CEA started to progress in 06/2018 though pt was initially asymptomatic. He was admitted to [facility] on 07/06/[address] scans from 07/02/18, and CTA showed progression with b/l pleural effusions R>L, mediastinal nodes, increase in liver and omental lesions. Thoracentesis on 07/07/18 yielded 1.7 L , with cytology positive for colorectal ca. He resumed chemo with FOLFIRI + Vectibix on 07/14/18 and continued on until his last dose 09/2018 Coarse of treatment was complicated with on 08/17/18 bilateral pulm embolisms. requiring transfer to [facility]. He underwent catheter directed thrombolysis. He was also found to have extensive RLE DVT. He had his Eliquis stopped and an IVC filter placed on 09/03/18 at [facility], due to bleeding per rectum. This has since resolved. He now presents to emergency for abdominal pain and increased lipase. He is feeling better since admission, has output in ostomy. He did have abdominal Xray and ultrasound which did not show any acute obstruction or concerns. He did have shortness of breath and a chest xray was completed that did not show any evidence of acute process or aspiration. He is receiving supportive care and bowel rest. Surgery and GI are following. He is feeling better then when presented to hospital, still nauseated and intermittent pain, although tylenol is controlling pain and antiemetics are contolling nausea. He has a wet, non productive cough, lungs Clear, chest xray performed. Review of Systems A 14 point review of systems assessed and completed and all negative except HPI. Past Medical History Past Medical History: Cancer, Diabetes Mellitus, Hyperlipidemia, Prostate Disorder Additional Past Medical History / Comment(s): HX PLEURAL EFFUSION-PAST THORACENTESIS, STATES CA OF left sided LUNG, COLON, LIVER. colon-primary stage 4. dx 11/18- chemo. Colostomy 06/08/2017 History of Any Multi-Drug Resistant Organisms: None Reported Past Surgical History: Back Surgery, Bowel Resection, Joint Replacement Additional Past Surgical History / Comment(s): 08/12/16 Revision total R knee arthroplasty. BILATERAL KNEE REPLACEMENTS,PLEURAL EFFUSION THORACENTESIS X3 PAULINO CATARACT SX; right rotator cuff shoulder sx, COLONOSCOPY 09/2016. colostomy bag changed 10/09/18 Past Anesthesia/Blood Transfusion Reactions: Postoperative Nausea & Vomiting (PONV) Additional Past Anesthesia/Blood Transfusion Reaction / Comm: Pt has had PONV and BROTHER HAD PONV. Past Psychological History: Depression Additional Psychological History / Comment(s): . Smoking Status: Former smoker Past Alcohol Use History: Rare Additional Past Alcohol Use History / Comment(s): STARTED SMOKING 1968, QUIT SMOKING 1974, SMOKED 1PPD Past Drug Use History: Marijuana - Past Family History Father Family Medical History: Diabetes Mellitus Additional Family Medical History / Comment(s): Father at the age of 86yrs. Mother Family Medical History: Cancer, Dementia Additional Family Medical History / Comment(s): Mother at the age of 84yrs. Medications and Allergies Home Medications Medication Instructions Recorded Confirmed Type Pravastatin Sodium [Pravachol] 40 mg PO HS 08/02/16 10/09/18 History metFORMIN HCL 1,000 mg PO BID 06/07/17 10/09/18 History Gabapentin [Neurontin] 300 mg PO TID 03/04/18 10/09/18 History Lidocaine HCl [Aspercreme] 1 applic TOPICAL BID PRN 07/06/18 10/09/18 History Magnesium Oxide [Mag-Ox] 400 mg PO DAILY 07/06/18 10/09/18 History Nystatin 100,000 Unit/ml Susp 500,000 unit PO PC-TID 07/06/18 10/09/18 History [Mycostatin Oral Susp] glipiZIDE XL [Glucotrol Xl] 5 mg PO DAILY 08/17/18 10/09/18 History Apixaban [Eliquis] 5 mg PO DAILY 09/28/18 10/09/18 History Codeine Phosphate/Guaifenesin 10 ml PO Q4H 09/28/18 10/09/18 History [Guaifen-Codeine 100-10 mg/5 ml] Lidocaine-Prilocaine Cream [Emla 1 applic TOPICAL TID PRN 09/28/18 10/09/18 History Cream 2.5%/2.5%] Meloxicam [Mobic] 15 mg PO DAILY 09/28/18 10/09/18 History Tamsulosin [Flomax] 0.4 mg PO DAILY 09/28/18 10/09/18 History Ondansetron Odt [Zofran Odt] 4 mg PO Q6H PRN 10/09/18 10/09/18 History Allergies Allergy/AdvReac Type Severity Reaction Status Date / Time No Known Allergies Allergy Verified 10/09/18 08:05 Physical Exam Vitals: Vital Signs Temp Pulse Pulse Resp BP BP Pulse Ox 10/09/18 13:45 72 16 10/09/18 11:15 97.5 F L 72 16 135/78 97 10/09/18 07:59 73 16 10/09/18 07:45 97.2 F L 73 16 122/72 97 10/09/18 04:48 98.4 F 78 18 147/83 98 10/09/18 02:22 97.5 F L 94 22 142/89 99 Intake and Output 10/09/18 10/09/18 10/09/18 06:59 14:59 22:59 Intake Total 200 500 Balance 200 500 Intake: Intake, IV Titration 200 500 Amount Magnesium Sulfate-D5w Pmx 200 1 gm In Dextrose/Water 1 100ml.bag @ 100 mls/hr IVPB Q1H REINALDO Rx#: [id number] Sodium Chloride 0.9% 1, 500 000 ml @ 125 mls/hr IV . Q8H REINALDO Rx#:[id number] Other: Weight 79.107 kg Gen: No acute distress alert and oriented Head NC, NT Neck Supple, no cervical lymphadenopathy Lungs: Diminished bibasilar, no increased effort at time of assessment and no wheezing Heart: RRR, S1s2 Abdomen: Out put in ostomy, Non distended, tender to palpation Ext: No edema, Weakness bilateral Neurological: Anxious coorporative. Non-focal. Results CBC & Chem 7: 10/09/18 03:00 10/09/18 03:00 Labs: Abnormal Lab Results - Last 24 Hours (Table) 10/09/18 10/09/18 10/09/18 Range/Units 03:00 03:00 04:45 RBC 3.60 L (4.30-5.90) m/uL Hgb 9.2 L (13.0-17.5) gm/dL Hct 28.9 L (39.0-53.0) % RDW 17.8 H (11.5-15.5) % Lymphocytes # 0.7 L (1.0-4.8) k/uL Potassium 5.3 H (3.5-5.1) mmol/L Creatinine 1.51 H (0.66-1.25) mg/dL Glucose 102 H (74-99) mg/dL POC Glucose (mg/dL) (75-99) mg/dL Magnesium 1.1 L (1.6-2.3) mg/dL AST 61 H (17-59) U/L Alkaline Phosphatase 274 H (38-126) U/L Albumin 3.3 L (3.5-5.0) g/dL Lipase 1024 H (23-300) U/L Urine Protein Trace H (Negative) 10/09/18 10/09/18 Range/Units 07:19 11:13 RBC (4.30-5.90) m/uL Hgb (13.0-17.5) gm/dL Hct (39.0-53.0) % RDW (11.5-15.5) % Lymphocytes # (1.0-4.8) k/uL Potassium (3.5-5.1) mmol/L Creatinine (0.66-1.25) mg/dL Glucose (74-99) mg/dL POC Glucose (mg/dL) 114 H 103 H (75-99) mg/dL Magnesium (1.6-2.3) mg/dL AST (17-59) U/L Alkaline Phosphatase (38-126) U/L Albumin (3.5-5.0) g/dL Lipase (23-300) U/L Urine Protein (Negative) Abdominal x-ray: report reviewed US - abdomen: report reviewed Assessment and Plan Plan: Assessment and recommendations: 1. Metastatic Colon Cancer: - Multiple lines of therapy with moderate toxicities of neuropathy and skin effects - Status Post FOLFIRI with Vectibix most recently on 09/30/18 - Treatment on hold as patient currently not sure if he would like to continue further 2. Increased Lipase and Abdominal Pain: - Concern for pancreastitis likely from medication less likely metastatic - Bowel Rest, slow increase diet - Surgery and GI Following - Abdominal Xray and Ultrasound reviewed 3. HX: Bilateral Pulmonary Emboli and extensive DVT requiring thrombolectomy at [facility] and Eliquis - Eliquis discontinued for rectal bleeding and IVC Filter placed in August 2018 - Patient currentlky not on VTE Prophylaxis, would still recommend without sig ns of bleeding 4. Insomnia: - Benadryl PRN at Hs ordered 5. Normocytic Anemia: - Secondary to malignancy, Chemotherapy and component of iron deficiency from blood loss - Monitor Daily CBC 6. Moderate Chemotherapy induced pripheral neuropathy - Walks with cane at baseline, concern for further decline in performance status with hospitalization - Consult placed for Physical therapy to assist in prevention of further weakness Physician Attestation: I have completed the full history and physical and devloped the complete impression and plan, agree with above dictation by Claudia Puri, dictated as a scribe.
[2018-10-09] MEDS ORDERED: METHYL SALICYLATE/MENTHOL CREAM 5 OZ TOPICAL PRN (19:57)
[2018-10-09] MEDS ORDERED: LIDOCAINE-PRILOCAINE 2.5-2.5% CREAM 5 GM TUBE TOPICAL PRN (19:57)
[2018-10-09] MEDS ORDERED: CALCIUM CARBONATE 500 MG CHEWABLE PO PRN (19:59)
[2018-10-09] MEDS ORDERED: MELATONIN 3 MG TABLET PO PRN (19:59)
[2018-10-09] MEDS ORDERED: ALPRAZolam 0.25 MG TAB PO PRN (19:59)
[2018-10-09] MEDS: TAMSULOSIN 0.4 MG CAP.ER.24H PO SCH (21:16)
[2018-10-09] MEDS: diphenhydrAMINE 25 MG CAP PO PRN (21:16)
[2018-10-09] MEDS: GABAPENTIN 300 MG CAP PO SCH (21:16)
--- NOTE | 2018-10-09 22:36 | HP ---
HISTORY AND PHYSICAL DATE OF ADMISSION: October 09, 2018. DATE OF SERVICE: October 09, 2018. PRESENTING COMPLAINT: Abdominal pain. HISTORY OF PRESENTING COMPLAINT: This is a pleasant 78-year-old patient who in November of 2016 was found to have left- sided pleural effusion that was drained. The patient had recurrent pleural effusion. Multiple liver lesions were noted. The patient was found to have rectosigmoid near obstructing mass. Biopsy did confirm adenocarcinoma. The patient since subsequently has had transverse colostomy and is on chemotherapy. The patient's other chronic stable medical conditions include diabetes, hypertension, BPH. Last chemotherapy was a week ago. The patient yesterday started off with increasing abdominal pain more so in the upper middle with nausea, vomiting. There was no fever. The patient has been losing weight. Loss of some appetite. The patient admitted with acute pancreatitis. The patient's colostomy bag output has otherwise been okay. REVIEW OF SYSTEMS: CONSTITUTIONAL: Weak and tired. Loss of appetite. HEENT: None. RESPIRATORY none. CARDIOVASCULAR: None. GASTROINTESTINAL: As above. GENITOURINARY: None. MUSCULOSKELETAL: None. DERMATOLOGICAL, HEMATOLOGIC, LYMPHATICS: none. PSYCHIATRY none. NEUROLOGICAL: None. PAST MEDICAL HISTORY: Diabetes type 2, hypertension, CA colon with metastases to the liver and lung, stage IV with a diverting loop colostomy. PAST SURGICAL HISTORY: Back surgery, revision right total knee arthroplasty, bilateral knee replacement, right shoulder cuff surgery and colostomy. SOCIAL HISTORY: The patient smoked for a very short time. . Alcohol rarely. FAMILY HISTORY: Diabetes. MEDICATIONS: Home medications: 1. Metformin 1000 mg b.i.d. 2. Glucotrol XL 5 mg daily. 3. Flomax 0.4 mg p.o. daily. 4. Pravachol 40 mg q.h.s. 5. Zofran 4 mg q.6h p.r.n. 6. Mycostatin units p.o. t.i.d. 7. Magnesium oxide 400 mg p.o. daily. 8. EMLA cream topical t.i.d. p.r.n. 9. Aspercreme 1 application topical b.i.d. p.r.n. 10.Neurontin 300 mg t.i.d. 11.Guaifenesin codeine q.4. 12.Eliquis 5 mg p.o. daily. ALLERGIES: None. PHYSICAL EXAMINATION: VITAL SIGNS: Vital signs on presentation, temperature 98.6, pulse 68, respirations 16, blood pressure 127/58, pulse ox 93 percent on room air. GENERAL APPEARANCE: Average build, lying in bed. Tired-appearing. EYES: Pupils equal. Conjunctivae pale. HEENT: External appearance of nose and ears normal. Oral cavity a bit dry. NECK: JVD not raised. Mass not palpable. Respiratory effort normal. LUNGS: Slightly decreased breath sounds. CARDIOVASCULAR: First and second sounds normal. No edema. ABDOMEN: Upper abdomen tenderness. Colostomy bag with some brown stool in place. Liver and spleen not palpable. LYMPHATIC: No lymph nodes palpable in the neck and axilla. PSYCHIATRY: Alert and oriented x3. Mood and affect normal. NEUROLOGICAL: Pupils equal. Cranial nerves grossly intact. Power and sensation grossly intact. INVESTIGATIONS: White count 6.3, hemoglobin 9.2, potassium 5.3, BUN 17, creatinine 1.51, AST 61, ALT 54, lipase 1024. The patient's creatinine was 0.94 back August 17. Chest x-ray film personally reviewed by me shows some hyperinflation. Abdominal ultrasound unremarkable. EKG tracing personally reviewed by me shows normal sinus rhythm. ASSESSMENT: 1. Acute idiopathic pancreatitis. 2. Metastatic adenocarcinoma of the colon with metastases to liver, pleural effusion, stage IV, getting chemotherapy. 3. Loop diverting colostomy. 4. Diabetes mellitus type 2 on oral hypoglycemic. 5. Essential hypertension. 6. Benign prostatic hypertrophy. 7. Acute renal failure likely prerenal from dehydration. 8. Normocytic anemia of malignancy. 9. Mild protein-calorie malnutrition from decreased oral intake. The patient's albumin is 3.3. PLAN: The patient was made n.p.o. except for clear liquids. Given IV fluids. Home medications resumed. Patient's oral hypoglycemics have been held. Electrolytes will be followed closely. Care was discussed with the patient. Questions were answered. Copy to Dr. Hayes. MMNUBIAL / MARISELA: [id number] /
[2018-10-10] MEDS: SODIUM CHLORIDE 0.9% 1,000 ML IV SCH ×3 (00:36→19:07)
[2018-10-10 06:58] LABS: Glucose,Whole Blood 84 mg/dL (75-99)
[2018-10-10 07:43] LABS: Anisocytosis Slight; Basophils % (A) 0 %; Eosinophils # (A) 0.2 k/uL (0-0.7); Eosinophils % (A) 5 %; HCT 26.8 % (39.0-53.0); HGB 8.1 gm/dL (13.0-17.5); Hypochromasia Moderate; Lymphocytes # (A) 0.6 k/uL (1.0-4.8); Lymphocytes % (A) 16 %; MCH 24.9 pg (25.0-35.0); MCHC 30.4 g/dL (31.0-37.0); MCV 81.9 fL (80.0-100.0); Monocytes # (A) 0.3 k/uL (0-1.0); Monocytes % (A) 9 %; Neutrophils # (A) 2.5 k/uL (1.3-7.7); Neutrophils % (A) 66 %; Platelet Count 259 k/uL (150-450); RBC 3.27 m/uL (4.30-5.90); RDW 17.7 % (11.5-15.5); WBC 3.8 k/uL (3.8-10.6)
[2018-10-10 07:56] LABS: Calcium 8.6 mg/dL (8.4-10.2); Potassium 5.1 mmol/L (3.5-5.1); Total Bilirubin 0.5 mg/dL (0.2-1.3); Total Protein 5.7 g/dL (6.3-8.2)
[2018-10-10] MEDS: PANTOPRAZOLE 40 MG/10 ML VIAL IV SCH (08:51)
[2018-10-10] MEDS: TAMSULOSIN 0.4 MG CAP.ER.24H PO SCH (08:51)
[2018-10-10] MEDS: GABAPENTIN 300 MG CAP PO SCH ×3 (08:51→21:11)
[2018-10-10] MEDS: SALT AND SODA MOUTHWASH 1,000 ML PO SCH ×4 (08:52→21:12)
[2018-10-10] MEDS: MAG HYDROX/AL HYDROX/SIMETH 30 ML, LIDOCAINE VISCOUS 30 ML, diphenhydrAMINE ELIXIR 75 M... PO SCH ×12 (08:53→21:11)
--- NOTE | 2018-10-10 09:09 | P.PN ---
Progress Note - Text Progress Note Date: 10/10/18 The patient's lipase has improved. Apparently the patient's family is considering hospice. No surgical intervention is planned. We will sign off.
[2018-10-10 11:22] LABS: Glucose,Whole Blood 126 mg/dL (75-99)
[2018-10-10 16:56] LABS: Glucose,Whole Blood 126 mg/dL (75-99)
--- NOTE | 2018-10-10 18:56 | P.PN ---
Subjective Progress Note Date: 10/10/18 The patient still complains of discomfort in the left mid abdomen, but states this is improved. He also reports increase in appetite, and was able to tolerate his breakfast well. No history of any fever/chills. Chronic rectal discharge somewhat increased. No no history of any blood in the stool. Objective - Vital Signs Vital signs: Vital Signs Temp 97.4 F L 10/10/18 11:52 Pulse 74 10/10/18 11:52 Resp 16 10/10/18 11:52 BP 132/77 10/10/18 11:52 Pulse Ox 98 10/10/18 11:52 Intake & Output 10/09/18 10/10/18 10/10/18 18:59 06:59 18:59 Intake Total 571 413 0694 Balance 382 374 7328 Intake: Intake, IV Titration 500 1000 Amount Sodium Chloride 0.9% 1, 500 1000 000 ml @ 125 mls/hr IV . Q8H REINALDO Rx#:[id number] Oral 350 Other: Voiding Method Toilet # Voids 1 # Bowel Movements 1 - Constitutional General appearance: Present: no acute distress - EENT Eyes: Present: EOMI ENT: Present: hearing grossly normal, normal oropharynx - Respiratory Respiratory: bilateral: CTA - Cardiovascular Rhythm: regular Heart sounds: normal: S1, S2 - Gastrointestinal General gastrointestinal: Present: normal bowel sounds Localized gastrointestinal: tender: LUQ - Neurologic Neurologic: Present: CNII-XII intact - Musculoskeletal Musculoskeletal: Present: generalized weakness, strength equal bilaterally - Psychiatric Psychiatric: Present: A&O x's 3, appropriate affect - Labs CBC & Chem 7: 10/10/18 06:59 10/10/18 06:59 Labs: Abnormal Lab Results - Last 24 Hours (Table) 10/09/18 10/09/18 10/10/18 Range/Units 03:00 19:46 06:59 RBC (4.30-5.90) m/uL Hgb (13.0-17.5) gm/dL Hct (39.0-53.0) % MCH (25.0-35.0) pg MCHC (31.0-37.0) g/dL RDW (11.5-15.5) % Lymphocytes # (1.0-4.8) k/uL Chloride 110 H (98-107) mmol/L Carbon Dioxide 21 L (22-30) mmol/L Creatinine 1.55 H (0.66-1.25) mg/dL POC Glucose (mg/dL) 116 H (75-99) mg/dL Alkaline Phosphatase 233 H (38-126) U/L Total Protein 5.7 L (6.3-8.2) g/dL Albumin 3.0 L (3.5-5.0) g/dL Lipase 332 H (23-300) U/L Carcinoembryonic Ag 2526.4 H (0.0-4.9) ng/mL 10/10/18 10/10/18 10/10/18 Range/Units 06:59 11:20 16:53 RBC 3.27 L (4.30-5.90) m/uL Hgb 8.1 L (13.0-17.5) gm/dL Hct 26.8 L (39.0-53.0) % MCH 24.9 L (25.0-35.0) pg MCHC 30.4 L (31.0-37.0) g/dL RDW 17.7 H (11.5-15.5) % Lymphocytes # 0.6 L (1.0-4.8) k/uL Chloride (98-107) mmol/L Carbon Dioxide (22-30) mmol/L Creatinine (0.66-1.25) mg/dL POC Glucose (mg/dL) 126 H 126 H (75-99) mg/dL Alkaline Phosphatase (38-126) U/L Total Protein (6.3-8.2) g/dL Albumin (3.5-5.0) g/dL Lipase (23-300) U/L Carcinoembryonic Ag (0.0-4.9) ng/mL Microbiology - Last 24 Hours (Table) 10/09/18 03:00 Blood Culture - Preliminary Blood No Growth after 24 hours Assessment and Plan (1) Pancreatitis Narrative/Plan: The patient had presented with increasing abdominal pain, with elevated lipase. Pancreatitis was a clinical diagnosis, though imaging studies were negative. Clinically, the patient has improved with conservative treatment, for pancreatitis. Clinical improvement corresponds to decrease in lipase. Etiology of pancreatitis is unknown. Ultrasound did not show any structural abnormality in the region of the pancreas, or any obstruction to the biliary system. Pancreatitis is also not usually associated other side effect with his current regimen. Continue treatment per admitting service and surgery. Current Visit: Yes Status: Acute Code(s): K85.90 - ACUTE PANCREATITIS WITH OUT NECROSIS OR INFECTION, UNSP SNOMED Code(s): 99918131 (2) Colon cancer Narrative/Plan: I had a detailed discussion with the patient and his about future plans. Prior to starting his current cycle, his CEA had actually shown a significant increase. However the patient had had a long treatment break due to PE. There fore it was not clear if the progression of disease was due to treatment interruptions or represented progression on his current treatment. It was therefore decided to resume his chemotherapy, and evaluate after 2 cycles. The patient is status post 1 cycle after resumption. As noted above, it is not clear if this current presentation indicates chemotherapy side effect as pancreatitis is not an usual side effect of his regimen. The patient stated that he definitely does not want chemotherapy any more based on how he feels (chemotherapy related toxicity has been an issue with this and other regimens in the past also). I therefore discussed comfort care/hospice with him. He then stated initially that he didn't want chemotherapy currently, but would consider it down the line if he felt better. I discussed with him that he didn't want to try active treatment, a significant delay would not be advisable as it would likely further progression of his disease, as occurred recently. After further discussion, at this time, the patient states that he does not think that he will seek active therapy, and feels that he may be ready for hospice. I will check a CEA level. If this shows a response, then it is possible that the patient may still consider active therapy down the line. However if there is continued progression then he is much more likely to go with the comfort care option. Current Visit: Yes Status: Acute Code(s): C18.9 - MALIGNANT NEOPLASM OF COLON, UNSPECIFIED SNOMED Code(s): 616564640
[2018-10-10 20:18] LABS: Glucose,Whole Blood 153 mg/dL (75-99)
--- NOTE | 2018-10-10 20:23 | PN ---
PROGRESS NOTE DATE OF SERVICE: October 10, 2018. PRESENTING COMPLAINT: Abdominal pain. INTERVAL HISTORY: This patient with metastatic colon adenocarcinoma, presented with acute pancreatitis. Feeling better. Abdominal pain greatly improved. Did tolerate clear liquids. Colostomy bag is working. No fever. No chills. Still feels a bit tired. Has been out of bed. REVIEW OF SYSTEMS: Done for constitutional, cardiovascular, GI, pulmonary and relevant findings as above. CURRENT MEDICATIONS: Reviewed that include normal saline. PHYSICAL EXAMINATION: VITAL SIGNS: Temperature 97.4. Pulse 74, respiratory rate 16, blood pressure 132/77, pulse ox 98% on room air. GENERAL APPEARANCE: Sitting up, awake. EYES: Pupils equal. Conjunctivae pale. NECK: JVD not raised. Mass not palpable. RESPIRATORY: Effort normal. LUNGS: Diminished breath sounds. CARDIOVASCULAR: First and second sounds normal. No edema. ABDOMEN: No tenderness. Colostomy bag with some brown stool. Liver and spleen not palpable. PSYCHIATRY: Alert and oriented x3. Mood and affect normal. INVESTIGATIONS: White count 3.8, hemoglobin 8.1, potassium 5.1, creatinine 1.55, lipase 332. ASSESSMENT: 1. Acute idiopathic pancreatitis with clinical and biochemical improvement. 2. Metastatic adenocarcinoma of colon with metastasis to liver, pleural effusion, stage IV, getting chemotherapy. 3. Loop diverting colostomy. 4. Diabetes mellitus type 2 on oral hypoglycemic. 5. Essential hypertension. 6. Benign prostatic hypertrophy. 7. Acute renal failure probably prerenal from dehydration. 8. Normocytic anemia from malignancy. 9. Mild protein-calorie malnutrition from decreased oral intake. PLAN: Keep the patient on IV fluids. We will advance to full liquid diet see how he does. Repeat electrolytes in the morning. MMODL / IJN: [id number] /
[2018-10-10] MEDS: diphenhydrAMINE 25 MG CAP PO PRN (21:15)
[2018-10-11] MEDS: SODIUM CHLORIDE 0.9% 1,000 ML IV SCH ×2 (03:37→07:50)
[2018-10-11 06:51] LABS: Glucose,Whole Blood 109 mg/dL (75-99)
[2018-10-11] MEDS: TAMSULOSIN 0.4 MG CAP.ER.24H PO SCH (08:07)
[2018-10-11] MEDS: PANTOPRAZOLE 40 MG/10 ML VIAL IV SCH (08:07)
[2018-10-11] MEDS: GABAPENTIN 300 MG CAP PO SCH (08:08)
[2018-10-11] MEDS: MAG HYDROX/AL HYDROX/SIMETH 30 ML, LIDOCAINE VISCOUS 30 ML, diphenhydrAMINE ELIXIR 75 M... PO SCH ×4 (08:08)
[2018-10-11] MEDS: SALT AND SODA MOUTHWASH 1,000 ML PO SCH ×2 (08:08→12:06)
[2018-10-11 08:35] LABS: Calcium 8.3 mg/dL (8.4-10.2); Potassium 4.7 mmol/L (3.5-5.1)
[2018-10-11 11:14] LABS: Glucose,Whole Blood 219 mg/dL (75-99)
[2018-10-11 12:47] VITALS: BP 146/71; PULSE 80; TEMP 97.8
--- NOTE | 2018-10-11 18:38 | DS ---
DISCHARGE SUMMARY DATE OF ADMISSION: October 09, 2018 DATE OF DISCHARGE: October 11, 2018. FINAL DIAGNOSES: 1. Acute idiopathic pancreatitis. 2. Metastatic adenocarcinoma of the colon with metastases to the liver, pleural effusion, stage IV, getting chemotherapy. 3. Loop diverting colostomy. 4. Diabetes mellitus type 2 on oral hypoglycemic. 5. Essential hypertension. 6. Benign prostatic hypertrophy. 7. Acute renal failure probably prerenal from dehydration and possibly chemotherapy that could be acute tubular necrosis. 8. Normocytic anemia from malignancy. 9. Mild protein-calorie malnutrition from decreased oral intake. HOSPITAL COURSE: This patient is undergoing chemotherapy by Dr. Rogers, presented with acute pancreatitis that did improve today. Patient doing much better, tolerating a diet. Abdominal pain is completely resolved. The patient did have a talk to Dr. Rogers. At this point, is not keen to pursue any further chemotherapy. The patient is going to look back in the same. I spoke to the patient and . He wanted to discuss this further. I did tell him that this will be best served if he talks this to his oncologist and the clinical picture and then make more definitive decision. Otherwise, patient has been out of bed, overall feeling much better. EXAMINATION: Temp 97.8, pulse 82, respiratory rate 16, blood pressure 146/71, pulse ox 98% on room air. Lungs: Decreased breath sounds. ABDOMEN: Soft, nontender. INVESTIGATIONS: Potassium 4.7, BUN 11, creatinine 1.37. White count 3.8, hemoglobin is 8.1. DISCHARGE MEDICATIONS: 1. Pravachol 40 mg q.h.s. 2. Metformin 1000 mg p.o. b.i.d. 3. Neurontin 300 mg p.o. t.i.d. 4. Lidocaine topical b.i.d. p.r.n. 5. Magnesium oxide 400 mg p.o. daily. 6. Nystatin 500,000 units p.o. a.c. t.i.d. 7. Glucotrol XL 5 mg p.o. daily. 8. Eliquis 5 mg p.o. daily. 9. Guaifenesin codeine 10 mL p.o. q.4. 10.EMLA cream 2.5% topical t.i.d. 11.Mobic 50 mg p.o. daily. 12.Flomax 0.4 mg p.o. daily. 13.Zofran 4 mg q.6h p.r.n. Diet: Low-fat soft bland. FOLLOWUP: Follow up with Dr. Hayes in 3 days. Follow up with Dr. Rogers in 1 week. Discussion and discharge planning more than [address] Hayes. MMCHRISTEN / KISHORN: [id number] /
== END 2018-10-11 15:25 | disposition home health service (06) | DRG 438 ==
LOC: EC 02:18 → 3NMEDONC 04:23
PROVIDERS: ADMIT Hospitalist; ATTEND Hospitalist
DX: K85.00 Idiopathic acute pancreatitis without necrosis or infection (principal); N17.0 Acute kidney failure with tubular necrosis; C19 Malignant neoplasm of rectosigmoid junction; C78.7 Secondary malignant neoplasm of liver and intrahepatic bile duct; C78.02 Secondary malignant neoplasm of left lung; J91.0 Malignant pleural effusion; E44.1 Mild protein-calorie malnutrition; D63.0 Anemia in neoplastic disease; E11.9 Type 2 diabetes mellitus without complications; E78.5 Hyperlipidemia, unspecified; E86.0 Dehydration; I10 Essential (primary) hypertension; Z86.718 Personal history of other venous thrombosis and embolism; Z86.711 Personal history of pulmonary embolism; Z79.01 Long term (current) use of anticoagulants; K12.30 Oral mucositis (ulcerative), unspecified; N40.0 Benign prostatic hyperplasia without lower urinary tract symptoms; Z79.1 Long term (current) use of non-steroidal anti-inflammatories (NSAID); Z79.84 Long term (current) use of oral hypoglycemic drugs; Z79.899 Other long term (current) drug therapy; Z83.3 Family history of diabetes mellitus; Z85.048 Personal history of other malignant neoplasm of rectum, rectosigmoid junction, and anus; Z87.891 Personal history of nicotine dependence; Z93.3 Colostomy status; Z95.828 Presence of other vascular implants and grafts; Z96.653 Presence of artificial knee joint, bilateral; G62.0 Drug-induced polyneuropathy; T45.1X5A Adverse effect of antineoplastic and immunosuppressive drugs, initial encounter; Z80.9 Family history of malignant neoplasm, unspecified; Z90.49 Acquired absence of other specified parts of digestive tract; G47.00 Insomnia, unspecified
CPT/HCPCS: 36415; 71046; 74018; 76705; 80048; 80053; 81003; 82150; 82378; 83690; 83735; 85025; 87040; 93005; 96365; 96375; 99285

== ENCOUNTER 2018-11-05 22:26 | Inpatient (IN) | payer MEDICARE ==
[2018-11-05] MEDS ORDERED: ALBUTEROL NEBULIZED 2.5 MG/3 ML INHALATION STA (22:42)
[2018-11-05] MEDS ORDERED: IPRATROPIUM 0.5 MG/2.5 ML NEBU INHALATION STA (22:42)
--- NOTE | 2018-11-05 22:43 | ED ---
SOB HPI - General Chief Complaint: Shortness of Breath Stated Complaint: [place]ET[place]/Cough Under [facility] Time Seen by Provider: 11/05/18 22:42 Source: patient, family, RN notes reviewed, old records reviewed Mode of arrival: ambulatory Limitations: no limitations - History of Present Illness Initial Comments: This is a 78-year-old male the ER for evaluation. Patient is known CA coming in for weakness cough weakness shortness of breath, no fevers. Patient cannot catch his breath and inability to amylase are pretty suddenly tonight. Patient is under hospice care. MD Complaint: shortness of breath, cough -: hour(s), days(s) Severity: mild Severity scale (1-10): 2 Consistency: constant Improves With: oxygen Worsens With: exertion, movement Known History Of: COPD, asthma Context: recent URI Associated Symptoms: denies other symptoms Treatments Prior to Arrival: none - Related Data Home Medications Medication Instructions Recorded Confirmed Pravastatin Sodium [Pravachol] 40 mg PO HS 08/02/16 11/05/18 metFORMIN HCL 1,000 mg PO DAILY 06/07/17 11/05/18 Gabapentin [Neurontin] 300 mg PO TID 03/04/18 11/05/18 Magnesium Oxide [Mag-Ox] 400 mg PO DAILY 07/06/18 11/05/18 Tamsulosin [Flomax] 0.4 mg PO BID 09/28/18 11/05/18 Ondansetron Odt [Zofran ODT] 4 mg PO Q6H PRN 10/09/18 11/05/18 Allergies Allergy/AdvReac Type Severity Reaction Status Date / Time No Known Allergies Allergy Verified 11/05/18 22:55 Review of Systems ROS Statement: Those systems with pertinent positive or pertinent negative responses have been documented in the HPI. ROS Other: All systems not noted in ROS Statement are negative. Past Medical History Past Medical History: Cancer, Diabetes Mellitus, Hyperlipidemia, Prostate Disorder Additional Past Medical History / Comment(s): HX PLEURAL EFFUSION-PAST THORACENTESIS, STATES CA OF left sided LUNG, COLON, LIVER. colon-primary stage 4. dx 11/18- chemo. Colostomy 06/08/2017 History of Any Multi-Drug Resistant Organisms: None Reported Past Surgical History: Back Surgery, Bowel Resection, Joint Replacement Additional Past Surgical History / Comment(s): 1/9/17 Revision total R knee arthroplasty. BILATERAL KNEE REPLACEMENTS,PLEURAL EFFUSION THORACENTESIS X3 PAULINO CATARACT SX; right rotator cuff shoulder sx, COLONOSCOPY 09/2016. colostomy bag changed 10/09/18 Past Anesthesia/Blood Transfusion Reactions: Postoperative Nausea & Vomiting (PONV) Additional Past Anesthesia/Blood Transfusion Reaction / Comment(s): Pt has had PONV and BROTHER HAD PONV. Past Psychological History: Depression Smoking Status: Former smoker Past Alcohol Use History: Rare Past Drug Use History: Marijuana - Past Family History Father Family Medical History: Diabetes Mellitus Additional Family Medical History / Comment(s): Father at the age of 86yrs. Mother Family Medical History: Cancer, Dementia Additional Family Medical History / Comment(s): Mother at the age of 84yrs. General Exam Limitations: no limitations General appearance: alert, in no apparent distress Head exam: Present: atraumatic, normocephalic, normal inspection Eye exam: Present: normal appearance, PERRL, EOMI. Absent: scleral icterus, conjunctival injection, periorbital swelling ENT exam: Present: normal exam, mucous membranes moist Neck exam: Present: normal inspection. Absent: tenderness, meningismus, lymphadenopathy Respiratory exam: Present: wheezes, accessory muscle use, decreased breath sounds, prolonged expiratory. Absent: respiratory distress, rales, rhonchi, stridor Cardiovascular Exam: Present: normal rhythm, tachycardia, normal heart sounds. Absent: systolic murmur, diastolic murmur, rubs, gallop, clicks GI/Abdominal exam: Present: soft, normal bowel sounds. Absent: distended, tenderness, guarding, rebound, rigid Extremities exam: Present: normal inspection, full ROM, normal capillary refill. Absent: tenderness, pedal edema, joint swelling, calf tenderness Back exam: Present: normal inspection Neurological exam: Present: alert, oriented X3, CN II-XII intact Psychiatric exam: Present: normal affect, normal mood Skin exam: Present: warm, dry, intact, normal color. Absent: rash Course Vital Signs 11/05/18 11/05/18 11/05/18 22:36 23:05 23:20 Temperature 98.4 F Pulse Rate 110 H 115 H 105 H Respiratory 25 H Rate Blood Pressure 158/77 O2 Sat by Pulse 91 L Oximetry 11/05/18 11/06/18 11/06/18 23:38 00:00 00:30 Temperature Pulse Rate 107 H 109 H 99 Respiratory 12 13 Rate Blood Pressure 128/85 121/71 O2 Sat by Pulse 91 L 97 Oximetry 11/06/18 11/06/18 11/06/18 01:00 01:25 01:32 Temperature Pulse Rate 96 96 Respiratory 22 Rate Blood Pressure 135/83 O2 Sat by Pulse 94 L Oximetry - Reevaluation(s) Reevaluation #1: 11/05/18 23:57 medical record is reviewed, patient is hospice, DNR Medical Decision Making - Medical Decision Making 78 male the ER for evaluation, patient resents today for evaluation of weakness. Patient be admitted for continued evaluation oncology breathing treatments and monitoring of vital signs. - Lab Data Result diagrams: 11/06/18 13:11 11/06/18 13:11 Lab Results 11/05/18 11/05/18 11/05/18 Range/Units 23:48 23:48 23:48 WBC 11.4 H (3.8-10.6) k/uL RBC 3.69 L (4.30-5.90) m/uL Hgb 9.2 L (13.0-17.5) gm/dL Hct 29.4 L (39.0-53.0) % MCV 79.7 L (80.0-100.0) fL MCH 24.9 L (25.0-35.0) pg MCHC 31.3 (31.0-37.0) g/dL RDW 16.3 H (11.5-15.5) % Plt Count 480 H (150-450) k/uL Neutrophils % 80 % Lymphocytes % 8 % Monocytes % 9 % Eosinophils % 1 % Basophils % 0 % Neutrophils # 9.2 H (1.3-7.7) k/uL Lymphocytes # 0.9 L (1.0-4.8) k/uL Monocytes # 1.0 (0-1.0) k/uL Eosinophils # 0.1 (0-0.7) k/uL Basophils # 0.0 (0-0.2) k/uL Hypochromasia Moderate Poikilocytosis Slight Anisocytosis Slight Microcytosis PT (9.0-12.0) sec INR (<1.2) APTT (22.0-30.0) sec Sodium 138 (137-145) mmol/L Potassium 5.0 (3.5-5.1) mmol/L Chloride 104 (98-107) mmol/L Carbon Dioxide 25 (22-30) mmol/L Anion Gap 9 mmol/L BUN 17 (9-20) mg/dL Creatinine 1.62 H (0.66-1.25) mg/dL Est GFR (CKD-EPI)AfAm 47 (>60 ml/min/1.73 sqM) Est GFR (CKD-EPI)NonAf 41 (>60 ml/min/1.73 sqM) Glucose 121 H (74-99) mg/dL POC Glucose (mg/dL) (75-99) mg/dL POC Glu Table Top Tile Setter ID Calcium 9.5 (8.4-10.2) mg/dL Magnesium 1.7 (1.6-2.3) mg/dL Total Bilirubin 0.5 (0.2-1.3) mg/dL AST 90 H (17-59) U/L ALT 43 (21-72) U/L Alkaline Phosphatase 315 H (38-126) U/L Troponin I (0.000-0.034) ng/mL NT-Pro-B Natriuret Pep 467 pg/mL Total Protein 6.4 (6.3-8.2) g/dL Albumin 3.4 L (3.5-5.0) g/dL Influenza Type A RNA (Not Detectd) Influenza Type B (PCR) (Not Detectd) 11/05/18 11/05/18 11/06/18 Range/Units 23:48 23:48 07:04 WBC (3.8-10.6) k/uL RBC (4.30-5.90) m/uL Hgb (13.0-17.5) gm/dL Hct (39.0-53.0) % MCV (80.0-100.0) fL MCH (25.0-35.0) pg MCHC (31.0-37.0) g/dL RDW (11.5-15.5) % Plt Count (150-450) k/uL Neutrophils % % Lymphocytes % % Monocytes % % Eosinophils % % Basophils % % Neutrophils # (1.3-7.7) k/uL Lymphocytes # (1.0-4.8) k/uL Monocytes # (0-1.0) k/uL Eosinophils # (0-0.7) k/uL Basophils # (0-0.2) k/uL Hypochromasia Poikilocytosis Anisocytosis Microcytosis PT 10.6 (9.0-12.0) sec INR 1.0 (<1.2) APTT 24.9 (22.0-30.0) sec Sodium (137-145) mmol/L Potassium (3.5-5.1) mmol/L Chloride (98-107) mmol/L Carbon Dioxide (22-30) mmol/L Anion Gap mmol/L BUN (9-20) mg/dL Creatinine (0.66-1.25) mg/dL Est GFR (CKD-EPI)AfAm (>60 ml/min/1.73 sqM) Est GFR (CKD-EPI)NonAf (>60 ml/min/1.73 sqM) Glucose (74-99) mg/dL POC Glucose (mg/dL) 177 H (75-99) mg/dL POC Glu Table Top Tile Setter ID Genevieve Mckeon Calcium (8.4-10.2) mg/dL Magnesium (1.6-2.3) mg/dL Total Bilirubin (0.2-1.3) mg/dL AST (17-59) U/L ALT (21-72) U/L Alkaline Phosphatase (38-126) U/L Troponin I <0.012 (0.000-0.034) ng/mL NT-Pro-B Natriuret Pep pg/mL Total Protein (6.3-8.2) g/dL Albumin (3.5-5.0) g/dL Influenza Type A RNA (Not Detectd) Influenza Type B (PCR) (Not Detectd) 11/06/18 11/06/18 11/06/18 Range/Units 11:30 12:30 13:11 WBC 11.9 H (3.8-10.6) k/uL RBC 3.55 L (4.30-5.90) m/uL Hgb 8.6 L (13.0-17.5) gm/dL Hct 28.2 L (39.0-53.0) % MCV 79.3 L (80.0-100.0) fL MCH 24.2 L (25.0-35.0) pg MCHC 30.5 L (31.0-37.0) g/dL RDW 16.8 H (11.5-15.5) % Plt Count 455 H (150-450) k/uL Neutrophils % 92 % Lymphocytes % 4 % Monocytes % 3 % Eosinophils % 1 % Basophils % 0 % Neutrophils # 10.9 H (1.3-7.7) k/uL Lymphocytes # 0.5 L (1.0-4.8) k/uL Monocytes # 0.3 (0-1.0) k/uL Eosinophils # 0.1 (0-0.7) k/uL Basophils # 0.0 (0-0.2) k/uL Hypochromasia Marked Poikilocytosis Anisocytosis Slight Microcytosis Slight PT (9.0-12.0) sec INR (<1.2) APTT (22.0-30.0) sec Sodium (137-145) mmol/L Potassium (3.5-5.1) mmol/L Chloride (98-107) mmol/L Carbon Dioxide (22-30) mmol/L Anion Gap mmol/L BUN (9-20) mg/dL Creatinine (0.66-1.25) mg/dL Est GFR (CKD-EPI)AfAm (>60 ml/min/1.73 sqM) Est GFR (CKD-EPI)NonAf (>60 ml/min/1.73 sqM) Glucose (74-99) mg/dL POC Glucose (mg/dL) 251 H (75-99) mg/dL POC Glu Table Top Tile Setter ID Genevieve Mckeon Calcium (8.4-10.2) mg/dL Magnesium (1.6-2.3) mg/dL Total Bilirubin (0.2-1.3) mg/dL AST (17-59) U/L ALT (21-72) U/L Alkaline Phosphatase (38-126) U/L Troponin I (0.000-0.034) ng/mL NT-Pro-B Natriuret Pep pg/mL Total Protein (6.3-8.2) g/dL Albumin (3.5-5.0) g/dL Influenza Type A RNA Not Detected (Not Detectd) Influenza Type B (PCR) Not Detected (Not Detectd) 11/06/18 Range/Units 13:11 WBC (3.8-10.6) k/uL RBC (4.30-5.90) m/uL Hgb (13.0-17.5) gm/dL Hct (39.0-53.0) % MCV (80.0-100.0) fL MCH (25.0-35.0) pg MCHC (31.0-37.0) g/dL RDW (11.5-15.5) % Plt Count (150-450) k/uL Neutrophils % % Lymphocytes % % Monocytes % % Eosinophils % % Basophils % % Neutrophils # (1.3-7.7) k/uL Lymphocytes # (1.0-4.8) k/uL Monocytes # (0-1.0) k/uL Eosinophils # (0-0.7) k/uL Basophils # (0-0.2) k/uL Hypochromasia Poikilocytosis Anisocytosis Microcytosis PT (9.0-12.0) sec INR (<1.2) APTT (22.0-30.0) sec Sodium 140 (137-145) mmol/L Potassium 5.3 H (3.5-5.1) mmol/L Chloride 103 (98-107) mmol/L Carbon Dioxide 24 (22-30) mmol/L Anion Gap 13 mmol/L BUN 18 (9-20) mg/dL Creatinine 1.52 H (0.66-1.25) mg/dL Est GFR (CKD-EPI)AfAm 51 (>60 ml/min/1.73 sqM) Est GFR (CKD-EPI)NonAf 44 (>60 ml/min/1.73 sqM) Glucose 241 H (74-99) mg/dL POC Glucose (mg/dL) (75-99) mg/dL POC Glu Table Top Tile Setter ID Calcium 9.1 (8.4-10.2) mg/dL Magnesium (1.6-2.3) mg/dL Total Bilirubin 0.4 (0.2-1.3) mg/dL AST 70 H (17-59) U/L ALT 38 (21-72) U/L Alkaline Phosphatase 248 H (38-126) U/L Troponin I (0.000-0.034) ng/mL NT-Pro-B Natriuret Pep pg/mL Total Protein 6.0 L (6.3-8.2) g/dL Albumin 3.2 L (3.5-5.0) g/dL Influenza Type A RNA (Not Detectd) Influenza Type B (PCR) (Not Detectd) - EKG Data -: EKG Interpreted by Me (EKG shows sinus tach cardia rate of 127, LA 150, QRS 70, QTc 447) - Radiology Data Radiology results: report reviewed (Chest x-rays on significant change from prior), image reviewed Disposition Clinical Impression: COPD (chronic obstructive pulmonary disease), Dyspnea, Malignant pleural effusion, Elevated lipase, Weakness generalized Disposition: ADMITTED IP TO THIS HOSP Condition: Fair Is patient prescribed a controlled substance at d/c from ED?: No
[2018-11-05] MEDS ORDERED: MORPHINE SULFATE 4 MG/ML SYRINGE IVP STA (22:56)
[2018-11-05] MEDS: SODIUM CHLORIDE 0.9% 1,000 ML IV STA (23:40)
[2018-11-06] MEDS ORDERED: ONDANSETRON 4 MG/2 ML VIAL IVP STA ×2 (00:03→06:54)
[2018-11-06 00:35] LABS: Anisocytosis Slight; Basophils % (A) 0 %; Eosinophils # (A) 0.1 k/uL (0-0.7); Eosinophils % (A) 1 %; HCT 29.4 % (39.0-53.0); HGB 9.2 gm/dL (13.0-17.5); Hypochromasia Moderate; Lymphocytes # (A) 0.9 k/uL (1.0-4.8); Lymphocytes % (A) 8 %; MCH 24.9 pg (25.0-35.0); MCHC 31.3 g/dL (31.0-37.0); MCV 79.7 fL (80.0-100.0); Mean Platelet Volume 6.8; Monocytes % (A) 9 %; Neutrophils # (A) 9.2 k/uL (1.3-7.7); Neutrophils % (A) 80 %; Platelet Count 480 k/uL (150-450); Poikilocytosis Slight; RBC 3.69 m/uL (4.30-5.90); RDW 16.3 % (11.5-15.5); WBC 11.4 k/uL (3.8-10.6)
--- NOTE | 2018-11-06 00:35 | XR ---
EXAM: XR Chest, 1 View CLINICAL HISTORY: ITS.REASON XR Reason: sob TECHNIQUE: Frontal view of the chest. COMPARISON: Chest x-ray dated 10/09/2018. FINDINGS: Lungs: Interval worsening of patchy opacities in both lung bases and the left perihilar region. Pleural space: Interval worsening of small bilateral presumed pleural effusions. No pneumothorax. Heart: Unremarkable. No cardiomegaly. Mediastinum: Unremarkable. Bones/joints: Unremarkable. Tubes, lines and devices: Right chest port. IMPRESSION: 1. Interval worsening of small bilateral presumed pleural effusions. 2. Interval worsening of patchy opacities in both lung bases and the left perihilar region. This may represent edema or pneumonia.
[2018-11-06 00:39] LABS: Partial Thromboplastin Time 24.9 sec (22.0-30.0); Prothrombin Time 10.6 sec (9.0-12.0)
[2018-11-06 00:45] LABS: Albumin 3.4 g/dL (3.5-5.0); Calcium 9.5 mg/dL (8.4-10.2); Magnesium 1.7 mg/dL (1.6-2.3); Total Bilirubin 0.5 mg/dL (0.2-1.3); Total Protein 6.4 g/dL (6.3-8.2)
[2018-11-06] MEDS ORDERED: methylPREDNISolone SOD SUCCI 125 MG/2 ML VIAL IV STA (00:49)
[2018-11-06] MEDS ORDERED: IPRATROPIUM-ALBUTEROL 3 ML NEB INHALATION STA (00:49)
[2018-11-06] MEDS: SODIUM CHLORIDE 0.9% 1,000 ML IV SCH ×3 (03:14→20:48)
[2018-11-06] MEDS: MORPHINE SULFATE 4 MG/ML SYRINGE IVP PRN ×2 (04:31→10:17)
[2018-11-06] MEDS: methylPREDNISolone SOD SUCCI 125 MG/2 ML VIAL IV SCH ×4 (05:51→23:34)
[2018-11-06 07:06] LABS: Glucose,Whole Blood 177 mg/dL (75-99)
[2018-11-06] MEDS: IPRATROPIUM-ALBUTEROL 3 ML NEB INHALATION SCH ×4 (07:22→20:53)
[2018-11-06] MEDS: SODIUM CHLORIDE 0.9% 1,000 ML IV STA (08:37)
[2018-11-06 11:32] LABS: Glucose,Whole Blood 251 mg/dL (75-99)
[2018-11-06] MEDS: HYDROmorphone 0.5 MG/0.5 ML SYRINGE IVP PRN ×3 (12:38→21:53)
[2018-11-06] MEDS: ONDANSETRON 4 MG/2 ML VIAL IVP PRN ×2 (12:45→19:15)
--- NOTE | 2018-11-06 13:08 | XR ---
EXAMINATION TYPE: XR chest 1V portable DATE OF EXAM: 11/06/2018 COMPARISON: Prior chest x-ray 11/05/[address] 11/06/2017 HISTORY: Shortness of breath TECHNIQUE: Single frontal view of the chest is obtained. FINDINGS: No significant interval change. Bibasilar increased density is present, there is blunting of the costophrenic angles. Port-A-Cath is stable. Heart size is unchanged. No evident pneumothorax. IMPRESSION: There is pleural disease, pleural nodularity noted on CT suggesting metastatic disease. Pleural effusions.
[2018-11-06] MEDS: PANTOPRAZOLE 40 MG/10 ML VIAL IVP SCH ×2 (13:31→20:47)
[2018-11-06] MEDS: INSULIN ASPART (NovoLOG) 100 UNIT/ML VIAL SQ SCH ×3 (13:34→20:44)
[2018-11-06 13:47] LABS: Anisocytosis Slight; Basophils % (A) 0 %; Eosinophils # (A) 0.1 k/uL (0-0.7); Eosinophils % (A) 1 %; HCT 28.2 % (39.0-53.0); HGB 8.6 gm/dL (13.0-17.5); Hypochromasia Marked; Lymphocytes # (A) 0.5 k/uL (1.0-4.8); Lymphocytes % (A) 4 %; MCH 24.2 pg (25.0-35.0); MCHC 30.5 g/dL (31.0-37.0); MCV 79.3 fL (80.0-100.0); Mean Platelet Volume 8.6; Microcytosis Slight; Monocytes # (A) 0.3 k/uL (0-1.0); Monocytes % (A) 3 %; Neutrophils # (A) 10.9 k/uL (1.3-7.7); Neutrophils % (A) 92 %; Platelet Count 455 k/uL (150-450); RBC 3.55 m/uL (4.30-5.90); RDW 16.8 % (11.5-15.5); WBC 11.9 k/uL (3.8-10.6)
[2018-11-06 14:10] LABS: Albumin 3.2 g/dL (3.5-5.0); Calcium 9.1 mg/dL (8.4-10.2); Potassium 5.3 mmol/L (3.5-5.1); Total Bilirubin 0.4 mg/dL (0.2-1.3)
--- NOTE | 2018-11-06 15:13 | P.CNPUL ---
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 Patient was first diagnosed colon cancer in the July 2016 after developing difficulty having bowel movements. In early 2016 patient started complaining of shortness of breath was found to have a left pleural effusion, underwent thoracentesis which was originally in negative for malignancy. His shortness of breath persistent and CTA chest was completed revealing recurrent pleural effusion as well as development of a right hepatic lobe mass concerning for metastatic lesion. Colonoscopy in December 2016 showed partially obstructing mass in the rectosigmoid area and the biopsy was positive for adenocarcinoma. Patient completed several different treatments of chemothe rapy agents. In July 2018 patient presented with the marked weakness, and CT angios chest showed a progression with bilateral pleural effusions right greater than the left, with mediastinal node enlargements, increase in liver and omental lesions. 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 Following that the patient resumed chemotherapy, however in August 2018 he developed bilateral pulmonary embolisms, underwent catheter directed thrombolysis at [facility]. He also developed extensive right lower extremity DVT. His Eliquis was discontinued and IVC filter was placed related to bleeding per rectum. The patient had enrolled in hospice care. On 11/05/2018 patient was brought into the emergency department by his family for worsening dyspnea, cough, some phlegm production. Patient was also vomiting some dark colored material. He is having some mild shortness of breath, tachypnea, but no fever or chills, complaining of some chest discomfort. Chest x-ray was completed showing small bilateral pleural effusions which appear to be increased from previous chest x-ray which was done in October 2018. And there was interval worsening of patchy opacities in both lung bases and the left perihilar region, likely representing metastatic disease in the lungs. Patient was started on breathing treatments, IV steroids, he is receiving morphine for chest discomfort, which is being alternated with diluted, he is on empiric antibiotics in the form of Rocephin. We're seeing this patient in regards to recurrent malignant pleural effusions, shortness of breath Review of Systems All systems: negative Constitutional: Denies chills, Denies fever Eyes: denies blurred vision, denies pain Ears, nose, mouth and throat: Denies headache, Denies sore throat Cardiovascular: Denies chest pain, Denies shortness of breath Respiratory: Reports congestion, Reports dyspnea, Reports pain, Reports respiratory infections, Denies cough Gastrointestinal: Denies abdominal pain, Denies diarrhea, Denies nausea, Denies vomiting Musculoskeletal: Denies myalgias Integumentary: Denies pruritus, Denies rash Neurological: Denies numbness, Denies weakness Psychiatric: Denies anxiety, Denies depression Endocrine: Denies fatigue, Denies weight change Past Medical History Past Medical History: Cancer, Diabetes Mellitus, Hyperlipidemia, Prostate Disorder Additional Past Medical History / Comment(s): HX PLEURAL EFFUSION-PAST THORACENTESIS, STATES CA OF left sided LUNG, COLON, LIVER. colon-primary stage 4. dx 11/18- chemo. Colostomy 06/08/2017 History of Any Multi-Drug Resistant Organisms: None Reported Past Surgical History: Back Surgery, Bowel Resection, Joint Replacement Additional Past Surgical History / Comment(s): 08/12/16 Revision total R knee arthroplasty. BILATERAL KNEE REPLACEMENTS,PLEURAL EFFUSION THORACENTESIS X3 PAULINO CATARACT SX; right rotator cuff shoulder sx, COLONOSCOPY 09/2016. colostomy bag changed 10/09/18 Past Anesthesia/Blood Transfusion Reactions: Postoperative Nausea & Vomiting (PONV) Additional Past Anesthesia/Blood Transfusion Reaction / Comment(s): Pt has had PONV and BROTHER HAD PONV. Past Psychological History: Depression Additional Psychological History / Comment(s): . Smoking Status: Former smoker Past Alcohol Use History: Rare Additional Past Alcohol Use History / Comment(s): STARTED SMOKING 1968, QUIT SMOKING 1974, SMOKED 1PPD Past Drug Use History: Marijuana - Past Family History Father Family Medical History: Diabetes Mellitus Additional Family Medical History / Comment(s): Father at the age of 86yrs. Mother Family Medical History: Cancer, Dementia Additional Family Medical History / Comment(s): Mother at the age of 84yrs. Medications and Allergies Home Medications Medication Instructions Recorded Confirmed Type Pravastatin Sodium [Pravachol] 40 mg PO HS 08/02/16 11/05/18 History metFORMIN HCL 1,000 mg PO DAILY 06/07/17 11/05/18 History Gabapentin [Neurontin] 300 mg PO TID 03/04/18 11/05/18 History Magnesium Oxide [Mag-Ox] 400 mg PO DAILY 07/06/18 11/05/18 History Tamsulosin [Flomax] 0.4 mg PO BID 09/28/18 11/05/18 History Ondansetron Odt [Zofran ODT] 4 mg PO Q6H PRN 10/09/18 11/05/18 History Allergies Allergy/AdvReac Type Severity Reaction Status Date / Time No Known Allergies Allergy Verified 11/05/18 22:55 Physical Exam Vitals: Vital Signs Temp Pulse Pulse Resp BP BP Pulse Ox 11/06/18 12:25 97.4 F L 105 H 16 171/82 95 11/06/18 11:23 80 11/06/18 11:05 76 11/06/18 08:00 92 18 11/06/18 07:33 56 L 11/06/18 07:22 52 L 11/06/18 05:06 97.3 F L 92 18 133/96 97 11/06/18 01:32 96 11/06/18 01:25 96 11/06/18 01:00 22 135/83 94 L 11/06/18 00:30 99 13 121/71 97 11/06/18 00:00 109 H 12 128/85 91 L 11/05/18 23:38 107 H 11/05/18 23:20 105 H 11/05/18 23:05 115 H 11/05/18 22:36 98.4 F 110 H 25 H 158/77 91 L Intake and Output 11/05/18 11/06/18 11/06/18 22:59 06:59 14:59 Other: Voiding Method Toilet Urinal # Voids 1 Weight 77.111 kg GENERAL EXAM: Alert, pleasant 78-year-old white male, currently on room air comfortable in no apparent distress. HEAD: Normocephalic/atraumatic. EYES: Normal reaction of pupils, equal size. Conjunctiva pink, sclera white. NOSE: Clear with pink turbinates. THROAT: No erythema or exudates. NECK: No masses, no JVD, no thyroid enlargement, no adenopathy. CHEST: No chest wall deformity. Symmetrical expansion. LUNGS: Equal air entry with diminished breath sounds at bilateral bases CVS: Regular rate and rhythm, normal S1 and S2, no gallops, no murmurs, no rubs ABDOMEN: Soft, nontender. No hepatosplenomegaly, normal bowel sounds, no guarding or rigidity. EXTREMITIES: No clubbing, no edema, no cyanosis, 2+ pulses and upper and lower extremities. MUSCULOSKELETAL: Muscle strength and tone normal. SPINE: No scoliosis or deformity SKIN: No rashes CENTRAL NERVOUS SYSTEM: Alert and oriented -3. No focal deficits, tone is normal in all 4 extremities. PSYCHIATRIC: Alert and oriented -3. Appropriate affect. Intact judgment and insight. Results - Laboratory Findings CBC and BMP: 11/06/18 13:11 11/06/18 13:11 PT/INR, D-dimer PT 10.6 sec (9.0-12.0) 11/05/18 23:48 INR 1.0 (<1.2) 11/05/18 23:48 Abnormal lab findings: Abnormal Labs 11/05/18 11/05/18 11/06/18 23:48 23:48 07:04 WBC 11.4 H RBC 3.69 L Hgb 9.2 L Hct 29.4 L MCV 79.7 L MCH 24.9 L MCHC RDW 16.3 H Plt Count 480 H Neutrophils # 9.2 H Lymphocytes # 0.9 L Potassium Creatinine 1.62 H Glucose 121 H POC Glucose (mg/dL) 177 H AST 90 H Alkaline Phosphatase 315 H Total Protein Albumin 3.4 L 11/06/18 11/06/18 11/06/18 11:30 13:11 13:11 WBC 11.9 H RBC 3.55 L Hgb 8.6 L Hct 28.2 L MCV 79.3 L MCH 24.2 L MCHC 30.5 L RDW 16.8 H Plt Count 455 H Neutrophils # 10.9 H Lymphocytes # 0.5 L Potassium 5.3 H Creatinine 1.52 H Glucose 241 H POC Glucose (mg/dL) 251 H AST 70 H Alkaline Phosphatase 248 H Total Protein 6.0 L Albumin 3.2 L - Diagnostic Findings Chest x-ray: report reviewed, image reviewed Assessment and Plan Plan: Assessment: #1. Progressive dyspnea, chest discomfort likely related to metastatic disease in the lungs, chest x-ray was completed showing bilateral pleural effusions which has increased from previous chest x-ray in October 2018, and bibasilar density related to lung metastasis #2. Metastatic adenocarcinoma of colorectal origin with metastases to the lungs and liver, patient did complete several rounds of chemotherapy, recently enrolled in hospice #3. History of pulmonary embolisms, status post catheter directed TPA infusion August 2018 #4. Recent history of right lower extremity DVT, status post [facility] filter placement for history of GI bleeding #5. Diabetes mellitus type 2 #6. Hyperlipidemia #7. Former smoker #8. Depression Plan: Chest x-rays have been reviewed with Dr. Santizo, patient was seen and examined with Dr. Santizo, patient is mildly short of breath, but no acute distress, continue with current medical treatment, IV steroids, nebulized bronchodilators, no plans for thoracentesis at this time. Will recommend conservative medical treatment. He is having some chest discomfort likely related to metastatic disease in the lungs. Maintain pain control. We'll status is DO NOT RESUSCITATE, patient is going to be reenrolled in hospice once he is discharged from the hospital. We will follow on as-needed basis, no plans for thoracentesis at this time I performed a history & physical examination of the patient and discussed their management with my nurse practitioner, Lillian Gary. I reviewed the nurse practitioner's note and agree with the documented findings and plan of care. Lung sounds are positive for diminished breath sounds. The findings and the impression was discussed with the patient. I attest to the documentation by the nurse practitioner. Time with Patient: Greater than 30
[2018-11-06] MEDS ORDERED: IPRATROPIUM-ALBUTEROL 3 ML NEB INHALATION PRN (15:51)
--- NOTE | 2018-11-06 15:55 | P.GSCN ---
History of Present Illness Consult date: 11/06/18 Reason for Consult: Hematemesis, abdominal pain Requesting physician: Moise Chávez History of present illness: CHIEF COMPLAINT: Hematemesis HISTORY OF PRESENT ILLNESS: 78-year-old male with a history of colon cancer with liver and lung metastasis who is currently on home hospice who presented to emergency room due to hematemesis. Patient was examined at the bedside with Dr. Dill. Patient reports having a couple episodes of shanell temesis at home yesterday with shortness of breath. Patient currently denies abdominal pain. No further episodes of hematemesis. Denies nausea. Ostomy noted with stool and gas. PAST MEDICAL HISTORY: See list. PAST SURGICAL HISTORY: See list. SOCIAL HISTORY: No illicit drug use. REVIEW OF SYSTEMS: CONSTITUTIONAL: Denies fever or chills. HEENT: Denies blurred vision, vision changes, or eye pain. Reports hematemesis CARDIOVASCULAR: Denies chest pain or pressure. RESPIRATORY: No shortness of breath. GASTROINTESTINAL: Refer to HPI for pertinent findings HEMATOLOGIC: Denies bleeding disorders. GENITOURINARY: Denies any blood in urine. SKIN: Denies pruitis. Denies rash. PHYSICAL EXAM: VITAL SIGNS: Reviewed. GENERAL: Well-developed in no acute distress. HEENT: No sclera icterus. Extraocular movements grossly intact. Moist buccal mucosa. Head is atraumatic, normocephalic. ABDOMEN: Soft. Nondistended. Nontender. Ostomy present with stool and gas noted. NEUROLOGIC: Alert and oriented. Cranial nerves II through XII grossly intact. ASSESSMENT: 1. Abdominal pain with episode of hematemesis 2. History of colon cancer with lung and liver metastasis PLAN: 1. May begin clear liquid diet 2. No surgical intervention recommended 3. CT scan ordered by medicine. Await results Nurse practitioner note has been reviewed by physician. Signing provider agrees with the documented findings, assessment, and plan of care. Past Medical History Past Medical History: Cancer, Diabetes Mellitus, Hyperlipidemia, Prostate Disorder Additional Past Medical History / Comment(s): HX PLEURAL EFFUSION-PAST THORACENTESIS, STATES CA OF left sided LUNG, COLON, LIVER. colon-primary stage 4. dx 11/18- chemo. Colostomy 06/08/2017 History of Any Multi-Drug Resistant Organisms: None Reported Past Surgical History: Back Surgery, Bowel Resection, Joint Replacement Additional Past Surgical History / Comment(s): 08/12/16 Revision total R knee arthroplasty. BILATERAL KNEE REPLACEMENTS,PLEURAL EFFUSION THORACENTESIS X3 PAULINO CATARACT SX; right rotator cuff shoulder sx, COLONOSCOPY 09/2016. colostomy bag changed 10/09/18 Past Anesthesia/Blood Transfusion Reactions: Postoperative Nausea & Vomiting (PONV) Additional Past Anesthesia/Blood Transfusion Reaction / Comm: Pt has had PONV and BROTHER HAD PONV. Past Psychological History: Depression Additional Psychological History / Comment(s): . Smoking Status: Former smoker Past Alcohol Use History: Rare Additional Past Alcohol Use History / Comment(s): STARTED SMOKING 1968, QUIT SMOKING 1974, SMOKED 1PPD Past Drug Use History: Marijuana - Past Family History Father Family Medical History: Diabetes Mellitus Additional Family Medical History / Comment(s): Father at the age of 86yrs. Mother Family Medical History: Cancer, Dementia Additional Family Medical History / Comment(s): Mother at the age of 84yrs. Medications and Allergies Home Medications Medication Instructions Recorded Confirmed Type Pravastatin Sodium [Pravachol] 40 mg PO HS 08/02/16 11/05/18 History metFORMIN HCL 1,000 mg PO DAILY 06/07/17 11/05/18 History Gabapentin [Neurontin] 300 mg PO TID 03/04/18 11/05/18 History Magnesium Oxide [Mag-Ox] 400 mg PO DAILY 07/06/18 11/05/18 History Tamsulosin [Flomax] 0.4 mg PO BID 09/28/18 11/05/18 History Ondansetron Odt [Zofran ODT] 4 mg PO Q6H PRN 10/09/18 11/05/18 History Allergies Allergy/AdvReac Type Severity Reaction Status Date / Time No Known Allergies Allergy Verified 11/05/18 22:55 Surgical - Exam Vital Signs Temp Pulse Resp BP Pulse Ox 98.4 F 110 H 25 H 158/77 91 L 11/05/18 22:36 11/05/18 22:36 11/05/18 22:36 11/05/18 22:36 11/05/18 22:36 Results - Labs 11/06/18 13:11 11/06/18 13:11 Abnormal Lab Results - Last 24 Hours (Table) 11/05/18 11/05/18 11/06/18 Range/Units 23:48 23:48 07:04 WBC 11.4 H (3.8-10.6) k/uL RBC 3.69 L (4.30-5.90) m/uL Hgb 9.2 L (13.0-17.5) gm/dL Hct 29.4 L (39.0-53.0) % MCV 79.7 L (80.0-100.0) fL MCH 24.9 L (25.0-35.0) pg MCHC (31.0-37.0) g/dL RDW 16.3 H (11.5-15.5) % Plt Count 480 H (150-450) k/uL Neutrophils # 9.2 H (1.3-7.7) k/uL Lymphocytes # 0.9 L (1.0-4.8) k/uL Potassium (3.5-5.1) mmol/L Creatinine 1.62 H (0.66-1.25) mg/dL Glucose 121 H (74-99) mg/dL POC Glucose (mg/dL) 177 H (75-99) mg/dL AST 90 H (17-59) U/L Alkaline Phosphatase 315 H (38-126) U/L Total Protein (6.3-8.2) g/dL Albumin 3.4 L (3.5-5.0) g/dL 11/06/18 11/06/18 11/06/18 Range/Units 11:30 13:11 13:11 WBC 11.9 H (3.8-10.6) k/uL RBC 3.55 L (4.30-5.90) m/uL Hgb 8.6 L (13.0-17.5) gm/dL Hct 28.2 L (39.0-53.0) % MCV 79.3 L (80.0-100.0) fL MCH 24.2 L (25.0-35.0) pg MCHC 30.5 L (31.0-37.0) g/dL RDW 16.8 H (11.5-15.5) % Plt Count 455 H (150-450) k/uL Neutrophils # 10.9 H (1.3-7.7) k/uL Lymphocytes # 0.5 L (1.0-4.8) k/uL Potassium 5.3 H (3.5-5.1) mmol/L Creatinine 1.52 H (0.66-1.25) mg/dL Glucose 241 H (74-99) mg/dL POC Glucose (mg/dL) 251 H (75-99) mg/dL AST 70 H (17-59) U/L Alkaline Phosphatase 248 H (38-126) U/L Total Protein 6.0 L (6.3-8.2) g/dL Albumin 3.2 L (3.5-5.0) g/dL Diabetes panel 11/05/18 11/06/18 Range/Units 23:48 13:11 Sodium 138 140 (137-145) mmol/L Potassium 5.0 5.3 H (3.5-5.1) mmol/L Chloride 104 103 (98-107) mmol/L Carbon Dioxide 25 24 (22-30) mmol/L BUN 17 18 (9-20) mg/dL Creatinine 1.62 H 1.52 H (0.66-1.25) mg/dL Glucose 121 H 241 H (74-99) mg/dL Calcium 9.5 9.1 (8.4-10.2) mg/dL AST 90 H 70 H (17-59) U/L ALT 43 38 (21-72) U/L Alkaline Phosphatase 315 H 248 H (38-126) U/L Total Protein 6.4 6.0 L (6.3-8.2) g/dL Albumin 3.4 L 3.2 L (3.5-5.0) g/dL Calcium panel 11/05/18 11/06/18 Range/Units 23:48 13:11 Calcium 9.5 9.1 (8.4-10.2) mg/dL Albumin 3.4 L 3.2 L (3.5-5.0) g/dL Pituitary panel 11/05/18 11/06/18 Range/Units 23:48 13:11 Sodium 138 140 (137-145) mmol/L Potassium 5.0 5.3 H (3.5-5.1) mmol/L Chloride 104 103 (98-107) mmol/L Carbon Dioxide 25 24 (22-30) mmol/L BUN 17 18 (9-20) mg/dL Creatinine 1.62 H 1.52 H (0.66-1.25) mg/dL Glucose 121 H 241 H (74-99) mg/dL Calcium 9.5 9.1 (8.4-10.2) mg/dL Adrenal panel 11/05/18 11/06/18 Range/Units 23:48 13:11 Sodium 138 140 (137-145) mmol/L Potassium 5.0 5.3 H (3.5-5.1) mmol/L Chloride 104 103 (98-107) mmol/L Carbon Dioxide 25 24 (22-30) mmol/L BUN 17 18 (9-20) mg/dL Creatinine 1.62 H 1.52 H (0.66-1.25) mg/dL Glucose 121 H 241 H (74-99) mg/dL Calcium 9.5 9.1 (8.4-10.2) mg/dL Total Bilirubin 0.5 0.4 (0.2-1.3) mg/dL AST 90 H 70 H (17-59) U/L ALT 43 38 (21-72) U/L Alkaline Phosphatase 315 H 248 H (38-126) U/L Total Protein 6.4 6.0 L (6.3-8.2) g/dL Albumin 3.4 L 3.2 L (3.5-5.0) g/dL
[2018-11-06 16:59] LABS: Glucose,Whole Blood 102 mg/dL (75-99)
--- NOTE | 2018-11-06 18:30 | CT ---
EXAMINATION TYPE: CT ChestAbdPelvis wo con DATE OF EXAM: 11/06/2018 INDICATION: SOB, abdomnial pain, hematemesis COMPARISON: 08/17/2018 CT DLP: 503.5 mGycm CONTRAST: Performed without Oral Contrast. No intravenous contrast was utilized. TECHNIQUE: Axial images at 5 mm thick sections. Reconstructed images in the coronal plane. Delayed images through the kidneys. FINDINGS: CT CHEST: Portion of the thyroid visualized is normal. There is a moderate right pleural effusion appears may be loculated. Minimal left pleural effusion is present. There are multiple scattered peripheral based nodules present. A larger nodules would inclu de a 0.9 cm nodule in the posterior major fissure on the left midlung. Series 4 image 25. Nodules in the anterior lingula measuring 0.7 cm. Series 4 image 25. Multiple additional bilateral areas of pleu ral thickening are present. No enlarged mediastinal or hilar adenopathy is evident. The ascending aorta diameter at the level of the main pulmonary artery is 3.8 cm. The main pulmonary artery diameter at the bifurcation is 2.[address] ABDOMEN: There may be an overt in ostomy in the epigastric region. Hiatal hernia is present. Liver: There are faint large slightly hypodense areas with ill-defined margins within the liver estim ated to measure 3.5 to 4 cm in size suspicious for metastatic disease. Either increase in size over t he interval. Spleen: Normal Pancreas: Normal Adrenal glands: The adrenal glands are normal. Gallbladder: Normal Kidneys: No masses are evident. There is a left hydronephrosis. Hydroureter extends to just above the ureterovesical junction. No obstruction etiology is identified. No renal or ureteral stones are iden tified. No cysts are present. Delayed images were obtained through the kidneys, which remain unremar kable. Aorta: Vascular calcification is within the aorta. Inferior vena cava: Filter is in the inferior vena cava. CT PELVIS: No dilated loops of bowel are evident. Study is performed without oral contrast limiting the evaluati on. There are loops of bowel which are incompletely distended or lack oral contrast limiting their ev aluation. Appendix: Normal as visualized. Urinary bladder: Normal. Genitourinary structures: Prostate is prominent Osseous structures: No suspicious lytic or sclerotic lesions. Facet degenerative changes are in the l ower lumbar spine. IMPRESSIONS: 1. Multiple suspicious enlarging hepatic metastases. 2. Left hydronephrosis with hydroureter extending to just above the ureteral pelvic junction. This is a new finding from August 2018. 3. Moderate right pleural effusion. 4. Pleural nodular thickening suspicious for neoplasm. 5. Lung nodules
[2018-11-06 20:38] LABS: Glucose,Whole Blood 135 mg/dL (75-99)
[2018-11-06] MEDS: TAMSULOSIN 0.4 MG CAP.ER.24H PO SCH (20:49)
--- NOTE | 2018-11-06 21:49 | HP ---
HISTORY AND PHYSICAL CHIEF COMPLAINTS: Shortness of breath and cough. HISTORY OF PRESENT ILLNESS: This 78-year-old gentleman with a past medical history of multiple medical problems, including history of diabetes mellitus, hypertension, hyperlipidemia, history of pleural effusion, thoracocentesis, history of lung cancer, history of colon cancer, being followed by Dr. Hayes in the outpatient setting, was recently admitted to [facility]. The patient was evaluated and found to have pancreatitis. The patient had metastatic adenocarcinoma of the colon, stage IV. The patient apparently transitioned to hospice, but while at home the patient had episodes of abdominal pain, vomiting, shortness of breath, and the patient was taken to [facility] and admitted for further evaluation and treatment. Apparently hospice was canceled and currently the patient is NO CODE at this time. The patient had significant vomiting with coffee-ground emesis, large quantity, as well. The patient is being closely monitored at this time and surgical consultation is also being sought at this time. There is no history of any fever, rigor or chills. No history of headache, loss of consciousness, seizures. PAST MEDICAL HISTORY: 1. History of colon cancer with metastases. 2. History of hyperlipidemia. 3. History of diabetes mellitus. 4. History of prostate disorder. 5. History of DJD. 6. History of depression. HOME MEDICATIONS: 1. Metformin 1000 mg p.o. daily. 2. Flomax 0.4 b.i.d. 3. Pravachol 40 mg daily. 4. Zofran 4 q.6 p.r.n. 5. Magnesium oxide 400 mg daily. 6. Neurontin 300 mg t.i.d. ALLERGIES: NONE. FAMILY HISTORY: History of diabetes in the family. SOCIAL HISTORY: History of occasional alcohol. Previous history of smoking. REVIEW OF SYSTEMS: ENT: No diminished hearing. No diminished vision. CARDIOVASCULAR SYSTEM: No angina, palpitations. RESPIRATORY SYSTEM: As mentioned earlier. GI: As mentioned earlier. : No dysuria or retention. NERVOUS SYSTEM: No numbness, weakness. ALLERGY/IMMUNOLOGY: No asthma, hayfever. MUSCULOSKELETAL: As mentioned earlier. HEMATOLOGY/ONCOLOGY: As mentioned earlier. ENDOCRINE: As mentioned earlier. CONSTITUTIONAL: As mentioned earlier. DERMATOLOGY: Negative. RHEUMATOLOGY: Negative. PSYCHIATRY: As mentioned earlier. PHYSICAL EXAMINATION: Patient alert and oriented x. Pulse 105, blood pressure 171/82, respirations 16, temperature 97.4, pulse ox 94% on room air. HEENT: Conjunctivae normal. Oral mucosa dry. NECK: No jugular venous distention. No carotid bruit. No lymph node enlargement. CARDIOVASCULAR SYSTEM: S1, S2 muffled. No S3. No S4. RESPIRATORY SYSTEM: Breath sounds diminished at the bases. Bilateral scattered rhonchi and crackles. ABDOMEN: Soft. Mild diffuse tenderness. Mild diffuse distention also present. LEGS: No edema. No swelling. NERVOUS SYSTEM: Higher functions as mentioned earlier. Moves all 4 limbs. No focal motor or sensory deficit. LYMPHATICS: No lymph node palpable in neck, axillae or groin. SKIN: No ulcer, rash, bleeding. JOINTS: No active deforming arthropathy. LABS: WBC 11.9, hemoglobin 8.6, sodium 140, potassium 5.3. Creatinine is 1.52. Flu is negative. ASSESSMENT: 1. Coffee-ground emesis with possibly acute gastritis or peptic ulcer disease. Rule out bowel obstruction. 2. Colon cancer, stage IV, metastatic. 3. Severe abdominal pain. 4. Increased white count. 5. Microcytic anemia. 6. Chronic gastrointestinal blood loss secondary to malignancy. 7. Increased creatinine with chronic kidney disease, stage III. 8. Hyperkalemia, mild. 9. History of diabetes mellitus, type 2. 10.Hyperlipidemia. 11.History of prostate disorder. 12.History of pleural effusion, thoracocentesis. 13.History of chemotherapy. 14.History of colostomy. 15.History of bowel resection. 16.History of degenerative joint disease. 17.Depression. 18.Remote history of nicotine dependence. RECOMMENDATIONS AND DISCUSSION: In this 78-year-old gentleman who presented with multiple complex medical issues, we will monitor the patient closely, continue the current medications, continue with symptomatic treatment. We will keep the patient n.p.o. except medications and consult Surgery. Close follow with Dr. Santizo. The patient was previously on hospice, but currently hospice is canceled. Patient is NO CODE. Patient is receiving treatment per the patient's and the patient himself. CT scan of the abdomen was done which was reviewed and showed multiple suspicious enlarged hepatic metastases and left hydronephrosis and moderate right pleural effusion, christian thickening. The chest x-ray which was personally reviewed by me showed a significant pleural effusion, mainly on the right, and also. I would also recommend oncology social worker evaluation. DVT prophylaxis. Empiric antibiotics will be initiated. IV steroids have also been done. We will monitor the blood sugars closely. As mentioned earlier, prognosis is extremely guarded and pain medications have also been ordered at this time. Discussed with the family at the bedside, who understand and agree. A copy of this dictation is being forwarded to Dr. Hayes, who is the primary physician. MMODL / IJN: [id number] / CRUZITO
[2018-11-07] MEDS: ONDANSETRON 4 MG/2 ML VIAL IVP PRN ×3 (01:41→18:09)
[2018-11-07] MEDS: HYDROmorphone 0.5 MG/0.5 ML SYRINGE IVP PRN ×4 (01:42→20:20)
[2018-11-07] MEDS: methylPREDNISolone SOD SUCCI 125 MG/2 ML VIAL IV SCH ×3 (05:39→18:08)
[2018-11-07 07:04] LABS: Glucose,Whole Blood 142 mg/dL (75-99)
[2018-11-07 07:26] LABS: Anisocytosis Slight; Basophils % (A) 0 %; Eosinophils # (A) 0.1 k/uL (0-0.7); Eosinophils % (A) 1 %; HCT 24.6 % (39.0-53.0); HGB 7.6 gm/dL (13.0-17.5); Hypochromasia Marked; Lymphocytes # (A) 0.7 k/uL (1.0-4.8); Lymphocytes % (A) 4 %; MCH 24.3 pg (25.0-35.0); MCHC 30.8 g/dL (31.0-37.0); MCV 79.1 fL (80.0-100.0); Microcytosis Slight; Monocytes # (A) 1.1 k/uL (0-1.0); Monocytes % (A) 7 %; Neutrophils # (A) 14.5 k/uL (1.3-7.7); Neutrophils % (A) 88 %; Platelet Count 392 k/uL (150-450); RBC 3.11 m/uL (4.30-5.90); RDW 17.4 % (11.5-15.5); WBC 16.5 k/uL (3.8-10.6)
[2018-11-07] MEDS: INSULIN ASPART (NovoLOG) 100 UNIT/ML VIAL SQ SCH ×4 (07:43→20:21)
[2018-11-07] MEDS: PANTOPRAZOLE 40 MG/10 ML VIAL IVP SCH ×2 (07:43→20:20)
[2018-11-07] MEDS: TAMSULOSIN 0.4 MG CAP.ER.24H PO SCH ×2 (07:44→20:20)
[2018-11-07 07:59] LABS: Calcium 8.9 mg/dL (8.4-10.2); Potassium 5.6 mmol/L (3.5-5.1)
[2018-11-07] MEDS: ALPRAZolam 0.25 MG TAB PO PRN ×2 (08:18→18:09)
[2018-11-07] MEDS: IPRATROPIUM-ALBUTEROL 3 ML NEB INHALATION SCH ×4 (09:28→20:10)
--- NOTE | 2018-11-07 09:50 | P.PN ---
Progress Note - Text Progress Note Date: 11/07/18 The patient is resting comfortably his bed. Apparently had some emesis this morning and coughing which may be associated with an aspiration. The patient's CAT scan was reviewed. The patient is a nonsurgical candidate. No surgical intervention is planned. We will recommend advancing his diet as tolerated. The patient will most likely resume hospice therapy at home.
[2018-11-07 11:40] LABS: Glucose,Whole Blood 146 mg/dL (75-99)
[2018-11-07 17:13] LABS: Glucose,Whole Blood 149 mg/dL (75-99)
[2018-11-07 20:00] LABS: Glucose,Whole Blood 164 mg/dL (75-99)
[2018-11-07] MEDS: SODIUM CHLORIDE 0.9% 1,000 ML IV SCH (20:20)
--- NOTE | 2018-11-07 21:38 | PN ---
PROGRESS NOTE DATE OF SERVICE: 11/07/2018 This 78-year-old gentleman who was admitted with shortness of breath also had significant vomiting and possible upper gastrointestinal bleeding also. Patient also had metastatic colon cancer stage IV. The patient also had a significant pain treated symptomatically. Patient being closely monitored. Patient has seen multiple consultants including surgery and as well as Pulmonary. Surgical service is not planning any invasive evaluation at this time. Please also note the patient was on hospice recently. PAST MEDICAL HISTORY: Reviewed. REVIEW OF SYSTEMS: CARDIOVASCULAR: As mentioned. RESPIRATORY: As mentioned earlier. GI: As mentioned earlier. GENITOURINARY: No dysuria. CENTRAL NERVOUS SYSTEM: No numbness or weakness. MEDICATIONS: Reviewed and include: 1. DuoNeb q.i.d. and p.r.n. 2. Xanax 0.5 t.i.d. 3. Rocephin 1 g daily. 4. Dilaudid 0.5 q.4 p.r.n. 5. Solu-Medrol 60 IV q.6h. 6. Zofran. 7. Protonix. 8. Flomax. PHYSICAL EXAM: Patient is alert, oriented x3. The pulse is 73, blood pressure 161/76, respirations 16, temperature 97.2, pulse ox 98% on 2 L. HEENT conjunctivae normal. Oral mucosa moist. Neck: No jugular venous distention. CARDIOVASCULAR : S1, S2 muffled. RESPIRATORY: Breath sounds diminished at the bases. A few scattered rhonchi and crackles. ABDOMEN: Soft. Mild diffuse distention. Mild diffuse tenderness. No guarding. No rigidity. No mass palpable. Colostomy present, not much drainage noted. Legs no edema. No swelling. NERVOUS SYSTEM: Higher functions as mentioned earlier. Moves all 4 limbs. No focal motor or sensory deficits. Lymphatics: No lymph nodes palpable in the neck, axillae or groin. SKIN: No ulcer, rash or bleeding. JOINTS: No active deforming arthropathy. LAB STUDIES: WBC 16.3, hemoglobin is 8.6, and potassium 5.6, creatinine is 1.56. ASSESSMENT: 1. Coffee-ground emesis with possible acute gastritis or peptic ulcer disease, possibly secondary to malignancy, rule out bowel obstruction. 2. Colon cancer stage IV metastatic. 3. Severe abdominal pain. 4. Increased WBC. 5. Microcytic anemia. 6. Chronic gastrointestinal bleed secondary to malignancy. 7. Increased creatinine with chronic kidney stage III. 8. Hyperkalemia, mild. 9. History of diabetes type 2. 10.Hyperlipidemia. 11.History of prostate disorder. 12.History of pleural effusion status post thoracocentesis. 13.History of chemotherapy. 14.History of colostomy. 15.History of bowel resection. 16.History of degenerative joint disease. 17.History of depression. 18.Remote history of nicotine dependence. 19.NO CODE, NO CPR, NO VENT. RECOMMENDATIONS AND DISCUSSION: In this 78-year-old gentleman who presented with multiple complex medical issues, we will monitor the patient closely, continue the current medications, management and symptomatic treatment. Continue with empiric antibiotics, steroids. Otherwise closely monitor. Advanced diet very gradually. Conservative line of management. Prognosis extremely guarded. I had a detailed discussion with the family. The would like to take the patient home if the patient improves. Otherwise, she will pursue [facility]. Once again, guarded prognosis. Further recommendations to follow. MMODL / IJN: [id number] /
[2018-11-08] MEDS: methylPREDNISolone SOD SUCCI 125 MG/2 ML VIAL IV SCH ×5 (00:03→23:19)
[2018-11-08] MEDS: ONDANSETRON 4 MG/2 ML VIAL IVP PRN ×3 (00:03→18:35)
[2018-11-08] MEDS: SODIUM CHLORIDE 0.9% 1,000 ML IV SCH (06:05)
[2018-11-08 07:13] LABS: Glucose,Whole Blood 162 mg/dL (75-99)
[2018-11-08 07:26] LABS: Anisocytosis Slight; Basophils % (A) 0 %; Eosinophils # (A) 0.1 k/uL (0-0.7); Eosinophils % (A) 1 %; HCT 24.9 % (39.0-53.0); HGB 7.5 gm/dL (13.0-17.5); Hypochromasia Marked; Lymphocytes # (A) 0.4 k/uL (1.0-4.8); Lymphocytes % (A) 4 %; MCH 23.6 pg (25.0-35.0); MCHC 30.2 g/dL (31.0-37.0); MCV 77.9 fL (80.0-100.0); Mean Platelet Volume 9.5; Microcytosis Slight; Monocytes # (A) 0.5 k/uL (0-1.0); Monocytes % (A) 4 %; Neutrophils # (A) 10.8 k/uL (1.3-7.7); Neutrophils % (A) 91 %; Platelet Count 367 k/uL (150-450); RDW 17.4 % (11.5-15.5); WBC 11.8 k/uL (3.8-10.6)
[2018-11-08 07:36] LABS: Calcium 8.7 mg/dL (8.4-10.2); Potassium 5.1 mmol/L (3.5-5.1)
[2018-11-08] MEDS: IPRATROPIUM-ALBUTEROL 3 ML NEB INHALATION SCH ×4 (09:34→20:22)
[2018-11-08] MEDS: PANTOPRAZOLE 40 MG/10 ML VIAL IVP SCH ×2 (09:35→20:25)
[2018-11-08] MEDS: HYDROmorphone 0.5 MG/0.5 ML SYRINGE IVP PRN ×2 (09:35→18:34)
[2018-11-08] MEDS: INSULIN ASPART (NovoLOG) 100 UNIT/ML VIAL SQ SCH ×4 (09:36→20:25)
[2018-11-08] MEDS: ALPRAZolam 0.25 MG TAB PO PRN ×2 (09:36→18:34)
[2018-11-08] MEDS: TAMSULOSIN 0.4 MG CAP.ER.24H PO SCH ×2 (09:36→20:25)
[2018-11-08 10:17] VITALS: BMI 23.7
--- NOTE | 2018-11-08 11:00 | P.PN ---
Progress Note - Text Progress Note Date: 11/08/18 The patient remains stable. There are no acute changes. Patient will be discharged back to home hospice per medicine. No surgical intervention is planned.
[2018-11-08 11:34] LABS: Glucose,Whole Blood 182 mg/dL (75-99)
[2018-11-08 17:45] LABS: Glucose,Whole Blood 172 mg/dL (75-99)
[2018-11-08 21:00] LABS: Glucose,Whole Blood 172 mg/dL (75-99)
--- NOTE | 2018-11-08 21:18 | PN ---
PROGRESS NOTE DATE OF SERVICE: 11/08/2018 This 78-year-old gentleman who was admitted with upper gastrointestinal bleeding, coffee-grounds emesis, is being closely monitored. Patient also had colon cancer stage IV. Surgery is following the patient closely. The patient is able to tolerate clear liquids at this time. PAST MEDICAL HISTORY: Reviewed. REVIEW OF SYSTEMS: Cardio: No angina or palpitations. Respiration: As mentioned earlier. GI: As mentioned earlier. : No dysuria. Central nervous system: No focal deficits. CURRENT MEDICATIONS ARE: 1. DuoNeb q.i.d. and p.r.n. 2. Xanax 0.25 t.i.d. 3. Rocephin 1 g daily. 4. Dilaudid p.r.n. 5. NovoLog scale. 6. Solu-Medrol 60 IV q.6h. 7. Zofran. 8. Protonix. 9. Flomax. PHYSICAL EXAM: Patient is alert, oriented x3. Pulse is 80. Blood pressure 130/67, respirations 16, temperature 97.4, pulse ox 98% on room air. HEENT: Conjunctivae normal. NECK: No jugular venous distention. CARDIOVASCULAR: S1, S2 muffled. RESPIRATORY: Breath sounds diminished in the bases. Bilateral scattered rhonchi and crackles. ABDOMEN: Soft. Obese. Mild diffuse tenderness. No guarding. No rigidity. No mass palpable. Legs are no edema, no swelling. CENTRAL NERVOUS SYSTEM: No focal deficits. LABS: WBC 11.2, hemoglobin 11.5, creatinine is 1.5. ASSESSMENT: 1. Coffee-grounds emesis with possible acute gastritis and peptic ulcer disease, also possibly secondary to malignancy. Rule out bowel obstruction. 2. Colon cancer stage IV metastatic. 3. Severe abdominal pain. 4. Increased WBC. 5. Microcytic anemia. 6. Chronic gastrointestinal bleed secondary to malignancy. 7. Increased creatinine with chronic kidney disease stage III. 8. Hypokalemia, mild. 9. Diabetes type 2. 10.Hyperlipidemia. 11.History of prostate disorder. 12.History of pleural effusion status post thoracocentesis. 13.History of chemotherapy. 14.History of colostomy. 15.History of bowel resection. 16.History of degenerative joint disease. 17.History of depression. 18.Remote history of nicotine dependence. 19.NO CODE, NO CPR, NO VENT. RECOMMENDATIONS AND DISCUSSION: I recommend to continue current medications, monitoring and symptomatic treatment. Otherwise, will try to advance diet slowly. Currently the patient is NO CODE, but the family would like to return home with hospice to see if the patient gets better. Otherwise, [facility] is an option for the family. I would keep proton pump inhibitors. Continue the rest of the medications. Pain medications. Overall prognosis guarded. Further recommendations to follow. MMODL / IJN: [id number] /
[2018-11-08 21:38] VITALS: RESP 17
--- NOTE | 2018-11-08 22:05 | XR ---
Thoracic spine HISTORY: Trauma and pain 3 views of the thoracic spine, correlation CT chest 11/06/2017 Thoracic vertebral bodies show preserved height. Upper thoracic vertebral bodies are not well seen ho wever. There is blunting of the costophrenic angles. Large osteophytes are present. Disc spaces appea r maintained. Port-A-Cath is noted incidentally. Pleural parenchymal changes noted compatible with kate paris's history of lung carcinoma. IMPRESSION: The exam is somewhat limited. No acute fracture or subluxation is evident. Follow-up as i ndicated.
--- NOTE | 2018-11-08 22:06 | XR ---
AP pelvis HISTORY: Trauma and pain Single frontal view of the pelvis correlated prior exam 09/19/2017 There is no interval change. Degenerative disc changes are present in the visualized spine. IMPRESSION: No acute fracture or dislocation. Follow-up as indicated.
[2018-11-09] MEDS: HYDROmorphone 0.5 MG/0.5 ML SYRINGE IVP PRN ×2 (04:24→08:34)
[2018-11-09] MEDS: methylPREDNISolone SOD SUCCI 125 MG/2 ML VIAL IV SCH (05:00)
[2018-11-09 06:07] VITALS: BP 119/75; TEMP 97.5
[2018-11-09] MEDS: SODIUM CHLORIDE 0.9% 1,000 ML IV SCH (06:15)
[2018-11-09 07:07] LABS: Glucose,Whole Blood 159 mg/dL (75-99)
[2018-11-09 07:38] LABS: Anisocytosis Slight; Basophils % (A) 0 %; Eosinophils # (A) 0.1 k/uL (0-0.7); Eosinophils % (A) 1 %; HCT 24.3 % (39.0-53.0); HGB 7.4 gm/dL (13.0-17.5); Hypochromasia Moderate; Lymphocytes # (A) 0.4 k/uL (1.0-4.8); Lymphocytes % (A) 4 %; MCH 24.2 pg (25.0-35.0); MCHC 30.4 g/dL (31.0-37.0); MCV 79.7 fL (80.0-100.0); Mean Platelet Volume 6.7; Microcytosis Slight; Monocytes # (A) 0.5 k/uL (0-1.0); Monocytes % (A) 5 %; Neutrophils # (A) 9.2 k/uL (1.3-7.7); Neutrophils % (A) 90 %; Platelet Count 386 k/uL (150-450); RBC 3.05 m/uL (4.30-5.90); RDW 16.8 % (11.5-15.5); WBC 10.2 k/uL (3.8-10.6)
[2018-11-09 07:57] LABS: Calcium 8.6 mg/dL (8.4-10.2); Potassium 4.8 mmol/L (3.5-5.1)
[2018-11-09] MEDS: INSULIN ASPART (NovoLOG) 100 UNIT/ML VIAL SQ SCH (08:30)
[2018-11-09] MEDS: PANTOPRAZOLE 40 MG/10 ML VIAL IVP SCH (08:30)
[2018-11-09] MEDS: IPRATROPIUM-ALBUTEROL 3 ML NEB INHALATION SCH (08:34)
[2018-11-09] MEDS: TAMSULOSIN 0.4 MG CAP.ER.24H PO SCH (08:35)
[2018-11-09 08:48] VITALS: PULSE 78
[2018-11-09 10:51] LABS: Glucose,Whole Blood 185 mg/dL (75-99)
--- NOTE | 2018-11-15 23:19 | DS ---
DISCHARGE SUMMARY DATE OF ADMISSION: 11/06/2018 DATE OF DISCHARGE: 11/09/2018 FINAL DIAGNOSES: 1. 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 2. Loop diverting colostomy. 3. Diabetes mellitus type 2 on oral hypoglycemic. 4. Essential hypertension. 5. Benign prostatic hypertrophy. 6. Normocytic anemia from malignancy. 7. Mild protein-calorie malnutrition from decreased oral intake. HOSPITAL COURSE: This patient with upper malignancy was recently in the hospital with pancreatitis and who has been at hospice at home, presented to the ER feeling weak, tired, short of breath. Also has emesis. The patient did undergo a CT scan of the chest, abdomen and pelvis. Again was found to have left hydronephrosis, moderate pleural effusion, lung nodules, hepatic metastasis, also had some possible coffee-grounds emesis. Also was treated for the COPD. The patient has some back pain. There was no fracture reported. The day of discharge had a long talk with the patient. He understands with his advanced condition and in that he has already was under hospice before admission. This is going to be progressive. The patient is tolerating a light diet. Hospice will be reinstated when the patient gets home. Discussion and discharge planning more than 35 minutes. CONSULTATION: Dr. Dill from General surgery, Dr. Santizo from Pulmonary. PHYSICAL EXAMINATION: Temperature 97.5, pulse 83, respiration 17, blood pressure 119/75, pulse ox 96% on 2 L. ABDOMEN: Soft, nontender. Psych: Patient able to answer simple questions. LABS: White count 10.2, hemoglobin 7.4, potassium 4.8, BUN 27, creatinine 1.49. DISCHARGE MEDICATIONS: 1. Pravachol 40 mg q.h.s. 2. Neurontin 300 mg p.o. t.i.d. 3. Magnesium oxide 400 mg p.o. daily. 4. Flomax 0.4 mg p.o. b.i.d. 5. Zofran 4 mg q.6h p.r.n. FOLLOW DR: With Dr. Hayes on 11/17/2018. Patient is going back with [facility]. Copy to Dr. Hayes. MMODL / IJN: [id number] /
== END 2018-11-09 12:00 | disposition hospice, home (50) | DRG 435 ==
LOC: EC 22:26 → 3NMEDONC 11-06 00:50 → OBSVTOIN 11-06 13:17
PROVIDERS: ADMIT Hospitalist; ATTEND Hospitalist
DX: C78.7 Secondary malignant neoplasm of liver and intrahepatic bile duct (principal); K29.01 Acute gastritis with bleeding; K27.4 Chronic or unspecified peptic ulcer, site unspecified, with hemorrhage; J91.0 Malignant pleural effusion; C78.02 Secondary malignant neoplasm of left lung; E44.1 Mild protein-calorie malnutrition; N13.30 Unspecified hydronephrosis; E11.22 Type 2 diabetes mellitus with diabetic chronic kidney disease; Z96.653 Presence of artificial knee joint, bilateral; F32.9 Major depressive disorder, single episode, unspecified; E87.5 Hyperkalemia; N40.0 Benign prostatic hyperplasia without lower urinary tract symptoms; D63.0 Anemia in neoplastic disease; E78.5 Hyperlipidemia, unspecified; J44.9 Chronic obstructive pulmonary disease, unspecified; I12.9 Hypertensive chronic kidney disease with stage 1 through stage 4 chronic kidney disease, or unspecified chronic kidney disease; N18.3 Chronic kidney disease, stage 3 (moderate); M19.90 Unspecified osteoarthritis, unspecified site; Z66 Do not resuscitate; Z93.3 Colostomy status; Z92.21 Personal history of antineoplastic chemotherapy; Z86.711 Personal history of pulmonary embolism; Z86.718 Personal history of other venous thrombosis and embolism; Z98.42 Cataract extraction status, left eye; Z98.41 Cataract extraction status, right eye; Z87.891 Personal history of nicotine dependence; Z79.84 Long term (current) use of oral hypoglycemic drugs; Z79.899 Other long term (current) drug therapy; Z85.038 Personal history of other malignant neoplasm of large intestine; Z90.49 Acquired absence of other specified parts of digestive tract; Z83.3 Family history of diabetes mellitus; Z80.9 Family history of malignant neoplasm, unspecified; Z81.8 Family history of other mental and behavioral disorders
CPT/HCPCS: 36415; 71045; 71250; 72070; 72170; 74176; 80048; 80053; 83735; 83880; 84484; 85025; 85610; 85730; 87040; 87502; 93005; 94640; 94644; 94760; 96374; 96375; 99285